=== PATIENT | male | born 1970 | race Two or more races ===

== ENCOUNTER 2022-08-22 13:05 | Emergency (ER) | payer MEDICAID, OTHER, SELFPAY ==
--- NOTE | ~2022-08-22 | XR_ITS ---
EXAMINATION: XR chest 2V CLINICAL INFORMATION: Reason for Exam Cough congestion COMPARISON: No prior chest x-ray available in our system for comparison at the time of this dictation. TECHNIQUE: XR chest 2V Lungs and Actie: There is infiltrate lower lobe seen best on lateral view presumably pneumonia. Pleura: Normal. Costophrenic angles are sharp. No pneumothorax. Heart: The heart is normal in size. Mediastinum: The mediastinum is within normal limits.. Bones: Skeletal structures included are normal for patient's age. XR/XR chest 2V IMPRESSION: Mild infiltrate over the left lower lobe posterior lung seen on lateral view presumably pneumonia, clinical correlation and follow-up recommended to ensure complete clearance and exclude underlying pathology.
--- NOTE | 2022-08-22 13:14 | ECG_ITS ---
Test Reason : cp Blood Pressure : / mmHG Vent. Rate : 076 BPM Atrial Rate : 076 BPM P-R Int : 160 ms QRS Dur : 082 ms QT Int : 406 ms P-R-T Axes : 021 -17 076 degrees QTc Int : 456 ms Normal sinus rhythm Nonspecific T wave abnormality Abnormal ECG No previous ECGs available Referred By: Generic ED Physician Electronically Signed By:KELLY ELLIS
[2022-08-22 15:09] VITALS: BP 192/82; PULSE 78; RESP 16; TEMP 36.3; O2SAT 98; BMI 34.2
--- NOTE | 2022-08-22 15:09 | ED.URI ---
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 Patient feels of the last few days he has had tactile fever. + chest discomfort with coughing. Cough is productive with yellow sputum. No leg swelling or leg pain, vomiting, diarrhea abdominal pain <Olga Ferreira NP - Last Filed: 08/22/22 18:07> Related Data Home Medications: Previous Rx's Medication Instructions Recorded benzonatate 200 mg capsule 200 mg PO TID PRN cough #20 caps 08/22/22 doxycycline monohydrate 100 mg 100 mg PO BID #20 caps 08/22/22 capsule <JOE Anderson - Last Filed: 08/22/22 15:14> Allergies/Adverse Reactions: Allergies Allergy/AdvReac Type Severity Reaction Status Date / Time No Known Allergies Allergy Verified 08/22/22 15:14 <JOE Anderson - Last Filed: 08/22/22 15:14> Review of Systems Review of Systems: Yes all other systems are reviewed and are negative <MAICO Silva Last Filed: 08/22/22 18:07> Constitutional: Constitutional: Reports no additional constitutional complaints, Denies body ache(s), Denies chills, Reports fever(s), Denies headache(s) and Denies weakness <Olga Ferreira NP - Last Filed: 08/22/22 18:07> Eyes: Eyes: Reports no additional eye complaints and Denies change in vision <Olga Ferreira NP - Last Filed: 08/22/22 18:07> ENT: Reports system reviewed and no additional complaints, except as documented, Denies dizziness, Denies headache(s), Reports nasal congestion, Denies nasal discharge and Denies neck pain <Olga Ferreira NP - Last Filed: 08/22/22 18:07> Cardiovascular: Cardiovascular: Reports no additional cardiovascular complaints, Reports chest pain (With coughing only), Denies leg edema and Denies dyspnea <Olga Ferreira NP - Last Filed: 08/22/22 18:07> Respiratory: Respiratory: Reports no additional respiratory complaints, Reports cough and Denies dyspnea <Olga Ferreira NP - Last Filed: 08/22/22 18:07> Gastrointestinal: Gastrointestinal: Reports no additional gastrointestinal complaints, Denies abdominal pain, Denies diarrhea, Denies nausea and Denies vomiting <Olga Ferreira NP - Last Filed: 08/22/22 18:07> Genitourinary: Genitourinary: Denies urinary incontinence <Olga Ferreira NP - Last Filed: 08/22/22 18:07> Musculoskeletal: Musculoskeletal: Reports no additional musculoskeletal complaints, Denies back pain, Denies arthralgias, Denies joint swelling, Denies neck pain, Denies numbness and Denies tingling <Olga Ferreira NP - Last Filed: 08/22/22 18:07> Integumentary/Breasts: Skin/Breast: Reports system reviewed and no additional complaints, except as docu and Denies rash <Olga Ferreira NP - Last Filed: 08/22/22 18:07> Neurologic: Reports system reviewed and no additional complaints, except as documented, Denies Abnormal speech present, Denies dizziness, Denies headache(s), Denies numbness, Denies tingling and Denies weakness <Olga Ferreira NP - Last Filed: 08/22/22 18:07> [facility] Past Medical History Attestation statement: The following information was validated with the patient. <Olga Ferreira NP - Last Filed: 08/22/22 18:07> Source: old records reviewed and nursing notes reviewed <Olga Ferreira NP - Last Filed: 08/22/22 18:07> Social History Social History: Social History Advance Directives: No Advance Directives Information Provided: No <JOE Anderson - Last Filed: 08/22/22 15:14> Physical Exam Vital Signs: Vital Signs: Last Vital Signs Temp 97.4 F 08/22/22 15:09 Pulse 78 08/22/22 17:35 Resp 16 08/22/22 17:35 BP 192/82 H 08/22/22 15:09 Pulse Ox 98 08/22/22 15:09 O2 Del Method 08/22/22 15:09 BMI result Body Mass Index 34.2 <JOE Anderson - Last Filed: 08/22/22 15:14> Vital Signs: Last Vital Signs Temp 97.4 F 08/22/22 15:09 Pulse 78 08/22/22 17:35 Resp 16 08/22/22 17:35 BP 192/82 H 08/22/22 15:09 Pulse Ox 98 08/22/22 15:09 O2 Del Method 08/22/22 15:09 BMI result Body Mass Index 34.2 <Olga Ferreira NP - Last Filed: 08/22/22 18:07> Const: General: cooperative, healthy appearing, comfortable and no acute distress <Olga Ferreira NP - Last Filed: 08/22/22 18:07> Orientation/consciousness: patient oriented x3 <Olga Ferreira NP - Last Filed: 08/22/22 18:07> Limitations: no limitations <Olga Ferreira NP - Last Filed: 08/22/22 18:07> HEENT: Head: Yes normal to inspection <Olga Ferreira NP - Last Filed: 08/22/22 18:07> Ears: hearing grossly normal bilaterally and TM's normal bilaterally <Olga Ferreira NP - Last Filed: 08/22/22 18:07> General nose exam: Normal external nose present <Olga Ferreira NP - Last Filed: 08/22/22 18:07> Face and sinus: Yes normal facial exam <Olga Ferreira NP - Last Filed: 08/22/22 18:07> Mouth: Normal oral and palatal mucosa present <Olga Ferreira NP - Last Filed: 08/22/22 18:07> Throat: Yes posterior oropharynx normal, Yes tonsils normal and Yes uvula midline <Olga Ferreira NP - Last Filed: 08/22/22 18:07> Eyes: General: appearance normal, both eyes and all related structures <Olga Ferreira NP - Last Filed: 08/22/22 18:07> Pupils: Equal, round and reactive pupils present <Olga Ferreira NP - Last Filed: 08/22/22 18:07> Neck: Neck: Yes normal visual inspection, Yes full ROM, Yes no lymphadenopathy and Yes no meningeal signs <Olga Ferreira NP - Last Filed: 08/22/22 18:07> Chest: Chest palpation & inspection: normal inspection of the chest and tenderness (Central chest tender to palpation) <Olga Ferreira NP - Last Filed: 08/22/22 18:07> Resp: Other: Mild expiratory wheezing <Olga Ferreira NP - Last Filed: 08/22/22 18:07> Effort & Inspection: normal respiratory effort <Olga Ferreira NP - Last Filed: 08/22/22 18:07> Cardio: Rate: regular rate <Olga Ferreira NP - Last Filed: 08/22/22 18:07> Rhythm: regular rhythm <Olga Ferreira NP - Last Filed: 08/22/22 18:07> Peripheral pulses: Peripheral pulses 2+ throughout <Olga Ferreira NP - Last Filed: 08/22/22 18:07> GI: Inspection: Yes normal to inspection <Olga Ferreira NP - Last Filed: 08/22/22 18:07> Palpation (GI): Soft to palpation and nontender <Olga Ferreira NP - Last Filed: 08/22/22 18:07> Auscultation: normal bowel sounds <Olga Ferreira NP - Last Filed: 08/22/22 18:07> Back/Spine/Pelvis: Thoracic/Lumbar Spine: thoracic and lumbar spine normal to inspection <Olga Ferreira NP - Last Filed: 08/22/22 18:07> Skin: General skin exam: no rashes or lesions noted <Olga Ferreira NP - Last Filed: 08/22/22 18:07> Neuro: General: patient oriented x3, no meningeal signs, no focal motor deficits and normal sensation to monofilament <Olga Ferreira NP - Last Filed: 08/22/22 18:07> Cranial nerves: Yes Equal, round and reactive pupils present <lOga Ferreira NP - Last Filed: 08/22/22 18:07> Cognition (Neuro): normal cognition <Olga Ferreira NP - Last Filed: 08/22/22 18:07> Speech: No Abnormal speech present <Olga Ferreira NP - Last Filed: 08/22/22 18:07> Gait exam (Neuro): Normal gait present <Olga Ferreira NP - Last Filed: 08/22/22 18:07> Motor exam (neuro): 5/5 motor strength present throughout <Olga Ferreira NP - Last Filed: 08/22/22 18:07> Extrem: General: Yes normal to inspection, Yes no pedal edema and Yes no calf tenderness <Olga Ferreira NP - Last Filed: 08/22/22 18:07> Course Course Course Narrative: RME- 15:15pm 52yoM c PMHx of CKD currently on hemodialysis on Monday//Saturdays who is presenting to the ED c c/o generalized fatigue/malaise, subjective fevers, nasal congestion/rhinorrhea with a cough with chest congestion for the past week worse today. has similar symptoms. He did not test himself for COVID. He denies recent travel. Reports he had dialysis on Monday. Plan: Therefore at this time patient is stable patient will be sent back to the waiting room to be evaluated [facility]. COVID/RSV/flu swab and chest x-ray ordered at this time. <JOE Anderson - Last Filed: 08/22/22 15:14> Reevaluation(s) Reevaluation #1: Influenza a is positive. Chest x-ray concerning for left upper lobe infiltrate. No lungs are with some mild expiratory wheezing which improved with albuterol. No hypoxia or tachypnea. Patient be discharged home with albuterol MDI, cough suppressant antibiotic. Reviewed worrisome signs and symptoms of when to return to the emergency room. Comfortable plan for discharge home. <Olga Ferreira NP - Last Filed: 08/22/22 18:07> Medications Administered Discontinued Medications Generic Name Dose Route Start Last Admin Trade Name Freq PRN Reason Stop Dose Admin Albuterol Sulfate 2 puff 08/22/22 17:13 08/22/22 17:34 Albuterol Sulfate 90 Mcg 8 Gm Inhaler INHALE 08/22/22 17:14 2 puff ONCE ONE Administration <JOE Anderson - Last Filed: 08/22/22 15:14> Medications Administered Discontinued Medications Generic Name Dose Route Start Last Admin Trade Name Freq PRN Reason Stop Dose Admin Albuterol Sulfate 2 puff 08/22/22 17:13 08/22/22 17:34 Albuterol Sulfate 90 Mcg 8 Gm Inhaler INHALE 08/22/22 17:14 2 puff ONCE ONE Administration <Olga Ferreira NP - Last Filed: 08/22/22 18:07> Medical Decision Making Medical Decision Making MDM Narrative: 52-year-old male with a history of end-stage renal disease on dialysis, hypertension and diabetes presents with URI symptoms for 1 week now with tactile fever and chest discomfort with coughing for the last few days. On arrival to chest is tender to palpation. Lungs with mild expiratory wheezing throughout. Abdomen soft nontender. No lower extremity swelling noted. Vitals are stable. Will send testing for flu, COVID, RSV. Will obtain chest x-ray. Patient will receive albuterol MDI 2 puffs <Olga Ferreira NP - Last Filed: 08/22/22 18:07> Differential Diagnosis Differential Diagnoses: The differential diagnosis associated with the presentation includes <Olga Ferreira NP - Last Filed: 08/22/22 18:07> Bronchitis, pneumonia, viral syndrome, influenza Low concern for PE with no tachypnea, no hypoxia, no tachycardia, no clinical findings concerning for DVT. <Olga Ferreira NP - Last Filed: 08/22/22 18:07> Lab Data MDM Lab Attestation statement: I reviewed the patient's lab results. <Olga Ferreira NP - Last Filed: 08/22/22 18:07> Labs: Lab Results 08/22/22 Range/Units 15:33 Influenza Type A (PCR) POSITIVE A (Negative) Influenza Type B (PCR) NEGATIVE (Negative) RSV RNA Qual (PCR) NEGATIVE (Negative) SARS-CoV-2 RNA (RT-PCR) NEGATIVE (Negative) <JOE Anderson - Last Filed: 08/22/22 15:14> Lab Results 08/22/22 Range/Units 15:33 Influenza Type A (PCR) POSITIVE A (Negative) Influenza Type B (PCR) NEGATIVE (Negative) RSV RNA Qual (PCR) NEGATIVE (Negative) SARS-CoV-2 RNA (RT-PCR) NEGATIVE (Negative) <Olga Ferreira NP - Last Filed: 08/22/22 18:07> Independent Interpretation I performed an independent interpretation of an: EKG and Plain X-Ray (I independently reviewed the x-ray which shows left upper lobe infiltrate) <Olga Ferreira NP - Last Filed: 08/22/22 18:07> Interpretation: Independently reviewed the EKG which shows normal sinus rhythm with a rate of 76, normal WI, normal QRS, normal QT, nonspecific T-wave abnormality <Olga Ferreira NP - Last Filed: 08/22/22 18:07> Radiology Impression Discussion of test interpretation with radiology: I have reviewed the radiologist's reading. <Olga Ferreira NP - Last Filed: 08/22/22 18:07> Radiologist Impression: IMPRESSION: Mild infiltrate over the left lower lobe posterior lung seen on lateral view presumably pneumonia, clinical correlation and follow-up recommended to ensure complete clearance and exclude underlying pathology. <Olga Ferreira NP - Last Filed: 08/22/22 18:07> Prescription Management I considered prescription management with: Antiviral <Olga Ferreira NP - Last Filed: 08/22/22 18:07> Patient influenza positive. Patient has had symptoms for 1 week so Tamiflu not indicated and I explained that would not be helpful at this time. <Olga Ferreira NP - Last Filed: 08/22/22 18:07> Discharge Plan Discharge Clinical Impression: Influenza, Pneumonia <JOE Anderson - Last Filed: 08/22/22 15:14> Patient Disposition: Home, Self-Care <JOE Anderson - Last Filed: 08/22/22 15:14> Instructions: Influenza (ED), Pneumonia (ED) <JOE Anderson - Last Filed: 08/22/22 15:14> Additional Instructions: Las pruebas de COVID y RSV son negativas. La radiograf?a de t?rax muestra neumon?a. La prueba de gripe es positiva, sin embargo, debido a la duraci?n de los s?ntomas, no califica para el medicamento contra la gripe. Use el inhalador cada 4 a 6 horas para la tos o sibilancias. Aumentar l?quidos, descansar Motrin alternativo, Tylenol para el dolor o la fiebre Testing for COVID and RSV are negative. Chest x-ray shows pneumonia. Testing for flu is positive, however due to your length of symptoms you do not qualify for the flu medication. Use the inhaler every 4-6 hours for cough/wheezing. Increase fluids,rest Alternate Motrin, Tylenol for pain or fever <JOE Anderson - Last Filed: 08/22/22 15:14> Prescriptions: New benzonatate 200 mg capsule 200 mg PO TID PRN (Reason: cough) Qty: 20 0RF doxycycline monohydrate 100 mg capsule 100 mg PO BID Qty: 20 0RF <JOE Anderson - Last Filed: 08/22/22 15:14> Referrals: Physician,None [Primary Care Provider] - <JOE Anderson - Last Filed: 08/22/22 15:14> Interventions: ED Discharge Assessment Last Done: 08/22/22 17:36 <JOE Anderson - Last Filed: 08/22/22 15:14> Discharge Date/Time: 08/22/22 17:36 <JOE Anderson - Last Filed: 08/22/22 15:14>
[2022-08-22 16:19] LABS: Influenza A PCR POSITIVE (Negative); Influenza B PCR NEGATIVE (Negative); Resp Syncy Virus RNA Qual PCR NEGATIVE (Negative); SARS COV2 PCR INHOUSE NEGATIVE (Negative)
[2022-08-22] MEDS: Albuterol Sulfate 90 MCG 8 GM INHALER 2 PUFF INHALE (17:34)
[2022-08-22 17:35] VITALS: PULSE 78; RESP 16; O2SAT 98
== END 2022-08-22 17:36 | disposition home or self-care (01) ==
PROVIDERS: Physician Assistant Medical; Emergency Provider Internal Medicine
DX: J10.00 Influenza due to other identified influenza virus with unspecified type of pneumonia (principal); Z20.822 Contact with and (suspected) exposure to COVID-19
CPT/HCPCS: 0241U; 71046; 93005; 94640; 94664; 99284

== ENCOUNTER 2023-01-27 15:46 | Emergency (ER) | payer MEDICAID, OTHER, SELFPAY ==
--- NOTE | ~2023-01-27 | CT_ITS ---
EXAMINATION: CT HEAD WITHOUT CONTRAST CLINICAL INFORMATION: Left vision loss. Headache COMPARISON: None. TECHNIQUE: Multidetector CT examination of the head is performed without contrast. This CT examination was performed using dose optimization techniques as appropriate, variously including the following: *Automated exposure control *Adjustment of mA and/or kV according to patient size (this includes techniques or standardized protocols for targeted exams where dose is matched to indication/reason for exam; i.e. extremities or head) *Use of iterative reconstruction technique DLP: 775 mGy-cm FINDINGS: There is no evidence of a recent intracranial hemorrhage or extra-axial collection. The midline structures are nondisplaced. The ventricles, cisterns, and sulci are within normal limits. There is no evidence of an intra-axial mass. There are no suspicious focal areas of abnormal brain attenuation. The delaney-white interface is within normal limits. There is no evidence of acute territorial infarct. There is extensive large and small vessel arterial calcification including small vessels in each orbit. No fluid level CT/CT head/brain wo IV con IMPRESSION: 1. There is no evidence of a recent intracranial hemorrhage. 2. No acute infarct. 3. Extensive arterial calcifications including small arterial branches in each orbit
--- NOTE | 2023-01-27 16:05 | ED_ITS ---
HPI - General Adult General Chief complaint: Eye Problems Stated complaint: Unable to see from L eye Time Seen by Provider: 01/27/23 17:15 Source: patient and family Mode of arrival: ambulatory Limitations: no limitations History of Present Illness HPI narrative: 53-year-old male with a history of insulin-dependent diabetes, end-stage renal disease on dialysis Monday and Fridays, hypertension presents to the ER with complaints of left eye blurry vision, left-sided headache for the last 3 days. Describes the blurry vision as gradual, central visual loss with peripheral normal. Patient denies any injury or trauma. 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 Baseline he does not requiring corrective lenses. He denies any associated photophobia, discharge, itching, crusting of the eye. No associated vomiting, weakness/numbness/tingling of the upper or lower extremities. Patient denies any history of AC therapy use or aspirin use. Related Data Previous Rx's Medication Instructions Recorded benzonatate 200 mg capsule 200 mg PO TID PRN cough #20 caps 08/22/22 doxycycline monohydrate 100 mg 100 mg PO BID #20 caps 08/22/22 capsule Allergies Allergy/AdvReac Type Severity Reaction Status Date / Time No Known Allergies Allergy Verified 01/27/23 16:06 Review of Systems Review of Systems: Yes all other systems are reviewed and are negative Constitutional: Constitutional: Reports no additional constitutional complaints, Denies body ache(s), Denies chills, Denies fever(s), Reports headache(s) and Denies weakness Eyes: Eyes: Reports no additional eye complaints, Reports change in vision, Denies eye discharge, Denies itchy eyes, Reports eye pain, Denies requires corrective lenses and Denies photophobia ENT: Reports system reviewed and no additional complaints, except as docume nted, Denies dizziness, Reports headache(s), Denies nasal congestion, Denies nasal discharge and Denies neck pain Cardiovascular: Cardiovascular: Reports no additional cardiovascular complaints, Denies chest pain, Denies leg edema and Denies dyspnea Respiratory: Respiratory: Reports no additional respiratory complaints, Denies cough and Denies dyspnea Gastrointestinal: Gastrointestinal: Reports no additional gastrointestinal complaints, Denies abdominal pain, Denies diarrhea, Denies nausea and Denies vomiting Genitourinary: Genitourinary: Denies urinary incontinence Musculoskeletal: Musculoskeletal: Reports no additional musculoskeletal complaints, Denies back pain, Denies arthralgias, Denies joint swelling, Denies neck pain, Denies numbness and Denies tingling Integumentary/Breasts: Skin/Breast: Reports system reviewed and no additional complaints, except as docu and Denies rash Neurologic: Reports system reviewed and no additional complaints, except as documented, Denies dizziness, Reports headache(s), Denies numbness, Denies ti ngling and Denies weakness Allergic/Immunologic: Allergic/Immunologic: Denies itchy eyes PMFSH Past Medical History Attestation statement: The following information was validated with the patient. Source: old records reviewed and nursing notes reviewed Social History Social History Smoked in Last 30 Days: No Use of substances other than those prescribed or required for medical reasons: No Advance Directives: No Advance Directives Information Provided: No Physical Exam ED Vital Signs: Vital Signs - 24 hr 01/27/23 16:07 01/27/23 18:25 Temperature 96.9 F Pulse Rate 78 Respiratory Rate 18 16 Blood Pressure 163/70 H 144/67 H Pulse Oximetry 98 98 Oxygen Delivery Method Room Air Room Air BMI result Body Mass Index 34.0 Const General: cooperative, healthy appearing and comfortable Orientation/consciousness: patient oriented x3 Limitations: no limitations HENMT Head: Yes normal to inspection and No Temporal artery tenderness present Ears: hearing grossly normal bilaterally and TM's normal bilaterally Throat: Yes posterior oropharynx normal, Yes tonsils normal and Yes uvula midline Eyes Other: IOP ( right eye 15, left eye 12) Left pupil non reactive-absent red light reflex. Right pupil 3mm reactive with normal red light reflex See charted visual acuity Visual field deficit w/ exception of left peripheral (lateral) General: appearance normal, both eyes and all related structures Alignment and Position: alignment normal Periorbital: periorbital findings normal Eyelids: Yes eyelids normal Conjunctivae: conjunctivae normal Sclerae: sclerae normal Corneas: corneas normal and fluorescein used (NO corneal FB or abrasion ) EOM: EOMs intact bilaterally Direct Ophthalmoscopy: no photophobia, decreased light reflex on the left and No photophobia Neck Neck: Yes normal visual inspection, Yes full ROM, Yes no lymphadenopathy and Yes no meningeal signs Chest Chest palpation & inspection: normal inspection of the chest Resp Effort & Inspection: normal respiratory effort Auscultation: clear to auscultation bilaterally Cardio Rate: regular rate Rhythm: regular rhythm Peripheral pulses: Peripheral pulses 2+ throughout GI Inspection: Yes normal to inspection Palpation (GI): Soft to palpation and nontender General: Yes no CVA tenderness Back/Spine/Pelvis Back: no CVA tenderness Thoracic/Lumbar Spine: thoracic and lumbar spine normal to inspection Skin General skin exam: no rashes or lesions noted Neuro General: patient oriented x3, moves all extremities and no meningeal signs Cranial nerves: Yes CN's II-XII intact bilaterally, Yes Bilaterally intact EOM present, Yes Nystagmus not present, Yes Normal facial strength present and Yes Midline tongue present Cognition (Neuro): normal cognition Gait exam (Neuro): Normal gait present Motor exam (neuro): 5/5 motor strength present throughout Sensory Exam: Normal double simultaneous stimulation for sensation Extrem General: Yes normal to inspection Course Course Course Narrative: This is an RME: Additional HPI, ROS, PE not included below will be deferred to primary provider. This is a 72-mhvj-pde-zimbabwean speaking male, with a past medical history of end stage renal disease on hemodialysis (Mon, Wed, Mon), diabetes, hypertension, presenting to the emergency department with complaints of left eye pain and loss of vision out of his left eye x 3 days. He states that 3 days ago he was washing his face and noticed that he had blurred vision. Denies trauma, injury to his eye. Vision has become progressively worsening. Describes the pain as pressure. He reports that he has blurred vision in the front, but clearer vision in his peripherals. He does not have an eye doctor. Admits to having some headaches and dizziness. Hx of cataracts with cataract surgery in [place] [facility] in . Pt with no neurological findings. Left pupil is constricted and irregular, nonreactive. Patient's symptoms ongoing for 3 days. Informed charge nurse who placed pt in room in main ER. Plan: CT head, basic labs, coags Reevaluation(s) Reevaluation #1: 3371-CT head shows IMPRESSION: 1. There is no evidence of a recent intracranial hemorrhage. ? 2. No acute infarct. ? 3. Extensive arterial calcifications including small arterial branches in each orbit Labs are unrermarkabkle. No corneal FB or abrasion on eye exam. Normal IOPS. D/w with Dr Leiva. Plan: d/w with Dr Hidalgo Reevaluation #2: Patient had ultrasound done at the bedside by Dr. Woodall. Patient has a vitreous hemorrhage on exam. No retinal detachment seen. I discussed this with the patient and his daughter. We have plans to follow up next week with ophthalmology. I reviewed elevation of head of the bed. I reviewed worrisome signs and symptoms of when to return to the emergency room. Comfortable plan for discharge home. Medications Administered Discontinued Medications Generic Name Dose Route Start Last Admin Trade Name Freq PRN Reason Stop Dose Admin Fluorescein Sodium 1 strip 01/27/23 17:32 01/27/23 17:49 Fluorescein Sodium Strip EYE-LEFT 01/27/23 17:33 1 strip ONCE ONE Administration Tetracaine HCl 1 drop 01/27/23 17:32 01/27/23 17:49 Tetracaine Hcl/Pf 0.5% Oph Jailene 4 Ml Drops EYE-LEFT 01/27/23 17:33 1 drop ONCE ONE Administration Medical Decision Making Medical Decision Making [facility] Narrative: This is a 53-year-old male with extensive medical history who presents to the ER with complaints of left eye blurry vision with posterior eye pain for the last 3 days. On exam patient with nonreactive left pupil, absent red light reflex and visual field deficit. Unable to visualize anterior chamber of the eye. Otherwise normal neuro exam. 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 Likely vitreius hemorrhage. Re commends retinal ultrasound at the bedside, elevating the head of bed, checking coags and normotensive blood pressures. If IOP normal then follow-up outpatient with Ophthalmology. Increasing pain patient should return to the emergency room Lab Data MDM Lab Attestation statement: I reviewed the patient's lab results. 01/27/23 16:34 01/27/23 16:34 Labs: Lab Results 01/27/23 01/27/23 01/27/23 Range/Units 16:34 16:34 16:34 WBC 6.4 (4.8-10.8) X10*3/uL RBC 4.57 L (4.60-5.80) X10*6/uL Hgb 13.5 L (14.0-18.0) g/dl Hct 40.8 L (42.0-52.0) % MCV 89.3 (80.0-98.0) fL MCH 29.5 (27.0-33.0) pg MCHC 33.1 (31.0-36.0) g/dl RDW 13.2 (11.0-16.0) % Plt Count 197 (160-400) X10*3/uL MPV 11.1 (9.4-12.4) fL Immature Gran % (Auto) 0.2 (0.0-0.4) % Neut % (Auto) 65.4 (45-73) % Lymph % (Auto) 24.5 (20-40) % Sterling % (Auto) 6.6 (2-11) % Eos % (Auto) 2.7 (0-4) % Baso % (Auto) 0.6 (0-2) % Lymph # (Auto) 1.6 (1.2-4.9) X10*3/uL Sterling # (Auto) 0.4 (0.1-1.2) X10*3/uL Eos # (Auto) 0.2 (0.0-0.4) X10*3/uL Baso # (Auto) 0.0 (0.0-0.2) X10*3/uL Abs Immat Gran (auto) 0.01 (0.00-0.03) X10*3/uL Absolute Neuts (auto) 4.2 (2.0-8.3) x10*3/uL Absolute Nucleated RBC 0.000 (0.0-0.012) X10*3/uL Nucleated RBC % (auto) 0.0 (0.0-0.2) /100WBC ESR (0-15) MM/HR PT 10.5 (10.0-13.1) SEC INR 0.9 (0.9-1.1) APTT 30.3 (26.0-36.4) SEC Sodium 137 (135-145) mmol/L Potassium 4.4 (3.3-5.1) mmol/L Chloride 93 L (96-108) mmol/L Carbon Dioxide 30 H (22-29) mmol/L Anion Gap 18 (12-20) BUN 30 H (9-16) mg/dL Creatinine 6.35 H* (0.5-1.4) mg/dL Estim Creat Clear Calc 15.3 Estimated GFR 9 Random Glucose 235 H (60-115) mg/dL Calcium 9.0 (8.4-10.2) mg/dL Total Bilirubin 0.8 (0.0-1.0) mg/dL Direct Bilirubin 0.2 (0.0-0.5) mg/dL AST 14 (5-37) U/L ALT 11 (0-40) U/L Alkaline Phosphatase 87 (39-117) U/L C-Reactive Protein 0.33 (< or = 0.50) mg/dL Total Protein 8.3 H (6.5-8.0) g/dL Albumin 4.0 (3.5-5.0) g/dL 01/27/23 Range/Units 16:34 WBC (4.8-10.8) X10*3/uL RBC (4.60-5.80) X10*6/uL Hgb (14.0-18.0) g/dl Hct (42.0-52.0) % MCV (80.0-98.0) fL MCH (27.0-33.0) pg MCHC (31.0-36.0) g/dl RDW (11.0-16.0) % Plt Count (160-400) X10*3/uL MPV (9.4-12.4) fL Immature Gran % (Auto) (0.0-0.4) % Neut % (Auto) (45-73) % Lymph % (Auto) (20-40) % Sterling % (Auto) (2-11) % Eos % (Auto) (0-4) % Baso % (Auto) (0-2) % Lymph # (Auto) (1.2-4.9) X10*3/uL Sterling # (Auto) (0.1-1.2) X10*3/uL Eos # (Auto) (0.0-0.4) X10*3/uL Baso # (Auto) (0.0-0.2) X10*3/uL Abs Immat Gran (auto) (0.00-0.03) X10*3/uL Absolute Neuts (auto) (2.0-8.3) x10*3/uL Absolute Nucleated RBC (0.0-0.012) X10*3/uL Nucleated RBC % (auto) (0.0-0.2) /100WBC ESR 28 H (0-15) MM/HR PT (10.0-13.1) SEC INR (0.9-1.1) APTT (26.0-36.4) SEC Sodium (135-145) mmol/L Potassium (3.3-5.1) mmol/L Chloride (96-108) mmol/L Carbon Dioxide (22-29) mmol/L Anion Gap (12-20) BUN (9-16) mg/dL Creatinine (0.5-1.4) mg/dL Estim Creat Clear Calc Estimated GFR Random Glucose (60-115) mg/dL Calcium (8.4-10.2) mg/dL Total Bilirubin (0.0-1.0) mg/dL Direct Bilirubin (0.0-0.5) mg/dL AST (5-37) U/L ALT (0-40) U/L Alkaline Phosphatase (39-117) U/L C-Reactive Protein (< or = 0.50) mg/dL Total Protein (6.5-8.0) g/dL Albumin (3.5-5.0) g/dL Independent Interpretation I performed an independent interpretation of an: CT Scan Radiology Impression Discussion of test interpretation with radiology: I have reviewed the radiologist's reading. Radiologist Impression: [address] [address] [address] Scan Report Signed Patient: René Collier MR#: [id number] : 1970 Acct:[id number] Age/Sex: 53 / M ADM Date: 01/27/23 Loc: HO.ED Attending Dr: Ordering Physician: Angeles Serrano Date of Service: 01/27/23 Procedure(s): CT head/brain wo IV con Accession Number(s): [id number] cc: Angeles Serrano~ EXAMINATION: CT HEAD WITHOUT CONTRAST CLINICAL INFORMATION: Left vision loss. Headache COMPARISON: None. TECHNIQUE: Multidetector CT examination of the head is performed without contrast. This CT examination was performed using dose optimization techniques as appropriate, variously including the following: *Automated exposure control *Adjustment of mA and/or kV according to patient size (this includes techniques or standardized protocols for targeted exams where dose is matched to indication/reason for exam; i.e. extremities or head) *Use of iterative reconstruction technique DLP: 775 mGy-cm FINDINGS: There is no evidence of a recent intracranial hemorrhage or extra-axial collection. The midline structures are nondisplaced. The ventricles, cisterns, and sulci are within normal limits. There is no evidence of an intra-axial mass. There are no suspicious focal areas of abnormal brain attenuation. The delaney-white interface is within normal limits. There is no evidence of acute territorial infarct. There is extensive large and small vessel arterial calcification including small vessels in each orbit. No fluid level ? CT/CT head/brain wo IV con IMPRESSION: 1. There is no evidence of a recent intracranial hemorrhage. ? 2. No acute infarct. ? 3. Extensive arterial calcifications including small arterial branches in each orbit Independent Historian Clinical information obtained from an independent historian. History obtained from or confirmed by: Other (daughter) Discharge Plan Discharge Clinical Impression: Vitreous hemorrhage Patient Disposition: Home, Self-Care Instructions: Blurred Vision (ED) Additional Instructions: Your ultrasound shows an hemorrhage of the vitreous behind her left eye. We spoke to the eye doctor on-call. He recommends elevation of the head of the bed at 30 degrees. Recommend limiting strenuous activity. He recommends following up with him next week in the office for re-evaluation. If over the weekend you develop increased and pain in the eye we recommend to come back to the emergency room immediately Patiño ecograf?a muestra shaina hemorragia del v?treo detr?s de patiño awilda jonathon. Hablamos con el oftalm?logo de ryan. Recomienda la elevaci?n de la cabecera de la cama a 30 grados. Recomendar limitar la actividad extenuante. Recomienda hacer un seguimiento con ?l la pr?xima semana en la oficina para shaina reevalua ci?n. Si lilli el fin de semana desarrolla aumento y dolor en el awilda, le recomendamos que regrese a la dilcia de emergencias de inmediato. Prescriptions: No Action benzonatate 200 mg capsule 200 mg PO TID PRN (Reason: cough) Qty: 20 0RF doxycycline monohydrate 100 mg capsule 100 mg PO BID Qty: 20 0RF Referrals: Kunal Payton [Physician] - 5 days Interventions: ED Discharge Assessment Last Done: 01/27/23 19:56 Discharge Date/Time: 01/27/23 19:56 Print Language: Eritrean
[2023-01-27 16:07] VITALS: BP 163/70; PULSE 78; RESP 18; TEMP 36.1; O2SAT 98; BMI 34.0
[2023-01-27 16:38] LABS: MANUAL DIFF FLAG NO
[2023-01-27 16:42] LABS: Basophils Percent Auto 0.6 % (0-2); Eosinophils Absolute Auto 0.2 X10*3/uL (0.0-0.4); Eosinophils Percent Auto 2.7 % (0-4); Hematocrit 40.8 % (42.0-52.0); Hemoglobin 13.5 g/dl (14.0-18.0); Imm Gran Abs Auto 0.01 X10*3/uL (0.00-0.03); Imm Gran Pct Auto 0.2 % (0.0-0.4); Lymphocytes Absolute Auto 1.6 X10*3/uL (1.2-4.9); Lymphocytes Percent Auto 24.5 % (20-40); Mean Corpuscular HGB Conc 33.1 g/dl (31.0-36.0); Mean Corpuscular Hemoglobin 29.5 pg (27.0-33.0); Mean Corpuscular Volume 89.3 fL (80.0-98.0); Mean Platelet Volume 11.1 fL (9.4-12.4); Monocytes Absolute Auto 0.4 X10*3/uL (0.1-1.2); Monocytes Percent Auto 6.6 % (2-11); Neutrophils Absolute Auto 4.2 x10*3/uL (2.0-8.3); Neutrophils Percent Auto 65.4 % (45-73); Platelet Count 197 X10*3/uL (160-400); Red Blood Count 4.57 X10*6/uL (4.60-5.80); Red Cell Distribution Width 13.2 % (11.0-16.0); White Blood Count 6.4 X10*3/uL (4.8-10.8)
[2023-01-27 16:48] LABS: INTERNATIONAL NORM RATIO 0.9 (0.9-1.1); Prothrombin Time 10.5 SEC (10.0-13.1)
[2023-01-27 16:51] LABS: Partial Thromboplastin Time 30.3 SEC (26.0-36.4)
[2023-01-27 17:29] LABS: Alanine Aminotransferase 11 U/L (0-40); Alkaline Phosphatase 87 U/L (39-117); Anion Gap 18 (12-20); Aspartate Amino Transferase 14 U/L (5-37); Bilirubin Direct 0.2 mg/dL (0.0-0.5); Bilirubin Total 0.8 mg/dL (0.0-1.0); Blood Urea Nitrogen 30 mg/dL (9-16); Carbon Dioxide 30 mmol/L (22-29); Chloride 93 mmol/L (96-108); Creatinine Clr Calc Pharmacy 15.3; Estimated Glomerular Filt Rate 9; Glucose Random 235 mg/dL (60-115); Potassium 4.4 mmol/L (3.3-5.1); Sodium 137 mmol/L (135-145); Total Protein 8.3 g/dL (6.5-8.0)
[2023-01-27] MEDS: Fluorescein Sodium STRIP 1 STRIP EYE-LEFT (17:49)
[2023-01-27] MEDS: Tetracaine HCl/PF 0.5% Oph Sol 4 ML DROPS 1 DROP EYE-LEFT (17:49)
[2023-01-27 18:11] LABS: C Reactive Protein 0.33 mg/dL (< or = 0.50)
[2023-01-27 18:25] VITALS: BP 144/67; RESP 16; O2SAT 98
[2023-01-27 18:27] LABS: Erythrocyte Sedimentation Rate 28 MM/HR (0-15)
--- NOTE | 2023-01-27 19:57 | PC.NURSE ---
pt ambulatory, with daughter, gait steady
== END 2023-01-27 19:56 | disposition home or self-care (01) ==
PROVIDERS: Nurse Practitioner Family; Physician Assistant Medical; Emergency Provider Student in an Organized Health Care Education/Training Program
DX: H43.12 Vitreous hemorrhage, left eye (principal); R51.9 Headache, unspecified; Z79.899 Other long term (current) drug therapy
CPT/HCPCS: 36415; 70450; 80048; 80076; 85025; 85610; 85652; 85730; 86140; 99284

== ENCOUNTER 2023-02-26 00:12 | Emergency (ER) | payer MEDICAID, OTHER, SELFPAY ==
[2023-02-26 00:19] VITALS: BP 237/45; PULSE 75; RESP 18; TEMP 36.4; O2SAT 98; BMI 34.2
[2023-02-26 00:22] VITALS: BP 188/73
--- NOTE | 2023-02-26 01:20 | PC.NURSE ---
pt h/o uncontrolled DMII and HTN no apparent distress family member at bedside aox4
--- NOTE | 2023-02-26 01:41 | ED.EYEPROB ---
HPI - Eye Problem General Chief complaint: Eye Problems Stated complaint: Blood in left eye Time Seen by Provider: 02/26/23 01:23 Source: patient and family Mode of arrival: ambulatory Limitations: no limitations History of Present Illness HPI Narrative: 53 yo male presenting with left eye redness and irritation that started yesterday when he was at home. he states there is a large bloody portion on the white part of his eye. he denies any eye pain. no FB sensation. no vision changes. no recent vomiting, coughing episodes or excessive sneezing. MD chief complaint: eye redness Onset (ago): day(s) (1) Onset description: sudden Duration: constant Location: left eye Eye Symptoms: redness Place: home Severity: mild If Pain, Quality: aching Associated symptoms: none Treatments Prior to Arrival: none Related Data Previous Rx's Medication Instructions Recorded benzonatate 200 mg capsule 200 mg PO TID PRN cough #20 caps 08/22/22 doxycycline monohydrate 100 mg 100 mg PO BID #20 caps 08/22/22 capsule Allergies Allergy/AdvReac Type Severity Reaction Status Date / Time No Known Allergies Allergy Verified 02/26/23 00:22 Review of Systems Review of Systems: Yes all other systems are reviewed and are negative [facility] Social History Social History Alcohol intake: unknown Use of substances other than those prescribed or required for medical reasons: No Advance Directives: No Advance Directives Information Provided: Yes Physical Exam Vital Signs: Vital Signs: Last Vital Signs Temp 97.9 F 02/26/23 01:49 Pulse 74 02/26/23 01:49 Resp 19 02/26/23 01:49 BP 194/52 H 02/26/23 01:49 Pulse Ox 98 02/26/23 01:49 O2 Del Method Room Air 02/26/23 01:49 BMI result Body Mass Index 34.2 Appearance: Alert. Oriented X3. No acute distress. HEENT: left conjunctiva with injection and a moderate sized subconjuncitval hemorrhage at 12 oclock, no corneal abrasions on fluroscene exam. perrla, eomi. normal inspection of lids and associated structures CVS: Normal heart rate and rhythm. Pulses normal. Respiratory: No respiratory distress. Skin: Skin warm and dry. Normal skin color. Normal skin turgor. No rashes. Extremities: normal insepction Neuro: Oriented X 3. No motor deficit. No sensory deficit. Medications Administered Discontinued Medications Generic Name Dose Route Start Last Admin Trade Name Jessica PRN Reason Stop Dose Admin Fluorescein Sodium 1 strip 02/26/23 01:23 02/26/23 01:38 Fluorescein Sodium Strip EYE-LEFT 02/26/23 01:24 1 strip ONCE ONE Administration Tetracaine HCl 1 drop 02/26/23 01:23 02/26/23 01:38 Tetracaine Hcl/Pf 0.5% Oph Jailene 4 Ml Drops EYE-LEFT 02/26/23 01:24 1 drop ONCE ONE Administration Medical Decision Making Medical Decision Making MDM Narrative: 53 yo male presenting with nontraumatic left eye redness and irritation. exam benign and c/w subconjuctival hemorrhage. no abrasions or FB. no vision changes. patient counseled. bp significantly elevated but he is asymptomatic. family member reports always higher in the hospitla or dr office. stable for d/c home Differential Diagnosis Differential Diagnoses: The differential diagnosis associated with the presentation includes conjuncitivits, subjunctivial hemorrhage, chemosis, stye, foreign body, corneal abrasion External Record Review External record reviewed: Office record, Outpatient record, Prior outpatient labs and Prior outpatient radiology vs reviewed, chornically elevated BP Chronic Conditions Patient?s care impacted by: Hypertension Critical Care Time Critical Care Time Critical Care Time: No Discharge Plan Discharge Clinical Impression: Subconjunctival hemorrhage Patient Disposition: Home, Self-Care Instructions: Subconjunctival Hemorrhage (ED) Additional Instructions: your exam was unremarkable recommend over the counter Visine drops as needed follow up with your eye doctor as needed Prescriptions: No Action benzonatate 200 mg capsule 200 mg PO TID PRN (Reason: cough) Qty: 20 0RF doxycycline monohydrate 100 mg capsule 100 mg PO BID Qty: 20 0RF Interventions: ED Discharge Assessment Last Done: 02/26/23 01:53 Discharge Date/Time: 02/26/23 01:53 Print Language: Liberian
[2023-02-26 01:49] VITALS: BP 194/52; PULSE 74; RESP 19; TEMP 36.6; O2SAT 98
--- NOTE | 2023-02-26 01:51 | PC.NURSE ---
provider aware of pt's high blood pressure and is approving his discharge as he is asymptomatic
--- NOTE | 2023-02-26 01:58 | PC.NURSE ---
Discharge instructions given and explained to pt Ambulates safely/independently No apparent distress aox4 all of pt's questions answered
== END 2023-02-26 01:53 | disposition home or self-care (01) ==
LOC: HO.ED 01:45
PROVIDERS: Emergency Provider Internal Medicine
DX: H11.32 Conjunctival hemorrhage, left eye (principal); Z79.899 Other long term (current) drug therapy
CPT/HCPCS: 99283; 99284

== ENCOUNTER 2023-08-15 13:54 | Inpatient (IN) | payer MEDICAID, OTHER, SELFPAY ==
[2023-08-15] VITALS (7 sets, daily range): BP systolic 121–204; BP diastolic 51–86; PULSE 83–90; RESP 12–20; TEMP 37.4–38.2; O2SAT 95–98; BMI 33.9
--- NOTE | 2023-08-15 | ECG_ITS ---
Test Reason : HYPERKALEMIA Blood Pressure : / mmHG Vent. Rate : 087 BPM Atrial Rate : 087 BPM P-R Int : 146 ms QRS Dur : 074 ms QT Int : 370 ms P-R-T Axes : 026 -13 050 degrees QTc Int : 445 ms Normal sinus rhythm Normal ECG When compared with ECG of 22-AUG-2022 13:29, Nonspecific T wave abnormality, improved in Lateral leads Referred By: Kevin Romero Electronically Signed By:KELLY ELLIS
--- NOTE | ~2023-08-15 | MR_ITS ---
EXAMINATION: MRI of the left foot with and without contrast INDICATION: Diabetic ulcer, question osteomyelitis COMPARISON: None TECHNIQUE: Multiplanar MR imaging was obtained through the left foot on a 1.5 Yanira magnet before and after intravenous administration of 10 mL Gadavist. FINDINGS: Within the midfoot, there is extensive degenerative arthropathy with osseous destruction, disorganization, fragmentation, and bone loss, compatible with neuropathic arthropathy. This is most notable at the level of the talonavicular and naviculocuneiform joints with multiple dorsally displaced osseous fragments and significant bone loss at both the navicular talar head. There is dorsal displacement of the navicular fragments relative to the talar head. Marked degenerative arthritis is also evident at the tarsometatarsal joints with dorsal displacement of the third, fourth, and fifth metatarsal bases relative to the cuneiforms and cuboid. There is significant periarticular edema signal within the talus, anterior process of the calcaneus, dorsal margin of the cuboid, remaining portion of the navicular, and portions of both the middle and lateral cuneiform. These findings are favored to be degenerative in nature. There is mild associated enhancement on postcontrast images. A small effusion is present at the talonavicular joint and at the subtalar joint. There is a wound in the plantar aspect of the midfoot at the level of the cuboid. Foci of subcutaneous gas extending to the plantar soft tissues distal to this, remaining superficial to the underlying plantar musculature. No discrete fluid containing abscess is identified in this region, though hyperenhancement in the subcutaneous soft tissues is consistent with cellulitis. There is marked fatty atrophy of the intrinsic foot musculature with increased signal intensity on T2 weighted images as can be seen with diabetic neuropathy. Extensor, medial flexor, and peroneal tendons are intact without appreciable tears or tenosynovitis. MR/MR foot LT wo/w con IMPRESSION: 1. Soft tissue wound at the plantar aspect of the midfoot at the level of the cuboid with underlying cellulitis and subcutaneous gas. No fluid containing abscess. 2. Marked neuropathic arthropathy in the midfoot. Abnormal marrow signal in this region is favored to be due to the degenerative changes as opposed to superimposed osteomyelitis.
--- NOTE | ~2023-08-15 | IR_ITS ---
PROCEDURE: IR INSERTION OF TUNNEL CATHETER CLINICAL INFORMATION: Infection. Need for long-term IV antibiotics COMPARISON: None available. TECHNIQUE/FINDINGS: All elements of maximal sterile barrier technique followed including use of cap, mask, sterile gown, sterile gloves, a sterile full body drape and hand hygiene. Also followed skin preparation with 2% chlorhexidine for cutaneous antisepsis, and sterile ultrasound preparation with sterile gel and probe cover when applicable. Preliminary ultrasound demonstrates partially occluded right internal jugular vein. Nevertheless, it was elected to attempt placement on this side on account of left arm AV fistula. A patent portion of the right internal jugular vein was accessed under direct ultrasound guidance with permanent recordings and direct visualization of the needle entry into the vessel lumen. A 0.018 guidewire was negotiated through the occlusion into the level of the IVC. A peel-away sheath was placed. A site inferolateral to the IJ access site was selected and after making a small dermatotomy, a single lumen tunneled Mendez catheter was tunneled from this site to the IJ access site and inserted through the peel-away sheath. The tip was positioned at the cavoatrial junction and this was confirmed with a fluoroscopic image. The catheter aspirated and flushed well and was terminally flushed with heparin. The external portion of the catheter was affixed with a 2-0 Prolene suture at the tunnel entry site. The IJ access site was closed with Dermabond. Dressings were applied. Patient tolerated the procedure well. IR/IR us guide venous access IMPRESSION: Placement of single-lumen tunneled central venous catheter (Mendez) via right IJ approach. Catheter tip is at the cavoatrial junction. Catheter is ready for immediate use
--- NOTE | ~2023-08-15 | XR_ITS ---
EXAMINATION: XR ANKLE, LEFT XR FOOT, LEFT CLINICAL INFORMATION: Diabetic ulcer at the plantar aspect of the left foot. COMPARISON: None available. TECHNIQUE: AP, lateral, and mortise views of the left ankle and AP, lateral, and oblique views of the left foot. FINDINGS: LEFT ANKLE: Soft tissues are swollen at the ankle and foot. There is minimal talocrural osteoarthritis with mild nonuniform joint space narrowing. Mild osteoarthritis is also present in the subtalar joint. Charcot arthropathy at the midfoot as detailed below. Calcific atherosclerosis is present in the ankle. Moderate sized enthesopathic spurs are present at the Achilles tendon insertion and plantar fascial origin on the calcaneus. LEFT FOOT: There is osseous destruction, fragmentation, sclerosis, and subluxation at the midfoot centered around the talonavicular joint, consistent with Charcot arthropathy. The navicular and talar head are fragmented with dorsal and medial displacement of fracture fragments. There is loss of the plantar arch. No focal osteolysis is identified. Soft tissues are swollen. Calcific atherosclerosis is present throughout the foot. There is mild multifocal osteoarthritis at the interphalangeal joints and at the great toe MTP joint. Additional osteoarthritis is present in the 4th and 5th TMT joints. XR/XR ankle LT min 3V IMPRESSION: 1. Charcot arthropathy at the left midfoot centered around the talonavicular joint with fragmentation of the navicular and talar head. 2. No radiographic findings of osteomyelitis.
--- NOTE | ~2023-08-15 | IR_ITS ---
PROCEDURE: IR INSERTION OF TUNNEL CATHETER CLINICAL INFORMATION: Infection. Need for long-term IV antibiotics COMPARISON: None available. TECHNIQUE/FINDINGS: All elements of maximal sterile barrier technique followed including use of cap, mask, sterile gown, sterile gloves, a sterile full body drape and hand hygiene. Also followed skin preparation with 2% chlorhexidine for cutaneous antisepsis, and sterile ultrasound preparation with sterile gel and probe cover when applicable. Preliminary ultrasound demonstrates partially occluded right internal jugular vein. Nevertheless, it was elected to attempt placement on this side on account of left arm AV fistula. A patent portion of the right internal jugular vein was accessed under direct ultrasound guidance with permanent recordings and direct visualization of the needle entry into the vessel lumen. A 0.018 guidewire was negotiated through the occlusion into the level of the IVC. A peel-away sheath was placed. A site inferolateral to the IJ access site was selected and after making a small dermatotomy, a single lumen tunneled Mendez catheter was tunneled from this site to the IJ access site and inserted through the peel-away sheath. The tip was positioned at the cavoatrial junction and this was confirmed with a fluoroscopic image. The catheter aspirated and flushed well and was terminally flushed with heparin. The external portion of the catheter was affixed with a 2-0 Prolene suture at the tunnel entry site. The IJ access site was closed with Dermabond. Dressings were applied. Patient tolerated the procedure well. IR/IR cvc insert central tunnel IMPRESSION: Placement of single-lumen tunneled central venous catheter (Mendez) via right IJ approach. Catheter tip is at the cavoatrial junction. Catheter is ready for immediate use
--- NOTE | ~2023-08-15 | US_ITS ---
EXAMINATION: US NONINVASIVE ASSESSMENT OF THE LEFT LOWER EXTREMITY WITH ARTERIAL DUPLEX AND ANKLE BRACHIAL INDICES (ABIS) CLINICAL INFORMATION: Nonhealing ulcer COMPARISON: None available. TECHNIQUE: Duplex Doppler techniques with waveform analysis and measurement of velocities in the common femoral, profunda femoris, superficial femoral, popliteal and tibial arteries were performed. In addition, ankle pulse volume recordings, ankle pressure measurements and ankle brachial indices were obtained of the left lower extremity arterial system. The patient has a left upper extremity AV fistula now such a left upper extremity brachial blood pressure could not be obtained. The left lower extremity ankle-brachial index was calculated using right brachial pressure. Additionally, blood pressures at the posterior tibial and dorsalis pedis levels were greater than 200 mmHg bilaterally which limits the accuracy of ADY. The study was performed only at rest. FINDINGS: NONINVASIVE ASSESSMENT OF THE ARTERIES OF BILATERAL LOWER EXTREMITIES WITH ABIs: RIGHT LEG: Ankle-brachial index: 1.13 Ankle PVR: Abnormal LEFT LEG: Ankle-brachial index: 1.16 Left ankle PVR: Abnormal, lack of dicrotic notch ADY Reference: 0.9 - 1.4 = normal - no significant arterial disease 0.7 - 0.89 = mild peripheral arterial disease 0.51 - 0.69 = moderate peripheral arterial disease ? 0.50 = severe peripheral arterial disease LEFT LOWER EXTREMITY DUPLEX ULTRASOUND: Common femoral artery: 127.4 cm/s. Diastolic flow reversal: Present Profunda femoris artery: 133.3 cm/s. Diastolic flow reversal: Present Superficial femoral artery (proximal): 97.8 cm/s. Diastolic flow reversal: Present Superficial femoral artery (mid): 97.1 cm/s. Diastolic flow reversal: Present Superficial femoral artery (distal): 100 cm/s. Diastolic flow reversal: Present Popliteal artery: 110 cm/s Diastolic flow reversal: Present Posterior tibial artery: 20 cm/s Diastolic flow reversal: Absent Peroneal artery: 102.8 cm/s Diastolic flow reversal: Present Proximal anterior tibial artery: 100.4 cm/s Diastolic flow reversal: Absent Dorsalis pedis: 93 cm/s Diastolic flow reversal: Absent US/US arterial duplex LE LT IMPRESSION: ADY measurements are likely inaccurate given lower extremity pressures are greater than 200 mmHg, possibly noncompressible. Evaluation with toe brachial indices could be of use. Within the left lower extremity there is normal multiphasic flow to the level of the popliteal artery. Within the peroneal artery there is multiphasic flow. There is decreased flow velocity within the posterior tibial artery and loss of diastolic flow reversal within the posterior tibial, anterior tibial, and dorsalis pedis arteries suggesting runoff disease.
--- NOTE | ~2023-08-15 | XR_ITS ---
EXAMINATION: XR ANKLE, LEFT XR FOOT, LEFT CLINICAL INFORMATION: Diabetic ulcer at the plantar aspect of the left foot. COMPARISON: None available. TECHNIQUE: AP, lateral, and mortise views of the left ankle and AP, lateral, and oblique views of the left foot. FINDINGS: LEFT ANKLE: Soft tissues are swollen at the ankle and foot. There is minimal talocrural osteoarthritis with mild nonuniform joint space narrowing. Mild osteoarthritis is also present in the subtalar joint. Charcot arthropathy at the midfoot as detailed below. Calcific atherosclerosis is present in the ankle. Moderate sized enthesopathic spurs are present at the Achilles tendon insertion and plantar fascial origin on the calcaneus. LEFT FOOT: There is osseous destruction, fragmentation, sclerosis, and subluxation at the midfoot centered around the talonavicular joint, consistent with Charcot arthropathy. The navicular and talar head are fragmented with dorsal and medial displacement of fracture fragments. There is loss of the plantar arch. No focal osteolysis is identified. Soft tissues are swollen. Calcific atherosclerosis is present throughout the foot. There is mild multifocal osteoarthritis at the interphalangeal joints and at the great toe MTP joint. Additional osteoarthritis is present in the 4th and 5th TMT joints. XR/XR foot LT min 3V IMPRESSION: 1. Charcot arthropathy at the left midfoot centered around the talonavicular joint with fragmentation of the navicular and talar head. 2. No radiographic findings of osteomyelitis.
--- NOTE | 2023-08-15 14:25 | ED_ITS ---
HPI - General Adult General Chief complaint: General Medical Stated complaint: L Foot Infection ? Spreading Time Seen by Provider: 08/15/23 17:02 Source: patient and family Mode of arrival: ambulatory Limitations: no limitations History of Present Illness HPI narrative: Patient comes to the emergency room complaining of left-sided foot pain. Patient states that he is known to be diabetic, has had an ulcer for about a week, patient has not been seen by the wound clinic. Patient states that his the cares of the wound. However, it started out as a small ulcer, now the ulcer is becoming vague, now draining purulent and foul-smelling discharge. Patient denies fever chills. Related Data Previous Rx's Medication Instructions Recorded benzonatate 200 mg capsule 200 mg PO TID PRN cough #20 caps 08/22/22 doxycycline monohydrate 100 mg 100 mg PO BID #20 caps 08/22/22 capsule Allergies Allergy/AdvReac Type Severity Reaction Status Date / Time No Known Allergies Allergy Verified 08/15/23 14:27 Review of Systems 2 Review of Systems: Constitutional : No Weight loss, No Fever, No Chills, No Night Sweats, No Fatigue, No Malaise ENT/Mouth : No Hearing loss, No Ear Pain, No Nasal Congestion, No Sinus Pain, No Hoarseness, No sore throat, No Rhinorrhea, No Swallowing Difficulty Eyes: No Eye Pain, No Swelling, No Redness, No Foreign Body, No Discharge, No Vision Changes Cardiovascular : No Chest Pain, No SOB, No Dyspnea on Exertion, No Orthopnea, No Edema, No Palpitations Respiratory : No Cough, No Sputum, No Wheezing, No Smoke Exposure, No Dyspnea Gastrointestinal : No Nausea, No Vomiting, No Diarrhea, No Constipation, No abdominal Pain, No Hematochezia, No Melena Genitourinary : no irregular bleeding, No Dysuria, No Urinary Frequency, No Hematuria, No Urinary Incontinence, No Urgency, No Flank Pain, No Urinary Flow Changes, No Hesitancy Musculoskeletal : No joint pain, No Myalgias, No Joint Swelling Skin : Patient complaining of open ulcer on the plantar aspect of the left foot draining foul-smelling fluid Neuro : No Weakness, No Numbness, No Paresthesias, No Loss of Consciousness, No Dizziness, No Headache Psych : No Anxiety/Panic, No Depression, No SI/HI/AH/VH, No Social Issues, Heme/Lymph: No Bruising, No Bleeding,No Lymphadenopathy Endocrine : No Polyuria, No Polydipsia, No Temperature Intolerance [facility] Past Medical History Medical History Chronic kidney disease on chronic dialysis Hypertension Diabetes mellitus Social History Social History Alcohol intake: unknown Advance Directives: No Advance Directives Information Provided: No Physical Exam ED Vital Signs: Vital Signs - 24 hr 08/15/23 14:22 08/15/23 16:25 Temperature 99.9 F 100.8 F H Pulse Rate 83 86 Respiratory Rate 20 16 Blood Pressure 121/86 198/56 H Pulse Oximetry 98 95 Oxygen Delivery Method Room Air Room Air BMI result Body Mass Index 33.9 Const Other: Appearance: Alert. Oriented X3. No acute distress. Eyes: Pupils equal, round and reactive to light. ENT: Pharynx normal. Neck: Normal inspection. Neck supple. No lymph nodes noted. No crepitus CVS: Normal heart rate and rhythm. Pulses normal. Normal S1 and S2 Respiratory: No respiratory distress. Breath sounds normal. No Wheezing. No rales Abdomen: Soft and nontender. No rigidity. No distention. Skin: Skin warm and dry. Normal skin color. Normal skin turgor. There is a foot ulcer on the plantar aspect of the left foot Extremities: No lower extremity edema. No Lacerations. No Rash, see picture above Neuro: Oriented X 3. No motor deficit. No sensory deficit. Moving all extremities. No slurred speech. CN 2 through 12 grossly intact Psych: calm, cooperative, normal affect Course Course Course Narrative: RME:?53 yo male, hx diabetes here with wound/ulcer to bottom of left foot x1 week. Area has been worsening, able to ambulate until this morning, now cannot bear weight on L foot. Wound to plantar aspect of left foot, draining purulent discharge, foul odor. labs, xr ordered Full HPI, ROS and PE to be performed by the primary ED provider. Medications Administered Generic Name Dose Route Start Last Admin Trade Name Freq PRN Reason Stop Dose Admin Vancomycin HCl 2,000 mg in 500 mls @ 250 mls/hr 08/15/23 17:13 08/15/23 17:58 Vancomycin/Ns IV 08/15/23 19:12 250 mls/hr ONCE ONE Administration Discontinued Medications Generic Name Dose Route Start Last Admin Trade Name Jessica PRN Reason Stop Dose Admin Piperacillin Sod/Tazobactam 50 mls @ 100 mls/hr 08/15/23 17:13 08/15/23 18:01 Sod 3.375 gm/ Sodium Chloride IV 08/15/23 17:42 Infused ONCE ONE Infusion Medical Decision Making Medical Decision Making [facility] Narrative: -my interpretation of labs: Elevated white blood cell count. Lactic acid within normal limits. Patient does not have hypotension. Sepsis is not suspected. Creatinine 12.90. Patient states that he is compliant with dialysis, headed on 2 days ago due to the holidays, scheduled for dialysis tomorrow. Patient has no signs of respiratory distress are fluid overload -patient being treated with IV Zosyn and vancomycin. I discussed with the patient that he will need admission. Patient agreeable with plan. -I discussed the patient with our hospitalist team, patient being admitted. Differential Diagnosis Differential Diagnoses: The differential diagnosis associated with the presentation includes (Diabetic foot ulcer, osteomyelitis, charcot foot/joint) Admission/Observation Consideration of admission/observation: Escalation of care including admission/observation considered Consult Healthcare Provider Management of the patient was discussed with: Hospitalist Lab Data [facility] Lab Attestation statement: I reviewed the patient's lab results. 08/15/23 15:23 08/15/23 15:23 Labs: Lab Results 08/15/23 08/15/23 Range/Units 15:22 15:23 WBC 14.4 H (4.8-10.8) X10*3/uL RBC 3.99 L (4.60-5.80) X10*6/uL Hgb 11.6 L (14.0-18.0) g/dl Hct 34.6 L (42.0-52.0) % MCV 86.7 (80.0-98.0) fL MCH 29.1 (27.0-33.0) pg MCHC 33.5 (31.0-36.0) g/dl RDW 12.9 (11.0-16.0) % Plt Count 195 (160-400) X10*3/uL MPV 11.1 (9.4-12.4) fL Immature Gran % (Auto) 0.4 (0.0-0.4) % Neut % (Auto) 84.2 H (45-73) % Lymph % (Auto) 7.4 L (20-40) % [place] % (Auto) 7.5 (2-11) % Eos % (Auto) 0.3 (0-4) % Baso % (Auto) 0.2 (0-2) % Lymph # (Auto) 1.1 L (1.2-4.9) X10*3/uL [place] # (Auto) 1.1 (0.1-1.2) X10*3/uL Eos # (Auto) 0.0 (0.0-0.4) X10*3/uL Baso # (Auto) 0.0 (0.0-0.2) X10*3/uL Abs Immat Gran (auto) 0.06 H (0.00-0.03) X10*3/uL Absolute Neuts (auto) 12.1 H (2.0-8.3) x10*3/uL Absolute Nucleated RBC 0.000 (0.0-0.012) X10*3/uL Nucleated RBC % (auto) 0.0 (0.0-0.2) /100WBC ESR 88 H (0-15) MM/HR Sodium 136 (135-145) mmol/L Potassium 5.7 H D (3.3-5.1) mmol/L Chloride 95 L (96-108) mmol/L Carbon Dioxide 25 (22-29) mmol/L Anion Gap 22 H (12-20) BUN 88 H (9-16) mg/dL Creatinine 12.90 H* (0.5-1.4) mg/dL Estim Creat Clear Calc 7.5 Estimated GFR 4 Random Glucose 196 H (60-115) mg/dL Lactic Acid 0.9 (0.5-2.0) mmol/L Calcium 9.7 D (8.4-10.2) mg/dL Magnesium 2.5 (1.6-2.6) mg/dL Total Bilirubin 0.7 (0.0-1.0) mg/dL AST 11 (5-37) U/L ALT 9 (0-40) U/L Alkaline Phosphatase 97 (39-117) U/L C-Reactive Protein 17.62 H (< or = 0.50) mg/dL Total Protein 8.3 H (6.5-8.0) g/dL Albumin 3.7 (3.5-5.0) g/dL Independent Interpretation I performed an independent interpretation of an: Plain X-Ray Radiology Impression Discussion of test interpretation with radiology: I have reviewed the radiologist's reading. Radiologist Impression: LEFT ANKLE: Soft tissues are swollen at the ankle and foot. There is minimal talocrural osteoarthritis with mild nonuniform joint space narrowing. Mild osteoarthritis is also present in the subtalar joint. Charcot arthropathy at the midfoot as detailed below. Calcific atherosclerosis is present in the ankle. Moderate sized enthesopathic spurs are present at the Achilles tendon insertion and plantar fascial origin on the calcaneus. LEFT FOOT: There is osseous destruction, fragmentation, sclerosis, and subluxation at the midfoot centered around the talonavicular joint, consistent with Charcot arthropathy. The navicular and talar head are fragmented with dorsal and medial displacement of fracture fragments. There is loss of the plantar arch. No focal osteolysis is identified. Soft tissues are swollen. Calcific atherosclerosis is present throughout the foot. There is mild multifocal osteoarthritis at the interphalangeal joints and at the great toe MTP joint. Additional osteoarthritis is present in the 4th and 5th TMT joints. XR/XR foot LT min 3V IMPRESSION: 1. Charcot arthropathy at the left midfoot centered around the talonavicular joint with fragmentation of the navicular and talar head. 2. No radiographic findings of osteomyelitis. Independent Historian Clinical information obtained from an independent historian. History obtained from or confirmed by: Spouse Critical Care Time Critical Care Time Critical Care Time: Yes Total Critical Care Time: 45 Attestation: I have personally provided critical care time. Time includes review of lab data, radiology results, discussion with consultants, and monitoring for potential decompensation. Intervention performed as documented. Discharge Plan Discharge Clinical Impression: Diabetic foot ulcer Patient Disposition: Admitted As Inpatient Prescriptions: No Action benzonatate 200 mg capsule 200 mg PO TID PRN (Reason: cough) Qty: 20 0RF doxycycline monohydrate 100 mg capsule 100 mg PO BID Qty: 20 0RF
[2023-08-15 15:27] LABS: MANUAL DIFF FLAG NO
[2023-08-15 15:30] LABS: Basophils Percent Auto 0.2 % (0-2); Eosinophils Percent Auto 0.3 % (0-4); Hematocrit 34.6 % (42.0-52.0); Hemoglobin 11.6 g/dl (14.0-18.0); Imm Gran Abs Auto 0.06 X10*3/uL (0.00-0.03); Imm Gran Pct Auto 0.4 % (0.0-0.4); Lymphocytes Absolute Auto 1.1 X10*3/uL (1.2-4.9); Lymphocytes Percent Auto 7.4 % (20-40); Mean Corpuscular HGB Conc 33.5 g/dl (31.0-36.0); Mean Corpuscular Hemoglobin 29.1 pg (27.0-33.0); Mean Corpuscular Volume 86.7 fL (80.0-98.0); Mean Platelet Volume 11.1 fL (9.4-12.4); Monocytes Absolute Auto 1.1 X10*3/uL (0.1-1.2); Monocytes Percent Auto 7.5 % (2-11); Neutrophils Absolute Auto 12.1 x10*3/uL (2.0-8.3); Neutrophils Percent Auto 84.2 % (45-73); Platelet Count 195 X10*3/uL (160-400); Red Blood Count 3.99 X10*6/uL (4.60-5.80); Red Cell Distribution Width 12.9 % (11.0-16.0); White Blood Count 14.4 X10*3/uL (4.8-10.8)
[2023-08-15 15:51] LABS: Lactic Acid 0.9 mmol/L (0.5-2.0)
[2023-08-15 16:07] LABS: Alanine Aminotransferase 9 U/L (0-40); Albumin Level 3.7 g/dL (3.5-5.0); Alkaline Phosphatase 97 U/L (39-117); Anion Gap 22 (12-20); Aspartate Amino Transferase 11 U/L (5-37); Bilirubin Total 0.7 mg/dL (0.0-1.0); Blood Urea Nitrogen 88 mg/dL (9-16); C Reactive Protein 17.62 mg/dL (< or = 0.50); Calcium 9.7 mg/dL (8.4-10.2); Carbon Dioxide 25 mmol/L (22-29); Chloride 95 mmol/L (96-108); Creatinine Clr Calc Pharmacy 7.5; Estimated Glomerular Filt Rate 4; Glucose Random 196 mg/dL (60-115); Magnesium 2.5 mg/dL (1.6-2.6); Potassium 5.7 mmol/L (3.3-5.1); Sodium 136 mmol/L (135-145); Total Protein 8.3 g/dL (6.5-8.0)
--- NOTE | 2023-08-15 16:29 | MHC.EDTECH ---
This pct just assumed care of pt ,vitals taken ,KIANA Bonds is aware of pt high temp and blood Pressure .
[2023-08-15] MEDS: Piperacillin Sodium/Tazobactam 3.375 GM in 0.9 % Sodium Chloride 50 ML IV (17:26)
[2023-08-15] MEDS: vancomycin/NS 2,000 MG/500 ML PLAST..BAG 250 MG IV (17:58)
[2023-08-15 18:07] LABS: Erythrocyte Sedimentation Rate 88 MM/HR (0-15)
--- NOTE | 2023-08-15 19:35 | P.HPHOSP_ITS ---
History of Present Illness Date of Service: 08/15/23 Attending physician on admission: Roque Oneill Chief Complaint: Infected left foot ulcer Pt is a 53-year-old male with a PMH significant for?insulin-dependent diabetes type 2 with neuropathy, HTN, ESRD on HD M/W/F, anemia of chronic disease, and hyperparathyroidism who presents to the ED for evaluation of bleeding ulcer on the of his left foot. Patient states symptoms began 2 weeks prior when he noticed a small wound on the bottom of his left foot. Patient did not go to Wound Care Clinic, but had his take care of it. Wound continue to grow until on Monday he noticed wound was significantly larger, bleeding, and had foul-smelling discharge. Patient presents today due to worsening pain and bleeding from the wound. Has also felt associated fever and chills. Patient denies chest pain/pressure, palpitations. No shortness of breath. Denies nausea, vomiting, abdominal pain. Of note, patient last received hemodialysis on Monday since Monday was [place]. In the ED pt was febrile up to 100.8 and hypertensive up to 198/56, vitals otherwise WNL. Labs were significant for leukocytosis of 14.4, H&H 11.6/34.6, potassium 5.7, BUN 88, creatinine 12.90, C-reactive protein 17.62, ESR 88. X-ray of left foot and ankle showed Charcot arthropathy at the left midfoot centered around the talonavicular joint with fragmentation of the navicular and talar head, but no radiographic findings of osteomyelitis. Pt was treated with vancomycin and Zosyn. Pt will be admitted to the hospital for treatment and further evaluation nonhealing diabetic ulcer of the left foot concerning for osteomyelitis. [facility] Medical History (Updated 08/15/23 @ 21:17 by JOE Olivo) Insulin dependent type 2 diabetes mellitus Chronic kidney disease on chronic dialysis Hypertension Diabetes mellitus Social History Unable to assess alcohol history related to: Unknown Alcohol intake: unknown Smoked in Last 30 Days: No Use of substances other than those prescribed or required for medical reasons: Unknown Advance Directives: No Advance Directives Information Provided: No Meds Allergies Allergy/AdvReac Type Severity Reaction Status Date / Time No Known Allergies Allergy Verified 08/15/23 14:27 Home Medications Medication Instructions Recorded Confirmed Last Taken Type amlodipine 5 mg tablet 5 mg PO DAILY 08/15/23 08/15/23 Unknown History carvedilol 25 mg tablet 25 mg PO BID 08/15/23 08/15/23 Unknown History cinacalcet 30 mg tablet 30 mg PO MOWEFR@0900 08/15/23 08/15/23 Unknown History ergocalciferol (vitamin D2) 1,250 1,250 mcg PO MO@0900 08/15/23 08/15/23 Unknown History mcg (50,000 unit) capsule insulin glargine 100 unit/mL 15 unit subcut BEDTIME 08/15/23 08/15/23 Unknown History subcutaneous solution (Lantus U-100 Insulin) Physical Exam 2 Vital Signs and Narrative: Vital Signs: Last Vital Signs Temp 100.0 F 08/15/23 19:14 Pulse 87 08/15/23 19:14 Resp 18 08/15/23 19:14 BP 193/65 H 08/15/23 19:14 Pulse Ox 96 08/15/23 19:14 O2 Del Method Room Air 08/15/23 19:14 BMI result Body Mass Index 33.9 Constitutional: Alert, in no acute distress. Mental Status: Oriented to person, place and time. Eyes: Pupils are equal, round, and reactive to light. Ear, Nose, and Throat: Oropharynx clear, mucous membranes moist. Ears and nose without deformities. Trachea midline. Respiratory: Clear to auscultation bilaterally. No wheezing, rales, or rhonchi. Cardiovascular: S1, S2 regular. No murmurs, rubs, or gallops. Gastrointestinal: Abdomen soft, non-tender, non-distended. Normal bowel sounds. Neurologic: Cranial nerves II-XII are grossly intact bilaterally. No focal neurological deficits. Moves all extremities spontaneously. Skin: Warm, dry. Musculoskeletal: No cyanosis or clubbing. Extremities: Left foot with non-healing ulcer on the pedal aspect with purulent, foul-smelling discharge. Foot with deformity suggestive of Charcot's arthropathy. As pictured below. Right foot with no observable deformities or lesions. Psychiatric: Normal mood and affect. Results Labs 08/15/23 15:23 08/15/23 15:23 Labs: Laboratory Results - last 24 hr 08/15/23 08/15/23 15:22 15:23 MCV 86.7 MCH 29.1 MCHC 33.5 RDW 12.9 Plt Count 195 MPV 11.1 Immature Gran % (Auto) 0.4 Neut % (Auto) 84.2 H Lymph % (Auto) 7.4 L [place] % (Auto) 7.5 Eos % (Auto) 0.3 Baso % (Auto) 0.2 Lymph # (Auto) 1.1 L [place] # (Auto) 1.1 Eos # (Auto) 0.0 Baso # (Auto) 0.0 Abs Immat Gran (auto) 0.06 H Absolute Neuts (auto) 12.1 H Absolute Nucleated RBC 0.000 Nucleated RBC % (auto) 0.0 ESR 88 H Anion Gap 22 H Estim Creat Clear Calc 7.5 Estimated GFR 4 Random Glucose 196 H Lactic Acid 0.9 Calcium 9.7 D Magnesium 2.5 Total Bilirubin 0.7 AST 11 ALT 9 Alkaline Phosphatase 97 C-Reactive Protein 17.62 H Total Protein 8.3 H Albumin 3.7 Imaging Radiologist's Impressions: Impressions Ankle X-Ray 08/15/23 14:39 IMPRESSION: 1. Charcot arthropathy at the left midfoot centered around the talonavicular joint with fragmentation of the navicular and talar head. 2. No radiographic findings of osteomyelitis. Foot X-Ray 08/15/23 14:39 IMPRESSION: 1. Charcot arthropathy at the left midfoot centered around the talonavicular joint with fragmentation of the navicular and talar head. 2. No radiographic findings of osteomyelitis. Assessment and Plan (1) Diabetic foot ulcer: Qualifiers: Diabetic foot ulcer location: midfoot Diabetes mellitus type: type 2 L aterality: left Non-pressure ulcer stage: with fat layer exposed Qualified Code(s): E11.621 - Type 2 diabetes mellitus with foot ulcer; L97.422 - Non- pressure chronic ulcer of left heel and midfoot with fat layer exposed Status: Acute Plan Pt is a 53-year-old male with a PMH significant for?insulin-dependent diabetes type 2 with neuropathy, HTN, ESRD on HD M/W/F, anemia of chronic disease, and hyperparathyroidism who presents to the ED for evaluation of bleeding ulcer on the of his left foot. Pt will be admitted to the hospital for treatment and further evaluation nonhealing diabetic ulcer of the left foot concerning for osteomyelitis. Diabetic left foot wound concerning for osteomyelitis X-ray of left foot with no radiographic findings of osteomyelitis, the patient with elevated ESR of 88, and CRP of 17.62 Patient does not meet sepsis criteria: Leukocytosis, but no fever, tachycardia, or tachypnea Will treat with vancomycin and Zosyn, started 08/15/2023 Consider MRI of foot for further evaluation of osteomyelitis Wound care consult Infectious Disease consult Consider General surgery or vascular consult for wound management/debridement Follow cultures Hyperkalemia In the setting of ESRD, dialysis on Monday was switched to Monday Patient's potassium 5.7 at time of presentation Will give [facility] Will check EKG Patient to receive dialysis tomorrow Monitor on telemetry Follow BMP ESRD with HD M/W/F Last dialyzed on Monday d/t [place] Patient with hyperkalemia, elevated BUN and creatinine of 88 and 12.90, respectively Nephrology consult to set up in-hospital dialysis Monitor on telemetry Charcot foot Unclear if chronic or more acute Consider ortho consult for management Insulin-dependent diabetes type 2 Sliding-scale insulin, Lantus Diabetic diet Hyperparathyroidism Continue cinacalcet HTN Continue amlodipine, carvedilol Full Code Attending:?Dr. Oneill DVT Prophylaxis: Heparin Pt will require a hospitalization of at least two nights for treatment of?nonhealing diabetic foot ulcer concerning for osteomyelitis. Given the patient's nonhealing wound with acute infection and relatively immunocompromised state due to ESRD, anticipate that the patient will require at least 48 hours for aggressive wound care, surgical evaluation for debridement, and IV antibiotics. Quality Stroke Does the patient have a stroke diagnosis?: No VTE Prior VTE?: No VTE Risk Level:: Medical - moderate - high VTE Device Contraindication: Treatment Not Indicated VTE Drug Contraindication: N/A - Med Ordered
--- NOTE | 2023-08-15 20:06 | PHA.MEDREC ---
Pharmacy Consult ? Medication Reconciliation Pharmacy has completed the medication reconciliation.Med rec complete, spoke to patient with an supervisor inspection room, compared with pharmacy claim history.
--- NOTE | 2023-08-15 21:10 | MHC.EDTECH ---
EKG completed and a tiger text was sent to Kevin Romero with a copy of the EKG.
[2023-08-15 21:11] LABS: Glucose, Whole Blood 136 mg/dL (60-115)
[2023-08-15] MEDS: Heparin Sodium,Porcine 5,000 UNIT/ML VIAL 5000 UNIT SUBCUT (21:50)
[2023-08-15] MEDS: Sodium Zirconium Cyclosilicate 10 GM POWD.PACK PO (21:51)
[2023-08-15] MEDS: Insulin Glargine,Hum.rec.anlog 100 UNIT/ML 10 ML VIAL 11 UNIT SUBCUT (21:51)
[2023-08-15] MEDS: carvediloL 25 MG TABLET PO (21:51)
[2023-08-15] MEDS: Acetaminophen 325 MG TABLET 650 MG PO (22:12)
[2023-08-16] VITALS (12 sets, daily range): BP systolic 160–208; BP diastolic 42–93; PULSE 76–87; RESP 16–20; TEMP 37–38.1; O2SAT 95–98
[2023-08-16] MEDS: 0.9 % Sodium Chloride Flush 3 ML SYRINGE IVFLUSH ×2 (01:04→07:42)
--- OUTSIDE RECORDS SUMMARY | 2023-08-16 01:36 | XMS_ITS | Continuity of Care Document ---
Author Name Unknown Organization [facility] Address [address] [place] [address]- Care Team Providers Care King Maker Name Role Phone Not on Staff, PCP Primary Care Physician Unavail able Encounter [facility] Date(s): 10/25/22 - 11/24/22 [facility] [address]- Attending Physician: Daniel Tong Admitting Physician: Daniel Tong Referring Physician: Daniel Tong Patient Care team information Care Team Personnel Name: Not on Staff, PCP Position: S Physician (General Medicine) Member Role: PCP
--- OUTSIDE RECORDS SUMMARY | 2023-08-16 01:36 | XMS_ITS | Continuity of Care Document ---
Author Name Unknown Organization [facility] Address [address] [place] [address]- Care Team Providers Care Plycor Operator Name Role Phone Not on Staff, PCP Primary Care Physician Unavail able Encounter [facility] Date(s): 10/10/22 - 11/09/[address] [address]- Attending Physician: Keith Tong8 Admitting Physician: Admtr, Ar8 Referring Physician: Admtr, Ar8 Patient Care team information Care Team Personnel Name: Not on Staff, PCP Position: S Physician (General Medicine) Member Role: PCP
--- OUTSIDE RECORDS SUMMARY | 2023-08-16 01:36 | XMS_ITS | Continuity of Care Document ---
Author Name Unknown Organization [facility] Address [address] [place] [address]- Care Team Providers Care Glass Smoother Name Role Phone Not on Staff, PCP Primary Care Physician Unavail able Encounter [facility] Date(s): 09/23/22 - 11/24/22 [facility]/[address] [address]- Attending Physician: Ludy Pat MD Admitting Physician: Ludy Pat MD Patient Care team information Care Team Personnel Name: Not on Staff, PCP Position: S Physician (General Medicine) Member Role: PCP
--- OUTSIDE RECORDS SUMMARY | 2023-08-16 01:36 | XMS_ITS | Continuity of Care Document ---
Author Name Unknown Organization [facility] Address [address] [place] [address]- Care Team Providers Care Cut File Clerk Name Role Phone Not on Staff, PCP Primary Care Physician Unavail able Encounter [facility] Date(s): 09/09/22 - 11/09/[address] [address]- Attending Physician: Bel OTTO, Mika Vines Patient Care team information Care Team Personnel Name: Not on Staff, PCP Position: [facility] Physician (General Medicine) Member Role: PCP
--- OUTSIDE RECORDS SUMMARY | 2023-08-16 01:36 | XMS_ITS | Continuity of Care Document ---
Author Name Unknown Organization [facility] Address [address] [place] [address]- Care Team Providers Care Roof Cement And Paint Maker Helper Name Role Phone Not on Staff, PCP Primary Care Physician Unavail able Encounter [facility] Date(s): 09/09/22 - 10/09/22 [facility]/[address] [address]- Patient Care team information Care Team Personnel Name: Not on Staff, PCP Position: [facility] Physician (General Medicine) Member Role: PCP
--- NOTE | 2023-08-16 03:04 | PC.NURSE ---
pt resting comfortably with eyes closed, breathing even and unlabored. at bedside. no complaints at this time, aware of plan of care
--- NOTE | 2023-08-16 04:42 | PC.NURSE ---
pt reporting he is suppose to go to dialysis today 0545. message sent to MD regarding this and elevated BPs >200 systolic.
--- NOTE | 2023-08-16 04:56 | PC.NURSE ---
pt ambulated to bathroom with 1 assist
[2023-08-16] MEDS: Heparin Sodium,Porcine 5,000 UNIT/ML VIAL 5000 UNIT SUBCUT ×2 (05:02→21:17)
[2023-08-16] MEDS: hydrALAZINE HCl 20 MG/ML VIAL IVPUSH (05:30)
--- NOTE | 2023-08-16 05:41 | PC.NURSE ---
MD aware of high BP, pt medicated per MAR
[2023-08-16 05:53] LABS: Hematocrit 32.3 % (42.0-52.0); Hemoglobin 10.8 g/dl (14.0-18.0); Mean Corpuscular HGB Conc 33.4 g/dl (31.0-36.0); Mean Corpuscular Hemoglobin 29.4 pg (27.0-33.0); Mean Platelet Volume 11.6 fL (9.4-12.4); Platelet Count 190 X10*3/uL (160-400); Red Blood Count 3.67 X10*6/uL (4.60-5.80); White Blood Count 13.7 X10*3/uL (4.8-10.8)
--- NOTE | 2023-08-16 06:17 | PC.NURSE ---
critical lab: creatinine 13.9
[2023-08-16 06:18] LABS: Anion Gap 23 (12-20); Blood Urea Nitrogen 92 mg/dL (9-16); Calcium 9.2 mg/dL (8.4-10.2); Carbon Dioxide 21 mmol/L (22-29); Chloride 96 mmol/L (96-108); Creatinine Clr Calc Pharmacy 6.9; Estimated Glomerular Filt Rate 4; Glucose Random 94 mg/dL (60-115); Potassium 4.5 mmol/L (3.3-5.1); Sodium 135 mmol/L (135-145)
[2023-08-16 06:56] LABS: Glucose, Whole Blood 99 mg/dL (60-115)
--- NOTE | 2023-08-16 07:15 | PM.EVENT ---
Event Note Date of Service: 08/16/23 Event Note: 53 yr old man with ERSD Admitted with foot ulcer Mild hyperkalemia on admission- corrected with Lokelma Due for HD today HD ordered Shall follow along. Time Spent With Patient Time: Total time managing care of this patient today ____ minutes.
[2023-08-16 07:23] LABS: Glucose, Whole Blood 113 mg/dL (60-115)
[2023-08-16] MEDS: carvediloL 25 MG TABLET PO ×2 (07:42→21:17)
[2023-08-16] MEDS: amLODIPine Besylate 5 MG TABLET PO ×2 (07:42→19:05)
[2023-08-16] MEDS: Cinacalcet HCl 30 MG TABLET PO (08:10)
--- NOTE | 2023-08-16 08:51 | PC.NURSE ---
Patient transported to [facility] for routine dialysis treatment
--- NOTE | 2023-08-16 09:10 | MHC.CM.PN ---
Patient is unavailable; CM spoke with /Demetra and Daughter @ [phone], with the assist of a Tele[employer]onic [employer] Worker. 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 Patient drives himself to HD @ [facility] Q M/W/. Home/resume HD is the goal and CM has initiated and will follow for dc planning. Patient has no HCP and no PCP.
--- NOTE | 2023-08-16 10:02 | PC.NURSE ---
assumed care of pt at 0900. pt off unit, currently receiving dialysis.
--- NOTE | 2023-08-16 10:20 | P.CONGS_ITS ---
History of Present Illness Consult details Consult date: 08/16/23 Narrative: Pleasant 53 gentleman who is dialysis dependent and has type 2 diabetes presents for nonhealing ulcer of the left lower extremity plantar surface. He reports that he has had this wound that has been going on for several years. It apparently started to bleed he became concerned and presented to the hospital. He now presents for vascular evaluation. At the time of my exam he was on dialysis. Of note he is on a Monday regimen. Review of Systems 2 Review of Systems: Yes all other systems are reviewed and are negative Constitutional: Constitutional: Reports no additional constitutional complaints ENT: Reports Normal hearing present Cardiovascular: Cardiovascular: Denies chest pain, Denies chest pain at rest, Denies chest pain with activity and Denies pedal edema Respiratory: Respiratory: Denies cough Gastrointestinal: Gastrointestinal: Denies abdominal pain Musculoskeletal: Musculoskeletal: Denies abnormal gait, Denies muscle cramps and Denies radiating pain into limb Integumentary/Breasts: Skin/Breast: Denies skin ulcer and Denies wounds Neurologic: Reports Normal hearing present and Denies abnormal gait Psychiatric: Psychiatric: Reports no additional psychiatric complaints [facility] Past Medical History Medical History (Updated 08/16/23 @ 10:24 by Edward Lester MD) Insulin dependent type 2 diabetes mellitus Chronic kidney disease on chronic dialysis Hypertension Diabetes mellitus Social History Social History Unable to assess alcohol history related to: Unknown Alcohol intake: unknown Patient Tobacco Use Status: Never used Tobacco Smoked in Last 30 Days: No Use of substances other than those prescribed or required for medical reasons: Unknown Advance Directives: No Advance Directives Information Provided: No Nutrition Risks: No Nutritional Risk service: No Meds Allergies Allergy/AdvReac Type Severity Reaction Status Date / Time No Known Allergies Allergy Verified 08/15/23 14:27 Active Medications: Current Medications Acetaminophen (Acetaminophen 325 Mg Tablet) 650 mg PO Q6H PRN PRN Reason: Pain, Mild (Pain Scale 1-3) Last Admin: 08/15/23 22:12 Dose: 650 mg Amlodipine Besylate (Amlodipine Besylate 5 Mg Tablet) 5 mg PO DAILY GARCIA; Protocol Last Admin: 08/16/23 07:42 Dose: 5 mg Benzonatate (Benzonatate 100 Mg Capsule) 100 mg PO TID PRN PRN Reason: Cough Carvedilol (Carvedilol 25 Mg Tablet) 25 mg PO BID [facility]; Protocol Last Admin: 08/16/23 07:42 Dose: 25 mg Cinacalcet (Cinacalcet Hcl 30 Mg Tablet) 30 mg PO MOWEFR@0900 [facility] Last Admin: 08/16/23 08:10 Dose: 30 mg Dextrose (Dextrose 50 % 25 Gm/50 Ml Syringe) 25 gm IVPUSH Q15M PRN; Protocol PRN Reason: per Hypoglycemia Standing Ord. Docusate Sodium (Docusate Sodium 100 Mg Capsule) 100 mg PO DAILY PRN PRN Reason: Constipation Ergocalciferol (Ergocalciferol (Vitamin D2) 1,250 Mcg Capsule) 1,250 mcg PO MO@0900 [facility] Glucose (Glucose Gel 15 Gm Gel..Gram.) 15 gm PO Q15M PRN; Protocol PRN Reason: per Hypoglycemia Standing Ord. Heparin Sodium (Porcine) (Heparin Sodium,Porcine 5,000 Unit/Ml Vial) 5,000 unit SUBCUT Q8H [facility] Last Admin: 08/16/23 05:02 Dose: 5,000 unit Vancomycin HCl 500 mg/ Sodium (Chloride) 110 mls @ 110 mls/hr IV Q24H [facility] Insulin Glargine (Insulin Glargine,Hum.Rec.Anlog 100 Unit/Ml 10 Ml Vial) 11 unit SUBCUT BEDTIME [facility] Last Admin: 08/15/23 21:51 Dose: 11 unit Insulin Human Lispro (Insulin Lispro 100 Unit/Ml 3 Ml Vial) 0 unit SUBCUT QIDACHS [facility]; Protocol Last Admin: 08/16/23 07:27 Dose: Not Given Melatonin (Melatonin 3 Mg Tablet) 6 mg PO BEDTIME PRN PRN Reason: Insomnia Ondansetron HCl (Ondansetron Hcl 4 Mg/2 Ml Vial) 4 mg IVPUSH Q8H PRN PRN Reason: Nausea and Vomiting Pharmacy Consult (Consult Rx Vancomycin Dosing) 1 each MISCELLANE DAILY PRN PRN Reason: Consult order Sodium Chloride (0.9 % Sodium Chloride Flush 3 Ml Syringe) 3 ml IVFLUSH QSHIFT [facility] Last Admin: 08/16/23 07:42 Dose: 3 ml Home Medications Medication Instructions Recorded Confirmed Last Taken Type amlodipine 5 mg tablet 5 mg PO DAILY 08/15/23 08/15/23 Unknown History carvedilol 25 mg tablet 25 mg PO BID 08/15/23 08/15/23 Unknown History cinacalcet 30 mg tablet 30 mg PO MOWEFR@0900 08/15/23 08/15/23 Unknown History ergocalciferol (vitamin D2) 1,250 1,250 mcg PO MO@0900 08/15/23 08/15/23 Unknown History mcg (50,000 unit) capsule insulin glargine 100 unit/mL 15 unit subcut BEDTIME 08/15/23 08/15/23 Unknown History subcutaneous solution (Lantus U-100 Insulin) Physical Exam 2 Vital Signs: Vital Signs: Last Vital Signs Temp 98.6 F 08/16/23 07:32 Pulse 87 08/16/23 08:10 Resp 19 08/16/23 07:32 BP 179/63 H 08/16/23 08:10 Pulse Ox 95 08/16/23 07:32 O2 Del Method Room Air 08/16/23 07:32 BMI result Body Mass Index 33.9 Const: General: cooperative, healthy appearing and comfortable O rientation/consciousness: oriented to person, oriented to place and oriented to time HEENT: Head: Yes normal to inspection Neck: Neck: Yes normal visual inspection Carotids: no bruits Chest: Chest palpation & inspection: normal inspection of the chest Resp: Effort & Inspection: normal respiratory effort and able to speak in complete sentences Auscultation: clear to auscultation bilaterally, no crackles, no rales, no rhonchi and no wheezes Cardio: Other: Bilateral DP signals only Left upper extremity fistula excellent thrill and bruit. Rate: regular rate Rhythm: regular rhythm Heart sounds: S1 normal heart sound present and S2 normal heart sound present Bruits: no carotid bruits Peripheral pulses: Peripheral pulses 2+ throughout GI: Inspection: Yes normal to inspection Skin: Other: Left foot plantar surface approximately 2 cm opening. I was unable to express any purulent material. There was serous drainage. Wounds: no wounds Hair: normal Neuro: General: oriented to person, oriented to place and oriented to time Cranial nerves: Yes CN's II-XII intact bilaterally and Yes Normal hearing present Cognition (Neuro): normal cognition Motor exam (neuro): 5/5 motor strength present throughout Extrem: Other: venous exam: +1 edema Obvious Charcot deformity of left foot General: No clubbing, No cyanosis and Yes edema Psych: Appearance: grossly normal Mental Status: mental status grossly normal Speech and movement: Normal speech and movement present Results Labs 08/16/23 05:29 08/16/23 05:29 Labs: Abnormal lab results 08/15/23 08/15/23 08/15/23 Range/Units 15:22 15:23 21:04 WBC 14.4 H (4.8-10.8) X10*3/uL RBC 3.99 L (4.60-5.80) X10*6/uL Hgb 11.6 L (14.0-18.0) g/dl Hct 34.6 L (42.0-52.0) % Neut % (Auto) 84.2 H (45-73) % Lymph % (Auto) 7.4 L (20-40) % Lymph # (Auto) 1.1 L (1.2-4.9) X10*3/uL Abs Immat Gran (auto) 0.06 H (0.00-0.03) X10*3/uL Absolute Neuts (auto) 12.1 H (2.0-8.3) x10*3/uL ESR 88 H (0-15) MM/HR Potassium 5.7 H D (3.3-5.1) mmol/L Chloride 95 L (96-108) mmol/L Carbon Dioxide (22-29) mmol/L Anion Gap 22 H (12-20) BUN 88 H (9-16) mg/dL Creatinine 12.90 H* (0.5-1.4) mg/dL POC Glucose 136 H (60-115) mg/dL Random Glucose 196 H (60-115) mg/dL C-Reactive Protein 17.62 H (< or = 0.50) mg/dL Total Protein 8.3 H (6.5-8.0) g/dL 08/16/23 Range/Units 05:29 WBC 13.7 H (4.8-10.8) X10*3/uL RBC 3.67 L (4.60-5.80) X10*6/uL Hgb 10.8 L (14.0-18.0) g/dl Hct 32.3 L (42.0-52.0) % Neut % (Auto) (45-73) % Lymph % (Auto) (20-40) % Lymph # (Auto) (1.2-4.9) X10*3/uL Abs Immat Gran (auto) (0.00-0.03) X10*3/uL Absolute Neuts (auto) (2.0-8.3) x10*3/uL ESR (0-15) MM/HR Potassium (3.3-5.1) mmol/L Chloride (96-108) mmol/L Carbon Dioxide 21 L (22-29) mmol/L Anion Gap 23 H (12-20) BUN 92 H (9-16) mg/dL Creatinine 13.90 H* (0.5-1.4) mg/dL POC Glucose (60-115) mg/dL Random Glucose (60-115) mg/dL C-Reactive Protein (< or = 0.50) mg/dL Total Protein (6.5-8.0) g/dL Short CBC 08/15/23 08/16/23 Range/Units 15:23 05:29 WBC 14.4 H 13.7 H (4.8-10.8) X10*3/uL Hgb 11.6 L 10.8 L (14.0-18.0) g/dl Hct 34.6 L 32.3 L (42.0-52.0) % Plt Count 195 190 (160-400) X10*3/uL BMP 08/15/23 08/16/23 15:23 05:29 Sodium 136 135 Potassium 5.7 H D 4.5 D Chloride 95 L 96 Carbon Dioxide 25 21 L BUN 88 H 92 H Creatinine 12.90 H* 13.90 H* Calcium 9.7 D 9.2 Liver Function 08/15/23 Range/Units 15:23 Total Bilirubin 0.7 (0.0-1.0) mg/dL AST 11 (5-37) U/L ALT 9 (0-40) U/L Alkaline Phosphatase 97 (39-117) U/L Albumin 3.7 (3.5-5.0) g/dL All other labs normal. Assessment and Plan (1) Diabetic foot ulcer: Qualifiers: Diabetes mellitus type: type 2 Diabetic foot ulcer location: midfoot L aterality: left Non-pressure ulcer stage: with fat layer exposed Qualified Code(s): E11.621 - Type 2 diabetes mellitus with foot ulcer; L97.422 - Non- pressure chronic ulcer of left heel and midfoot with fat layer exposed Status: Acute Current time continue with local wound care in offloading as much as possible. Continue with antibiotics at the current time. Agree with MRI of that left foot (2) PAD (peripheral artery disease): Status: Acute I was unable to appreciate palpable pulses. Will get single leg arterial ultrasound. May need potential endovascular intervention. Thank you for allowing us to assist in his care. Procedures Date of Service Date of Service: 08/16/23
--- NOTE | 2023-08-16 14:38 | PC.NURSE ---
pt briefly back in room at aprox 13:30 from dialysis. brought directly to ultrasound. pt back in room around 14:30. pt consumed lunch, resting quietly on stretcher in no apparent distress.
--- NOTE | 2023-08-16 15:49 | P.PNIM_ITS ---
Subjective Subjective Date of Service: 08/16/23 Interval History: no acute issues overnight. Pain control adequate Review of Systems denies chest pain Denies shortness of breath Denies nausea vomiting diarrhea Denies fever chills Physical Exam 2 Vital Signs: Vital Signs: Last Vital Signs Temp 98.6 F 08/16/23 07:32 Pulse 87 08/16/23 08:10 Resp 19 08/16/23 07:32 BP 179/63 H 08/16/23 08:10 Pulse Ox 95 08/16/23 07:32 O2 Del Method Room Air 08/16/23 07:32 BMI result Body Mass Index 33.9 Const: Other: no acute distress Resp: Other: clear to auscultation bilaterally no rales rhonchi or wheezes Cardio: Other: no S4; positive S1-S2; no S3 murmurs rubs or gallops GI: Other: soft nontender nondistended normoactive kiki Extrem: Other: see admission imaging /photos Objective Data Active Medications Acetaminophen (Acetaminophen 325 Mg Tablet) 650 mg PO Q6H PRN PRN Reason: Pain, Mild (Pain Scale 1-3) Last Admin: 08/15/23 22:12 Dose: 650 mg Documented By: INDIA Amlodipine Besylate (Amlodipine Besylate 5 Mg Tablet) 5 mg PO DAILY [facility]; Protocol Last Admin: 08/16/23 07:42 Dose: 5 mg Documented By: VONDA Benzonatate (Benzonatate 100 Mg Capsule) 100 mg PO TID PRN PRN Reason: Cough Carvedilol (Carvedilol 25 Mg Tablet) 25 mg PO BID [facility]; Protocol Last Admin: 08/16/23 07:42 Dose: 25 mg Documented By: VONDA Cinacalcet (Cinacalcet Hcl 30 Mg Tablet) 30 mg PO MOWEFR@0900 [facility] Last Admin: 08/16/23 08:10 Dose: 30 mg Documented By: VONDA Dextrose (Dextrose 50 % 25 Gm/50 Ml Syringe) 25 gm IVPUSH Q15M PRN; Protocol PRN Reason: per Hypoglycemia Standing Ord. Docusate Sodium (Docusate Sodium 100 Mg Capsule) 100 mg PO DAILY PRN PRN Reason: Constipation Ergocalciferol (Ergocalciferol (Vitamin D2) 1,250 Mcg Capsule) 1,250 mcg PO MO@0900 [facility] Glucose (Glucose Gel 15 Gm Gel..Gram.) 15 gm PO Q15M PRN; Protocol PRN Reason: per Hypoglycemia Standing Ord. Heparin Sodium (Porcine) (Heparin Sodium,Porcine 5,000 Unit/Ml Vial) 5,000 unit SUBCUT Q8H [facility] Last Admin: 08/16/23 13:08 Dose: Not Given Documented By: ELIAS Non-Admin Reason: Off unit: Dialysis Vancomycin HCl 500 mg/ Sodium (Chloride) 110 mls @ 110 mls/hr IV Q24H [facility] Sodium Chloride (Ns) 1,000 mls @ 100 mls/hr IVCONT .Q10H [facility] Insulin Glargine (Insulin Glargine,Hum.Rec.Anlog 100 Unit/Ml 10 Ml Vial) 11 unit SUBCUT BEDTIME [facility] Last Admin: 08/15/23 21:51 Dose: 11 unit Documented By: INDIA Insulin Human Lispro (Insulin Lispro 100 Unit/Ml 3 Ml Vial) 0 unit SUBCUT QIDACHS [facility]; Protocol Last Admin: 08/16/23 07:27 Dose: Not Given Documented By: VONDA Non-Admin Reason: No Insulin Coverage Melatonin (Melatonin 3 Mg Tablet) 6 mg PO BEDTIME PRN PRN Reason: Insomnia Ondansetron HCl (Ondansetron Hcl 4 Mg/2 Ml Vial) 4 mg IVPUSH Q8H PRN PRN Reason: Nausea and Vomiting Pharmacy Consult (Consult Rx Vancomycin Dosing) 1 each MISCELLANE DAILY PRN PRN Reason: Consult order Sodium Chloride (0.9 % Sodium Chloride Flush 3 Ml Syringe) 3 ml IVFLUSH QSHIFT [facility] Last Admin: 08/16/23 07:42 Dose: 3 ml Documented By: VONDA Labs 08/16/23 05:29 08/16/23 05:29 Labs: Laboratory Results - last 24 hr 08/15/23 08/15/23 08/15/23 15:22 15:23 21:04 MCV MCH MCHC RDW Plt Count MPV Absolute Nucleated RBC Nucleated RBC % (auto) ESR 88 H Anion Gap 22 H Estim Creat Clear Calc 7.5 Estimated GFR 4 POC Glucose 136 H Random Glucose 196 H Lactic Acid 0.9 Calcium 9.7 D Magnesium 2.5 Total Bilirubin 0.7 AST 11 ALT 9 Alkaline Phosphatase 97 C-Reactive Protein 17.62 H Total Protein 8.3 H Albumin 3.7 08/16/23 08/16/23 08/16/23 05:29 06:51 07:19 MCV 88.0 MCH 29.4 MCHC 33.4 RDW 13.0 Plt Count 190 MPV 11.6 Absolute Nucleated RBC 0.000 Nucleated RBC % (auto) 0.0 ESR Anion Gap 23 H Estim Creat Clear Calc 6.9 Estimated GFR 4 POC Glucose 99 113 Random Glucose 94 Lactic Acid Calcium 9.2 Magnesium Total Bilirubin AST ALT Alkaline Phosphatase C-Reactive Protein Total Protein Albumin Assessment and Plan (1) Diabetic foot ulcer: Status: Acute (2) PAD (peripheral artery disease): Status: Acute Plan Pt is a 53-year-old male with a PMH significant for?insulin-dependent diabetes type 2 with neuropathy, HTN, ESRD on HD M/W/F, anemia of chronic disease, and hyperparathyroidism who presents to the ED for evaluation of bleeding ulcer on the of his left foot. Pt will be admitted to the hospital for treatment and further evaluation nonhealing diabetic ulcer of the left foot concerning for osteomyelitis. 1.Diabetic left foot wound X-ray of left foot with no radiographic findings of osteomyelitis, the patient with elevated ESR of 88, and CRP of 17.62 -vancomycin/Zosyn(2) -MRI of foot for further evaluation of osteomyelitis - as per vascular surgery will order angiogram of left lower extremity 2.ESRD HD M/W/F - HD done today -follow renals/divalents - Renal following 3.Insulin-dependent diabetes type 2 - acceptable control on current therapies -lispro correctional scale -adjust as indicated 4.Hyperparathyroidism -continue cinacalcet 5.HTN - acceptable control on current therapies - adjust as indicated Full Code Heparin Patient will require ongoing hospitalization for specialty consultation along with vascular imaging as it pertains to his diabetic left foot wound. He also requires IV antibiotics for likely osteomyelitis pending MRI Quality Stroke Does the patient have a stroke diagnosis?: No VTE Prior VTE?: No VTE Risk Level:: Medical - moderate - high VTE Device Contraindication: Treatment Not Indicated VTE Drug Contraindication: N/A - Med Ordered
[2023-08-16 16:14] LABS: Vancomycin Random 18.9 mcg/mL (15-20)
[2023-08-16 16:22] LABS: Glucose, Whole Blood 172 mg/dL (60-115)
--- NOTE | 2023-08-16 16:27 | PC.NURSE ---
Addendum entered by Jennifer Barron RN 08/16/23 16:32: JOE Brown notified of pt BP. Original Note: pt poc and vitals checked, BP slightly elevated. pt reports 7/10 pain to left foot from diabetic ulcer. wound doctor at bedside checking pt foot. pt speaking in full complete sentences with interpretation by Meagan. pt offers no complaints chuck. resting quietly on stretcher in no apparent distress. call russ within pt reach. awaiting bed assignment. plan of care ongoing.
--- NOTE | 2023-08-16 16:58 | PC.NURSE ---
Addendum entered by Jennifer Barron RN 08/16/23 19:11: MRI screening form fax unsuccessful. 2 more tries to fax MRI screening form. successfully arrived to MRI per [place] Marie. Original Note: MRI screening form completed with help of Josef, insurance case manager and faxed.
[2023-08-16] MEDS: Insulin Lispro 100 UNIT/ML 3 ML VIAL SUBCUT ×2 (19:04→21:33)
--- NOTE | 2023-08-16 19:10 | PC.NURSE ---
BP elevated 186/51. pt medicated per mar with amlodipine and JOE Seth notified and aware. t/w let KIANA Daniel know to repeat BP in 30 min.
[2023-08-16] MEDS: gadobutroL 10 ML VIAL IVPUSH (19:54)
[2023-08-16 20:49] LABS: Glucose, Whole Blood 287 mg/dL (60-115)
[2023-08-16] MEDS: Insulin Glargine,Hum.rec.anlog 100 UNIT/ML 10 ML VIAL 11 UNIT SUBCUT (21:31)
[2023-08-16] MEDS: Acetaminophen 325 MG TABLET 650 MG PO (21:48)
[2023-08-16 21:51] LABS: Glucose, Whole Blood 288 mg/dL (60-115)
--- NOTE | 2023-08-16 23:11 | W.PM.IDCN ---
History of Present Illness Data of Consult Service Date: 08/16/23 Requesting physician: Kunal Soliman Primary Care Provider: None Physician HPI Reason for consult: left foot infection He presents with left foot redness and swelling with pain. He has had drainage from area as well for a week complaints. He has DM ESR is 88. Imaging is not definitive. Review of Systems Review of Systems: Yes all other systems are reviewed and are negative [facility] Past Medical History Medical History Insulin dependent type 2 diabetes mellitus Chronic kidney disease on chronic dialysis Hypertension Diabetes mellitus Family History Family history: reviewed and not pertinent Social History Social History Household Members: Spouse and Family Household Members Other:: Housing: Apartment Do you presently have visiting nurse or other home services: Yes (Visiting nurse once a week to change the central line dressing (removed 3 w) Unable to assess alcohol history related to: Unable to respond Alcohol intake: never Patient Tobacco Use Status: Never used Tobacco e-Cigarette/Vaping Use: Never Used Second Hand Smoke Exposure: No service: No Meds Allergies Allergy/AdvReac Type Severity Reaction Status Date / Time No Known Allergies Allergy Verified 09/25/23 14:45 Active Medications: Current Medications Acetaminophen (Acetaminophen 325 Mg Tablet) 650 mg PO Q6H PRN PRN Reason: Pain, Mild (Pain Scale 1-3) Last Admin: 08/16/23 21:48 Dose: 650 mg Amlodipine Besylate (Amlodipine Besylate 5 Mg Tablet) 5 mg PO DAILY [facility]; Protocol Last Admin: 08/16/23 07:42 Dose: 5 mg Benzonatate (Benzonatate 100 Mg Capsule) 100 mg PO TID PRN PRN Reason: Cough Carvedilol (Carvedilol 25 Mg Tablet) 25 mg PO BID [facility]; Protocol Last Admin: 08/16/23 21:17 Dose: 25 mg Cinacalcet (Cinacalcet Hcl 30 Mg Tablet) 30 mg PO MOWEFR@0900 [facility] Last Admin: 08/16/23 08:10 Dose: 30 mg Dextrose (Dextrose 50 % 25 Gm/50 Ml Syringe) 25 gm IVPUSH Q15M PRN; Protocol PRN Reason: per Hypoglycemia Standing Ord. Docusate Sodium (Docusate Sodium 100 Mg Capsule) 100 mg PO DAILY PRN PRN Reason: Constipation Ergocalciferol (Ergocalciferol (Vitamin D2) 1,250 Mcg Capsule) 1,250 mcg PO MO@0900 [facility] Glucose (Glucose Gel 15 Gm Gel..Gram.) 15 gm PO Q15M PRN; Protocol PRN Reason: per Hypoglycemia Standing Ord. Heparin Sodium (Porcine) (Heparin Sodium,Porcine 5,000 Unit/Ml Vial) 5,000 unit SUBCUT Q8H [facility] Last Admin: 08/16/23 21:17 Dose: 5,000 unit Vancomycin HCl 500 mg/ Sodium (Chloride) 110 mls @ 110 mls/hr IV Q24H [facility] Sodium Chloride (Ns) 1,000 mls @ 100 mls/hr IVCONT .Q10H [facility] Insulin Glargine (Insulin Glargine,Hum.Rec.Anlog 100 Unit/Ml 10 Ml Vial) 11 unit SUBCUT BEDTIME [facility] Last Admin: 08/16/23 21:31 Dose: 11 unit Insulin Human Lispro (Insulin Lispro 100 Unit/Ml 3 Ml Vial) 0 unit SUBCUT QIDACHS [facility]; Protocol Last Admin: 08/16/23 21:33 Dose: 6 unit Melatonin (Melatonin 3 Mg Tablet) 6 mg PO BEDTIME PRN PRN Reason: Insomnia Ondansetron HCl (Ondansetron Hcl 4 Mg/2 Ml Vial) 4 mg IVPUSH Q8H PRN PRN Reason: Nausea and Vomiting Pharmacy Consult (Consult Rx Vancomycin Dosing) 1 each MISCELLANE DAILY PRN PRN Reason: Consult order Sodium Chloride (0.9 % Sodium Chloride Flush 3 Ml Syringe) 3 ml IVFLUSH QSHIFT [facility] Last Admin: 08/16/23 16:17 Dose: Not Given Home Medications ?Medication ?Instructions ?Recorded ?Confirmed ?Last Taken ?Type amlodipine 5 mg tablet 5 mg PO DAILY 08/15/23 10/19/23 10/19/23 History carvedilol 25 mg tablet 25 mg PO BID 08/15/23 10/19/23 10/19/23 History cinacalcet 30 mg tablet 30 mg PO MOWEFR@0900 08/15/23 10/19/23 10/19/23 History ergocalciferol (vitamin D2) 1,250 1,250 mcg PO MO@0900 1210/19/23 10/19/23 History mcg (50,000 unit) capsule Physical Exam Vital Signs: Vital Signs: Last Vital Signs Temp 98.7 F 08/16/23 21:38 Pulse 86 08/16/23 21:38 Resp 20 08/16/23 21:38 BP 171/93 H 08/16/23 21:38 Pulse Ox 96 08/16/23 21:38 O2 Del Method Room Air 08/16/23 21:38 BMI result Body Mass Index 33.9 Const: General: cooperative HEENT: Head: Yes normal to inspection Face and sinus: Yes normal facial exam Mouth: Normal oral and palatal mucosa present Teeth and gingiva: dentition normal Eyes: General: appearance normal, both eyes and all related structures Pupils: Equal, round and reactive pupils present Resp: Effort & Inspection: normal respiratory effort Cardio: Rate: regular rate Rhythm: regular rhythm GI: Palpation (GI): Soft to palpation and nontender : General: Yes no CVA tenderness Back/Spine/Pelvis: Back: no CVA tenderness Skin: General skin exam: no rashes or lesions noted Neuro: General: moves all extremities Cranial nerves: Yes Equal, round and reactive pupils present Extrem: Other: left foot erythematous some drainage serous General: Yes normal to inspection Psych: Appearance: grossly normal Results Labs 08/20/23 06:52 08/21/23 11:51 Labs: Short CBC 08/16/23 Range/Units 05:29 WBC 13.7 H (4.8-10.8) X10*3/uL Hgb 10.8 L (14.0-18.0) g/dl Hct 32.3 L (42.0-52.0) % Plt Count 190 (160-400) X10*3/uL BMP 08/16/23 05:29 Sodium 135 Potassium 4.5 D Chloride 96 Carbon Dioxide 21 L BUN 92 H Creatinine 13.90 H* Calcium 9.2 Microbiology Microbiology Results: Microbiology 08/15/23 15:22 Blood - Venous Blood Culture - Preliminary No growth after 24 hours. 08/15/23 15:22 Blood - Venous Blood Culture - Preliminary No growth after 24 hours. Assessment and Plan (1) PAD (peripheral artery disease): Status: Inactive (2) Diabetic foot ulcer: Qualifiers: Diabetes mellitus type: type 2 Diabetic foot ulcer location: midfoot Laterality: left Non-pressure ulcer stage: with fat layer exposed Qualified Code(s): E11.621 - Type 2 diabetes mellitus with foot ulcer; L97.422 - Non-pressure chronic ulcer of left heel and midfoot with fat layer exposed Status: Inactive He has diabetic foot ulcer,possible staph or strep or gram negative. Organism is pending Plan Continue Vancomycin for now. Await any cultures. Probable Ertapenem six weeks.
[2023-08-17] VITALS (15 sets, daily range): BP systolic 128–169; BP diastolic 42–80; PULSE 70–80; RESP 14–24; TEMP 36.7–37.8; O2SAT 95–100
[2023-08-17] MEDS: 0.9 % Sodium Chloride Flush 3 ML SYRINGE IVFLUSH ×3 (00:52→21:27)
[2023-08-17 07:29] LABS: Glucose, Whole Blood 194 mg/dL (60-115)
--- NOTE | 2023-08-17 08:14 | P.PNVS_ITS ---
Subjective Subjective Date of Service: 08/17/23 Patient reports: no new complaints and feels better Physical Exam Vital Signs: Vital Signs: Last Vital Signs Temp 100.1 F 08/17/23 05:41 Pulse 80 08/17/23 05:41 Resp 17 08/17/23 05:41 BP 140/80 H 08/17/23 05:41 Pulse Ox 98 08/17/23 05:41 O2 Del Method Room Air 08/17/23 05:41 BMI result Body Mass Index 33.9 Const: General: cooperative, healthy appearing and no acute distress Orientation/consciousness: oriented to person, oriented to place and oriented to time HEENT: Head: Yes normal to inspection Neck: Carotids: no bruits Chest: Chest palpation & inspection: normal inspection of the chest Resp: Effort & Inspection: normal respiratory effort and able to speak in complete sentences Auscultation: clear to auscultation bilaterally Cardio: Rate: regular rate Heart sounds: S1 normal heart sound present and S2 normal heart sound present GI: Inspection: Yes normal to inspection Skin: Other: Left plantar surface ulcer approximately 2 cm in diameter General skin exam: no rashes or lesions noted Wounds: no wounds Neuro: General: oriented to person, oriented to place, oriented to time and CN's II-XI intact bilaterally Extrem: General: Yes normal to inspection, Yes full ROM and Yes no clubbing, cyanosis or edema Psych: Appearance: grossly normal and well kempt Speech and movement: Normal speech and movement present Affect: normal affect Progress Note: A&P Assessment and plan (1) PAD (peripheral artery disease): Status: Acute Assessment and Plan: Patient notes nonhealing left leg ulcer. I have discussed the pathophysiology of peripheral vascular disease with the patient. I have also di scussed risk factor modification. I have reviewed the patient's arterial testing which reveals left leg tibial disease. the patient would benefit from a left leg endovascular peripheral angiogram with possible angioplasty, stent, and/or atherectomy. This has been discussed in detail with the patient along with risks, benefits, and complications. This includes but is not limited to bleeding, infection, heart attack, need for emergent surgical repair, limb ischemia, blood vessel damage, bleeding, puncture, kidney injury, bruising, allergic reaction, and skin reaction. The patient demonstrates a clear understanding. We will schedule for the next appropriate time. Thank you for allowing us to assist in this patient's care. Time Spent With Patient Time: Total time managing care of this patient today ____ minutes. Procedures Date of Service Date of Service: 08/17/23 Quality Stroke Does the patient have a stroke diagnosis?: No VTE Prior VTE?: No VTE Risk Level:: Medical - moderate - high VTE Device Contraindication: Treatment Not Indicated VTE Drug Contraindication: N/A - Med Ordered
--- NOTE | 2023-08-17 10:26 | W.PM.OPN ---
Operative Note Operative Note Date of Service: 08/17/23 Narrative: Angiogram report from [facility] Preoperative diagnosis: Atherosclerosis of left lower extremity with nonhealing ulcer Postoperative diagnosis: Same Procedure: 1. Ultrasound-guided right common femoral access 2. Aortogram with left lower extremity runoff 3. Left peroneal plasty Surgeon:Edward Lester M.D., FACS, RPVI Senior Net Software Developer:None Anesthesia: Local with moderate conscious sedation. Total intraservice moderate sedation time was 62 minutes. I monitored the patient's level of consciousness and physiologic status continuously throughout the procedure. Specimens:none Drains:none Estimated blood loss: Less than 10 ml Implant: None Indications: Pleasant 53-year-old diabetic gentleman with nonhealing left foot ulcer. On noninvasive testing it was concerning for our tibial vessel disease. He now presents for endovascular intervention. The patient has signed the informed consent after reviewing risks, complications, benefits, and alternatives previously discussed with the patient. The patient was given the opportunity to ask any additional questions or voice any concerns. All questions were answered to the patient's satisfaction. Procedure in detail: Patient was brought to the angiography suite prior to which a time-out was called for patient identification and site verification. Bilateral groins were prepped and draped in the standard surgical fashion. Under ultrasound guidance right common femoral was punctured with micro puncture needle and wire. Subsequently a precision 4 Luxembourger sheath was then placed. Bentson wire was advanced to the level of the aorta. 4 Luxembourger Flush catheter was brought up and parked at the level of the renal arteries. Aortogram was then undertaken. Catheter was brought down to the level of the iliac bifurcation. Iliacs were subsequently imaged. Catheter was then brought in up and over to the left side SFA. Runoff study was then undertaken. At this time we recognize that there was below-knee disease. We administered 8000 units of systemic heparin. After 5 minutes of circulation time we brought and up and over 6 Luxembourger sheath. We used a Glidewire Advantage to get down to the popliteal vessels. Through this we took a more focal imaging. We then advanced an 0 1 for glidewire Advantage through the peroneal artery and the lesions. We subsequently plasty this with an 2.5 x 80 balloon. Multiple insufflations were required to reach all the levels of the vessel. Once this was accomplished we then did completion angiogram. This did demonstrate a good result through the prone ill artery. Once this was all accomplished catheter wire sheath was brought back to the ipsilateral side. StarClose closure device was then deployed. Patient tolerated the procedure well. Returned to recovery with stable vitals. Interpretation of films: 1. Ultrasound demonstrates appropriate femoral puncture. Image of which was saved. 2. Aortogram demonstrates appropriate caliber aorta. Minimal disease. Appropriate take-off of the renals. 3. Iliac images demonstrate no significant disease 4. Left Leg Common femoral artery: No significant disease Profundus Femoris: No significant disease Superficial femoral artery: No significant disease in good flow through the popliteal Popliteal artery (p1,p2,p3): No significant disease Anterior tibial artery: Good flow down to the foot dominant runoff Peroneal artery: Tenuous with small focal stenotic segments post plasty good flow to the level of the ankle Posterior tibial artery: Occludes proximal 3rd Dorsalis pedis/plantar arch: Incomplete but there is a good amount of flow through the arch Conclusion: 1. Successful left peroneal plasty 2. Anticoagulation status: 6 months of aspirin and plan This note is constructed using voice recognition software. While every effort has been made to ensure accuracy, thermal intelligence analyst errors may have been included. Thank you for allowing me to participate in the care of your patient. Yours sincerely, Edward Lester MD, FACS, R.P.V.I.
[2023-08-17 11:07] LABS: Hematocrit 32.6 % (42.0-52.0); Hemoglobin 10.9 g/dl (14.0-18.0); Mean Corpuscular HGB Conc 33.4 g/dl (31.0-36.0); Mean Corpuscular Hemoglobin 29.3 pg (27.0-33.0); Mean Corpuscular Volume 87.6 fL (80.0-98.0); Mean Platelet Volume 11.3 fL (9.4-12.4); Platelet Count 203 X10*3/uL (160-400); Red Blood Count 3.72 X10*6/uL (4.60-5.80); Red Cell Distribution Width 13.2 % (11.0-16.0); White Blood Count 15.3 X10*3/uL (4.8-10.8)
[2023-08-17] MEDS: Clopidogrel Bisulfate 300 MG TABLET PO (11:10)
[2023-08-17] MEDS: Aspirin 325 MG TABLET 650 MG PO (11:10)
[2023-08-17 11:39] LABS: Anion Gap 19 (12-20); Blood Urea Nitrogen 68 mg/dL (9-16); Calcium 8.9 mg/dL (8.4-10.2); Carbon Dioxide 26 mmol/L (22-29); Chloride 91 mmol/L (96-108); Creatinine Clr Calc Pharmacy 9.2; Estimated Glomerular Filt Rate 5; Glucose Random 189 mg/dL (60-115); Potassium 4.3 mmol/L (3.3-5.1); Sodium 132 mmol/L (135-145)
[2023-08-17 12:53] LABS: Glucose, Whole Blood 175 mg/dL (60-115)
[2023-08-17] MEDS: carvediloL 25 MG TABLET PO ×2 (12:57→21:24)
[2023-08-17] MEDS: amLODIPine Besylate 5 MG TABLET PO (12:57)
--- NOTE | 2023-08-17 14:18 | MHC.CM.PN ---
EMR reviewed and per MD rounds, pt is not medically cleared for D/C due to foot wound debridement today, pt will likely need 6 weeks of IV abx. Pt has no PCP, will not be eligible for VNA services, and will need to go to for IV abx. This CM attempted to meet with pt with a [facility], but he was still down in surgery. This CM attempted to call pts Demetra with [facility] [employer], but unable to reach her and voicemail was full. CM will continue to follow.
--- NOTE | 2023-08-17 14:23 | MHC.CM.PN ---
EMR reviewed and per MD rounds, pt is not medically cleared for D/C due to foot wound debridement today, pt will likely need 6 weeks of IV abx. Pt has no PCP, will not be eligible for VNA services, and will need to go to [facility] for IV abx. This CM attempted to meet with pt with a admission nurse, but he was still down in surgery. This CM attempted to call pts Demetra with admission nurse, but unable to reach her and voicemail was full. CM will continue to follow.
--- NOTE | 2023-08-17 14:41 | P.PNIM_ITS ---
Subjective Subjective Date of Service: 08/17/23 Interval History: seen and examined this morning follow up for diabetic foot wound underwent aortogram with LLE runoff and left peroneal plasty this am history obtained with the assistance of a court interpreter feeling well, no significant foot pain no fever or chills Review of Systems Review of Systems: Yes all other systems are reviewed and are negative Constitutional Constitutional: Denies chills and Denies fever(s) ENT Ears, Nose, Mouth, and Throat: Denies dizziness Cardiovascular Cardiovascular: Denies chest pain, Denies palpitations and Denies dyspnea Respiratory Respiratory: Denies cough and Denies dyspnea Gastrointestinal Gastrointestinal: Denies abdominal pain Neurologic Neurologic: Denies dizziness Endocrine Endocrine: Denies palpitations Physical Exam 2 Vital Signs: Vital Signs: Last Vital Signs Temp 98.5 F 08/17/23 13:00 Pulse 74 08/17/23 13:00 Resp 18 08/17/23 13:00 BP 128/60 08/17/23 13:00 Pulse Ox 95 08/17/23 13:00 O2 Del Method Room Air 08/17/23 13:00 O2 Flow Rate 2 08/17/23 12:05 BMI result Body Mass Index 33.9 Objective Data Active Medications Acetaminophen (Acetaminophen 325 Mg Tablet) 650 mg PO Q6H PRN PRN Reason: Pain, Mild (Pain Scale 1-3) Last Admin: 08/16/23 21:48 Dose: 650 mg Documented By: BERTHA Acetaminophen (Acetaminophen 325 Mg Tablet) 650 mg PO Q6H PRN PRN Reason: Pain, Mild (Pain Scale 1-3) Amlodipine Besylate (Amlodipine Besylate 5 Mg Tablet) 5 mg PO DAILY [facility]; Protocol Last Admin: 08/17/23 12:57 Dose: 5 mg Documented By: VALERIE Aspirin (Aspirin 81 Mg Tab.Chew) 81 mg PO DAILY [facility] Benzonatate (Benzonatate 100 Mg Capsule) 100 mg PO TID PRN PRN Reason: Cough Carvedilol (Carvedilol 25 Mg Tablet) 25 mg PO BID [facility]; Protocol Last Admin: 08/17/23 12:57 Dose: 25 mg Documented By: VALERIE Cinacalcet (Cinacalcet Hcl 30 Mg Tablet) 30 mg PO MOWEFR@0900 [facility] Last Admin: 08/16/23 08:10 Dose: 30 mg Documented By: VONDA Clopidogrel Bisulfate (Clopidogrel Bisulfate 75 Mg Tablet) 75 mg PO DAILY [facility] Dextrose (Dextrose 50 % 25 Gm/50 Ml Syringe) 25 gm IVPUSH Q15M PRN; Protocol PRN Reason: per Hypoglycemia Standing Ord. Docusate Sodium (Docusate Sodium 100 Mg Capsule) 100 mg PO DAILY PRN PRN Reason: Constipation Ergocalciferol (Ergocalciferol (Vitamin D2) 1,250 Mcg Capsule) 1,250 mcg PO MO@0900 [facility] Glucose (Glucose Gel 15 Gm Gel..Gram.) 15 gm PO Q15M PRN; Protocol PRN Reason: per Hypoglycemia Standing Ord. Heparin Sodium (Porcine) (Heparin Sodium,Porcine 5,000 Unit/Ml Vial) 5,000 unit SUBCUT Q8H [facility] Last Admin: 08/17/23 13:04 Dose: Not Given Documented By: VALERIE Non-Admin Reason: Physician Held Med Vancomycin HCl 500 mg/ Sodium (Chloride) 110 mls @ 110 mls/hr IV Q24H [facility] Insulin Glargine (Insulin Glargine,Hum.Rec.Anlog 100 Unit/Ml 10 Ml Vial) 11 unit SUBCUT BEDTIME [facility] Last Admin: 08/16/23 21:31 Dose: 11 unit Documented By: BERTHA Insulin Human Lispro (Insulin Lispro 100 Unit/Ml 3 Ml Vial) 0 unit SUBCUT QIDACHS [facility]; Protocol Last Admin: 08/17/23 13:05 Dose: Not Given Documented By: VALERIE Non-Admin Reason: NPO Melatonin (Melatonin 3 Mg Tablet) 6 mg PO BEDTIME PRN PRN Reason: Insomnia Morphine Sulfate (Morphine Sulfate 4 Mg/Ml Cartridge) 4 mg IVPUSH Q2H PRN; Protocol PRN Reason: Pain, Severe (Pain Scale 7-10) Ondansetron HCl (Ondansetron Hcl 4 Mg/2 Ml Vial) 4 mg IVPUSH Q8H PRN PRN Reason: Nausea and Vomiting Oxycodone HCl (Oxycodone Hcl Immed Release 5 Mg Tablet) 5 mg PO Q4H PRN PRN Reason: Pain, Moderate(Pain Scale 4-6) Pharmacy Consult (Consult Rx Vancomycin Dosing) 1 each MISCELLANE DAILY PRN PRN Reason: Consult order Sodium Chloride (0.9 % Sodium Chloride Flush 3 Ml Syringe) 3 ml IVFLUSH QSHIFT GARCIA Last Admin: 08/17/23 10:27 Dose: Not Given Documented By: NASRIN Non-Admin Reason: Off Unit: Surgery Labs 08/17/23 10:52 08/17/23 10:52 Labs: Laboratory Results - last 24 hr 08/16/23 08/16/23 08/16/23 15:05 16:11 20:44 MCV MCH MCHC RDW Plt Count MPV Absolute Nucleated RBC Nucleated RBC % (auto) Anion Gap Estim Creat Clear Calc Estimated GFR POC Glucose 172 H 287 H Random Glucose Calcium Random Vancomycin 18.9 08/16/23 08/17/23 08/17/23 21:21 07:24 10:52 MCV 87.6 MCH 29.3 MCHC 33.4 RDW 13.2 Plt Count 203 MPV 11.3 Absolute Nucleated RBC 0.000 Nucleated RBC % (auto) 0.0 Anion Gap 19 Estim Creat Clear Calc 9.2 Estimated GFR 5 POC Glucose 288 H 194 H Random Glucose 189 H Calcium 8.9 Random Vancomycin 08/17/23 12:49 MCV MCH MCHC RDW Plt Count MPV Absolute Nucleated RBC Nucleated RBC % (auto) Anion Gap Estim Creat Clear Calc Estimated GFR POC Glucose 175 H Random Glucose Calcium Random Vancomycin Microbiology Microbiology Results: Microbiology 08/15/23 15:22 Blood Culture - Preliminary Blood - Venous No growth after 24 hours. 08/15/23 15:22 Blood Culture - Preliminary Blood - Venous No growth after 24 hours. Assessment and Plan (1) PAD (peripheral artery disease): Status: Acute (2) Diabetic foot ulcer: Status: Acute Plan Pt is a 53-year-old male with a PMH significant for?insulin-dependent diabetes type 2 with neuropathy, HTN, ESRD on HD M/W/F, anemia of chronic disease, and hyperparathyroidism who presents to the ED for evaluation of bleeding ulcer on the of his left foot. Pt will be admitted to the hospital for treatment and further evaluation nonhealing diabetic ulcer of the left foot concerning for osteomyelitis. left foot ulcer due to diabetes and PVD X-ray of left foot with no radiographic findings of osteomyelitis, elevated ESR of 88, and CRP of 17.62 MRI does not definitively rule out osteo continue vanco for per ID rec but will need 6 weeks IV ertapenem on discharge Blood cultures negative to date, will need garcia when negative at 48 hrs. s/p left peroneal plasty by vacular surgery PVD seen by vascular s/p aortogram with left lower extremity runoff and left peroneal plasty started on Aspirin and plavix outpatient follow up with vascular surgery ESRD HD continue MWF HD will need garcia for nursing home abx, discussed with nephrology Renal following Insulin-dependent diabetes type 2 continue Lantus, SSI Hyperparathyroidism -continue cinacalcet HTN continue norvasc, coreg Full Code dvt ppx - Heparin attending - Dr. herbert Patient will require ongoing hospitalization for specialty consultation along with vascular imaging as it pertains to his diabetic left foot wound. He also requires IV antibiotics for likely osteomyelitis pending MRI Quality Stroke Does the patient have a stroke diagnosis?: No VTE Prior VTE?: No VTE Risk Level:: Medical - moderate - high VTE Device Contraindication: Treatment Not Indicated VTE Drug Contraindication: N/A - Med Ordered
[2023-08-17 17:25] LABS: Glucose, Whole Blood 207 mg/dL (60-115)
[2023-08-17] MEDS: Insulin Lispro 100 UNIT/ML 3 ML VIAL SUBCUT ×2 (17:30→21:24)
--- NOTE | 2023-08-17 17:32 | HO.WOUND ---
Wound Consult: Initial 53yr old male admitted to [facility] on?08/15/23 20:16 - See progress notes and H&P for detailed history. Wound consult placed for Left plantar Diabetic wound. Pt seen by Vascular - Dr. Lester and angio completed today - +pp and warm foot noted during my assessment. The patient and his via registered radiation therapist present throughout visit report he has had this wound for approximately 7 years on and off - its goes through various stages of healing. They report it has been open for approximately two weeks and his has been caring for it at home with cleansing with alcohol and hydrogen peroxide and dry gauze at times. Pt reports he does not have a doctor he follows with - he reports his gets his insulin online since it is much cheaper and he does not need a doctor for it - case mgt aware pt does not have PCP and will attempt to work with pt and to get him PCP coverage for appropriate follow up and future care. Importance of Glucose control for proper wound healing explained to pt and and both report understanding. The pt would benefit from wound care follow up. Left Plantar wound Etiology: ?Diabetic wound Wound Bed: pale pink wound bed bleeding noted with cleansing - depth probed 1cm with malodrous purulent drainage Edges: ? irregular and nonadherent to probed area Marlena wound: Mild firm Induration and central fluctuance noted Pain: pt denies - denies neuropathy Goals of Treatment: ? Moist wound healing and antimicrobial properties -Pt for continue to follow up with Dr. Lester Recommendations: 1. Maintain blood glucose levels per Providers orders. 2. Left plantar - Off Load Pressure - Cleanse and irrigate with NS. Pat dry. Apply Triad to periwound - lightly pack wound bed with Alginate AG and apply to wound bed. Cover with Dry gauze ABD pad and gauze wrap. Change Daily. At time of discharge recommend pt follow up outpt wound clinic. Consider Alginate dressing changes to be done every other day and continue to off load pressure from wound. Wound clinic may be able to aid in obtaining and off loading boot. Recommend follow up out patient Wound Clinic at [address] [place] [id number] and to call for an appointment at time of discharge. [phone].? Re-consult wound care Nurse for wound deterioration or wound changes.
[2023-08-17 20:09] LABS: Glucose, Whole Blood 174 mg/dL (60-115)
[2023-08-17] MEDS: Heparin Sodium,Porcine 5,000 UNIT/ML VIAL 5000 UNIT SUBCUT (21:24)
[2023-08-17] MEDS: Insulin Glargine,Hum.rec.anlog 100 UNIT/ML 10 ML VIAL 11 UNIT SUBCUT (21:25)
[2023-08-18] VITALS: BP 147/52; PULSE 84; RESP 18; TEMP 36.7; O2SAT 96
[2023-08-18] MEDS: Heparin Sodium,Porcine 5,000 UNIT/ML VIAL 5000 UNIT SUBCUT ×3 (05:00→21:14)
[2023-08-18 09:56] VITALS: BP 147/63; PULSE 79; RESP 18; TEMP 37.4; O2SAT 97
[2023-08-18 10:03] LABS: Glucose, Whole Blood 145 mg/dL (60-115)
[2023-08-18] MEDS: Ertapenem Sodium 1 GM in 0.9 % Sodium Chloride 50 ML IV (13:13)
--- NOTE | 2023-08-18 14:18 | MHC.CM.PN ---
Addendum entered by Serena Arenas 08/18/23 15:10: Per [facility], they are unable to come in for an in person teach until Monday, and also cannot send a nurse to the pts home for the first IV abx administration until Monday. Due to these issues, pts D/C deferred to Monday. Hospitalist aware. Pt and family aware. Original Note: EMR reviewed and per MD rounds, pt is medically cleared for D/C, pending home infusion for IV abx set up. 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 Pt understands he needs 6 weeks of IV abx, he agrees to go with [facility] for $140/week. [facility] will do a teach with pt and family. This CM spoke with [facility], and they are able to obtain weekly labs for him while he is there. D/C summary will be faxed to them at [phone]. CM marketing administrative assistant unable to find a PCP willing to accept pts insurance.
[2023-08-18 15:48] VITALS: BP 161/68; PULSE 80; RESP 16; TEMP 37.3; O2SAT 97
[2023-08-18 15:58] LABS: Glucose, Whole Blood 289 mg/dL (60-115)
[2023-08-18] MEDS: Insulin Lispro 100 UNIT/ML 3 ML VIAL SUBCUT ×2 (16:12→21:15)
[2023-08-18] MEDS: 0.9 % Sodium Chloride Flush 3 ML SYRINGE IVFLUSH ×2 (16:14→21:16)
--- NOTE | 2023-08-18 17:35 | P.PNIM_ITS ---
Subjective Subjective Date of Service: 08/18/23 Interval History: seen and examined this morning follow up for diabetic foot infection denies fever or chills no significant pain in foot Review of Systems Review of Systems: Yes all other systems are reviewed and are negative Constitutional Constitutional: Denies chills and Denies fever(s) Cardiovascular Cardiovascular: Denies chest pain, Denies palpitations and Denies dyspnea Respiratory Respiratory: Denies cough and Denies dyspnea Gastrointestinal Gastrointestinal: Denies abdominal pain Endocrine Endocrine: Denies palpitations Physical Exam 2 Vital Signs: Vital Signs: Last Vital Signs Temp 99.2 F 08/18/23 15:48 Pulse 80 08/18/23 15:48 Resp 16 08/18/23 15:48 BP 161/68 H 08/18/23 15:48 Pulse Ox 97 08/18/23 15:48 O2 Del Method Room Air 08/18/23 15:48 O2 Flow Rate 2 08/17/23 12:05 BMI result Body Mass Index 33.9 Const: General: cooperative, comfortable, no acute distress, alert and awake Nutritional Appearance: overweight Orientation/consciousness: patient oriented x3 Resp: Effort & Inspection: normal respiratory effort, able to speak in complete sentences, no respiratory distress and no use of accessory muscles Cardio: Rate: regular rate GI: Inspection: No distended Palpation (GI): Soft to palpation and nontender Neuro: General: patient oriented x3, moves all extremities and CN's II-XI intact bilaterally Extrem: Other: right foot wrapped in c/d/i dressing Objective Data Active Medications Acetaminophen (Acetaminophen 325 Mg Tablet) 650 mg PO Q6H PRN PRN Reason: Pain, Mild (Pain Scale 1-3) Last Admin: 08/16/23 21:48 Dose: 650 mg Documented By: BERTHA Acetaminophen (Acetaminophen 325 Mg Tablet) 650 mg PO Q6H PRN PRN Reason: Pain, Mild (Pain Scale 1-3) Amlodipine Besylate (Amlodipine Besylate 5 Mg Tablet) 5 mg PO DAILY [facility]; Protocol Last Admin: 08/18/23 08:34 Dose: Not Given Documented By: JARED Non-Admin Reason: Off unit: Dialysis Aspirin (Aspirin 81 Mg Tab.Chew) 81 mg PO DAILY [facility] Last Admin: 08/18/23 08:34 Dose: Not Given Documented By: JARED Non-Admin Reason: Off unit: Dialysis Benzonatate (Benzonatate 100 Mg Capsule) 100 mg PO TID PRN PRN Reason: Cough Carvedilol (Carvedilol 25 Mg Tablet) 25 mg PO BID [facility]; Protocol Last Admin: 08/18/23 08:34 Dose: Not Given Documented By: JARED Non-Admin Reason: Off unit: Dialysis Cinacalcet (Cinacalcet Hcl 30 Mg Tablet) 30 mg PO MOWEFR@0900 [facility] Last Admin: 08/18/23 08:34 Dose: Not Given Documented By: JARED Non-Admin Reason: Off unit: Dialysis Clopidogrel Bisulfate (Clopidogrel Bisulfate 75 Mg Tablet) 75 mg PO DAILY [facility] Last Admin: 08/18/23 08:34 Dose: Not Given Documented By: JARED Non-Admin Reason: Off unit: Dialysis Heparin Sodium (Porcine) 50 (units/ Sodium Chloride 5 ml) 0 units IVFLUSH DAILY [facility] Dextrose (Dextrose 50 % 25 Gm/50 Ml Syringe) 25 gm IVPUSH Q15M PRN; Protocol PRN Reason: per Hypoglycemia Standing Ord. Docusate Sodium (Docusate Sodium 100 Mg Capsule) 100 mg PO DAILY PRN PRN Reason: Constipation Ergocalciferol (Ergocalciferol (Vitamin D2) 1,250 Mcg Capsule) 1,250 mcg PO MO@0900 [facility] Glucose (Glucose Gel 15 Gm Gel..Gram.) 15 gm PO Q15M PRN; Protocol PRN Reason: per Hypoglycemia Standing Ord. Heparin Sodium (Porcine) (Heparin Sodium,Porcine 5,000 Unit/Ml Vial) 5,000 unit SUBCUT Q8H [facility] Last Admin: 08/18/23 15:04 Dose: 5,000 unit Documented By: JARED Insulin Glargine (Insulin Glargine,Hum.Rec.Anlog 100 Unit/Ml 10 Ml Vial) 11 unit SUBCUT BEDTIME [facility] Last Admin: 08/17/23 21:25 Dose: 11 unit Documented By: MELL Insulin Human Lispro (Insulin Lispro 100 Unit/Ml 3 Ml Vial) 0 unit SUBCUT QIDACHS [facility]; Protocol Last Admin: 08/18/23 16:12 Dose: 6 unit Documented By: JARED Melatonin (Melatonin 3 Mg Tablet) 6 mg PO BEDTIME PRN PRN Reason: Insomnia Morphine Sulfate (Morphine Sulfate 4 Mg/Ml Cartridge) 4 mg IVPUSH Q2H PRN; Protocol PRN Reason: Pain, Severe (Pain Scale 7-10) Ondansetron HCl (Ondansetron Hcl 4 Mg/2 Ml Vial) 4 mg IVPUSH Q8H PRN PRN Reason: Nausea and Vomiting Oxycodone HCl (Oxycodone Hcl Immed Release 5 Mg Tablet) 5 mg PO Q4H PRN PRN Reason: Pain, Moderate(Pain Scale 4-6) Sodium Chloride (0.9 % Sodium Chloride Flush 3 Ml Syringe) 3 ml IVFLUSH QSHIFT [facility] Last Admin: 08/18/23 16:14 Dose: 3 ml Documented By: [email or web address] Labs 08/17/23 10:52 08/17/23 10:52 Labs: Laboratory Results - last 24 hr 08/17/23 08/18/23 08/18/23 20:02 10:00 15:53 POC Glucose 174 H 145 H 289 H Microbiology Microbiology Results: Microbiology 08/15/23 15:22 Blood Culture - Preliminary Blood - Venous No growth after 48 hours. 08/15/23 15:22 Blood Culture - Preliminary Blood - Venous No growth after 48 hours. Assessment and Plan (1) Diabetic foot ulcer: Status: Acute (2) PAD (peripheral artery disease): Status: Acute Plan Pt is a 53-year-old male with a PMH significant for?insulin-dependent diabetes type 2 with neuropathy, HTN, ESRD on HD M/W/F, anemia of chronic disease, and hyperparathyroidism who presents to the ED for evaluation of bleeding ulcer on the of his left foot. Pt will be admitted to the hospital for treatment and further evaluation nonhealing diabetic ulcer of the left foot concerning for osteomyelitis. left foot ulcer due to diabetes and PVD X-ray of left foot with no radiographic findings of osteomyelitis, elevated ESR of 88, and CRP of 17.62 MRI does not definitively rule out osteo continue vanco per ID rec but will need 6 weeks IV ertapenem on discharge Blood cultures negative to date, garcia placed 08/17 s/p left peroneal plasty by vascular surgery continue dressing changes per wound care recs PVD seen by vascular s/p aortogram with left lower extremity runoff and left peroneal plasty started on Aspirin and plavix outpatient follow up with vascular surgery ESRD HD continue MWF HD garcia for senior living abx, discussed with nephrology Renal following Insulin-dependent diabetes type 2 continue Lantus, SSI Hyperparathyroidism -continue cinacalcet HTN continue norvasc, coreg Full Code dvt ppx - Heparin attending - Dr. herbert Patient will require ongoing hospitalization for specialty consultation along with vascular imaging as it pertains to his diabetic left foot wound. He also requires IV antibiotics for likely osteomyelitis Quality Stroke Does the patient have a stroke diagnosis?: No VTE Prior VTE?: No VTE Risk Level:: Medical - moderate - high VTE Device Contraindication: Treatment Not Indicated VTE Drug Contraindication: N/A - Med Ordered
[2023-08-18 18:45] LABS: Vancomycin Random 12.9 mcg/mL (15-20)
[2023-08-18 18:52] LABS: Anion Gap 19 (12-20); Blood Urea Nitrogen 49 mg/dL (9-16); Calcium 9.1 mg/dL (8.4-10.2); Carbon Dioxide 23 mmol/L (22-29); Chloride 92 mmol/L (96-108); Estimated Glomerular Filt Rate 6; Glucose Random 260 mg/dL (60-115); Potassium 4.1 mmol/L (3.3-5.1); Sodium 130 mmol/L (135-145)
[2023-08-18 20:23] LABS: Glucose, Whole Blood 229 mg/dL (60-115)
[2023-08-18] MEDS: carvediloL 25 MG TABLET PO (21:14)
[2023-08-18] MEDS: Insulin Glargine,Hum.rec.anlog 100 UNIT/ML 10 ML VIAL 11 UNIT SUBCUT (21:15)
[2023-08-18] MEDS: vancomycin HCL 500 MG in 0.9 % Sodium Chloride 100 ML 110 MG IV (21:15)
[2023-08-18] MEDS: oxyCODONE HCl Immed Release 5 MG TABLET PO (21:21)
[2023-08-18] MEDS: Melatonin 3 MG TABLET 6 MG PO (21:21)
[2023-08-18 23:17] VITALS: BP 145/70; PULSE 84; RESP 18; TEMP 38.3; O2SAT 94
[2023-08-19] MEDS: Acetaminophen 325 MG TABLET 650 MG PO ×2 (00:26→20:16)
[2023-08-19 04:20] VITALS: TEMP 37.2
[2023-08-19] MEDS: Heparin Sodium,Porcine 5,000 UNIT/ML VIAL 5000 UNIT SUBCUT ×3 (05:35→20:16)
[2023-08-19 06:51] LABS: Anion Gap 21 (12-20); Blood Urea Nitrogen 66 mg/dL (9-16); Calcium 9.5 mg/dL (8.4-10.2); Carbon Dioxide 22 mmol/L (22-29); Chloride 93 mmol/L (96-108); Creatinine Clr Calc Pharmacy 9.4; Estimated Glomerular Filt Rate 5; Glucose Random 174 mg/dL (60-115); Potassium 4.4 mmol/L (3.3-5.1); Sodium 132 mmol/L (135-145)
[2023-08-19 07:29] LABS: Glucose, Whole Blood 179 mg/dL (60-115)
[2023-08-19 07:32] VITALS: BP 148/66; PULSE 78; RESP 20; TEMP 37.2; O2SAT 96
[2023-08-19] MEDS: carvediloL 25 MG TABLET PO ×2 (09:38→20:16)
[2023-08-19] MEDS: Heparin Sodium,Porcine Flush 50 UNITS, 0.9 % Sodium Chloride Flush 5 ML IVFLUSH (09:38)
[2023-08-19] MEDS: amLODIPine Besylate 5 MG TABLET PO (09:38)
[2023-08-19] MEDS: Aspirin 81 MG TAB.CHEW PO (09:38)
[2023-08-19] MEDS: Clopidogrel Bisulfate 75 MG TABLET PO (09:38)
[2023-08-19] MEDS: 0.9 % Sodium Chloride Flush 3 ML SYRINGE IVFLUSH ×3 (09:39→21:24)
[2023-08-19] MEDS: Insulin Lispro 100 UNIT/ML 3 ML VIAL SUBCUT ×4 (09:39→21:22)
[2023-08-19 11:05] LABS: Glucose, Whole Blood 252 mg/dL (60-115)
[2023-08-19 15:58] VITALS: BP 123/65; PULSE 75; RESP 16; TEMP 37.2; O2SAT 98
--- NOTE | 2023-08-19 16:41 | HO.PM.IMPN ---
Subjective Subjective Date of Service: 08/19/23 Interval History: seen and examined this morning follow up for diabetic foot infection pain controlled, no fever or chills Review of Systems Review of Systems: Yes all other systems are reviewed and are negative Constitutional Constitutional: Denies chills and Denies fever(s) Cardiovascular Cardiovascular: Denies chest pain, Denies palpitations and Denies dyspnea Respiratory Respiratory: Denies cough and Denies dyspnea Gastrointestinal Gastrointestinal: Denies abdominal pain Endocrine Endocrine: Denies palpitations Physical Exam Vital Signs: Vital Signs: Last Vital Signs Temp 99 F 08/19/23 15:58 Pulse 75 08/19/23 15:58 Resp 16 08/19/23 15:58 BP 123/65 08/19/23 15:58 Pulse Ox 98 08/19/23 15:58 O2 Del Method Room Air 08/19/23 15:58 O2 Flow Rate 2 08/17/23 12:05 BMI result Body Mass Index 33.9 Const: General: cooperative, comfortable, no acute distress, alert and awake Nutritional Appearance: overweight Orientation/consciousness: patient oriented x3 Resp: Effort & Inspection: normal respiratory effort, able to speak in complete sentences, no respiratory distress and no use of accessory muscles Cardio: Rate: regular rate GI: Inspection: No distended Palpation (GI): Soft to palpation and nontender Neuro: General: patient oriented x3, moves all extremities and CN's II-XI intact bilaterally Extrem: Other: right foot wrapped in c/d/i dressing Objective Data Active Medications Acetaminophen (Acetaminophen 325 Mg Tablet) 650 mg PO Q6H PRN PRN Reason: Pain, Mild (Pain Scale 1-3) Last Admin: 08/19/23 00:26 Dose: 650 mg Documented By: MEME Acetaminophen (Acetaminophen 325 Mg Tablet) 650 mg PO Q6H PRN PRN Reason: Pain, Mild (Pain Scale 1-3) Amlodipine Besylate (Amlodipine Besylate 5 Mg Tablet) 5 mg PO DAILY [facility]; Protocol Last Admin: 08/19/23 09:38 Dose: 5 mg Documented By: TOM Aspirin (Aspirin 81 Mg Tab.Chew) 81 mg PO DAILY [facility] Last Admin: 08/19/23 09:38 Dose: 81 mg Documented By: TOM Benzonatate (Benzonatate 100 Mg Capsule) 100 mg PO TID PRN PRN Reason: Cough Carvedilol (Carvedilol 25 Mg Tablet) 25 mg PO BID [facility]; Protocol Last Admin: 08/19/23 09:38 Dose: 25 mg Documented By: TOM Cinacalcet (Cinacalcet Hcl 30 Mg Tablet) 30 mg PO MOWEFR@0900 [facility] Last Admin: 08/18/23 08:34 Dose: Not Given Documented By: JARED Non-Admin Reason: Off unit: Dialysis Clopidogrel Bisulfate (Clopidogrel Bisulfate 75 Mg Tablet) 75 mg PO DAILY [facility] Last Admin: 08/19/23 09:38 Dose: 75 mg Documented By: TOM Heparin Sodium (Porcine) 50 (units/ Sodium Chloride 5 ml) 0 units IVFLUSH DAILY [facility] Last Admin: 08/19/23 09:38 Dose: 50 unit Documented By: TOM Dextrose (Dextrose 50 % 25 Gm/50 Ml Syringe) 25 gm IVPUSH Q15M PRN; Protocol PRN Reason: per Hypoglycemia Standing Ord. Docusate Sodium (Docusate Sodium 100 Mg Capsule) 100 mg PO DAILY PRN PRN Reason: Constipation Ergocalciferol (Ergocalciferol (Vitamin D2) 1,250 Mcg Capsule) 1,250 mcg PO MO@0900 [facility] Glucose (Glucose Gel 15 Gm Gel..Gram.) 15 gm PO Q15M PRN; Protocol PRN Reason: per Hypoglycemia Standing Ord. Heparin Sodium (Porcine) (Heparin Sodium,Porcine 5,000 Unit/Ml Vial) 5,000 unit SUBCUT Q8H [facility] Last Admin: 08/19/23 12:53 Dose: 5,000 unit Documented By: TOM Vancomycin HCl 500 mg/ Sodium (Chloride) 110 mls @ 110 mls/hr IV MOWEFR [facility] Insulin Glargine (Insulin Glargine,Hum.Rec.Anlog 100 Unit/Ml 10 Ml Vial) 11 unit SUBCUT BEDTIME [facility] Last Admin: 08/18/23 21:15 Dose: 11 unit Documented By: MEME Insulin Human Lispro (Insulin Lispro 100 Unit/Ml 3 Ml Vial) 0 unit SUBCUT QIDACHS [facility]; Protocol Last Admin: 08/19/23 12:52 Dose: 6 unit Documented By: TOM Melatonin (Melatonin 3 Mg Tablet) 6 mg PO BEDTIME PRN PRN Reason: Insomnia Last Admin: 08/18/23 21:21 Dose: 6 mg Documented By: MEME Morphine Sulfate (Morphine Sulfate 4 Mg/Ml Cartridge) 4 mg IVPUSH Q2H PRN; Protocol PRN Reason: Pain, Severe (Pain Scale 7-10) Ondansetron HCl (Ondansetron Hcl 4 Mg/2 Ml Vial) 4 mg IVPUSH Q8H PRN PRN Reason: Nausea and Vomiting Oxycodone HCl (Oxycodone Hcl Immed Release 5 Mg Tablet) 5 mg PO Q4H PRN PRN Reason: Pain, Moderate(Pain Scale 4-6) Last Admin: 08/18/23 21:21 Dose: 5 mg Documented By: MEME Pharmacy Consult (Consult Rx Vancomycin Dosing) 1 each MISCELLANE DAILY PRN PRN Reason: Consult order Sodium Chloride (0.9 % Sodium Chloride Flush 3 Ml Syringe) 3 ml IVFLUSH [facility] Last Admin: 08/19/23 09:39 Dose: 3 ml Documented By: TOM Labs 08/17/23 10:52 08/19/23 06:18 Labs: Laboratory Results - last 24 hr 08/18/23 08/18/23 08/19/23 17:59 20:03 06:18 Anion Gap 19 21 H Estim Creat Clear Calc 11.0 9.4 Estimated GFR 6 5 POC Glucose 229 H Random Glucose 260 H 174 H Calcium 9.1 9.5 Random Vancomycin 12.9 L 08/19/23 08/19/23 07:09 10:43 Anion Gap Estim Creat Clear Calc Estimated GFR POC Glucose 179 H 252 H Random Glucose Calcium Random Vancomycin Assessment and Plan (1) Diabetic foot ulcer: Status: Acute Plan Pt is a 53-year-old male with a PMH significant for?insulin-dependent diabetes type 2 with neuropathy, HTN, ESRD on HD M//, anemia of chronic disease, and hyperparathyroidism who presents to the ED for evaluation of bleeding ulcer on the of his left foot. Pt will be admitted to the hospital for treatment and further evaluation nonhealing diabetic ulcer of the left foot concerning for osteomyelitis. left foot ulcer due to diabetes and PVD X-ray of left foot with no radiographic findings of osteomyelitis, but elevated ESR of 88, and CRP of 17.62 MRI does not definitively rule out osteo continue vanco per ID rec but will need 6 weeks IV ertapenem on discharge Blood cultures negative to date, garcia placed 08/17 s/p left peroneal plasty by vascular surgery continue dressing changes per wound care recs PVD seen by vascular s/p aortogram with left lower extremity runoff and left peroneal plasty 08/17 started on Aspirin and plavix outpatient follow up with vascular surgery ESRD HD continue MWF HD garcia for nurseryperson abx, discussed with nephrology Renal following Insulin-dependent diabetes type 2 continue Lantus, SSI Hyperparathyroidism continue cinacalcet HTN continue norvasc, coreg Full Code dvt ppx - Heparin attending - Dr. Duenas Patient will require ongoing hospitalization for IV abx, safe disposition, dressing changes Quality Stroke Does the patient have a stroke diagnosis?: No VTE Prior VTE?: No VTE Risk Level:: Medical - moderate - high VTE Device Contraindication: Treatment Not Indicated VTE Drug Contraindication: N/A - Med Ordered
[2023-08-19 16:51] LABS: Glucose, Whole Blood 262 mg/dL (60-115)
[2023-08-19 19:43] VITALS: BP 140/65; PULSE 77; RESP 20; TEMP 38.4; O2SAT 96
[2023-08-19 21:08] LABS: Glucose, Whole Blood 215 mg/dL (60-115)
[2023-08-19] MEDS: oxyCODONE HCl Immed Release 5 MG TABLET PO (21:21)
[2023-08-19] MEDS: Insulin Glargine,Hum.rec.anlog 100 UNIT/ML 10 ML VIAL 11 UNIT SUBCUT (21:22)
[2023-08-20] VITALS: BP 150/76; PULSE 71; RESP 20; TEMP 37.7; O2SAT 96
[2023-08-20 03:51] VITALS: BP 171/58; PULSE 79; RESP 20; TEMP 37.7; O2SAT 96
[2023-08-20] MEDS: Heparin Sodium,Porcine 5,000 UNIT/ML VIAL 5000 UNIT SUBCUT ×3 (04:17→21:26)
[2023-08-20 07:26] LABS: Glucose, Whole Blood 160 mg/dL (60-115)
[2023-08-20 07:26] LABS: Mean Corpuscular HGB Conc 33.3 g/dl (31.0-36.0); Mean Corpuscular Hemoglobin 28.6 pg (27.0-33.0); Mean Corpuscular Volume 85.7 fL (80.0-98.0); Mean Platelet Volume 11.2 fL (9.4-12.4); Platelet Count 268 X10*3/uL (160-400); Red Blood Count 3.85 X10*6/uL (4.60-5.80); Red Cell Distribution Width 13.2 % (11.0-16.0)
[2023-08-20 07:31] VITALS: BP 156/65; PULSE 77; RESP 20; TEMP 37.1; O2SAT 95
[2023-08-20 07:36] LABS: Anion Gap 25 (12-20); Blood Urea Nitrogen 91 mg/dL (9-16); Calcium 9.2 mg/dL (8.4-10.2); Carbon Dioxide 20 mmol/L (22-29); Chloride 91 mmol/L (96-108); Creatinine Clr Calc Pharmacy 7.4; Estimated Glomerular Filt Rate 4; Glucose Random 167 mg/dL (60-115); Potassium 5.2 mmol/L (3.3-5.1); Sodium 131 mmol/L (135-145)
[2023-08-20] MEDS: carvediloL 25 MG TABLET PO ×2 (08:04→21:26)
[2023-08-20] MEDS: Aspirin 81 MG TAB.CHEW PO (08:04)
[2023-08-20] MEDS: amLODIPine Besylate 5 MG TABLET PO (08:04)
[2023-08-20] MEDS: Insulin Lispro 100 UNIT/ML 3 ML VIAL SUBCUT ×4 (08:05→21:26)
[2023-08-20] MEDS: Heparin Sodium,Porcine Flush 50 UNITS, 0.9 % Sodium Chloride Flush 5 ML IVFLUSH (08:05)
[2023-08-20] MEDS: 0.9 % Sodium Chloride Flush 3 ML SYRINGE IVFLUSH ×3 (08:05→23:59)
[2023-08-20] MEDS: Clopidogrel Bisulfate 75 MG TABLET PO (08:05)
[2023-08-20 11:04] LABS: Glucose, Whole Blood 196 mg/dL (60-115)
--- NOTE | 2023-08-20 13:33 | P.PNIM_ITS ---
Subjective Subjective Date of Service: 08/20/23 Interval History: seen and examined this morning follow up for diabetic foot infection, probable osteo History obtained with the assistance of a medical tech No overnight events No specific complaints this morning Review of Systems Review of Systems: Yes all other systems are reviewed and are negative Constitutional Constitutional: Denies chills and Denies fever(s) Physical Exam 2 Vital Signs: Vital Signs: Last Vital Signs Temp 98.8 F 08/20/23 07:31 Pulse 77 08/20/23 07:31 Resp 20 08/20/23 07:31 BP 156/65 H 08/20/23 07:31 Pulse Ox 95 08/20/23 07:31 O2 Del Method Room Air 08/20/23 07:31 O2 Flow Rate 2 08/17/23 12:05 BMI result Body Mass Index 33.9 Const: General: cooperative, comfortable, no acute distress, alert and awake Nutritional Appearance: overweight Orientation/consciousness: patient oriented x3 Resp: Effort & Inspection: normal respiratory effort, able to speak in complete sentences, no respiratory distress and no use of accessory muscles Cardio: Rate: regular rate GI: Inspection: No distended Palpation (GI): Soft to palpation and nontender Neuro: General: patient oriented x3, moves all extremities and CN's II-XI intact bilaterally Extrem: Other: right foot wrapped in c/d/i dressing Objective Data Active Medications Acetaminophen (Acetaminophen 325 Mg Tablet) 650 mg PO Q6H PRN PRN Reason: Pain, Mild (Pain Scale 1-3) Last Admin: 08/19/23 20:16 Dose: 650 mg Documented By: LADARIUS Acetaminophen (Acetaminophen 325 Mg Tablet) 650 mg PO Q6H PRN PRN Reason: Pain, Mild (Pain Scale 1-3) Amlodipine Besylate (Amlodipine Besylate 5 Mg Tablet) 5 mg PO DAILY [facility]; Protocol Last Admin: 08/20/23 08:04 Dose: 5 mg Documented By: TOM Aspirin (Aspirin 81 Mg Tab.Chew) 81 mg PO DAILY [facility] Last Admin: 08/20/23 08:04 Dose: 81 mg Documented By: TOM Benzonatate (Benzonatate 100 Mg Capsule) 100 mg PO TID PRN PRN Reason: Cough Carvedilol (Carvedilol 25 Mg Tablet) 25 mg PO BID [facility]; Protocol Last Admin: 08/20/23 08:04 Dose: 25 mg Documented By: TOM Cinacalcet (Cinacalcet Hcl 30 Mg Tablet) 30 mg PO MOWEFR@0900 [facility] Last Admin: 08/18/23 08:34 Dose: Not Given Documented By: JARED Non-Admin Reason: Off unit: Dialysis Clopidogrel Bisulfate (Clopidogrel Bisulfate 75 Mg Tablet) 75 mg PO DAILY [facility] Last Admin: 08/20/23 08:05 Dose: 75 mg Documented By: TOM Heparin Sodium (Porcine) 50 (units/ Sodium Chloride 5 ml) 0 units IVFLUSH DAILY [facility] Last Admin: 08/20/23 08:05 Dose: 50 unit Documented By: TOM Dextrose (Dextrose 50 % 25 Gm/50 Ml Syringe) 25 gm IVPUSH Q15M PRN; Protocol PRN Reason: per Hypoglycemia Standing Ord. Docusate Sodium (Docusate Sodium 100 Mg Capsule) 100 mg PO DAILY PRN PRN Reason: Constipation Ergocalciferol (Ergocalciferol (Vitamin D2) 1,250 Mcg Capsule) 1,250 mcg PO MO@0900 [facility] Glucose (Glucose Gel 15 Gm Gel..Gram.) 15 gm PO Q15M PRN; Protocol PRN Reason: per Hypoglycemia Standing Ord. Heparin Sodium (Porcine) (Heparin Sodium,Porcine 5,000 Unit/Ml Vial) 5,000 unit SUBCUT Q8H [facility] Last Admin: 08/20/23 11:39 Dose: 5,000 unit Documented By: TOM Vancomycin HCl 500 mg/ Sodium (Chloride) 110 mls @ 110 mls/hr IV MOWEFR [facility] Insulin Glargine (Insulin Glargine,Hum.Rec.Anlog 100 Unit/Ml 10 Ml Vial) 11 unit SUBCUT BEDTIME [facility] Last Admin: 08/19/23 21:22 Dose: 11 unit Documented By: LADARIUS Insulin Human Lispro (Insulin Lispro 100 Unit/Ml 3 Ml Vial) 0 unit SUBCUT QIDACHS [facility]; Protocol Last Admin: 08/20/23 11:39 Dose: 2 unit Documented By: TOM Melatonin (Melatonin 3 Mg Tablet) 6 mg PO BEDTIME PRN PRN Reason: Insomnia Last Admin: 08/18/23 21:21 Dose: 6 mg Documented By: MEME Morphine Sulfate (Morphine Sulfate 4 Mg/Ml Cartridge) 4 mg IVPUSH Q2H PRN; Protocol PRN Reason: Pain, Severe (Pain Scale 7-10) Ondansetron HCl (Ondansetron Hcl 4 Mg/2 Ml Vial) 4 mg IVPUSH Q8H PRN PRN Reason: Nausea and Vomiting Oxycodone HCl (Oxycodone Hcl Immed Release 5 Mg Tablet) 5 mg PO Q4H PRN PRN Reason: Pain, Moderate(Pain Scale 4-6) Last Admin: 08/19/23 21:21 Dose: 5 mg Documented By: LADARIUS Pharmacy Consult (Consult Rx Vancomycin Dosing) 1 each MISCELLANE DAILY PRN PRN Reason: Consult order Sodium Chloride (0.9 % Sodium Chloride Flush 3 Ml Syringe) [facility] Last Admin: 08/20/23 08:05 Dose: 3 ml Documented By: TOM Labs 08/20/23 06:52 08/20/23 06:52 Labs: Laboratory Results - last 24 hr 08/19/23 08/19/23 08/20/23 16:05 20:27 06:52 MCV 85.7 MCH 28.6 MCHC 33.3 RDW 13.2 Plt Count 268 D MPV 11.2 Absolute Nucleated RBC 0.000 Nucleated RBC % (auto) 0.0 Anion Gap 25 H Estim Creat Clear Calc 7.4 Estimated GFR 4 POC Glucose 262 H 215 H Random Glucose 167 H Calcium 9.2 08/20/23 08/20/23 07:00 10:45 MCV MCH MCHC RDW Plt Count MPV Absolute Nucleated RBC Nucleated RBC % (auto) Anion Gap Estim Creat Clear Calc Estimated GFR POC Glucose 160 H 196 H Random Glucose Calcium Assessment and Plan (1) PAD (peripheral artery disease): Status: Acute (2) Diabetic foot ulcer: Status: Acute Plan Pt is a 53-year-old male with a PMH significant for?insulin-dependent diabetes type 2 with neuropathy, HTN, ESRD on HD M/W/F, anemia of chronic disease, and hyperparathyroidism who presents to the ED for evaluation of bleeding ulcer on the of his left foot. Pt will be admitted to the hospital for treatment and further evaluation nonhealing diabetic ulcer of the left foot concerning for osteomyelitis. left foot ulcer due to diabetes and PVD X-ray of left foot with no radiographic findings of osteomyelitis, but elevated ESR of 88, and CRP of 17.62 MRI does not definitively rule out osteo continue vanco per ID rec but will need 6 weeks IV ertapenem on discharge Blood cultures negative to date, garcia placed 08/17 s/p left peroneal plasty by vascular surgery continue dressing changes per wound care recs PVD seen by vascular s/p aortogram with left lower extremity runoff and left peroneal plasty 08/17 started on Aspirin and plavix outpatient follow up with vascular surgery ESRD HD continue MWF HD garcia for skilled nursing abx, discussed with nephrology mild hyperkalemia today - follow BMP juan Renal following Insulin-dependent diabetes type 2 continue Lantus, SSI Hyperparathyroidism continue cinacalcet HTN continue norvasc, coreg Full Code dvt ppx - Heparin attending - Dr. Duenas Patient will require ongoing hospitalization for IV abx, safe disposition, dressing changes Quality Stroke Does the patient have a stroke diagnosis?: No VTE Prior VTE?: No VTE Risk Level:: Medical - moderate - high VTE Device Contraindication: Treatment Not Indicated VTE Drug Contraindication: N/A - Med Ordered
[2023-08-20 14:49] VITALS: BP 129/61; PULSE 71; RESP 20; TEMP 36.2; O2SAT 97
[2023-08-20 16:25] LABS: Glucose, Whole Blood 209 mg/dL (60-115)
[2023-08-20 21:06] LABS: Glucose, Whole Blood 167 mg/dL (60-115)
[2023-08-20 21:24] VITALS: BP 173/74; PULSE 75; RESP 20; TEMP 37.6; O2SAT 95
[2023-08-20] MEDS: Insulin Glargine,Hum.rec.anlog 100 UNIT/ML 10 ML VIAL 11 UNIT SUBCUT (21:26)
[2023-08-21] VITALS (7 sets, daily range): BP systolic 145–165; BP diastolic 60–74; PULSE 69–76; RESP 16–20; TEMP 36.1–38.4; O2SAT 95–98
[2023-08-21] MEDS: Acetaminophen 325 MG TABLET 650 MG PO (00:11)
[2023-08-21] MEDS: Heparin Sodium,Porcine 5,000 UNIT/ML VIAL 5000 UNIT SUBCUT ×3 (04:22→22:50)
[2023-08-21] MEDS: Clopidogrel Bisulfate 75 MG TABLET PO (09:42)
[2023-08-21] MEDS: carvediloL 25 MG TABLET PO ×2 (09:42→22:50)
[2023-08-21] MEDS: amLODIPine Besylate 5 MG TABLET PO (09:42)
[2023-08-21] MEDS: Aspirin 81 MG TAB.CHEW PO (09:42)
[2023-08-21] MEDS: Cinacalcet HCl 30 MG TABLET PO (09:42)
[2023-08-21] MEDS: Ergocalciferol (Vitamin D2) 1,250 MCG CAPSULE 1250 MCG PO (09:42)
[2023-08-21] MEDS: Heparin Sodium,Porcine Flush 50 UNITS, 0.9 % Sodium Chloride Flush 5 ML IVFLUSH (09:43)
[2023-08-21] MEDS: 0.9 % Sodium Chloride Flush 3 ML SYRINGE IVFLUSH ×3 (09:44→22:51)
[2023-08-21 11:44] LABS: Glucose, Whole Blood 256 mg/dL (60-115)
[2023-08-21] MEDS: Insulin Lispro 100 UNIT/ML 3 ML VIAL SUBCUT ×3 (11:59→22:51)
[2023-08-21 12:20] LABS: Anion Gap 22 (12-20); Blood Urea Nitrogen 47 mg/dL (9-16); Calcium 9.1 mg/dL (8.4-10.2); Carbon Dioxide 21 mmol/L (22-29); Chloride 92 mmol/L (96-108); Creatinine Clr Calc Pharmacy 12.3; Estimated Glomerular Filt Rate 7; Glucose Random 299 mg/dL (60-115); Potassium 4.6 mmol/L (3.3-5.1); Sodium 130 mmol/L (135-145)
--- NOTE | 2023-08-21 12:40 | HO.PM.IMPN ---
Subjective Subjective Date of Service: 08/21/23 Interval History: seen and examined this morning follow up for diabetic foot infection, probable osteo No overnight issues, Physical Exam Vital Signs: Vital Signs: Last Vital Signs Temp 97.0 F 08/21/23 09:51 Pulse 69 08/21/23 09:51 Resp 16 08/21/23 09:51 BP 147/66 H 08/21/23 09:51 Pulse Ox 98 08/21/23 09:51 O2 Del Method Room Air 08/21/23 09:51 O2 Flow Rate 2 08/17/23 12:05 BMI result Body Mass Index 33.9 Objective Data Active Medications Acetaminophen (Acetaminophen 325 Mg Tablet) 650 mg PO Q6H PRN PRN Reason: Pain, Mild (Pain Scale 1-3) Last Admin: 08/21/23 00:11 Dose: 650 mg Documented By: MARY Acetaminophen (Acetaminophen 325 Mg Tablet) 650 mg PO Q6H PRN PRN Reason: Pain, Mild (Pain Scale 1-3) Amlodipine Besylate (Amlodipine Besylate 5 Mg Tablet) 5 mg PO DAILY [facility]; Protocol Last Admin: 08/21/23 09:42 Dose: 5 mg Documented By: ALVIN Aspirin (Aspirin 81 Mg Tab.Chew) 81 mg PO DAILY [facility] Last Admin: 08/21/23 09:42 Dose: 81 mg Documented By: ALVIN Benzonatate (Benzonatate 100 Mg Capsule) 100 mg PO TID PRN PRN Reason: Cough Carvedilol (Carvedilol 25 Mg Tablet) 25 mg PO BID [facility]; Protocol Last Admin: 08/21/23 09:42 Dose: 25 mg Documented By: ALVIN Cinacalcet (Cinacalcet Hcl 30 Mg Tablet) 30 mg PO MOWEFR@0900 [facility] Last Admin: 08/21/23 09:42 Dose: 30 mg Documented By: ALVIN Clopidogrel Bisulfate (Clopidogrel Bisulfate 75 Mg Tablet) 75 mg PO DAILY [facility] Last Admin: 08/21/23 09:42 Dose: 75 mg Documented By: ALVIN Heparin Sodium (Porcine) 50 (units/ Sodium Chloride 5 ml) 0 units IVFLUSH DAILY [facility] Last Admin: 08/21/23 09:43 Dose: 50 unit Documented By: ALVIN Dextrose (Dextrose 50 % 25 Gm/50 Ml Syringe) 25 gm IVPUSH Q15M PRN; Protocol PRN Reason: per Hypoglycemia Standing Ord. Docusate Sodium (Docusate Sodium 100 Mg Capsule) 100 mg PO DAILY PRN PRN Reason: Constipation Ergocalciferol (Ergocalciferol (Vitamin D2) 1,250 Mcg Capsule) 1,250 mcg PO MO@0900 [facility] Last Admin: 08/21/23 09:42 Dose: 1,250 mcg Documented By: ALVIN Glucose (Glucose Gel 15 Gm Gel..Gram.) 15 gm PO Q15M PRN; Protocol PRN Reason: per Hypoglycemia Standing Ord. Heparin Sodium (Porcine) (Heparin Sodium,Porcine 5,000 Unit/Ml Vial) 5,000 unit SUBCUT Q8H [facility] Last Admin: 08/21/23 11:59 Dose: 5,000 unit Documented By: ALVIN Vancomycin HCl 500 mg/ Sodium (Chloride) 110 mls @ 110 mls/hr IV MOWEFR [facility] Vancomycin HCl 500 mg/ Sodium (Chloride) 110 mls @ 110 mls/hr IV ONCE ONE Stop: 08/21/23 13:59 Insulin Glargine (Insulin Glargine,Hum.Rec.Anlog 100 Unit/Ml 10 Ml Vial) 11 unit SUBCUT BEDTIME [facility] Last Admin: 08/20/23 21:26 Dose: 11 unit Documented By: RHYS Insulin Human Lispro (Insulin Lispro 100 Unit/Ml 3 Ml Vial) 0 unit SUBCUT QIDACHS [facility]; Protocol Last Admin: 08/21/23 11:59 Dose: 6 unit Documented By: ALVIN Melatonin (Melatonin 3 Mg Tablet) 6 mg PO BEDTIME PRN PRN Reason: Insomnia Last Admin: 08/18/23 21:21 Dose: 6 mg Documented By: MEME Morphine Sulfate (Morphine Sulfate 4 Mg/Ml Cartridge) 4 mg IVPUSH Q2H PRN; Protocol PRN Reason: Pain, Severe (Pain Scale 7-10) Ondansetron HCl (Ondansetron Hcl 4 Mg/2 Ml Vial) 4 mg IVPUSH Q8H PRN PRN Reason: Nausea and Vomiting Oxycodone HCl (Oxycodone Hcl Immed Release 5 Mg Tablet) 5 mg PO Q4H PRN PRN Reason: Pain, Moderate(Pain Scale 4-6) Last Admin: 08/19/23 21:21 Dose: 5 mg Documented By: LADARIUS Pharmacy Consult (Consult Rx Vancomycin Dosing) 1 each MISCELLANE DAILY PRN PRN Reason: Consult order Sodium Chloride (0.9 % Sodium Chloride Flush 3 Ml Syringe) [facility] Last Admin: 08/21/23 09:44 Dose: 3 ml Documented By: ALVIN Labs 08/20/23 06:52 08/21/23 11:51 Labs: Laboratory Results - last 24 hr 08/20/23 08/20/23 08/21/23 16:15 20:59 11:20 Anion Gap Estim Creat Clear Calc Estimated GFR POC Glucose 209 H 167 H 256 H Random Glucose Calcium Random Vancomycin 08/21/23 11:51 Anion Gap 22 H Estim Creat Clear Calc 12.3 Estimated GFR 7 POC Glucose Random Glucose 299 H Calcium 9.1 Random Vancomycin 10.0 L Microbiology Microbiology Results: Microbiology 08/15/23 15:22 Blood Culture - Final Blood - Venous No growth after 5 days. 08/15/23 15:22 Blood Culture - Final Blood - Venous No growth after 5 days. Assessment and Plan (1) PAD (peripheral artery disease): Status: Acute (2) Diabetic foot ulcer: Status: Acute Plan Pt is a 53-year-old male with a PMH significant for?insulin-dependent diabetes type 2 with neuropathy, HTN, ESRD on HD M//, anemia of chronic disease, and hyperparathyroidism who presents to the ED for evaluation of bleeding ulcer on the of his left foot. Pt will be admitted to the hospital for treatment and further evaluation nonhealing diabetic ulcer of the left foot concerning for osteomyelitis. left foot ulcer due to diabetes and PVD X-ray of left foot with no radiographic findings of osteomyelitis, but elevated ESR of 88, and CRP of 17.62 MRI does not definitively rule out osteo continue vanco per ID rec but will need 6 weeks IV ertapenem on discharge Blood cultures negative to date, garcia placed 08/17 s/p left peroneal plasty by vascular surgery continue dressing changes per wound care recs will check with pharmacy and dialysis site if able to get Invanz with dialysis at discharge PVD seen by vascular s/p aortogram with left lower extremity runoff and left peroneal plasty 08/17 started on Aspirin and plavix outpatient follow up with vascular surgery ESRD HD continue MWF HD garcia for intermediate manager abx but may not be necessary if able to give Abx around dialysis Hyperkalemia--resolved Chronic hyponatremia stable Insulin-dependent diabetes type 2 continue Lantus, SSI Hyperparathyroidism continue cinacalcet HTN continue norvasc, coreg Full Code dvt ppx - Heparin Patient will require ongoing hospitalization for IV abx, safe disposition, dressing changes Quality Stroke Does the patient have a stroke diagnosis?: No VTE Prior VTE?: No VTE Risk Level:: Medical - moderate - high VTE Device Contraindication: Treatment Not Indicated VTE Drug Contraindication: N/A - Med Ordered
[2023-08-21] MEDS: vancomycin HCL 500 MG in 0.9 % Sodium Chloride 100 ML 110 MG IV (13:12)
[2023-08-21 16:34] LABS: Glucose, Whole Blood 215 mg/dL (60-115)
[2023-08-21 20:44] LABS: Glucose, Whole Blood 222 mg/dL (60-115)
[2023-08-21] MEDS: Insulin Glargine,Hum.rec.anlog 100 UNIT/ML 10 ML VIAL 11 UNIT SUBCUT (22:50)
[2023-08-22] MEDS: Heparin Sodium,Porcine 5,000 UNIT/ML VIAL 5000 UNIT SUBCUT ×2 (04:16→14:48)
[2023-08-22 07:20] VITALS: BP 125/58; PULSE 66; RESP 20; TEMP 37.1; O2SAT 96
[2023-08-22 07:44] LABS: Glucose, Whole Blood 205 mg/dL (60-115)
[2023-08-22] MEDS: carvediloL 25 MG TABLET PO (07:55)
[2023-08-22] MEDS: amLODIPine Besylate 5 MG TABLET PO (07:55)
[2023-08-22] MEDS: Aspirin 81 MG TAB.CHEW PO (07:55)
[2023-08-22] MEDS: Heparin Sodium,Porcine Flush 50 UNITS, 0.9 % Sodium Chloride Flush 5 ML IVFLUSH (07:56)
[2023-08-22] MEDS: Insulin Lispro 100 UNIT/ML 3 ML VIAL SUBCUT ×2 (07:56→11:57)
[2023-08-22] MEDS: Clopidogrel Bisulfate 75 MG TABLET PO (09:18)
--- NOTE | 2023-08-22 11:06 | P.DS_ITS ---
DS: Providers Provider Date of Service: 08/22/23 Date of admission: 08/15/23 20:16 Primary care physician: None Physician Consults: 08/15/23 20:40 Consult to Infectious Diseases Routine Consulting Provider: [facility] Infectious Disease Reason for consultation: Diabetic foot ulcer concerning for osteomyelitis Consult to Nephrology Routine Consulting Provider: [facility] Reason for consultation: ESRD on HD M/W/F 08/15/23 20:55 Consult to Wound Care Routine Reason for consultation: Diabetic left foot wound concerning for osteomyelitis 08/16/23 08:57 Consult to Vascular Surgery Routine Consulting Provider: [facility] Reason for consultation: Diabetic foot ulcer Has provider been notified: Yes DS: Diagnosis Discharge Diagnosis (1) PAD (peripheral artery disease): Status: Acute (2) Diabetic foot ulcer: Status: Acute DS: Summary Hospital Course Hospital Course: Chief Complaint: Infected left foot ulcer Pt is a 53-year-old male with a PMH significant for?insulin-dependent diabetes type 2 with neuropathy, HTN, ESRD on HD M/W/F, anemia of chronic disease, and hyperparathyroidism who presents to the ED for evaluation of bleeding ulcer on the of his left foot. Patient states symptoms began 2 weeks prior when he noticed a small wound on the bottom of his left foot. Patient did not go to Wound Care Clinic, but had his take care of it. Wound continue to grow until on Monday he noticed wound was significantly larger, bleeding, and had foul-smelling discharge. Patient presents today due to worsening pain and bleeding from the wound. Has also felt associated fever and chills. Patient denies chest pain/pressure, palpitations. No shortness of breath. Denies nausea, vomiting, abdominal pain. Of note, patient last received hemodialysis on Monday since Monday was [place]. In the ED pt was febrile up to 100.8 and hypertensive up to 198/56, vitals otherwise WNL. Labs were significant for leukocytosis of 14.4, H&H 11.6/34.6, potassium 5.7, BUN 88, creatinine 12.90, C-reactive protein 17.62, ESR 88. X-ray of left foot and ankle showed Charcot arthropathy at the left midfoot centered around the talonavicular joint with fragmentation of the navicular and talar head, but no radiographic findings of osteomyelitis. Pt was treated with vancomycin and Zosyn. Pt will be admitted to the hospital for treatment and further evaluation nonhealing diabetic ulcer of the left foot concerning for osteomyelitis. Hospital course: Pt is a 53-year-old male with a PMH significant for?insulin-dependent diabetes type 2 with neuropathy, HTN, ESRD on HD M/W/F, anemia of chronic disease, and hyperparathyroidism who presents to the ED for evaluation of bleeding ulcer on the of his left foot, he was admitted and treated for non healing ulcer and osteomylitis Left foot ulcer due to diabetes and PVD X-ray of left foot with no radiographic findings of osteomyelitis, but elevated ESR of 88, and CRP of 17.62, MRI inconclusive for osteomylitis but in light of clinical finding and elevated inflamatory markers. ID recommends treating for osteomylitis with Ertapenem 500 mg post dialysis for 6 week, while in hospital was on Vanco. Patient has a garcia catheter for IV infusion. Patient underwent s/p aortogram with left lower extremity runoff and left peroneal plasty 08/17 and is recommended to be on Aspirin and plavix and follow up with Dr. Lester PVD--Apirin and Plavix as above ESRD HD continue MWF HD Hyperkalemia--resolved Chronic hyponatremia stable Insulin-dependent diabetes type 2 continue Lantus, SSI Hyperparathyroidism continue cinacalcet HTN continue norvasc, coreg Time Attestation Discharge coordination time: Greater than 30 minutes Quality: Safe Use of Opioids Does Pt have an Active Cancer Diagnosis on the Problem List?: No Quality: Stroke Does the patient have a stroke diagnosis?: No Physical Exam Vital Signs: Vital Signs: Last Vital Signs Temp 98.7 F 08/22/23 07:20 Pulse 66 08/22/23 07:20 Resp 20 08/22/23 07:20 BP 125/58 L 08/22/23 07:20 Pulse Ox 96 08/22/23 07:20 O2 Del Method Room Air 08/22/23 07:20 O2 Flow Rate 2 08/17/23 12:05 BMI result Body Mass Index 33.9 Const: Other: General: AO X 3, no acute distress Resp: CTA bilateral CVS: S1,S2,RRR GI: +BS, NT, no distention Skin: No rash, right foot wrapped in c/d/i dressing Neuro: motor grossly intact Psych: appropriate affect DS: Data Data Completed and Pending Labs on day of discharge: Laboratory Results - last 24 hr 08/21/23 08/21/23 08/21/23 11:20 11:51 16:30 Sodium 130 L Potassium 4.6 Chloride 92 L Carbon Dioxide 21 L Anion Gap 22 H BUN 47 H Creatinine 7.88 H* Estim Creat Clear Calc 12.3 Estimated GFR 7 POC Glucose 256 H 215 H Random Glucose 299 H Calcium 9.1 Random Vancomycin 10.0 L 08/21/23 08/22/23 20:34 07:24 Sodium Potassium Chloride Carbon Dioxide Anion Gap BUN Creatinine Estim Creat Clear Calc Estimated GFR POC Glucose 222 H 205 H Random Glucose Calcium Random Vancomycin Discharge Plan Discharge Anticipated Discharge Date/Time: 08/22/23 11:07 Patient Disposition: Home, Self-Care Discharge Diagnosis: Osteomylitis Referrals: [facility] [Other] - 1 Week Jerrica Abbott MD [Physician] - 1 Week Edward Lester MD [Physician] - 1 Week Physician,None [Primary Care Provider] - 1 Week Keli Christianson MD [Physician] - 1 Week Discharge Medications: New clopidogrel 75 mg Tablet 75 mg PO DAILY 30 Days Qty: 30 0RF aspirin 81 mg Tablet,Chewable 81 mg PO DAILY 30 Days Qty: 30 0RF insulin lispro [Admelog U-100 Insulin lispro] 100 unit/mL Solution See Protocol subcut QIDACHS Qty: 10 0RF Protocol: Insulin Correction Scale Less than or equal to 110 ---- Give (units): 0 111 to 150 Give (units): 0 151 to 200 Give (units): 2 201 to 250 Give (units): 4 251 to 300 Give (units): 6 301 to 350 Give (units): 8 Greater than 350 Give (units): 10 Call MD if Blood Glucose > : 350 ertapenem 1 gram recon soln 500 mg IV DAILY Qty: 18 0RF Continued amlodipine 5 mg Tablet 5 mg PO DAILY cinacalcet 30 mg Tablet 30 mg PO MOWEFR@0900 carvedilol 25 mg Tablet 25 mg PO BID Rx Instructions: must administer with a meal/food ergocalciferol (vitamin D2) 1,250 mcg (50,000 unit) Capsule 1,250 mcg PO MO@0900 Changed insulin glargine [Lantus U-100 Insulin] 100 unit/mL Solution 11 unit SUBCUT BEDTIME Qty: 10 0RF Discharge Orders: Discharge Order (Routine); Ordered 08/22/23 Ordered By: Alejandro Cook Diet: Advance to usual diet Activity on Discharge: As tolerated Stand Alone Forms: Patient Portal Discharge page Activity Restrictions/Additional Instructions: Topical Wound Care Recommendations: 1. Maintain blood glucose levels per Providers orders. 2. Left plantar - Off Load Pressure - Cleanse and irrigate with NS. Pat dry. Apply Triad to periwound - lightly pack wound bed with Alginate AG and apply to wound bed. Cover with dry gauze, ABD pad and gauze wrap. Change Daily. At time of discharge recommend pt follow up outpt wound clinic. Consider Alginate dressing changes to be done every other day and continue to off load pressure from wound. Wound clinic may be able to aid in obtaining an off loading boot. Continue follow up with Dr. Lester as scheduled. Recommend follow up out patient Wound Clinic at [address] [place] [id number] and to call for an appointment at time of discharge. [phone].? Care Plan Goals: resolution of foot wound Health Concerns: you will need IV ertapenem 500 mg three times weekly dosed after dialysis for 6 weeks - ending 09/26/2023 dressing changes for foot wound as above take aspirin and plavix daily as prescribed call to schedule a follow up appointment with Dr Lester - vascular surgery call to schedule a follow up appointment with Dr. Abbott of infectious diseases call to schedule an appointment at the wound care clinic you will need to find a PCP to assist in management of chronic medical issues will need weekly cbc and bmp Plan of Treatment: See above Assessment: see discahrge summary
--- NOTE | 2023-08-22 11:27 | MHC.CM.PN ---
EMR reviewed and per MD rounds, pt is medically cleared for D/C home with new [facility] infusion for IV abx, and resumption of outpt dialysis. [facility] is meeting with pt and family today at 1pm, and IV medication and supplies will be delivered to pts home tonight. [facility] will send a nurse to the pts home tomorrow for this first in home IV administration. Pt will need first dose of ertapenem given in hospital prior to D/C. Pts family will transport him home.
[2023-08-22 11:29] LABS: Glucose, Whole Blood 314 mg/dL (60-115)
[2023-08-22] MEDS: Ertapenem Sodium 0.5 GM in 0.9 % Sodium Chloride 50 ML IV (11:57)
--- NOTE | 2023-08-22 13:45 | P.CONNP_ITS ---
History of Present Illness Reason for Consult Consult date: 08/22/23 Chief Complaint Chief complaint: Diabetic foot ulcer concerning for osteomyelitis History of Present Illness Narrative: 53-year-old male with a PMH significant for?insulin-dependent diabetes type 2 with neuropathy, HTN, ESRD on HD M/W/F, anemia of chronic disease, and hyperparathyroidism who presents to the ED for evaluation of bleeding ulcer on the of his left foot Review of Systems Constitutional: Reports as per HPI, Denies anorexia, Denies fatigue, Denies fever(s) and Denies headache(s) Eyes: Denies blurry vision Denies headache(s) Cardiovascular: Denies chest pain, Denies pedal edema and Denies dyspnea Respiratory: Denies cough, Denies hemoptysis and Denies dyspnea Gastrointestinal: Denies diarrhea, Denies nausea and Denies vomiting Genitourinary: Denies hematuria, Denies urinary frequency and Denies urinary hesitancy Denies confusion, Denies headache(s) and Denies focal weakness Psychiatric: Denies confusion Endocrine: Denies cold intolerance, Denies fatigue and Denies polyuria PMFSH Past Medical History Medical History Insulin dependent type 2 diabetes mellitus Chronic kidney disease on chronic dialysis Hypertension Diabetes mellitus Family History Family history: reviewed and not pertinent Social History Social History Household Members: Other Household Members Other:: Housing: House Do you presently have visiting nurse or other home services: No Unable to assess alcohol history related to: Unable to respond Alcohol intake: unknown Patient Tobacco Use Status: Never used Tobacco service: No Meds Allergies Allergy/AdvReac Type Severity Reaction Status Date / Time No Known Allergies Allergy Verified 08/17/23 06:55 Active Medications: Current Medications Acetaminophen (Acetaminophen 325 Mg Tablet) 650 mg PO Q6H PRN PRN Reason: Pain, Mild (Pain Scale 1-3) Last Admin: 08/21/23 00:11 Dose: 650 mg Acetaminophen (Acetaminophen 325 Mg Tablet) 650 mg PO Q6H PRN PRN Reason: Pain, Mild (Pain Scale 1-3) Amlodipine Besylate (Amlodipine Besylate 5 Mg Tablet) 5 mg PO DAILY GARCIA; Protocol Last Admin: 08/22/23 07:55 Dose: 5 mg Aspirin (Aspirin 81 Mg Tab.Chew) 81 mg PO DAILY [facility] Last Admin: 08/22/23 07:55 Dose: 81 mg Benzonatate (Benzonatate 100 Mg Capsule) 100 mg PO TID PRN PRN Reason: Cough Carvedilol (Carvedilol 25 Mg Tablet) 25 mg PO BID [facility]; Protocol Last Admin: 08/22/23 07:55 Dose: 25 mg Cinacalcet (Cinacalcet Hcl 30 Mg Tablet) 30 mg PO MOWEFR@0900 [facility] Last Admin: 08/21/23 09:42 Dose: 30 mg Clopidogrel Bisulfate (Clopidogrel Bisulfate 75 Mg Tablet) 75 mg PO DAILY [facility] Last Admin: 08/22/23 09:18 Dose: 75 mg Heparin Sodium (Porcine) 50 (units/ Sodium Chloride 5 ml) 0 units IVFLUSH DAILY [facility] Last Admin: 08/22/23 07:56 Dose: 50 unit Dextrose (Dextrose 50 % 25 Gm/50 Ml Syringe) 25 gm IVPUSH Q15M PRN; Protocol PRN Reason: per Hypoglycemia Standing Ord. Docusate Sodium (Docusate Sodium 100 Mg Capsule) 100 mg PO DAILY PRN PRN Reason: Constipation Ergocalciferol (Ergocalciferol (Vitamin D2) 1,250 Mcg Capsule) 1,250 mcg PO MO@0900 [facility] Last Admin: 08/21/23 09:42 Dose: 1,250 mcg Glucose (Glucose Gel 15 Gm Gel..Gram.) 15 gm PO Q15M PRN; Protocol PRN Reason: per Hypoglycemia Standing Ord. Heparin Sodium (Porcine) (Heparin Sodium,Porcine 5,000 Unit/Ml Vial) 5,000 unit SUBCUT Q8H [facility] Last Admin: 08/22/23 04:16 Dose: 5,000 unit Insulin Glargine (Insulin Glargine,Hum.Rec.Anlog 100 Unit/Ml 10 Ml Vial) 11 unit SUBCUT BEDTIME [facility] Last Admin: 08/21/23 22:50 Dose: 11 unit Insulin Human Lispro (Insulin Lispro 100 Unit/Ml 3 Ml Vial) 0 unit SUBCUT QIDACHS [facility]; Protocol Last Admin: 08/22/23 11:57 Dose: 8 unit Melatonin (Melatonin 3 Mg Tablet) 6 mg PO BEDTIME PRN PRN Reason: Insomnia Last Admin: 08/18/23 21:21 Dose: 6 mg Ondansetron HCl (Ondansetron Hcl 4 Mg/2 Ml Vial) 4 mg IVPUSH Q8H PRN PRN Reason: Nausea and Vomiting Sodium Chloride (0.9 % Sodium Chloride Flush 3 Ml Syringe) 3 ml IVFLUSH QSHIFT [facility] Last Admin: 08/22/23 09:18 Dose: Not Given Home Medications Medication Instructions Recorded Confirmed Last Taken Type amlodipine 5 mg tablet 5 mg PO DAILY 08/15/23 08/15/23 Unknown History carvedilol 25 mg tablet 25 mg PO BID 08/15/23 08/15/23 Unknown History cinacalcet 30 mg tablet 30 mg PO MOWEFR@0900 08/15/23 08/15/23 Unknown History ergocalciferol (vitamin D2) 1,250 1,250 mcg PO MO@0900 08/15/23 08/15/23 Unknown History mcg (50,000 unit) capsule insulin glargine 100 unit/mL 15 unit subcut BEDTIME 08/15/23 08/15/23 Unknown History subcutaneous solution (Lantus U-100 Insulin) Physical Exam Vital Signs: Last Vital Signs Temp 98.7 F 08/22/23 07:20 Pulse 66 08/22/23 07:20 Resp 20 08/22/23 07:20 BP 125/58 L 08/22/23 07:20 Pulse Ox 96 08/22/23 07:20 O2 Del Method Room Air 08/22/23 07:20 O2 Flow Rate 2 08/17/23 12:05 BMI result Body Mass Index 33.9 Awake. Comfortable. Neck is supple. Mucosa moist. Lungs bilateral scattered rhonchi. Heart S1-S2 heard no gallop. Abdomen soft. Extremities no edema. No involuntary movements. No myoclonus. Const General: No confusion Orientation/consciousness: No confusion Neuro General: No confusion Results Lab Results 08/20/23 06:52 08/21/23 11:51 Lab results: Chemistry 08/20/23 08/21/23 06:52 11:51 Sodium 131 L 130 L Potassium 5.2 H 4.6 Carbon Dioxide 20 L 21 L BUN 91 H 47 H Creatinine 13.03 H* 7.88 H* Calcium 9.2 9.1 Hematology 08/20/23 06:52 WBC 17.0 H Hgb 11.0 L Plt Count 268 D Assessment and Plan (1) ESRD (end stage renal disease): Status: Acute Plan 53-year-old male with a PMH significant for?insulin-dependent diabetes type 2 with neuropathy, HTN, ESRD on HD M//, anemia of chronic disease, and hyperparathyroidism who presents to the ED for evaluation of bleeding ulcer on the of his left foot ESRD HD 3 x a week per protocol Antibiotics per ID Procedures Date of Service Date of Service: 08/22/23
--- NOTE | 2023-08-22 13:57 | MHC.CM.PN ---
DC summary has been faxed to Patient's HD center @ [phone].
--- NOTE | 2023-08-22 15:17 | MHC.CM.PN ---
Per Rae from [facility]([phone]), the [place] Pharmacist (Maira @ [phone])cannot dispense the home IV ABT meds without speaking to the MD regarding their recommendation to change dose from 1G to 500 MG r/t Patient's kidney function. SHRUTI has provided MD with Maira's contact information and this entire message. CM will follow.
--- NOTE | 2023-08-22 15:48 | MHC.CM.PN ---
CM spoke with [facility] Pharmacist/Maira @ [phone], who confirmed that she took a verbal order from MD to change IV ABT dose to the recommended renal dosing. RN/Janes is aware.
--- NOTE | 2023-08-22 16:11 | MHC.CM.PN ---
dc summary, reflecting dose change of IV ABT has been faxed to Patient's HD center @ [phone].
== END 2023-08-22 16:08 | disposition home or self-care (01) | DRG 182 ==
LOC: HO.ED 18:36 → HO.EDOVER 22:24 → HO.IMC 08-16 20:43
PROVIDERS: Hospitalist; Internal Medicine; Physician Assistant Medical; Radiology Vascular & Interventional Radiology; Surgery Vascular Surgery; Admitting Provider Student in an Organized Health Care Education/Training Program; Emergency Provider Emergency Medicine; Visit Provider Internal Medicine
PROC: 047U3Z1 Dilation of Left Peroneal Artery using Drug-Coated Balloon, Percutaneous Approach (ICD-10-PCS; principal; 2023-08-17 08:00)
DX: E11.51 Type 2 diabetes mellitus with diabetic peripheral angiopathy without gangrene (principal); E11.610 Type 2 diabetes mellitus with diabetic neuropathic arthropathy; M86.172 Other acute osteomyelitis, left ankle and foot; I12.0 Hypertensive chronic kidney disease with stage 5 chronic kidney disease or end stage renal disease; E87.1 Hypo-osmolality and hyponatremia; E11.69 Type 2 diabetes mellitus with other specified complication; E11.22 Type 2 diabetes mellitus with diabetic chronic kidney disease; I70.244 Atherosclerosis of native arteries of left leg with ulceration of heel and midfoot; E87.5 Hyperkalemia; E21.3 Hyperparathyroidism, unspecified; N18.6 End stage renal disease; L97.422 Non-pressure chronic ulcer of left heel and midfoot with fat layer exposed; Z99.2 Dependence on renal dialysis; Z79.82 Long term (current) use of aspirin; Z79.02 Long term (current) use of antithrombotics/antiplatelets; Z79.4 Long term (current) use of insulin; Z79.899 Other long term (current) drug therapy
CPT/HCPCS: 36415; 36558; 37228; 73610; 73630; 73720; 76937; 80048; 80053; 80202; 82947; 83605; 83735; 85025; 85027; 85652; 86140; 87040; 90999; 93005; 93923; 93926; 99152; 99153; 99285; A4364; A9585; C1725; C1751; C1760; C1769; C1887; J0360; J1335; J1642; J1644; J2543; J3370

== ENCOUNTER 2023-08-15 20:16 | Outpatient (BNV) | payer SELFPAY | END 2023-08-15 20:59 | PROVIDERS: Admitting Provider Student in an Organized Health Care Education/Training Program; Emergency Provider Emergency Medicine; Visit Provider Internal Medicine | DX: E87.5 Hyperkalemia (principal) | CPT/HCPCS: 93010 ==

== ENCOUNTER 2023-08-15 20:16 | Outpatient (BNV) | payer SELFPAY | END 2023-08-17 14:30 | PROVIDERS: Admitting Provider Student in an Organized Health Care Education/Training Program; Emergency Provider Emergency Medicine; Visit Provider Student in an Organized Health Care Education/Training Program | DX: Z79.2 Long term (current) use of antibiotics (principal) | CPT/HCPCS: 36558; 76937; 77001 ==

== ENCOUNTER → 2023-08-15 20:16 | Outpatient (BNV) | payer MEDICAID, SELFPAY | PROVIDERS: Admitting Provider Student in an Organized Health Care Education/Training Program; Emergency Provider Emergency Medicine; Visit Provider Internal Medicine | DX: I73.9 Peripheral vascular disease, unspecified (principal); E11.621 Type 2 diabetes mellitus with foot ulcer; L97.422 Non-pressure chronic ulcer of left heel and midfoot with fat layer exposed | CPT/HCPCS: 99499 ==

== ENCOUNTER → 2023-08-15 20:16 | Outpatient (BNV) | payer SELFPAY | PROVIDERS: Admitting Provider Student in an Organized Health Care Education/Training Program; Emergency Provider Emergency Medicine; Visit Provider Internal Medicine Hypertension Specialist | DX: E11.22 Type 2 diabetes mellitus with diabetic chronic kidney disease (principal); N18.6 End stage renal disease; Z99.2 Dependence on renal dialysis; D63.1 Anemia in chronic kidney disease | CPT/HCPCS: 99222; 99499 ==

== ENCOUNTER → 2023-08-15 20:16 | Outpatient (BNV) | payer SELFPAY | PROVIDERS: Admitting Provider Student in an Organized Health Care Education/Training Program; Emergency Provider Emergency Medicine; Visit Provider Student in an Organized Health Care Education/Training Program | DX: I73.9 Peripheral vascular disease, unspecified (principal); E11.621 Type 2 diabetes mellitus with foot ulcer; L97.422 Non-pressure chronic ulcer of left heel and midfoot with fat layer exposed | CPT/HCPCS: 99223; 99232; 99233; 99239 ==

== ENCOUNTER → 2023-08-15 20:16 | Outpatient (BNV) | payer SELFPAY | PROVIDERS: Admitting Provider Student in an Organized Health Care Education/Training Program; Emergency Provider Emergency Medicine; Visit Provider Surgery Vascular Surgery | DX: I73.9 Peripheral vascular disease, unspecified (principal); I70.249 Atherosclerosis of native arteries of left leg with ulceration of unspecified site | CPT/HCPCS: 37228; 75625; 75710; 76937; 99152; 99222; 99232 ==

== ENCOUNTER 2023-08-28 14:45 | Outpatient (AMB) | payer MEDICAID, SELFPAY ==
--- NOTE | 2023-08-28 14:43 | A.OFFVIS_ITS ---
Intake Vital Signs 3 08/28/23 14:59 BP 116/60 Blood Pressure Location Rt brachial Position Sitting Pulse 78 Pulse Source Pulse Oximeter Temp 98.7 F Temp Source Oral Pulse Oximetry (%) 98 Intake Visit Reasons: Ref.[facility],Osteomyelitis Tele Marketing Executive Required: Yes Tele Marketing Executive Name: Valdemar Melendez CMA Information Interpreted: clinical only Allergies No Known Allergies Allergy (Verified 08/28/23 15:01) HPI Ref.[facility],Osteomyelitis 2 HPI0 Details He has diabetes and left foot infection. He is getting 500 mg Ertapenem post hemodialysis ending 09/26. I had seen him in hospital and he was discharged on 08/22. He says he was not set up with Wound Clinic and his has been cutting loose skin from his wound. They say they have insurance issues and are working on it. [facility] Medical History Insulin dependent type 2 diabetes mellitus Chronic kidney disease on chronic dialysis Hypertension Diabetes mellitus Social History Household Members: Other Household Members Other:: Housing: House Do you presently have visiting nurse or other home services: No Unable to assess alcohol history related to: Unable to respond Alcohol intake: unknown Patient Tobacco Use Status: Never used Tobacco service: No Review of Systems Const All systems reviewed & are unremarkable except as noted in HPI and below Physical Exam Vital Signs: Last Vital Signs Temp 98.7 F 08/28/23 14:59 Pulse 78 08/28/23 14:59 BP 116/60 08/28/23 14:59 Pulse Ox 98 08/28/23 14:59 Const Other: General: cooperative Orientation/consciousness: patient oriented x3 HEENT Head: Yes normal to inspection Mouth: Normal oral and palatal mucosa present Eyes General: appearance normal, both eyes and all related structures Pupils: Equal, round and reactive pupils present Resp Effort & Inspection: normal respiratory effort Cardio Rate: regular rate Rhythm: regular rhythm GI Palpation (GI): Soft to palpation and nontender General: Yes no CVA tenderness Back/Spine/Pelvis Back: no CVA tenderness Skin General skin exam: no rashes or lesions noted Neuro General: patient oriented x3 Cranial nerves: Yes CN's II-XII intact bilaterally and Yes Equal, round and reactive pupils present Extrem Other: skin hanging from some areas on foot Psych Appearance: grossly normal Assessment & Plan Assessment & Plan (1) ESRD (end stage renal disease): Code(s): N18.6 - End stage renal disease (2) PAD (peripheral artery disease): Comment: seen by vascular Code(s): I73.9 - Peripheral vascular disease, unspecified (3) Diabetic foot ulcer: Comment: He is in need of Wound Care and debridement likely and supplies Code(s): E11.621 - Type 2 diabetes mellitus with foot ulcer; L97.509 - Non-pressure chronic ulcer of other part of unspecified foot with unspecified severity Qualifiers: Diabetes mellitus type: type 2 Diabetic foot ulcer location: midfoot L aterality: left Non-pressure ulcer stage: with fat layer exposed Qualified Code(s): E11.621 - Type 2 diabetes mellitus with foot ulcer; L97.422 - Non- pressure chronic ulcer of left heel and midfoot with fat layer exposed Plan: Continue Ertapenem See in two weeks Wound Care referral. Plan continue Ertapenem See in two weeks. Coding Level of Care Code Est Pt Level 3 (38049) Diagnoses ESRD (end stage renal disease) N18.6 PAD (peripheral artery disease) I73.9 Diabetic ulcer of left midfoot associated with type 2 diabetes mellitus, with fat layer exposed E11.621; L97.422 Diabetes mellitus type: type 2 Diabetic foot ulcer location: midfoot Laterality: left Non-pressure ulcer stage: with fat layer exposed
[2023-08-28 14:59] VITALS: BP 116/60; PULSE 78; TEMP 37.1; O2SAT 98
== END 2023-08-29 14:34 | disposition home or self-care (01) ==
PROVIDERS: Visit Provider Internal Medicine
DX: N18.6 End stage renal disease (principal); I73.9 Peripheral vascular disease, unspecified; E11.621 Type 2 diabetes mellitus with foot ulcer; L97.422 Non-pressure chronic ulcer of left heel and midfoot with fat layer exposed
CPT/HCPCS: 99213

== ENCOUNTER → 2023-08-28 14:45 | Outpatient (BNVA) | payer MEDICAID, OTHER, SELFPAY | PROVIDERS: Visit Provider Internal Medicine | DX: E11.22 Type 2 diabetes mellitus with diabetic chronic kidney disease (principal); N18.6 End stage renal disease; E11.21 Type 2 diabetes mellitus with diabetic nephropathy; L97.422 Non-pressure chronic ulcer of left heel and midfoot with fat layer exposed; E11.51 Type 2 diabetes mellitus with diabetic peripheral angiopathy without gangrene | CPT/HCPCS: 99212 ==

== ENCOUNTER 2023-08-30 14:23 | Outpatient (RCR) | payer MEDICAID, OTHER, SELFPAY | END 2023-12-21 15:00 | disposition home or self-care (01) | LOC: HO.WCC 14:23 | PROVIDERS: Visit Provider Surgery | DX: E11.621 Type 2 diabetes mellitus with foot ulcer (principal); L97.523 Non-pressure chronic ulcer of other part of left foot with necrosis of muscle; E11.69 Type 2 diabetes mellitus with other specified complication; M86.472 Chronic osteomyelitis with draining sinus, left ankle and foot; E11.22 Type 2 diabetes mellitus with diabetic chronic kidney disease; I12.0 Hypertensive chronic kidney disease with stage 5 chronic kidney disease or end stage renal disease; N18.6 End stage renal disease; Z99.2 Dependence on renal dialysis; Z79.82 Long term (current) use of aspirin; Z79.899 Other long term (current) drug therapy | CPT/HCPCS: 11042; 11043; 11044; 11046; 87070; 87205; 97597 ==

== ENCOUNTER 2023-09-11 14:30 | Outpatient (AMB) | payer SELFPAY ==
--- NOTE | 2023-09-11 14:32 | A.OFFVIS_ITS ---
Intake Vital Signs 3 09/11/23 14:48 BP 160/63 H Blood Pressure Location Rt brachial Position Sitting Pulse 83 Pulse Source Pulse Oximeter Temp 98.9 F Temp Source Oral Intake Visit Reasons: F/U, 2 wks Refuse Collector Required: Yes Refuse Collector Name: Valdemar Melendez CMA Information Interpreted: clinical only Allergies No Known Allergies Allergy (Verified 09/11/23 14:49) HPI F/U, 2 wks 2 HPI0 Details He is feeling well. This is week 3 IV Ertapenem 500 mg post HD. He has been able to get into Wound Care and has been seen twice. Area appears to be decreased since last seen. He is done on 09/26 likely with antibiotics COUNTS INCLUDE 234 BEDS AT THE [facility] Medical History Insulin dependent type 2 diabetes mellitus Chronic kidney disease on chronic dialysis Hypertension Diabetes mellitus Social History Household Members: Other Household Members Other:: Housing: House Do you presently have visiting nurse or other home services: No Unable to assess alcohol history related to: Unable to respond Alcohol intake: unknown Patient Tobacco Use Status: Never used Tobacco service: No Physical Exam Vital Signs: Last Vital Signs Temp 98.9 F 09/11/23 14:48 Pulse 83 09/11/23 14:48 BP 160/63 H 09/11/23 14:48 Const General: cooperative Orientation/consciousness: patient oriented x3 HEENT Head: Yes normal to inspection Mouth: Normal oral and palatal mucosa present Eyes General: appearance normal, both eyes and all related structures Pupils: Equal, round and reactive pupils present Resp Effort & Inspection: normal respiratory effort Cardio Rate: regular rate Rhythm: regular rhythm GI Palpation (GI): Soft to palpation and nontender General: Yes no CVA tenderness Back/Spine/Pelvis Back: no CVA tenderness Skin General skin exam: no rashes or lesions noted Neuro General: patient oriented x3 Cranial nerves: Yes CN's II-XII intact bilaterally and Yes Equal, round and reactive pupils present Extrem Other: General: Yes normal to inspection (half decrease in open scabbed area) Psych Appearance: grossly normal Assessment & Plan Assessment & Plan (1) Diabetic foot ulcer: Comment: He is in need of Wound Care and debridement likely and supplies Code(s): E11.621 - Type 2 diabetes mellitus with foot ulcer; L97.509 - Non-pressure chronic ulcer of other part of unspecified foot with unspecified severity Qualifiers: Diabetes mellitus type: type 2 Diabetic foot ulcer location: midfoot L aterality: left Non-pressure ulcer stage: with fat layer exposed Qualified Code(s): E11.621 - Type 2 diabetes mellitus with foot ulcer; L97.422 - Non- pressure chronic ulcer of left heel and midfoot with fat layer exposed Plan: Continue Ertapenem. See on September 25 as this is day before due to finish antibiotics Continue Wound Care. (2) ESRD (end stage renal disease): Code(s): N18.6 - End stage renal disease Plan: follow Renal Coding Level of Care Code Est Pt Level 3 (68773) Diagnoses Diabetic ulcer of left midfoot associated with type 2 diabetes mellitus, with fat layer exposed E11.621; L97.422 Diabetes mellitus type: type 2 Diabetic foot ulcer location: midfoot Laterality: left Non-pressure ulcer stage: with fat layer exposed ESRD (end stage renal disease) N18.6
[2023-09-11 14:48] VITALS: BP 160/63; PULSE 83; TEMP 37.2
== END 2023-09-11 15:05 | disposition home or self-care (01) ==
LOC: HO.HID 14:30
PROVIDERS: Visit Provider Internal Medicine
DX: E11.621 Type 2 diabetes mellitus with foot ulcer (principal); L97.422 Non-pressure chronic ulcer of left heel and midfoot with fat layer exposed; N18.6 End stage renal disease
CPT/HCPCS: 99213

== ENCOUNTER 2023-09-13 13:59 | Outpatient (REF) | payer MEDICAID, OTHER, SELFPAY ==
[2023-09-13 14:04] LABS: MANUAL DIFF FLAG NO
[2023-09-13 14:17] LABS: Basophils Absolute Auto 0.1 X10*3/uL (0.0-0.2); Basophils Percent Auto 0.8 % (0-2); Eosinophils Absolute Auto 0.5 X10*3/uL (0.0-0.4); Eosinophils Percent Auto 7.6 % (0-4); Hematocrit 27.6 % (42.0-52.0); Hemoglobin 8.9 g/dl (14.0-18.0); Imm Gran Abs Auto 0.02 X10*3/uL (0.00-0.03); Imm Gran Pct Auto 0.3 % (0.0-0.4); Lymphocytes Absolute Auto 1.3 X10*3/uL (1.2-4.9); Lymphocytes Percent Auto 22.3 % (20-40); Mean Corpuscular HGB Conc 32.2 g/dl (31.0-36.0); Mean Corpuscular Hemoglobin 28.4 pg (27.0-33.0); Mean Corpuscular Volume 88.2 fL (80.0-98.0); Mean Platelet Volume 10.1 fL (9.4-12.4); Monocytes Absolute Auto 0.6 X10*3/uL (0.1-1.2); Monocytes Percent Auto 9.8 % (2-11); Neutrophils Absolute Auto 3.5 x10*3/uL (2.0-8.3); Neutrophils Percent Auto 59.2 % (45-73); Platelet Count 286 X10*3/uL (160-400); Red Blood Count 3.13 X10*6/uL (4.60-5.80); Red Cell Distribution Width 13.1 % (11.0-16.0); White Blood Count 5.9 X10*3/uL (4.8-10.8)
[2023-09-13 15:23] LABS: Anion Gap 14 (12-20); Blood Urea Nitrogen 23 mg/dL (9-16); Calcium 8.2 mg/dL (8.4-10.2); Carbon Dioxide 33 mmol/L (22-29); Chloride 93 mmol/L (96-108); Estimated Glomerular Filt Rate 12; Glucose Random 173 mg/dL (60-115); Potassium 4.1 mmol/L (3.3-5.1); Sodium 136 mmol/L (135-145)
== END 2023-09-13 14:00 | disposition home or self-care (01) ==
LOC: HO.LNP 13:59
PROVIDERS: Visit Provider Internal Medicine
DX: E11.621 Type 2 diabetes mellitus with foot ulcer (principal); L97.422 Non-pressure chronic ulcer of left heel and midfoot with fat layer exposed; E11.22 Type 2 diabetes mellitus with diabetic chronic kidney disease; N18.6 End stage renal disease; Z79.899 Other long term (current) drug therapy
CPT/HCPCS: 80048; 85025; 99212

== ENCOUNTER 2023-09-19 13:32 | Outpatient (REF) | payer MEDICAID, OTHER, SELFPAY ==
[2023-09-19 13:36] LABS: MANUAL DIFF FLAG NO
[2023-09-19 14:10] LABS: Basophils Absolute Auto 0.1 X10*3/uL (0.0-0.2); Eosinophils Absolute Auto 0.8 X10*3/uL (0.0-0.4); Eosinophils Percent Auto 9.6 % (0-4); Hematocrit 29.4 % (42.0-52.0); Hemoglobin 9.4 g/dl (14.0-18.0); Imm Gran Abs Auto 0.02 X10*3/uL (0.00-0.03); Imm Gran Pct Auto 0.3 % (0.0-0.4); Lymphocytes Absolute Auto 1.7 X10*3/uL (1.2-4.9); Mean Corpuscular Hemoglobin 28.2 pg (27.0-33.0); Mean Corpuscular Volume 88.3 fL (80.0-98.0); Mean Platelet Volume 10.6 fL (9.4-12.4); Monocytes Absolute Auto 0.5 X10*3/uL (0.1-1.2); Monocytes Percent Auto 6.7 % (2-11); Neutrophils Absolute Auto 4.8 x10*3/uL (2.0-8.3); Neutrophils Percent Auto 60.4 % (45-73); Platelet Count 300 X10*3/uL (160-400); Red Blood Count 3.33 X10*6/uL (4.60-5.80); Red Cell Distribution Width 13.2 % (11.0-16.0); White Blood Count 7.9 X10*3/uL (4.8-10.8)
[2023-09-19 15:19] LABS: Anion Gap 17 (12-20); Blood Urea Nitrogen 40 mg/dL (9-16); Calcium 8.9 mg/dL (8.4-10.2); Carbon Dioxide 29 mmol/L (22-29); Chloride 95 mmol/L (96-108); Estimated Glomerular Filt Rate 7; Glucose Random 102 mg/dL (60-115); Potassium 4.4 mmol/L (3.3-5.1); Sodium 137 mmol/L (135-145)
== END 2023-09-19 13:33 | disposition home or self-care (01) ==
LOC: HO.HVNA 13:32
PROVIDERS: Visit Provider Internal Medicine
DX: E11.621 Type 2 diabetes mellitus with foot ulcer (principal)
CPT/HCPCS: 36415; 80048; 85025

== ENCOUNTER 2023-09-25 14:17 | Outpatient (AMB) | payer SELFPAY ==
--- NOTE | 2023-09-25 14:17 | A.OFFVIS_ITS ---
Intake Vital Signs 3 09/25/23 14:43 BP 158/62 H Blood Pressure Location Rt brachial Position Sitting Pulse 86 Pulse Source Pulse Oximeter Temp 98.6 F Temp Source Oral Pulse Oximetry (%) 98 Intake Visit Reasons: 1 mth f/u Ham Passer Required: Yes Ham Passer Name: Valdemar Melendez CMA Information Interpreted: clinical only Allergies No Known Allergies Allergy (Verified 09/25/23 14:45) HPI 1 mth f/u 2 HPI0 Details He has finished Ertapenem His last day 09/26. He has reached maximum benefit. [facility] Medical History Insulin dependent type 2 diabetes mellitus Chronic kidney disease on chronic dialysis Hypertension Diabetes mellitus Social History Household Members: Other Household Members Other:: Housing: House Do you presently have visiting nurse or other home services: No Unable to assess alcohol history related to: Unable to respond Alcohol intake: unknown Patient Tobacco Use Status: Never used Tobacco service: No Review of Systems Const All systems reviewed & are unremarkable except as noted in HPI and below Physical Exam Vital Signs: Last Vital Signs Temp 98.6 F 09/25/23 14:43 Pulse 86 09/25/23 14:43 BP 158/62 H 09/25/23 14:43 Pulse Ox 98 09/25/23 14:43 Const Other: General: cooperative Orientation/consciousness: patient oriented x3 HEENT Head: Yes normal to inspection Mouth: Normal oral and palatal mucosa present Eyes General: appearance normal, both eyes and all related structures Pupils: Equal, round and reactive pupils present Resp Effort & Inspection: normal respiratory effort Cardio Rate: regular rate Rhythm: regular rhythm GI Palpation (GI): Soft to palpation and nontender General: Yes no CVA tenderness Back/Spine/Pelvis Back: no CVA tenderness Skin General skin exam: no rashes or lesions noted Neuro General: patient oriented x3 Cranial nerves: Yes CN's II-XII intact bilaterally and Yes Equal, round and reactive pupils present Extrem Other: foot still some eschar Psych Appearance: grossly normal Assessment & Plan Assessment & Plan (1) ESRD (end stage renal disease): Code(s): N18.6 - End stage renal disease Plan: n/a (2) PAD (peripheral artery disease): Comment: seen by vascular Code(s): I73.9 - Peripheral vascular disease, unspecified Plan: n/a (3) Diabetic foot ulcer: Comment: He received supplies and is getting Wound Care Code(s): E11.621 - Type 2 diabetes mellitus with foot ulcer; L97.509 - Non-pressure chronic ulcer of other part of unspecified foot with unspecified severity Qualifiers: Diabetes mellitus type: type 2 Diabetic foot ulcer location: midfoot L aterality: left Non-pressure ulcer stage: with fat layer exposed Qualified Code(s): E11.621 - Type 2 diabetes mellitus with foot ulcer; L97.422 - Non- pressure chronic ulcer of left heel and midfoot with fat layer exposed Plan: Stop antibiotic Observe Orders: Orders 2 IR cvc remove any age 0209/25/23 E11.621 - Type 2 diabetes mellitus with foot ulcer, L97.509 - Non-pressure chronic ulcer of other part of unspecified foot with unspecified severity Coding Level of Care Code Est Pt Level 3 (40838) Diagnoses ESRD (end stage renal disease) N18.6 PAD (peripheral artery disease) I73.9 Diabetic ulcer of left midfoot associated with type 2 diabetes mellitus, with fat layer exposed E11.621; L97.422 Diabetes mellitus type: type 2 Diabetic foot ulcer location: midfoot Laterality: left Non-pressure ulcer stage: with fat layer exposed
[2023-09-25 14:43] VITALS: BP 158/62; PULSE 86; TEMP 37; O2SAT 98
== END 2023-09-25 15:15 | disposition home or self-care (01) ==
LOC: HO.HID 14:17
PROVIDERS: Visit Provider Internal Medicine
DX: N18.6 End stage renal disease (principal); I73.9 Peripheral vascular disease, unspecified; E11.621 Type 2 diabetes mellitus with foot ulcer; L97.422 Non-pressure chronic ulcer of left heel and midfoot with fat layer exposed
CPT/HCPCS: 99213

== ENCOUNTER → 2023-09-25 14:17 | Outpatient (BNVA) | payer MEDICAID, OTHER, SELFPAY | PROVIDERS: Visit Provider Internal Medicine | DX: N18.6 End stage renal disease (principal); I73.9 Peripheral vascular disease, unspecified; E11.621 Type 2 diabetes mellitus with foot ulcer; L97.422 Non-pressure chronic ulcer of left heel and midfoot with fat layer exposed | CPT/HCPCS: 99212 ==

== ENCOUNTER 2023-10-04 13:09 | Outpatient (REF) | payer SELFPAY ==
--- NOTE | ~2023-10-04 | IR_ITS ---
Mendez removal Patient presents with a tunneled central line Patient no longer requires IV antibiotics. Referring physician requests removal. The right chest wall suture was cut. Using gentle traction, the tunneled central line was removed from the right chest wall without complication. After hemostasis was obtained, a dry sterile dressing was applied. Patient tolerated the procedure well. IR/IR cvc remove any age Impression: Removal of Mendez catheter This procedure was performed by Tad Hodges PA-C and supervised by Dr. Ramírez
== END 2023-10-04 13:10 | disposition home or self-care (01) ==
LOC: HO.RADIR 13:09
PROVIDERS: Visit Provider Internal Medicine
DX: Z13.89 Encounter for screening for other disorder (principal)

== ENCOUNTER 2023-10-19 15:16 | Inpatient (IN) | payer MEDICAID, OTHER, SELFPAY ==
--- NOTE | ~2023-10-19 | CT_ITS ---
EXAMINATION: CT ANGIOGRAPHY ABDOMEN, PELVIS AND LOWER EXTREMITY RUNOFF WITH CONTRAST CLINICAL INFORMATION: Cold blue toes COMPARISON: None TECHNIQUE: Initial noncontrast localizing coal handler images were obtained. Timing boluses at the level of the celiac and popliteal arteries were calculated. Subsequently, arterial phase multidetector volumetric imaging was performed through the abdomen, pelvis and bilateral lower extremities following the administration of 100 mL Omnipaque 350 intravenous contrast. No contrast reaction reported Sagittal and coronal reformatted images were obtained on the technologist workstation. After extensive post-processing on a dedicated 3-D workstation, 3-D reformatted images were uploaded to PACS and reviewed as well. This CT examination was performed using dose optimization techniques as appropriate, variously including the following: *Automated exposure control *Adjustment of mA and/or kV according to patient size (this includes techniques or standardized protocols for targeted exams where dose is matched to indication/reason for exam; i.e. extremities or head) *Use of iterative reconstruction technique DLP: 772 mGy-cm FINDINGS: VASCULAR: Heart: Normal in size. No coronary artery calcifications. Abdominal Aorta: No dissection or aneurysmal dilation. Normal aortic taper. Mesenteric Arteries: The celiac axis, superior mesenteric artery and inferior mesenteric artery are patent. Renal Artery: Single renal arteries bilaterally. Renal arteries are patent and without stenosis or other vascular anomaly. Right Lower Extremity: Right Common Iliac Artery: Patent. Mild calcified atherosclerotic disease resulting in no high grade stenosis. Right External Iliac Artery: Patent. Mild calcified atherosclerotic disease resulting in no high grade stenosis. Right Internal Iliac Artery: Patent. Common Femoral Artery: Patent. Mild calcified atherosclerotic disease resulting in no high grade stenosis. Superficial Femoral Artery: Patent. Mild calcified atherosclerotic disease resulting in no high grade stenosis. Profunda Femoris: Patent. Popliteal Artery: Patent. Mild calcified atherosclerotic disease resulting in no high grade stenosis. Tibioperoneal Trunk: Cannot be evaluated. Anterior Tibial Artery: Cannot be evaluated. Peroneal Artery: Cannot be evaluated. Posterior Tibial Artery: Cannot be evaluated. Dorsalis Pedis: Cannot be evaluated. Plantar Arch: Patent. Left lower extremity: Left Common Iliac Artery: Patent. Mild calcified atherosclerotic disease resulting in no high grade stenosis. Left External Iliac Artery: Patent. Mild calcified atherosclerotic disease resulting in no high grade stenosis. Left Internal Iliac Artery: Patent. Common Femoral Artery: Patent. Mild calcified atherosclerotic disease resulting in no high grade stenosis. Superficial Femoral Artery: Patent. Mild calcified atherosclerotic disease resulting in no high grade stenosis. Profunda Femoris: Patent. Popliteal Artery: Patent. Mild calcified atherosclerotic disease resulting in no high grade stenosis. Tibioperoneal Trunk: Cannot be evaluated. Anterior Tibial Artery: Cannot be evaluated. Peroneal Artery: Cannot be evaluated. Posterior Tibial Artery: Occluded. Dorsalis Pedis: Cannot be evaluated. Plantar Arch: Occluded. NONVASCULAR FINDINGS: ABDOMEN/PELVIS: Lung Bases: The visualized lung bases are clear. Liver: Homogeneous in attenuation. Normal in size. Gallbladder: Noninflamed. Biliary System: No intrahepatic or extrahepatic biliary dilation. Pancreas: Homogeneous in attenuation. Spleen: Normal in size. Genitourinary: Bilateral kidneys demonstrate symmetric enhancement. No perinephric fluid collection. No renal calculi. No hydroureteronephrosis. Adrenal Glands: Unremarkable. Reproductive: Prostamegaly Gastrointestinal: The visualized alimentary tract is normal in course. No evidence of obstruction. Appendix: The appendix is not visualized, however, no pericecal inflammatory changes are seen in the right lower quadrant. Peritoneum: No pneumoperitoneum. No intra-abdominal fluid collection. Lymph Nodes: No pathologically enlarged abdominal or pelvic lymph nodes. Soft Tissues/Musculoskeletal: Fat-containing right inguinal hernia. Asymmetric left gastrocnemius and soleus muscular atrophy. Severe degenerative arthropathy of the hindfoot. CT/CT angio abd aorta runoff IMPRESSION: VASCULAR: Abdomen/Pelvis: No abdominal aortic aneurysm or dissection. Right Lower Extremity: 1. Mild iliac, femoral, and popliteal atherosclerotic disease without high-grade stenosis. 2. Tibial vessels could not be evaluated due to significant circumferential calcifications limiting evaluation of the lumen. Recommend further evaluation with direct angiography. 3. Dorsalis pedis could not be evaluated. Plantar arch patent. Left Lower Extremity: 1. Mild iliac, femoral, and popliteal atherosclerotic disease without high-grade stenosis. 2. Tibial vessels could not be evaluated due to significant circumferential calcifications limiting evaluation of the lumen. Recommend further evaluation with direct angiography. 3. Occluded posterior tibial artery and plantar arch at the level of the foot. Dorsalis pedis could not be evaluated. NONVASCULAR: Fat-containing right inguinal hernia. Prostamegaly. Left Charcot foot. Fleischner guidelines were followed. Disclaimer: Assessment of the lower extremity arterial vasculature is limited in the setting of artifact created from calcified atherosclerotic plaque and suboptimal contrast/spacial resolution of CT to distinguish calcified plaque from luminal contrast in small vessels. Given that this could lead to underestimation of stenosis (particularly infrapopliteal vessels), assessment with traditional angiography is recommended in the appropriate clinical setting.
--- NOTE | ~2023-10-19 | US_ITS ---
EXAMINATION: Noninvasive assessment of the left lower extremities with ARTERIAL DUPLEX CLINICAL INFORMATION: Peripheral vascular disease with nonhealing ulceration. History of left peroneal artery angioplasty TECHNIQUE: Duplex Doppler techniques with waveform analysis and measurement of velocities in the left common femoral, profunda femoris, superficial femoral, popliteal and tibial arteries were performed. COMPARISON: Noninvasive arterial evaluation from 08/16/2023 FINDINGS: DIRECT DUPLEX DOPPLER FINDINGS: LEFT LEG: Common femoral artery: 119 cm/s, phasicity: Biphasic. Mild calcified plaque Profunda femoris artery: 131 cm/s, phasicity: Biphasic Superficial femoral artery (proximal): 110 cm/s, phasicity: Triphasic Superficial femoral artery (mid): 137 cm/s, phasicity: Monophasic Superficial femoral artery (distal): 107 cm/s, phasicity: Monophasic Popliteal artery: 120 cm/s, phasicity: Monophasic Posterior tibial artery: Mid posterior tibial artery is occluded with reconstituted flow in the distal segment, velocity is 92.7 cm/s, phasicity: Monophasic Peroneal artery: Occluded cm/s, Anterior tibial artery: 96.0 cm/s, phasicity: Monophasic Dorsalis pedis artery: Not evaluated due to overlying bandages US/US arterial duplex LE LT IMPRESSION: 1. Occlusion of the mid posterior tibial artery with reconstituted flow in the distal segment. 2. Occlusion of the peroneal artery, which is new compared to the prior exam. 3. Monophasic waveforms in the mid to distal superficial femoral artery and popliteal artery consistent with severe distal occlusive peripheral vascular disease.
--- NOTE | ~2023-10-19 | XR_ITS ---
EXAMINATION: XR FOOT, LEFT CLINICAL INFORMATION: Worsening with infection. COMPARISON: 08/15/2023 TECHNIQUE: AP, lateral, and oblique views of the left foot. FINDINGS: There is underpenetration of the radiograph which limits evaluation. This may be due to extensive soft tissue edema. There is osteolytic destruction involving the fourth and fifth digits from the neck of the the metatarsals through the proximal phalanges. There is extensive soft tissue swelling and edema. There are arterial vascular calcifications. There is a large plantar and lateral skin defect of the forefoot best seen on the oblique projection. There is osseous destruction, fragmentation, sclerosis, and subluxation at the midfoot centered around the talonavicular joint, consistent with Charcot arthropathy. The navicular and talar head are fragmented with dorsal and medial displacement of fracture fragments. There is loss of the plantar arch. XR/XR foot LT min 3V IMPRESSION: Osteolytic destruction involving the fourth and fifth digits from the neck of the metatarsals to the proximal phalanges. Soft tissue wound/skin defect plantar and lateral region of the forefoot.
--- NOTE | 2023-10-19 15:18 | ED_ITS ---
HPI - General Adult General Chief complaint: Wound/Laceration Stated complaint: infection in foot, ref from wound care Time Seen by Provider: 10/19/23 20:25 History of Present Illness HPI narrative: The patient is a type 2 diabetic who also has severe chronic renal failure on dialysis. He was hospitalized at this hospital at the end of July for a left foot diabetic foot ulcer. He was discharged from the hospital on August 22 and continued to receive IV ertapenem for a total of 6 weeks. He was receiving 500 mg of ertapenem 3 times weekly dose after dialysis. His antibiotics ended earlier this month on September 26. The patient has been nonweightbearing on the foot since his hospitalization in July. He gets around with crutches. The patient has been going to the wound clinic 2 to 3 times a week for wound care of the foot since discharge. He had an appointment today. Staff at the wound clinic were concerned that foot was looking considerably worse and recommended he come to the hospital for IV antibiotics. The patient has not had a fever. The patient's says the foot has looked worse for about 3 or 4 days. The patient's does a lot of the dressing change Related Data Home Medications Medication Instructions Recorded Confirmed amlodipine 5 mg tablet 5 mg PO DAILY 08/15/23 10/19/23 carvedilol 25 mg tablet 25 mg PO BID 08/15/23 10/19/23 cinacalcet 30 mg tablet 30 mg PO MOWEFR@0900 08/15/23 10/19/23 ergocalciferol (vitamin D2) 1,250 1,250 mcg PO MO@0900 08/15/23 10/19/23 mcg (50,000 unit) capsule insulin glargine 100 unit/mL 15 unit subcut BEDTIME 10/19/23 10/19/23 subcutaneous solution (Lantus U-100 Insulin) Previous Rx's Medication Instructions Recorded aspirin 81 mg chewable tablet 81 mg PO DAILY 30 days #30 tabs 08/18/23 Allergies Allergy/AdvReac Type Severity Reaction Status Date / Time No Known Allergies Allergy Verified 09/25/23 14:45 Review of Systems 2 Review of Systems: Yes all other systems are reviewed and are negative PMFSH Past Medical History Medical History Insulin dependent type 2 diabetes mellitus Chronic kidney disease on chronic dialysis Hypertension Diabetes mellitus Social History Social History Household Members: Other Household Members Other:: Housing: House Do you presently have visiting nurse or other home services: No Unable to assess alcohol history related to: Unable to respond Alcohol intake: never Patient Tobacco Use Status: Never used Tobacco Smoked in Last 30 Days: No Use of substances other than those prescribed or required for medical reasons: No Advance Directives: No Advance Directives Information Provided: No Nutrition Risks: No Nutritional Risk service: No Physical Exam ED Vital Signs: Vital Signs - 24 hr 10/19/23 15:20 10/19/23 19:46 Temperature 98.5 F 98.3 F Pulse Rate 83 83 Respiratory Rate 18 18 Blood Pressure 139/37 L 153/42 H Pulse Oximetry 97 98 Oxygen Delivery Method Room Air Room Air BMI result Body Mass Index 32.6 Const Other: The patient is awake and alert. He is pleasant cooperative. He does not appear in obvious distress. HENMT Other: The face is symmetrical. ?Mucous membranes moist. Eyes Other: Pupils are round equal, conjunctivae are clear, extraocular movements intact Neck Other: No JVD Resp Effort & Inspection: normal respiratory effort Auscultation: clear to auscultation bilaterally Cardio Rate: regular rate Rhythm: regular rhythm Heart sounds: S1 normal heart sound present and S2 normal heart sound present GI Other: Abdomen is soft and nontender Skin Other: The skin is unremarkable aside from the skin of the left foot. The patient has a very wound on the plantar and lateral aspect of the foot. Neuro Other: The patient has diminished sensation in the feet. Extrem Other: The patient has a very large wound on the plantar and lateral aspect of the left foot. Course Course Course Narrative: This is a rapid medical exam: Additional HPI, ROS, PE not included below will be deferred to primary provider. Patient is a 53-jaun-old male with history of ESRD, PAD, diabetic foot ulcer presenting to the ED from wound care with concern for worsening left foot infection. Daughter states that patient was already on antibiotics one month ago for same infection. Plan: labs including cultures, x-ray Medications Administered Generic Name Dose Route Start Last Admin Trade Name Freq PRN Reason Stop Dose Admin Heparin Sodium (Porcine) 5,000 unit 10/19/23 22:00 10/19/23 22:07 Heparin Sodium,Porcine 5,000 Unit/Ml Vial SUBCUT 5,000 unit Q12H GARCIA Administration Discontinued Medications Generic Name Dose Route Start Last Admin Trade Name Jessica PRN Reason Stop Dose Admin Piperacillin Sod/Tazobactam 100 mls @ 200 mls/hr 10/19/23 21:24 10/19/23 22:04 Sod 4.5 gm/ Sodium Chloride IV 10/19/23 21:53 200 mls/hr ONCE ONE Administration Insulin Glargine 8 unit 10/19/23 21:29 10/19/23 22:05 Insulin Glargine,Hum.Rec.Anlog 100 Unit/Ml 10 Ml Vial SUBCUT 10/19/23 21:30 8 unit ONCE ONE Administration Medical Decision Making Medical Decision Making [facility] Narrative: The patient is a very pleasant 53-year-old who unfortunately is a dialysis patient and has type 2 diabetes. He was treated for a diabetic foot infection 2 months ago with 6 weeks of ertapenem. He finished this about a month ago. Over the last 3 days he has had a worsening appearance to the wound of the left foot and was sent to the hospital from the Wound Care office today. His x-ray shows significantly more bony destruction in the left foot particularly at the lateral toes. His ESR and CRP are higher. Blood cultures were obtained. He has not septic. His lactate was normal. A wound culture from the plantar aspect of the foot was also obtained. He was started on vancomycin and piperacillin/tazobactam and admitted to the hospitalist service. Lab Data 10/19/23 17:31 10/19/23 17:31 Labs: Lab Results 10/19/23 10/19/23 Range/Units 17:30 17:31 WBC 10.3 (4.8-10.8) X10*3/uL RBC 3.73 L (4.60-5.80) X10*6/uL Hgb 10.6 L (14.0-18.0) g/dl Hct 32.6 L (42.0-52.0) % MCV 87.4 (80.0-98.0) fL MCH 28.4 (27.0-33.0) pg MCHC 32.5 (31.0-36.0) g/dl RDW 14.7 (11.0-16.0) % Plt Count 326 (160-400) X10*3/uL MPV 10.2 (9.4-12.4) fL Immature Gran % (Auto) 0.4 (0.0-0.4) % Neut % (Auto) 73.9 H (45-73) % Lymph % (Auto) 14.3 L (20-40) % [place] % (Auto) 6.8 (2-11) % Eos % (Auto) 4.1 H (0-4) % Baso % (Auto) 0.5 (0-2) % Lymph # (Auto) 1.5 (1.2-4.9) X10*3/uL [place] # (Auto) 0.7 (0.1-1.2) X10*3/uL Eos # (Auto) 0.4 (0.0-0.4) X10*3/uL Baso # (Auto) 0.1 (0.0-0.2) X10*3/uL Abs Immat Gran (auto) 0.04 H (0.00-0.03) X10*3/uL Absolute Neuts (auto) 7.6 (2.0-8.3) x10*3/uL Absolute Nucleated RBC 0.000 (0.0-0.012) X10*3/uL Nucleated RBC % (auto) 0.0 (0.0-0.2) /100WBC ESR 101 H (0-15) MM/HR Sodium 132 L (135-145) mmol/L Potassium 4.7 (3.3-5.1) mmol/L Chloride 91 L (96-108) mmol/L Carbon Dioxide 27 (22-29) mmol/L Anion Gap 19 (12-20) BUN 63 H (9-16) mg/dL Creatinine 9.28 H* (0.5-1.4) mg/dL Estim Creat Clear Calc 9.9 Estimated GFR 6 Random Glucose 273 H (60-115) mg/dL Lactic Acid 1.3 (0.5-2.0) mmol/L Calcium 9.3 (8.4-10.2) mg/dL Total Bilirubin 0.4 (0.0-1.0) mg/dL AST 9 (5-37) U/L ALT 8 (0-40) U/L Alkaline Phosphatase 87 (39-117) U/L C-Reactive Protein 17.05 H (< or = 0.50) mg/dL Total Protein 9.1 H (6.5-8.0) g/dL Albumin 3.3 L (3.5-5.0) g/dL Discharge Plan Discharge Clinical Impression: Diabetic foot infection, Osteomyelitis Patient Disposition: Admitted As Inpatient
[2023-10-19 15:20] VITALS: BP 139/37; PULSE 83; RESP 18; TEMP 36.9; O2SAT 97; BMI 32.6
[2023-10-19 17:37] LABS: MANUAL DIFF FLAG NO
[2023-10-19 17:41] LABS: Basophils Absolute Auto 0.1 X10*3/uL (0.0-0.2); Basophils Percent Auto 0.5 % (0-2); Eosinophils Absolute Auto 0.4 X10*3/uL (0.0-0.4); Eosinophils Percent Auto 4.1 % (0-4); Hematocrit 32.6 % (42.0-52.0); Hemoglobin 10.6 g/dl (14.0-18.0); Imm Gran Abs Auto 0.04 X10*3/uL (0.00-0.03); Imm Gran Pct Auto 0.4 % (0.0-0.4); Lymphocytes Absolute Auto 1.5 X10*3/uL (1.2-4.9); Lymphocytes Percent Auto 14.3 % (20-40); Mean Corpuscular HGB Conc 32.5 g/dl (31.0-36.0); Mean Corpuscular Hemoglobin 28.4 pg (27.0-33.0); Mean Corpuscular Volume 87.4 fL (80.0-98.0); Mean Platelet Volume 10.2 fL (9.4-12.4); Monocytes Absolute Auto 0.7 X10*3/uL (0.1-1.2); Monocytes Percent Auto 6.8 % (2-11); Neutrophils Absolute Auto 7.6 x10*3/uL (2.0-8.3); Neutrophils Percent Auto 73.9 % (45-73); Platelet Count 326 X10*3/uL (160-400); Red Blood Count 3.73 X10*6/uL (4.60-5.80); Red Cell Distribution Width 14.7 % (11.0-16.0); White Blood Count 10.3 X10*3/uL (4.8-10.8)
[2023-10-19 17:48] LABS: Lactic Acid 1.3 mmol/L (0.5-2.0)
[2023-10-19 17:55] LABS: Alanine Aminotransferase 8 U/L (0-40); Albumin Level 3.3 g/dL (3.5-5.0); Alkaline Phosphatase 87 U/L (39-117); Anion Gap 19 (12-20); Aspartate Amino Transferase 9 U/L (5-37); Bilirubin Total 0.4 mg/dL (0.0-1.0); Blood Urea Nitrogen 63 mg/dL (9-16); C Reactive Protein 17.05 mg/dL (< or = 0.50); Calcium 9.3 mg/dL (8.4-10.2); Carbon Dioxide 27 mmol/L (22-29); Chloride 91 mmol/L (96-108); Creatinine Clr Calc Pharmacy 9.9; Estimated Glomerular Filt Rate 6; Glucose Random 273 mg/dL (60-115); Potassium 4.7 mmol/L (3.3-5.1); Sodium 132 mmol/L (135-145); Total Protein 9.1 g/dL (6.5-8.0)
[2023-10-19 18:22] LABS: Erythrocyte Sedimentation Rate 101 MM/HR (0-15)
[2023-10-19 19:46] VITALS: BP 153/42; PULSE 83; RESP 18; TEMP 36.8; O2SAT 98
--- NOTE | 2023-10-19 19:51 | PC.NURSE ---
Patient is alert and oriented x4, Maldivian Speaking only. Marshallese speaking daughter at bedside to assist with translation. VSS. Patient denies any pain at present. Patient resting in a stretcher bed, watching TV, call russ in patient's reach, awaiting to be seen by ED provider.
--- NOTE | 2023-10-19 21:22 | P.HPHOSP_ITS ---
History of Present Illness Date of Service: 10/19/23 Chief Complaint: Foot infection This is a 53-year-old male with pertinent history of insulin-dependent diabetes mellitus, ESRD on hemodialysis M/W/F, peripheral vascular disease, essential hypertension who presents to the emergency department for evaluation of left foot infection. Patient states he saw Wound Care Clinic on the day of presentation who asked the patient to come to the ER. Of note, patient was admitted on 08/15/2023 and discharged on 08/22/2023 with diabetic left foot infection and discharged on IV ertapenem. Patient finished 6 week course of IV ertapenem early in September. He states that his infection was improving when he was on the antibiotics. Since being off the antibiotics, the drainage from the left foot wound has been worsening especially over the last 1 week. It is foul- smelling. No fever, chills, chest discomfort, palpitations, shortness of breath, abdominal pain, changes in urinary or bowel habits. In the emergency department, imaging with osteolytic destruction of the 4th and 5th digits of the left foot Review of Systems 2 Constitutional: Constitutional: Reports no additional constitutional complaints Cardiovascular: Cardiovascular: Reports no additional cardiovascular complaints Respiratory: Respiratory: Reports no additional respiratory complaints Gastrointestinal: Gastrointestinal: Reports no additional gastrointestinal complaints Genitourinary: Genitourinary: Reports no additional male genitourinary complaints Neurologic: Reports system reviewed and no additional complaints, except as documented [facility] Medical History Insulin dependent type 2 diabetes mellitus Chronic kidney disease on chronic dialysis Hypertension Diabetes mellitus Pertinent family history: No family history of early CAD Social History Household Members: Other Household Members Other:: Housing: House Do you presently have visiting nurse or other home services: No Unable to assess alcohol history related to: Unable to respond Alcohol intake: never Patient Tobacco Use Status: Never used Tobacco service: No Meds Allergies Allergy/AdvReac Type Severity Reaction Status Date / Time No Known Allergies Allergy Verified 09/25/23 14:45 Home Medications Medication Instructions Recorded Confirmed Last Taken Type amlodipine 5 mg tablet 5 mg PO DAILY 08/15/23 08/15/23 Unknown History carvedilol 25 mg tablet 25 mg PO BID 08/15/23 08/15/23 Unknown History cinacalcet 30 mg tablet 30 mg PO MOWEFR@0900 08/15/23 08/15/23 Unknown History ergocalciferol (vitamin D2) 1,250 1,250 mcg PO MO@0900 08/15/23 08/15/23 Unknown History mcg (50,000 unit) capsule Physical Exam 2 Vital Signs and Narrative: Vital Signs: Last Vital Signs Temp 98.3 F 10/19/23 19:46 Pulse 83 10/19/23 19:46 Resp 18 10/19/23 19:46 BP 153/42 H 10/19/23 19:46 Pulse Ox 98 10/19/23 19:46 O2 Del Method Room Air 10/19/23 19:46 BMI result Body Mass Index 32.6 Middle-aged male lying in bed in no distress Neck supple, no JVD Regular rate and rhythm, S1-S2 heard Regular breath sounds bilaterally, no wheezing or crackles appreciated Abdomen soft nontender, no guarding, no rigidity Patient is awake, alert and oriented to self, place, time and person ; no focal motor deficit Psych: Normal mood Left lower extremity as pictured below Skin: Other: Results Labs 10/19/23 17:31 10/19/23 17:31 Labs: Laboratory Results - last 24 hr 10/19/23 10/19/23 17:30 17:31 MCV 87.4 MCH 28.4 MCHC 32.5 RDW 14.7 Plt Count 326 MPV 10.2 Immature Gran % (Auto) 0.4 Neut % (Auto) 73.9 H Lymph % (Auto) 14.3 L [place] % (Auto) 6.8 Eos % (Auto) 4.1 H Baso % (Auto) 0.5 Lymph # (Auto) 1.5 [place] # (Auto) 0.7 Eos # (Auto) 0.4 Baso # (Auto) 0.1 Abs Immat Gran (auto) 0.04 H Absolute Neuts (auto) 7.6 Absolute Nucleated RBC 0.000 Nucleated RBC % (auto) 0.0 ESR 101 H Anion Gap 19 Estim Creat Clear Calc 9.9 Estimated GFR 6 Random Glucose 273 H Lactic Acid 1.3 Calcium 9.3 Total Bilirubin 0.4 AST 9 ALT 8 Alkaline Phosphatase 87 C-Reactive Protein 17.05 H Total Protein 9.1 H Albumin 3.3 L Imaging Radiologist's Impressions: Impressions Foot X-Ray 10/19/23 15:30 IMPRESSION: Osteolytic destruction involving the fourth and fifth digits from the neck of the metatarsals to the proximal phalanges. Soft tissue wound/skin defect plantar and lateral region of the forefoot. Assessment and Plan (1) Diabetic foot infection: Status: Acute Plan This is a 53-year-old male with pertinent history of insulin-dependent diabetes mellitus, ESRD on hemodialysis M/W/F, peripheral vascular disease, essential hypertension who presents to the emergency department for evaluation of left foot infection. #. Diabetic left foot infection with foot ulcer and purulent cellulitis: Imaging with osteolytic destruction involving 4th and 5th digits. Will admit patient and initiate empiric IV antibiotics. Consulted Infectious Disease and vascular surgery. No sepsis. #. ESRD on hemodialysis: M/W/F scheduled. Consulted Nephrology #. Insulin-dependent diabetes mellitus with hyperglycemia: Initiating basal plus insulin regimen #. Essential hypertension: Continue home antihypertensives #. Anemia of chronic kidney disease: Hemoglobin above transfusion threshold Med rec pending DVT prophylaxis: Heparin Full code Admit as inpatient and will require two night minimum hospital stay for IV antibiotics (as above), which is not possible in a lesser acute setting. Specialist consult pending Quality Stroke Does the patient have a stroke diagnosis?: No VTE Prior VTE?: No VTE Risk Level:: Medical - moderate - high VTE Device Contraindication: Treatment Not Indicated VTE Drug Contraindication: N/A - Med Ordered
--- NOTE | 2023-10-19 21:50 | PHA.MEDREC ---
Pharmacy Consult ? Medication Reconciliation Pharmacy has completed the medication reconciliation. Confirmed medication with patient and with list brought from [facility]) Patient reports she is no longer taking [employer].
--- NOTE | 2023-10-19 21:55 | PHA.PROG ---
Admission Date/Time: October 19, 2023 21:19 Indication: Bone&Join Weight in k.5 kg Adjusted body weight in K.[address] body weight in K.1 kg Obesity Dosing Indication % IBW: 142% Serum Creatinine - Last 168 Hours 10/19/23 17:31 Creatinine 9.28 H* Estimated CrCl and GFR - Last 168 Hours 10/19/23 17:31 Estim Creat Clear Calc 9.9 Estimated GFR 6 Vancomycin Loading Dose: 1500 mg Current Vancomycin Dosing Regimen: dose based on post-diaylsis level Date and Time for next Vancomycin Level to be drawn: 10/19 @ 1800 Pharmacist Comments on Vancomycin Plan: Patient received a reduce load dose due to being on dialysis Patient will get dosed based off post-dialysis random level. Patient is scheduled for dialysis on 10/19 Pharmacy will F/U for future dialysis schedule Zo Gutierrez, [place] Vancomycin dosing will take advantage of [employer] as a clinical decision support tool that uses Bayesian modeling to calculate individual patient's pharmacokinetic parameters and forecast the patient's drug concentration time course with the target goal AUC 24 range of 400 - 600 mg/L/hr.
[2023-10-19] MEDS: Piperacillin Sodium/Tazobactam 4.5 GM in 0.9 % Sodium Chloride 100 ML IV (22:04)
[2023-10-19] MEDS: Insulin Glargine,Hum.rec.anlog 100 UNIT/ML 10 ML VIAL 8 UNIT SUBCUT (22:05)
[2023-10-19 22:07] LABS: Glucose, Whole Blood 226 mg/dL (60-115)
[2023-10-19] MEDS: Heparin Sodium,Porcine 5,000 UNIT/ML VIAL 5000 UNIT SUBCUT (22:07)
--- NOTE | 2023-10-19 22:34 | PHA.MEDREC ---
Pharmacy Consult ? Medication Reconciliation Pharmacy has completed the medication reconciliation. Confirmed medications with patient and through claim history. Patient reports he is no longer taking Insulin Lispro.
--- NOTE | 2023-10-19 23:25 | PC.NURSE ---
Delay in administration of Vanco 1,500 mg, not available in [email or web address], machine assembler supervisor notified.
[2023-10-20] MEDS: vancomycin HCL 1,500 MG in 0.9 % Sodium Chloride 500 ML 333.33 MG IV (00:33)
[2023-10-20 00:46] VITALS: BP 182/52; PULSE 79; RESP 18; TEMP 36.7; O2SAT 97
--- NOTE | 2023-10-20 00:57 | PC.NURSE ---
Patient is resting in a stretcher bed, watching TV. Patient continues to deny any pain. Vanco 1,500 mg infusing, no adverse reactions noted. BP elevated 182/52, P 79, O2 Sat 97% RA. Patient denies headache/ chest pain/dizziness/shortness of breath/nausea/vomiting/blurry vision. Dr. Barney notified, no new orders at this time.
[2023-10-20] MEDS: Labetalol HCL 100 MG/20 ML VIAL 10 MG IVPUSH (01:11)
[2023-10-20 02:26] VITALS: BP 149/35; PULSE 82; RESP 17; TEMP 36.6; O2SAT 94
[2023-10-20 05:04] LABS: Basophils Percent Auto 0.2 % (0-2); Eosinophils Absolute Auto 0.4 X10*3/uL (0.0-0.4); Eosinophils Percent Auto 3.8 % (0-4); Hematocrit 30.3 % (42.0-52.0); Imm Gran Abs Auto 0.02 X10*3/uL (0.00-0.03); Imm Gran Pct Auto 0.2 % (0.0-0.4); Lymphocytes Absolute Auto 1.5 X10*3/uL (1.2-4.9); Lymphocytes Percent Auto 16.7 % (20-40); MANUAL DIFF FLAG NO; Mean Corpuscular Hemoglobin 28.4 pg (27.0-33.0); Mean Corpuscular Volume 86.1 fL (80.0-98.0); Mean Platelet Volume 10.1 fL (9.4-12.4); Monocytes Absolute Auto 0.5 X10*3/uL (0.1-1.2); Monocytes Percent Auto 5.1 % (2-11); Neutrophils Absolute Auto 6.8 x10*3/uL (2.0-8.3); Platelet Count 318 X10*3/uL (160-400); Red Blood Count 3.52 X10*6/uL (4.60-5.80); Red Cell Distribution Width 14.7 % (11.0-16.0); White Blood Count 9.2 X10*3/uL (4.8-10.8)
[2023-10-20 05:23] VITALS: BP 179/73; PULSE 81; RESP 16; TEMP 37.2; O2SAT 95
[2023-10-20 05:23] LABS: Anion Gap 20 (12-20); Blood Urea Nitrogen 67 mg/dL (9-16); Calcium 9.2 mg/dL (8.4-10.2); Carbon Dioxide 25 mmol/L (22-29); Chloride 94 mmol/L (96-108); Creatinine Clr Calc Pharmacy 9.1; Estimated Glomerular Filt Rate 5; Glucose Random 167 mg/dL (60-115); Sodium 135 mmol/L (135-145)
[2023-10-20 07:09] LABS: Glucose, Whole Blood 149 mg/dL (60-115)
--- NOTE | 2023-10-20 08:45 | PC.NURSE ---
patient a&x3, vss, lungs dim/clear- respirations equal and non labored, pt has lt av fistula + bruit/thrill, pt dialysis is m/w/f- dialysis unit called and said they would give us a call back when they can fit him in, lt foot pt denies pain/pt states he has no feeling to lt foot is able to move toes, dressing c/d/i, call russ within reach, will continue to monitor
--- NOTE | 2023-10-20 10:38 | P.CONGS_ITS ---
History of Present Illness Consult details Consult date: 10/20/23 Reason for consult: wound care Narrative: Complex 53-year-old gentleman with prior history of peripheral vascular disease who had actually seen me for endovascular intervention in 2022. He is lost to follow-up. Apparently has this nonhealing left foot ulcer that has been going on since July. Unclear how the care was really being taken but had been seen by infectious disease. Was subsequently admitted in the foot wound continues to progress. He now presents to us for vascular evaluation Review of Systems 2 Review of Systems: Yes all other systems are reviewed and are negative Constitutional: Constitutional: Reports no additional constitutional complaints ENT: Reports Normal hearing present Cardiovascular: Cardiovascular: Denies chest pain, Denies chest pain at rest, Denies chest pain with activity and Denies pedal edema Respiratory: Respiratory: Denies cough Gastrointestinal: Gastrointestinal: Denies abdominal pain Musculoskeletal: Musculoskeletal: Denies abnormal gait, Denies muscle cramps and Denies radiating pain into limb Integumentary/Breasts: Skin/Breast: Denies skin ulcer and Denies wounds Neurologic: Reports Normal hearing present and Denies abnormal gait Psychiatric: Psychiatric: Reports no additional psychiatric complaints [facility] Past Medical History Medical History Insulin dependent type 2 diabetes mellitus Chronic kidney disease on chronic dialysis Hypertension Diabetes mellitus Social History Social History Household Members: Other Household Members Other:: Housing: House Do you presently have visiting nurse or other home services: No Unable to assess alcohol history related to: Unable to respond Alcohol intake: never Patient Tobacco Use Status: Never used Tobacco Smoked in Last 30 Days: No Use of substances other than those prescribed or required for medical reasons: No Advance Directives: No Advance Directives Information Provided: No Nutrition Risks: No Nutritional Risk service: No Meds Allergies Allergy/AdvReac Type Severity Reaction Status Date / Time No Known Allergies Allergy Verified 09/25/23 14:45 Active Medications: Current Medications Acetaminophen (Acetaminophen 325 Mg Tablet) 650 mg PO Q6H PRN PRN Reason: Pain, Mild (Pain Scale 1-3) Dextrose (Dextrose 50 % 25 Gm/50 Ml Syringe) 25 gm IVPUSH Q15M PRN; Protocol PRN Reason: per Hypoglycemia Standing Ord. Glucose (Glucose Gel 15 Gm Gel..Gram.) 15 gm PO Q15M PRN; Protocol PRN Reason: per Hypoglycemia Standing Ord. Heparin Sodium (Porcine) (Heparin Sodium,Porcine 5,000 Unit/Ml Vial) 5,000 unit SUBCUT Q12H [facility] Last Admin: 10/19/23 22:07 Dose: 5,000 unit Piperacillin Sod/Tazobactam (Sod 4.5 gm/ Sodium Chloride) 100 mls @ 200 mls/hr IV Q12H [facility] Vancomycin HCl 500 mg/ Sodium (Chloride) 110 mls @ 110 mls/hr IV MOWEFR@2000 [facility] Insulin Human Lispro (Insulin Lispro 100 Unit/Ml 3 Ml Vial) 0 unit SUBCUT QIDACHS [facility]; Protocol Last Admin: 10/20/23 07:17 Dose: Not Given Lidocaine HCl (Lidocaine Hcl 1 % Mpf 2 Ml Vial) 0.5 ml SUBCUT MOWEFR@1645 [facility] Melatonin (Melatonin 3 Mg Tablet) 6 mg PO BEDTIME PRN PRN Reason: Insomnia Ondansetron HCl (Ondansetron Hcl 4 Mg/2 Ml Vial) 4 mg IVPUSH Q8H PRN PRN Reason: Nausea and Vomiting Pharmacy Consult (Consult Rx Vancomycin Dosing) 1 each MISCELLANE DAILY PRN PRN Reason: Consult order Sodium Chloride (0.9 % Sodium Chloride Flush 3 Ml Syringe) 3 ml IVFLUSH QSHIFT [facility] Last Admin: 10/20/23 07:18 Dose: Not Given Home Medications Medication Instructions Recorded Confirmed Last Taken Type amlodipine 5 mg tablet 5 mg PO DAILY 08/15/23 10/19/23 10/19/23 History carvedilol 25 mg tablet 25 mg PO BID 08/15/23 10/19/23 10/19/23 History cinacalcet 30 mg tablet 30 mg PO MOWEFR@0900 08/15/23 10/19/23 10/19/23 History ergocalciferol (vitamin D2) 1,250 1,250 mcg PO MO@0900 08/15/23 10/19/23 10/19/23 History mcg (50,000 unit) capsule insulin glargine 100 unit/mL 15 unit subcut BEDTIME 10/19/23 10/19/23 10/19/23 History subcutaneous solution (Lantus U-100 Insulin) Physical Exam 2 Vital Signs: Vital Signs: Last Vital Signs Temp 98.9 F 10/20/23 05:23 Pulse 81 10/20/23 05:23 Resp 16 10/20/23 05:23 BP 179/73 H 10/20/23 05:23 Pulse Ox 95 10/20/23 05:23 O2 Del Method Room Air 10/20/23 05:23 BMI result Body Mass Index 32.6 Const: General: cooperative, healthy appearing and comfortable O rientation/consciousness: oriented to person, oriented to place and oriented to time HEENT: Head: Yes normal to inspection Neck: Neck: Yes normal visual inspection Carotids: no bruits Chest: Chest palpation & inspection: normal inspection of the chest Resp: Effort & Inspection: normal respiratory effort and able to speak in complete sentences Auscultation: clear to auscultation bilaterally, no crackles, no rales, no rhonchi and no wheezes Cardio: Rate: regular rate Rhythm: regular rhythm Heart sounds: S1 normal heart sound present and S2 normal heart sound present Bruits: no carotid bruits Peripheral pulses: Peripheral pulses 2+ throughout GI: Inspection: Yes normal to inspection Skin: Other: Large penetrating ulcer of left foot penetrating to bone. Wounds: no wounds Hair: normal Neuro: General: oriented to person, oriented to place and oriented to time Cranial nerves: Yes CN's II-XII intact bilaterally and Yes Normal hearing present Cognition (Neuro): normal cognition Motor exam (neuro): 5/5 motor strength present throughout Extrem: Other: venous exam: No significant superficial varicosities or spider telangiectasias, minimal edema General: No clubbing, No cyanosis and No edema Psych: Appearance: grossly normal Mental Status: mental status grossly normal Speech and movement: Normal speech and movement present Results Labs 10/20/23 04:49 10/20/23 04:49 Labs: Abnormal lab results 10/19/23 10/19/23 10/20/23 Range/Units 17:31 22:04 04:49 RBC 3.73 L 3.52 L (4.60-5.80) X10*6/uL Hgb 10.6 L 10.0 L (14.0-18.0) g/dl Hct 32.6 L 30.3 L (42.0-52.0) % Neut % (Auto) 73.9 H 74.0 H (45-73) % Lymph % (Auto) 14.3 L 16.7 L (20-40) % Eos % (Auto) 4.1 H (0-4) % Abs Immat Gran (auto) 0.04 H (0.00-0.03) X10*3/uL ESR 101 H (0-15) MM/HR Sodium 132 L (135-145) mmol/L Chloride 91 L 94 L (96-108) mmol/L BUN 63 H 67 H (9-16) mg/dL Creatinine 9.28 H* 10.12 H* (0.5-1.4) mg/dL POC Glucose 226 H (60-115) mg/dL Random Glucose 273 H 167 H (60-115) mg/dL C-Reactive Protein 17.05 H (< or = 0.50) mg/dL Total Protein 9.1 H (6.5-8.0) g/dL Albumin 3.3 L (3.5-5.0) g/dL 10/20/23 Range/Units 07:06 RBC (4.60-5.80) X10*6/uL Hgb (14.0-18.0) g/dl Hct (42.0-52.0) % Neut % (Auto) (45-73) % Lymph % (Auto) (20-40) % Eos % (Auto) (0-4) % Abs Immat Gran (auto) (0.00-0.03) X10*3/uL ESR (0-15) MM/HR Sodium (135-145) mmol/L Chloride (96-108) mmol/L BUN (9-16) mg/dL Creatinine (0.5-1.4) mg/dL POC Glucose 149 H (60-115) mg/dL Random Glucose (60-115) mg/dL C-Reactive Protein (< or = 0.50) mg/dL Total Protein (6.5-8.0) g/dL Albumin (3.5-5.0) g/dL Short CBC 10/19/23 10/20/23 Range/Units 17:31 04:49 WBC 10.3 9.2 (4.8-10.8) X10*3/uL Hgb 10.6 L 10.0 L (14.0-18.0) g/dl Hct 32.6 L 30.3 L (42.0-52.0) % Plt Count 326 318 (160-400) X10*3/uL BMP 10/19/23 10/20/23 17:31 04:49 Sodium 132 L 135 Potassium 4.7 4.0 Chloride 91 L 94 L Carbon Dioxide 27 25 BUN 63 H 67 H Creatinine 9.28 H* 10.12 H* Calcium 9.3 9.2 Liver Function 10/19/23 Range/Units 17:31 Total Bilirubin 0.4 (0.0-1.0) mg/dL AST 9 (5-37) U/L ALT 8 (0-40) U/L Alkaline Phosphatase 87 (39-117) U/L Albumin 3.3 L (3.5-5.0) g/dL All other labs normal. Assessment and Plan (1) PAD (peripheral artery disease): Status: Acute Plan In short patient has diabetic foot ulcer. In addition he has a Charcot foot. Unfortunately this is penetrating to bone. Unclear if this is a salvage situation. He is at extremely high risk for BKA. I have taken the liberty of ordering noninvasive testing. Pending results of that can make decisions regarding potential future interventions versus amputation. Thank you for allowing us to assist in his care. If there are any questions or concerns please do not hesitate to contact us. Procedures Date of Service Date of Service: 10/20/23
--- NOTE | 2023-10-20 11:16 | PM.CNNEP ---
History of Present Illness Reason for Consult Consult date: 10/20/23 Chief Complaint Chief complaint: Foot infection History of Present Illness Narrative: 53-year-old male with diabetes mellitus, ESRD on hemodialysis M/W/F, peripheral vascular disease, essential hypertension who presented to the emergency department for evaluation of left foot infection. Patient states he [facility] on the day of presentation who asked the patient to come to the ER. Of note, patient was admitted on 08/15/2023 and discharged on 08/22/2023 with diabetic left foot infection and discharged on IV ertapenem. Patient finished 6 week course of IV ertapenem early in September. He states that his infection was improving when he was on the antibiotics. Since being off the antibiotics, the drainage from the left foot wound has been worsening especially over the last 1 week. It is foul-smelling. No fever, chills, chest discomfort, palpitations, shortness of breath, abdominal pain, changes in urinary or bowel habits. He is due dialysis today. Nephrology has been consulted to assist in his clinical management during his current hospital stay. Review of Systems Review of Systems Yes all other systems are reviewed and are negative PMFSH Past Medical History Medical History Insulin dependent type 2 diabetes mellitus Chronic kidney disease on chronic dialysis Hypertension Diabetes mellitus Social History Social History Household Members: Other Household Members Other:: Housing: House Do you presently have visiting nurse or other home services: No Unable to assess alcohol history related to: Unable to respond Alcohol intake: never Patient Tobacco Use Status: Never used Tobacco service: No Meds Allergies Allergy/AdvReac Type Severity Reaction Status Date / Time No Known Allergies Allergy Verified 09/25/23 14:45 Active Medications: Current Medications Acetaminophen (Acetaminophen 325 Mg Tablet) 650 mg PO Q6H PRN PRN Reason: Pain, Mild (Pain Scale 1-3) Dextrose (Dextrose 50 % 25 Gm/50 Ml Syringe) 25 gm IVPUSH Q15M PRN; Protocol PRN Reason: per Hypoglycemia Standing Ord. Glucose (Glucose Gel 15 Gm Gel..Gram.) 15 gm PO Q15M PRN; Protocol PRN Reason: per Hypoglycemia Standing Ord. Heparin Sodium (Porcine) (Heparin Sodium,Porcine 5,000 Unit/Ml Vial) 5,000 unit SUBCUT Q12H [facility] Last Admin: 10/19/23 22:07 Dose: 5,000 unit Piperacillin Sod/Tazobactam (Sod 4.5 gm/ Sodium Chloride) 100 mls @ 200 mls/hr IV Q12H [facility] Vancomycin HCl 500 mg/ Sodium (Chloride) 110 mls @ 110 mls/hr IV MOWEFR@2000 [facility] Insulin Human Lispro (Insulin Lispro 100 Unit/Ml 3 Ml Vial) 0 unit SUBCUT QIDACHS [facility]; Protocol Last Admin: 10/20/23 07:17 Dose: Not Given Lidocaine HCl (Lidocaine Hcl 1 % Mpf 2 Ml Vial) 0.5 ml SUBCUT MOWEFR@1645 [facility] Melatonin (Melatonin 3 Mg Tablet) 6 mg PO BEDTIME PRN PRN Reason: Insomnia Ondansetron HCl (Ondansetron Hcl 4 Mg/2 Ml Vial) 4 mg IVPUSH Q8H PRN PRN Reason: Nausea and Vomiting Pharmacy Consult (Consult Rx Vancomycin Dosing) 1 each MISCELLANE DAILY PRN PRN Reason: Consult order Sodium Chloride (0.9 % Sodium Chloride Flush 3 Ml Syringe) 3 ml IVFLUSH QSHIFT [facility] Last Admin: 10/20/23 07:18 Dose: Not Given Home Medications Medication Instructions Recorded Confirmed Last Taken Type amlodipine 5 mg tablet 5 mg PO DAILY 08/15/23 10/19/23 10/19/23 History carvedilol 25 mg tablet 25 mg PO BID 08/15/23 10/19/23 10/19/23 History cinacalcet 30 mg tablet 30 mg PO MOWEFR@0900 08/15/23 10/19/23 10/19/23 History ergocalciferol (vitamin D2) 1,250 1,250 mcg PO MO@0900 08/15/23 10/19/23 10/19/23 History mcg (50,000 unit) capsule insulin glargine 100 unit/mL 15 unit subcut BEDTIME 10/19/23 10/19/23 10/19/23 History subcutaneous solution (Lantus U-100 Insulin) Physical Exam Vital Signs: Last Vital Signs Temp 98.9 F 10/20/23 05:23 Pulse 81 10/20/23 05:23 Resp 16 10/20/23 05:23 BP 179/73 H 10/20/23 05:23 Pulse Ox 95 10/20/23 05:23 O2 Del Method Room Air 10/20/23 05:23 BMI result Body Mass Index 32.6 Const General: comfortable and no acute distress Orientation/consciousness: patient oriented x3 HEENT Head: Yes normocephalic Mouth: Normal oral and palatal mucosa present Eyes EOM: EOMs intact bilaterally Neck Neck: Yes supple Resp Auscultation: clear to auscultation bilaterally Cardio Jugular venous distension: no JVD Rate: regular rate GI Palpation (GI): Soft to palpation Auscultation: normal bowel sounds General: Yes no CVA tenderness Back/Spine/Pelvis Back: no CVA tenderness Skin General skin exam: no rashes or lesions noted Neuro General: patient oriented x3 and moves all extremities Results Lab Results 10/20/23 04:49 10/20/23 04:49 Lab results: Chemistry 10/19/23 10/20/23 17:31 04:49 Sodium 132 L 135 Potassium 4.7 4.0 Carbon Dioxide 27 25 BUN 63 H 67 H Creatinine 9.28 H* 10.12 H* Calcium 9.3 9.2 Hematology 10/19/23 10/20/23 17:31 04:49 WBC 10.3 9.2 Hgb 10.6 L 10.0 L Plt Count 326 318 Assessment and Plan (1) ESRD (end stage renal disease) on dialysis: Status: Acute Plan René has ESRD and is dialysis dependent He usually gets hemodialysis on Monday. He has a functioning AV fistula Will put him back on his hemodialysis schedule today We will optimize volume status on hemodialysis He should be on a renal diet(2 g sodium, 2 g potassium with phosphorus and fluid restriction) Phosphorus binders 3 times a day with meals All his medications should be dosed for GFR Vancomycin should be given after dialysis Shall closely follow-up during his current hospital stay Procedures Date of Service Date of Service: 10/20/23
[2023-10-20] MEDS: Heparin Sodium,Porcine 5,000 UNIT/ML VIAL 5000 UNIT SUBCUT ×2 (11:22→23:13)
[2023-10-20] MEDS: Piperacillin Sodium/Tazobactam 4.5 GM in 0.9 % Sodium Chloride 100 ML IV ×2 (11:22→23:14)
[2023-10-20 11:49] VITALS: BP 169/74; PULSE 84; RESP 16; TEMP 36.4; O2SAT 99
[2023-10-20 11:57] LABS: Glucose, Whole Blood 171 mg/dL (60-115)
[2023-10-20] MEDS: Insulin Lispro 100 UNIT/ML 3 ML VIAL SUBCUT ×2 (12:42→20:31)
--- NOTE | 2023-10-20 15:16 | PC.NURSE ---
Right foot. Darkened area under 5th toe nail. Peeling skin under toes (anterior) and between toes. Yellow moist area inner aspect right great toe (anterior)
--- NOTE | 2023-10-20 15:26 | PC.NURSE ---
Addendum entered by Maida Ortiz RN 10/20/23 15:27: Left foot wound Original Note:
--- NOTE | 2023-10-20 15:28 | PC.NURSE ---
Small open area center left posterior foot near heel
--- NOTE | 2023-10-20 15:31 | PC.NURSE ---
Anterior view left foot wound
--- NOTE | 2023-10-20 15:33 | PC.NURSE ---
Left foot dressing changed to assess and photograph wounds. Left anterior foot has open area under 4th toe. Wound bed is moist with yellow wound bed. Left foot posterior wound cleaned with normal saline and covered with DSD. No drainage noted. Small crack (open area) noted to underside left foot above heel. Right foot is dry with peeling skin under and between toes. Dark area noted under right 5th toe nail. Right great toe has moist yellow are at inner aspect between 2nd toe. All areas cleansed and Alginate applied. Wound consult in place.
--- NOTE | 2023-10-20 16:09 | HO.PM.IMPN ---
Subjective Subjective Date of Service: 10/20/23 Interval History: f/u on diabetic foot ulcer/osteomylitis that has failed shelter antibiotics, reports no pain or fever Physical Exam Vital Signs: Vital Signs: Last Vital Signs Temp 97.5 F 10/20/23 11:49 Pulse 84 10/20/23 11:49 Resp 16 10/20/23 11:49 BP 169/74 H 10/20/23 11:49 Pulse Ox 99 10/20/23 11:49 O2 Del Method Room Air 10/20/23 11:49 BMI result Body Mass Index 32.6 see H/P exam--essentially unchanged Objective Data Active Medications Acetaminophen (Acetaminophen 325 Mg Tablet) 650 mg PO Q6H PRN PRN Reason: Pain, Mild (Pain Scale 1-3) Dextrose (Dextrose 50 % 25 Gm/50 Ml Syringe) 25 gm IVPUSH Q15M PRN; Protocol PRN Reason: per Hypoglycemia Standing Ord. Glucose (Glucose Gel 15 Gm Gel..Gram.) 15 gm PO Q15M PRN; Protocol PRN Reason: per Hypoglycemia Standing Ord. Heparin Sodium (Porcine) (Heparin Sodium,Porcine 5,000 Unit/Ml Vial) 5,000 unit SUBCUT Q12H [facility] Last Admin: 10/20/23 11:22 Dose: 5,000 unit Documented By: SUDHEER Piperacillin Sod/Tazobactam (Sod 4.5 gm/ Sodium Chloride) 100 mls @ 200 mls/hr IV Q12H [facility] Last Infusion: 10/20/23 12:43 Dose: Infused Documented By: ELVIA Vancomycin HCl 500 mg/ Sodium (Chloride) 110 mls @ 110 mls/hr IV MOWEFR@2000 [facility] Insulin Human Lispro (Insulin Lispro 100 Unit/Ml 3 Ml Vial) 0 unit SUBCUT QIDACHS [facility]; Protocol Last Admin: 10/20/23 12:42 Dose: 2 unit Documented By: ELVIA Lidocaine HCl (Lidocaine Hcl 1 % Mpf 2 Ml Vial) 0.5 ml SUBCUT MOWEFR@1645 [facility] Melatonin (Melatonin 3 Mg Tablet) 6 mg PO BEDTIME PRN PRN Reason: Insomnia Ondansetron HCl (Ondansetron Hcl 4 Mg/2 Ml Vial) 4 mg IVPUSH Q8H PRN PRN Reason: Nausea and Vomiting Pharmacy Consult (Consult Rx Vancomycin Dosing) 1 each MISCELLANE DAILY PRN PRN Reason: Consult order Sodium Chloride (0.9 % Sodium Chloride Flush 3 Ml Syringe) 3 ml IVFLUSH QSHIFT [facility] Last Admin: 10/20/23 07:18 Dose: Not Given Documented By: SUDHEER Non-Admin Reason: IV Running Labs 10/20/23 04:49 10/20/23 04:49 Labs: Laboratory Results - last 24 hr 10/19/23 10/19/23 10/19/23 17:30 17:31 22:04 MCV 87.4 MCH 28.4 MCHC 32.5 RDW 14.7 Plt Count 326 MPV 10.2 Immature Gran % (Auto) 0.4 Neut % (Auto) 73.9 H Lymph % (Auto) 14.3 L [place] % (Auto) 6.8 Eos % (Auto) 4.1 H Baso % (Auto) 0.5 Lymph # (Auto) 1.5 [place] # (Auto) 0.7 Eos # (Auto) 0.4 Baso # (Auto) 0.1 Abs Immat Gran (auto) 0.04 H Absolute Neuts (auto) 7.6 Absolute Nucleated RBC 0.000 Nucleated RBC % (auto) 0.0 ESR 101 H Anion Gap 19 Estim Creat Clear Calc 9.9 Estimated GFR 6 POC Glucose 226 H Random Glucose 273 H Lactic Acid 1.3 Calcium 9.3 Total Bilirubin 0.4 AST 9 ALT 8 Alkaline Phosphatase 87 C-Reactive Protein 17.05 H Total Protein 9.1 H Albumin 3.3 L 10/20/23 10/20/23 10/20/23 04:49 07:06 11:44 MCV 86.1 MCH 28.4 MCHC 33.0 RDW 14.7 Plt Count 318 MPV 10.1 Immature Gran % (Auto) 0.2 Neut % (Auto) 74.0 H Lymph % (Auto) 16.7 L [place] % (Auto) 5.1 Eos % (Auto) 3.8 Baso % (Auto) 0.2 Lymph # (Auto) 1.5 [place] # (Auto) 0.5 Eos # (Auto) 0.4 Baso # (Auto) 0.0 Abs Immat Gran (auto) 0.02 Absolute Neuts (auto) 6.8 Absolute Nucleated RBC 0.000 Nucleated RBC % (auto) 0.0 ESR Anion Gap 20 Estim Creat Clear Calc 9.1 Estimated GFR 5 POC Glucose 149 H 171 H Random Glucose 167 H Lactic Acid Calcium 9.2 Total Bilirubin AST ALT Alkaline Phosphatase C-Reactive Protein Total Protein Albumin Microbiology Microbiology Results: Microbiology 10/19/23 21:12 Gram Stain - Final Foot Right Routine Culture - Preliminary Culture in progress. Assessment and Plan (1) ESRD (end stage renal disease) on dialysis: Status: Acute (2) Osteomyelitis: Status: Acute (3) Diabetic foot infection: Status: Acute Plan 53-year-old male with pertinent history of insulin-dependent diabetes mellitus, ESRD on hemodialysis M/W/F, peripheral vascular disease, essential hypertension who presents to the emergency department for evaluation of left foot infection. 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 He has failed ocean transportation intermediary antibiotics and the limb doesn't look salvageable and therefore will likely need amputation by vascular surgery, in the meantime continue IV Abx ESRD on hemodialysis: M/W/F scheduled. Consulted Nephrology Insulin-dependent diabetes mellitus with hyperglycemia: Lantus, SSI and diabetic diet Essential hypertension: resume Norvasc, Coreg Anemia of chronic kidney disease: Hemoglobin above transfusion threshold DVT prophylaxis: Heparin Full code Admit as inpatient and will require two night minimum hospital stay for IV antibiotics (as above), which is not possible in a lesser acute setting. Specialist consult pending Quality Stroke Does the patient have a stroke diagnosis?: No VTE Prior VTE?: No VTE Risk Level:: Medical - moderate - high VTE Device Contraindication: Treatment Not Indicated VTE Drug Contraindication: N/A - Med Ordered
[2023-10-20 18:17] VITALS: BP 145/67; PULSE 84; RESP 18; TEMP 36.6; O2SAT 99
[2023-10-20 19:33] LABS: Vancomycin Random 13.3 mcg/mL (15-20)
[2023-10-20] MEDS: vancomycin HCL 500 MG in 0.9 % Sodium Chloride 100 ML 110 MG IV (19:46)
[2023-10-20] MEDS: 0.9 % Sodium Chloride Flush 3 ML SYRINGE IVFLUSH (19:46)
[2023-10-20 19:52] VITALS: BP 172/71; PULSE 87; RESP 18; TEMP 36.7; O2SAT 97
[2023-10-20] MEDS: amLODIPine Besylate 5 MG TABLET PO (20:02)
[2023-10-20] MEDS: carvediloL 25 MG TABLET PO (20:02)
[2023-10-20 20:06] LABS: Glucose, Whole Blood 191 mg/dL (60-115)
[2023-10-20] MEDS: Insulin Glargine,Hum.rec.anlog 100 UNIT/ML 10 ML VIAL 15 UNIT SUBCUT (20:30)
--- NOTE | 2023-10-20 23:12 | P.CNID_ITS ---
History of Present Illness Data of Consult Service Date: 10/20/23 Requesting physician: Alejandro Murrieta Primary Care Provider: None Physician HPI Reason for consult: foot infection,left He presents with 3-4 days worse exudate and duskiness left foot,especially lateral aspect. He has Charcot joint with 4/5 bony toe destruction. He has been on IV Ertapenem renally dosed 500 mg after each dialysis from July to 09/26 and foot has not closed or really improved. [facility] has [facility] 2-3 days a week. Review of Systems 2 Review of Systems: Yes all other systems are reviewed and are negative Integumentary/Breasts: Skin/Breast: Reports non-healing lesions PMFSH Past Medical History Medical History Insulin dependent type 2 diabetes mellitus Chronic kidney disease on chronic dialysis Hypertension Diabetes mellitus Family History Family history: reviewed and not pertinent Social History Social History Household Members: Spouse and Family Household Members Other:: Housing: Apartment Do you presently have visiting nurse or other home services: Yes (Visiting nurse once a week to change the central line dressing (removed 3 w) Unable to assess alcohol history related to: Unable to respond Alcohol intake: never Patient Tobacco Use Status: Never used Tobacco e-Cigarette/Vaping Use: Never Used Second Hand Smoke Exposure: No service: No Meds Allergies Allergy/AdvReac Type Severity Reaction Status Date / Time No Known Allergies Allergy Verified 09/25/23 14:45 Active Medications: Current Medications Acetaminophen (Acetaminophen 325 Mg Tablet) 650 mg PO Q6H PRN PRN Reason: Pain, Mild (Pain Scale 1-3) Amlodipine Besylate (Amlodipine Besylate 5 Mg Tablet) 5 mg PO DAILY REPLACED BY [facility]; Protocol Last Admin: 10/20/23 20:02 Dose: 5 mg Aspirin (Aspirin 81 Mg Tab.Chew) 81 mg PO DAILY REPLACED BY [facility] Carvedilol (Carvedilol 25 Mg Tablet) 25 mg PO BID REPLACED BY [facility]; Protocol Last Admin: 10/20/23 20:02 Dose: 25 mg Cinacalcet (Cinacalcet Hcl 30 Mg Tablet) 30 mg PO MOWEFR@0900 REPLACED BY [facility] Dextrose (Dextrose 50 % 25 Gm/50 Ml Syringe) 25 gm IVPUSH Q15M PRN; Protocol PRN Reason: per Hypoglycemia Standing Ord. Ergocalciferol (Ergocalciferol (Vitamin D2) 1,250 Mcg Capsule) 1,250 mcg PO MO@0900 REPLACED BY [facility] Glucose (Glucose Gel 15 Gm Gel..Gram.) 15 gm PO Q15M PRN; Protocol PRN Reason: per Hypoglycemia Standing Ord. Heparin Sodium (Porcine) (Heparin Sodium,Porcine 5,000 Unit/Ml Vial) 5,000 unit SUBCUT Q12H REPLACED BY [facility] Last Admin: 10/20/23 11:22 Dose: 5,000 unit Piperacillin Sod/Tazobactam (Sod 4.5 gm/ Sodium Chloride) 100 mls @ 200 mls/hr IV Q12H REPLACED BY [facility] Last Infusion: 10/20/23 12:43 Dose: Infused Vancomycin HCl 500 mg/ Sodium (Chloride) 110 mls @ 110 mls/hr IV MOWEFR@2000 REPLACED BY [facility] Insulin Glargine (Insulin Glargine,Hum.Rec.Anlog 100 Unit/Ml 10 Ml Vial) 15 unit SUBCUT BEDTIME REPLACED BY [facility] Last Admin: 10/20/23 20:30 Dose: 15 unit Insulin Human Lispro (Insulin Lispro 100 Unit/Ml 3 Ml Vial) 0 unit SUBCUT QIDACHS REPLACED BY [facility]; Protocol Last Admin: 10/20/23 20:31 Dose: 2 unit Lidocaine HCl (Lidocaine Hcl 1 % Mpf 2 Ml Vial) 0.5 ml SUBCUT MOWEFR@1645 REPLACED BY [facility] Last Admin: 10/20/23 17:21 Dose: Not Given Melatonin (Melatonin 3 Mg Tablet) 6 mg PO BEDTIME PRN PRN Reason: Insomnia Ondansetron HCl (Ondansetron Hcl 4 Mg/2 Ml Vial) 4 mg IVPUSH Q8H PRN PRN Reason: Nausea and Vomiting Pharmacy Consult (Consult Rx Vancomycin Dosing) 1 each MISCELLANE DAILY PRN PRN Reason: Consult order Sodium Chloride (0.9 % Sodium Chloride Flush 3 Ml Syringe) [facility] Admin: 10/20/23 19:46 Dose: 3 ml Home Medications Medication Instructions Recorded Confirmed Last Taken Type amlodipine 5 mg tablet 5 mg PO DAILY 08/15/23 10/19/23 10/19/23 History carvedilol 25 mg tablet 25 mg PO BID 08/15/23 10/19/23 10/19/23 History cinacalcet 30 mg tablet 30 mg PO MOWEFR@0900 08/15/23 10/19/23 10/19/23 History ergocalciferol (vitamin D2) 1,250 1,250 mcg PO MO@0900 08/15/23 10/19/23 10/19/23 History mcg (50,000 unit) capsule insulin glargine 100 unit/mL 15 unit subcut BEDTIME 10/19/23 10/19/23 10/19/23 History subcutaneous solution (Lantus U-100 Insulin) Physical Exam 2 Vital Signs: Vital Signs: Last Vital Signs Temp 98.0 F 10/20/23 19:52 Pulse 87 10/20/23 19:52 Resp 18 10/20/23 19:52 BP 172/71 H 10/20/23 19:52 Pulse Ox 97 10/20/23 19:52 O2 Del Method Room Air 10/20/23 19:52 BMI result Body Mass Index 32.6 Const: General: cooperative HEENT: Head: Yes normal to inspection Face and sinus: Yes normal facial exam Mouth: Normal oral and palatal mucosa present Teeth and gingiva: d entition normal Eyes: General: appearance normal, both eyes and all related structures P upils: Equal, round and reactive pupils present Resp: Effort & Inspection: normal respiratory effort Cardio: Rate: regular rate Rhythm: regular rhythm GI: Palpation (GI): Soft to palpation and nontender : General: Yes no CVA tenderness Back/Spine/Pelvis: Back: no CVA tenderness Skin: General skin exam: no rashes or lesions noted Neuro: General: moves all extremities Cranial nerves: Yes Equal, round and reactive pupils present Extrem: Other: left foot necrotic appearing lateral area toes toward heel General: Yes normal to inspection Psych: Appearance: grossly normal Results Labs 10/20/23 04:49 10/20/23 04:49 Labs: Short CBC 10/20/23 Range/Units 04:49 WBC 9.2 (4.8-10.8) X10*3/uL Hgb 10.0 L (14.0-18.0) g/dl Hct 30.3 L (42.0-52.0) % Plt Count 318 (160-400) X10*3/uL BMP 10/20/23 04:49 Sodium 135 Potassium 4.0 Chloride 94 L Carbon Dioxide 25 BUN 67 H Creatinine 10.12 H* Calcium 9.2 Microbiology Microbiology Results: Microbiology 10/19/23 17:30 Blood - Venous Blood Culture - Preliminary No growth after 24 hours. 10/19/23 17:30 Blood - Venous Blood Culture - Preliminary No growth after 24 hours. 10/19/23 21:12 Foot Right Gram Stain - Final 10/19/23 21:12 Foot Right Routine Culture - Preliminary Culture in progress. Assessment and Plan (1) ESRD (end stage renal disease) on dialysis: Status: Acute (2) Osteomyelitis: Status: Acute (3) Diabetic foot infection: Status: Acute Plan He has osteomyelitis with unknown organism Unfortunately he has not responded to suppressive six weeks IV Ertapenem done on 09/26. I think renal failure has impaired his ability to suppress infection the most so doubt further long chain quiller tender antibiotics effective unless new cultures appear ,e.g. MRSA. Suggest continue Vancomycin and Zosyn for now. Likely timbo debridement of affected area and amputation if not able per Dr Lester.
[2023-10-21 03:40] VITALS: BP 111/46; PULSE 79; RESP 16; TEMP 36.6; O2SAT 95
[2023-10-21 07:25] VITALS: BP 147/94; PULSE 78; RESP 18; TEMP 36.7; O2SAT 99
[2023-10-21 07:35] LABS: Glucose, Whole Blood 190 mg/dL (60-115)
[2023-10-21] MEDS: 0.9 % Sodium Chloride Flush 3 ML SYRINGE IVFLUSH ×3 (08:05→21:24)
[2023-10-21] MEDS: amLODIPine Besylate 5 MG TABLET PO (08:07)
[2023-10-21] MEDS: Aspirin 81 MG TAB.CHEW PO (08:07)
[2023-10-21] MEDS: carvediloL 25 MG TABLET PO ×2 (08:07→21:24)
[2023-10-21] MEDS: Insulin Lispro 100 UNIT/ML 3 ML VIAL SUBCUT ×3 (08:09→21:23)
--- NOTE | 2023-10-21 09:19 | HO.PM.IMPN ---
Subjective Subjective Date of Service: 10/21/23 Interval History: f/u on diabetic foot ulcer/osteomylitis that has failed chcf antibiotics, most recently Invanz last month, reports no pain or fever Physical Exam Vital Signs: Vital Signs: Last Vital Signs Temp 98.0 F 10/21/23 07:25 Pulse 78 10/21/23 07:25 Resp 18 10/21/23 07:25 BP 147/94 H 10/21/23 07:25 Pulse Ox 99 10/21/23 07:25 O2 Del Method Room Air 10/21/23 07:25 BMI result Body Mass Index 32.6 General: AO X 3, no acute distress Resp: CTA bilateral CVS: S1,S2,RRR GI: +BS, NT, no distention Skin: Neuro: motor grossly intact Psych: appropriate affect Objective Data Active Medications Acetaminophen (Acetaminophen 325 Mg Tablet) 650 mg PO Q6H PRN PRN Reason: Pain, Mild (Pain Scale 1-3) Amlodipine Besylate (Amlodipine Besylate 5 Mg Tablet) 5 mg PO DAILY [facility]; Protocol Last Admin: 10/21/23 08:07 Dose: 5 mg Documented By: AHSAN Aspirin (Aspirin 81 Mg Tab.Chew) 81 mg PO DAILY [facility] Last Admin: 10/21/23 08:07 Dose: 81 mg Documented By: AHSAN Carvedilol (Carvedilol 25 Mg Tablet) 25 mg PO BID [facility]; Protocol Last Admin: 10/21/23 08:07 Dose: 25 mg Documented By: AHSAN Cinacalcet (Cinacalcet Hcl 30 Mg Tablet) 30 mg PO MOWEFR@0900 [facility] Dextrose (Dextrose 50 % 25 Gm/50 Ml Syringe) 25 gm IVPUSH Q15M PRN; Protocol PRN Reason: per Hypoglycemia Standing Ord. Ergocalciferol (Ergocalciferol (Vitamin D2) 1,250 Mcg Capsule) 1,250 mcg PO MO@0900 [facility] Glucose (Glucose Gel 15 Gm Gel..Gram.) 15 gm PO Q15M PRN; Protocol PRN Reason: per Hypoglycemia Standing Ord. Heparin Sodium (Porcine) (Heparin Sodium,Porcine 5,000 Unit/Ml Vial) 5,000 unit SUBCUT Q12H [facility] Last Admin: 10/20/23 23:13 Dose: 5,000 unit Documented By: FILOMENA Piperacillin Sod/Tazobactam (Sod 4.5 gm/ Sodium Chloride) 100 mls @ 200 mls/hr IV Q12H [facility] Last Infusion: 10/20/23 23:55 Dose: Infused Documented By: FILOMENA Vancomycin HCl 500 mg/ Sodium (Chloride) 110 mls @ 110 mls/hr IV MOWEFR@2000 [facility] Insulin Glargine (Insulin Glargine,Hum.Rec.Anlog 100 Unit/Ml 10 Ml Vial) 15 unit SUBCUT BEDTIME [facility] Last Admin: 10/20/23 20:30 Dose: 15 unit Documented By: FILOMENA Insulin Human Lispro (Insulin Lispro 100 Unit/Ml 3 Ml Vial) 0 unit SUBCUT QIDACHS [facility]; Protocol Last Admin: 10/21/23 08:09 Dose: 2 unit Documented By: AHSAN Lidocaine HCl (Lidocaine Hcl 1 % Mpf 2 Ml Vial) 0.5 ml SUBCUT MOWEFR@1645 [facility] Last Admin: 10/20/23 17:21 Dose: Not Given Documented By: ELVIA Non-Admin Reason: Off unit: Dialysis Melatonin (Melatonin 3 Mg Tablet) 6 mg PO BEDTIME PRN PRN Reason: Insomnia Ondansetron HCl (Ondansetron Hcl 4 Mg/2 Ml Vial) 4 mg IVPUSH Q8H PRN PRN Reason: Nausea and Vomiting Pharmacy Consult (Consult Rx Vancomycin Dosing) 1 each MISCELLANE DAILY PRN PRN Reason: Consult order Sodium Chloride (0.9 % Sodium Chloride Flush 3 Ml Syringe) 3 ml IVFLUSH QSHIFT [facility] Last Admin: 10/21/23 08:05 Dose: 3 ml Documented By: AHSAN Labs 10/20/23 04:49 10/20/23 04:49 Labs: Laboratory Results - last 24 hr 10/20/23 10/20/23 10/20/23 11:44 19:05 20:02 POC Glucose 171 H 191 H Random Vancomycin 13.3 L 10/21/23 07:24 POC Glucose 190 H Random Vancomycin Microbiology Microbiology Results: Microbiology 10/19/23 17:30 Blood Culture - Preliminary Blood - Venous No growth after 24 hours. 10/19/23 17:30 Blood Culture - Preliminary Blood - Venous No growth after 24 hours. 10/19/23 21:12 Gram Stain - Final Foot Right Routine Culture - Preliminary Culture in progress. Assessment and Plan (1) ESRD (end stage renal disease) on dialysis: Status: Acute (2) Osteomyelitis: Status: Acute (3) Diabetic foot infection: Status: Acute Plan 53-year-old male with pertinent history of insulin-dependent diabetes mellitus, ESRD on hemodialysis M/W/F, peripheral vascular disease, essential hypertension who presents to the emergency department for evaluation of left foot infection. 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 He has failed manager long term care antibiotics and the limb doesn't look salvageable and therefore will likely need amputation by vascular surgery pending result of non invasive vascular studies, in the meantime continue IV Abx (Zosyn and Vanco 10/19). ID favor ampuation unless a new organism is identified a lot ESRD on hemodialysis M/W/F, Nephrology following Insulin-dependent diabetes mellitus with hyperglycemia, FBS 190 Increase 15 to 18: Lantus, SSI and diabetic diet Essential hypertension: continue Norvasc, Coreg Anemia of chronic kidney disease: Hemoglobin above transfusion threshold DVT prophylaxis: Heparin Full code need for inpt: acute cellulitis and osteomylitis d/t diabetes requiring Iv Abx and likely need for surgical intervention Quality Stroke Does the patient have a stroke diagnosis?: No VTE Prior VTE?: No VTE Risk Level:: Medical - moderate - high VTE Device Contraindication: Treatment Not Indicated VTE Drug Contraindication: N/A - Med Ordered
[2023-10-21] MEDS: Heparin Sodium,Porcine 5,000 UNIT/ML VIAL 5000 UNIT SUBCUT (10:27)
--- NOTE | 2023-10-21 10:46 | MHC.CM.PN ---
pt lives with and [facility] dialysis mon mon and mon ,[facility] ,has own ride home
[2023-10-21] MEDS: Piperacillin Sodium/Tazobactam 4.5 GM in 0.9 % Sodium Chloride 100 ML IV ×2 (10:55→22:30)
[2023-10-21 11:14] LABS: Glucose, Whole Blood 240 mg/dL (60-115)
[2023-10-21 15:53] VITALS: BP 126/58; PULSE 72; RESP 18; TEMP 36.4; O2SAT 95
[2023-10-21 16:29] LABS: Glucose, Whole Blood 144 mg/dL (60-115)
[2023-10-21 20:00] VITALS: BP 117/64; PULSE 78; RESP 17; TEMP 36.8; O2SAT 98
[2023-10-21 20:46] LABS: Glucose, Whole Blood 223 mg/dL (60-115)
[2023-10-21] MEDS: Insulin Glargine,Hum.rec.anlog 100 UNIT/ML 10 ML VIAL 18 UNIT SUBCUT (21:24)
[2023-10-22 04:00] VITALS: BP 137/57; PULSE 80; RESP 16; TEMP 36.3; O2SAT 98
[2023-10-22 07:24] VITALS: BP 150/67; PULSE 76; RESP 17; TEMP 37.1; O2SAT 96
[2023-10-22 07:45] LABS: Glucose, Whole Blood 165 mg/dL (60-115)
[2023-10-22] MEDS: amLODIPine Besylate 5 MG TABLET PO (08:27)
[2023-10-22] MEDS: 0.9 % Sodium Chloride Flush 3 ML SYRINGE IVFLUSH ×3 (08:27→22:23)
[2023-10-22] MEDS: carvediloL 25 MG TABLET PO ×2 (08:27→21:09)
[2023-10-22] MEDS: Aspirin 81 MG TAB.CHEW PO (08:28)
[2023-10-22] MEDS: Insulin Lispro 100 UNIT/ML 3 ML VIAL SUBCUT ×2 (08:28→12:02)
[2023-10-22] MEDS: Heparin Sodium,Porcine 5,000 UNIT/ML VIAL 5000 UNIT SUBCUT ×2 (10:01→21:08)
[2023-10-22] MEDS: Piperacillin Sodium/Tazobactam 4.5 GM in 0.9 % Sodium Chloride 100 ML IV ×2 (10:44→22:23)
--- NOTE | 2023-10-22 11:22 | P.PNIM_ITS ---
Subjective Subjective Date of Service: 10/22/23 Interval History: Patient has no new complaint, no pain Physical Exam 2 Vital Signs: Vital Signs: Last Vital Signs Temp 98.8 F 10/22/23 07:24 Pulse 76 10/22/23 07:24 Resp 17 10/22/23 07:24 BP 150/67 H 10/22/23 07:24 Pulse Ox 96 10/22/23 07:24 O2 Del Method Room Air 10/22/23 07:24 BMI result Body Mass Index 32.6 Objective Data Active Medications Acetaminophen (Acetaminophen 325 Mg Tablet) 650 mg PO Q6H PRN PRN Reason: Pain, Mild (Pain Scale 1-3) Amlodipine Besylate (Amlodipine Besylate 5 Mg Tablet) 5 mg PO DAILY [facility]; Protocol Last Admin: 10/22/23 08:27 Dose: 5 mg Documented By: AHSAN Aspirin (Aspirin 81 Mg Tab.Chew) 81 mg PO DAILY [facility] Last Admin: 10/22/23 08:28 Dose: 81 mg Documented By: AHSAN Carvedilol (Carvedilol 25 Mg Tablet) 25 mg PO BID [facility]; Protocol Last Admin: 10/22/23 08:27 Dose: 25 mg Documented By: AHSAN Cinacalcet (Cinacalcet Hcl 30 Mg Tablet) 30 mg PO MOWEFR@0900 [facility] Dextrose (Dextrose 50 % 25 Gm/50 Ml Syringe) 25 gm IVPUSH Q15M PRN; Protocol PRN Reason: per Hypoglycemia Standing Ord. Ergocalciferol (Ergocalciferol (Vitamin D2) 1,250 Mcg Capsule) 1,250 mcg PO MO@0900 [facility] Glucose (Glucose Gel 15 Gm Gel..Gram.) 15 gm PO Q15M PRN; Protocol PRN Reason: per Hypoglycemia Standing Ord. Heparin Sodium (Porcine) (Heparin Sodium,Porcine 5,000 Unit/Ml Vial) 5,000 unit SUBCUT Q12H [facility] Last Admin: 10/22/23 10:01 Dose: 5,000 unit Documented By: AHSAN Piperacillin Sod/Tazobactam (Sod 4.5 gm/ Sodium Chloride) 100 mls @ 200 mls/hr IV Q12H [facility] Last Admin: 10/22/23 10:44 Dose: 200 mls/hr Documented By: AHSAN Vancomycin HCl 500 mg/ Sodium (Chloride) 110 mls @ 110 mls/hr IV MOWEFR@2000 [facility] Insulin Glargine (Insulin Glargine,Hum.Rec.Anlog 100 Unit/Ml 10 Ml Vial) 18 unit SUBCUT BEDTIME [facility] Last Admin: 10/21/23 21:24 Dose: 18 unit Documented By: FILOMENA Insulin Human Lispro (Insulin Lispro 100 Unit/Ml 3 Ml Vial) 0 unit SUBCUT QIDACHS [facility]; Protocol Last Admin: 10/22/23 08:28 Dose: 2 unit Documented By: AHSAN Lidocaine HCl (Lidocaine Hcl 1 % Mpf 2 Ml Vial) 0.5 ml SUBCUT MOWEFR@1645 [facility] Last Admin: 10/20/23 17:21 Dose: Not Given Documented By: ELVIA Non-Admin Reason: Off unit: Dialysis Melatonin (Melatonin 3 Mg Tablet) 6 mg PO BEDTIME PRN PRN Reason: Insomnia Ondansetron HCl (Ondansetron Hcl 4 Mg/2 Ml Vial) 4 mg IVPUSH Q8H PRN PRN Reason: Nausea and Vomiting Pharmacy Consult (Consult Rx Vancomycin Dosing) 1 each MISCELLANE DAILY PRN PRN Reason: Consult order Sodium Chloride (0.9 % Sodium Chloride Flush 3 Ml Syringe) 3 ml IVFLUSH QSHIFT [facility] Last Admin: 10/22/23 08:27 Dose: 3 ml Documented By: AHSAN Labs 10/20/23 04:49 10/20/23 04:49 Labs: Laboratory Results - last 24 hr 10/21/23 10/21/23 10/22/23 16:16 20:36 07:30 POC Glucose 144 H 223 H 165 H Microbiology Microbiology Results: Microbiology 10/19/23 21:12 Gram Stain - Final Foot Right Routine Culture - Final Pseudomonas aeruginosa Staphylococcus aureus 10/19/23 17:30 Blood Culture - Preliminary Blood - Venous No growth after 48 hours. 10/19/23 17:30 Blood Culture - Preliminary Blood - Venous No growth after 48 hours. Assessment and Plan (1) ESRD (end stage renal disease) on dialysis: Status: Acute (2) Osteomyelitis: Status: Acute (3) Diabetic foot infection: Status: Acute Plan 53-year-old male with pertinent history of insulin-dependent diabetes mellitus, ESRD on hemodialysis M/W/F, peripheral vascular disease, essential hypertension who presents to the emergency department for evaluation of left foot infection. 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 He has failed mcfp antibiotics and the limb doesn't look salvageable and therefore will likely need amputation by vascular surgery pending result of non invasive vascular studies, in the meantime continue IV Abx (Zosyn and Vanco 10/19). ID favor ampuation unless a new organism is identified ESRD on hemodialysis M/W/F, Nephrology following Insulin-dependent diabetes mellitus with hyperglycemia, FBS 165 Increase 15 to 18: Lantus, SSI and diabetic diet Essential hypertension: continue Norvasc, Coreg Anemia of chronic kidney disease: Hemoglobin above transfusion threshold DVT prophylaxis: Heparin Full code need for inpt: acute cellulitis and osteomylitis d/t diabetes requiring Iv Abx and likely need for surgical intervention Quality Stroke Does the patient have a stroke diagnosis?: No VTE Prior VTE?: No VTE Risk Level:: Medical - moderate - high VTE Device Contraindication: Treatment Not Indicated VTE Drug Contraindication: N/A - Med Ordered
[2023-10-22 11:34] LABS: Glucose, Whole Blood 192 mg/dL (60-115)
[2023-10-22 16:00] VITALS: BP 152/62; PULSE 73; RESP 16; TEMP 36.7; O2SAT 94
[2023-10-22 16:44] LABS: Glucose, Whole Blood 136 mg/dL (60-115)
[2023-10-22 19:06] VITALS: BP 154/80; PULSE 75; RESP 20; TEMP 36.2; O2SAT 97
[2023-10-22 20:13] LABS: Glucose, Whole Blood 138 mg/dL (60-115)
[2023-10-22] MEDS: Insulin Glargine,Hum.rec.anlog 100 UNIT/ML 10 ML VIAL 18 UNIT SUBCUT (21:08)
[2023-10-23 03:54] VITALS: BP 178/71; PULSE 78; RESP 16; TEMP 36.9; O2SAT 97
[2023-10-23 07:03] VITALS: BP 146/64; PULSE 78; RESP 16; TEMP 36.9; O2SAT 98
[2023-10-23 07:25] LABS: Glucose, Whole Blood 119 mg/dL (60-115)
--- NOTE | 2023-10-23 08:10 | P.PNNP_ITS ---
Subjective Subjective Date of Service: 10/23/23 Interval history: Events noted. Family at bedside. No new issues today. Physical Exam 2 Vital Signs: Vital Signs: Last Vital Signs Temp 98.4 F 10/23/23 07:03 Pulse 78 10/23/23 07:03 Resp 16 10/23/23 07:03 BP 146/64 H 10/23/23 07:03 Pulse Ox 98 10/23/23 07:03 O2 Del Method Room Air 10/23/23 07:03 BMI result Body Mass Index 32.6 Awake. Comfortable. Neck is supple. Mucosa moist. Lungs bilateral scattered rhonchi. Heart S1-S2 heard no gallop. Abdomen soft. Extremities no edema. No involuntary movements. No myoclonus. Objective Data Labs 10/20/23 04:49 10/20/23 04:49 Labs: Laboratory Results - last 24 hr 10/22/23 10/22/23 10/22/23 11:29 16:30 20:05 POC Glucose 192 H 136 H 138 H 10/23/23 07:08 POC Glucose 119 H Microbiology Microbiology Results: Microbiology 10/19/23 21:12 Foot Right Gram Stain - Final 10/19/23 21:12 Foot Right Routine Culture - Final Pseudomonas aeruginosa Staphylococcus aureus 10/19/23 17:30 Blood - Venous Blood Culture - Preliminary No growth after 48 hours. 10/19/23 17:30 Blood - Venous Blood Culture - Preliminary No growth after 48 hours. Procedures Date of Service Date of Service: 10/23/23 Assessment & Plan Assessment and plan (1) ESRD (end stage renal disease) on dialysis: Status: Acute Plan No signs or symptoms of uremia. Fluid status is acceptable. Continue with hemodialysis Monday. Optimize fluid status with dialysis. Hemoglobin is 10.0 no need for Epogen today. Continue with Sensipar Concur with other medical management Time Spent With Patient Time: Total time managing care of this patient today ____ minutes. Progress Note: Quality Stroke Does the patient have a stroke diagnosis?: No
--- NOTE | 2023-10-23 08:44 | P.PNIM_ITS ---
Subjective Subjective Date of Service: 10/23/23 Interval History: f/u on diabetic foot uclcer, acute on chronic osteomylitis, no new issues Physical Exam 2 Vital Signs: Vital Signs: Last Vital Signs Temp 98.4 F 10/23/23 07:03 Pulse 78 10/23/23 07:03 Resp 16 10/23/23 07:03 BP 146/64 H 10/23/23 07:03 Pulse Ox 98 10/23/23 07:03 O2 Del Method Room Air 10/23/23 07:03 BMI result Body Mass Index 32.6 Awake. Comfortable. Neck is supple. Mucosa moist. Lungs bilateral scattered rhonchi. Heart S1-S2 heard no gallop. Abdomen soft. Extremities No involuntary movements. No myoclonus. Objective Data Active Medications Acetaminophen (Acetaminophen 325 Mg Tablet) 650 mg PO Q6H PRN PRN Reason: Pain, Mild (Pain Scale 1-3) Amlodipine Besylate (Amlodipine Besylate 5 Mg Tablet) 5 mg PO DAILY [facility]; Protocol Last Admin: 10/22/23 08:27 Dose: 5 mg Documented By: AHSAN Aspirin (Aspirin 81 Mg Tab.Chew) 81 mg PO DAILY [facility] Last Admin: 10/22/23 08:28 Dose: 81 mg Documented By: AHSAN Carvedilol (Carvedilol 25 Mg Tablet) 25 mg PO BID [facility]; Protocol Last Admin: 10/22/23 21:09 Dose: 25 mg Documented By: FILOMENA Cinacalcet (Cinacalcet Hcl 30 Mg Tablet) 30 mg PO MOWEFR@0900 [facility] Dextrose (Dextrose 50 % 25 Gm/50 Ml Syringe) 25 gm IVPUSH Q15M PRN; Protocol PRN Reason: per Hypoglycemia Standing Ord. Ergocalciferol (Ergocalciferol (Vitamin D2) 1,250 Mcg Capsule) 1,250 mcg PO MO@0900 [facility] Glucose (Glucose Gel 15 Gm Gel..Gram.) 15 gm PO Q15M PRN; Protocol PRN Reason: per Hypoglycemia Standing Ord. Heparin Sodium (Porcine) (Heparin Sodium,Porcine 5,000 Unit/Ml Vial) 5,000 unit SUBCUT Q12H [facility] Last Admin: 10/22/23 21:08 Dose: 5,000 unit Documented By: FILOMENA Piperacillin Sod/Tazobactam (Sod 4.5 gm/ Sodium Chloride) 100 mls @ 200 mls/hr IV Q12H [facility] Last Infusion: 10/22/23 22:53 Dose: Infused Documented By: FILOMENA Vancomycin HCl 500 mg/ Sodium (Chloride) 110 mls @ 110 mls/hr IV MOWEFR@2000 [facility] Insulin Glargine (Insulin Glargine,Hum.Rec.Anlog 100 Unit/Ml 10 Ml Vial) 18 unit SUBCUT BEDTIME [facility] Last Admin: 10/22/23 21:08 Dose: 18 unit Documented By: FILOMENA Insulin Human Lispro (Insulin Lispro 100 Unit/Ml 3 Ml Vial) 0 unit SUBCUT QIDACHS [facility]; Protocol Last Admin: 10/22/23 20:26 Dose: Not Given Documented By: FILOMENA Non-Admin Reason: No Insulin Coverage Lidocaine HCl (Lidocaine Hcl 1 % Mpf 2 Ml Vial) 0.5 ml SUBCUT MOWEFR@1645 [facility] Last Admin: 10/20/23 17:21 Dose: Not Given Documented By: ELVIA Non-Admin Reason: Off unit: Dialysis Melatonin (Melatonin 3 Mg Tablet) 6 mg PO BEDTIME PRN PRN Reason: Insomnia Ondansetron HCl (Ondansetron Hcl 4 Mg/2 Ml Vial) 4 mg IVPUSH Q8H PRN PRN Reason: Nausea and Vomiting Pharmacy Consult (Consult Rx Vancomycin Dosing) 1 each MISCELLANE DAILY PRN PRN Reason: Consult order Sodium Chloride (0.9 % Sodium Chloride Flush 3 Ml Syringe) 3 ml IVFLUSH QSHIFT [facility] Last Admin: 10/22/23 22:23 Dose: 3 ml Documented By: FILOMENA Labs 10/20/23 04:49 10/20/23 04:49 Labs: Laboratory Results - last 24 hr 10/22/23 10/22/23 10/22/23 11:29 16:30 20:05 POC Glucose 192 H 136 H 138 H 10/23/23 07:08 POC Glucose 119 H Microbiology Microbiology Results: Microbiology 10/19/23 21:12 Gram Stain - Final Foot Right Routine Culture - Final Pseudomonas aeruginosa Staphylococcus aureus Assessment and Plan (1) ESRD (end stage renal disease) on dialysis: Status: Acute (2) Osteomyelitis: Status: Acute (3) Diabetic foot infection: Status: Acute Plan 53-year-old male with pertinent history of insulin-dependent diabetes mellitus, ESRD on hemodialysis M/W/F, peripheral vascular disease, essential hypertension who presents to the emergency department for evaluation of left foot infection. Diabetic left foot infection, purulent cellulitis and acute on chronic osteomylitis. He completed 6 weeks of Ertapenem on 09/26. It is unclear if the foot can be salvage but is not ready for ampuation and therefore, vascular will do debridment today and will need to go back on skilled nursing antibiotics and he fails again then will need the ampuation. Will discuss discharge antibiotics with ID.. He has b been on Zosyn, Vanco since 10/19. Cultures negative thus far ESRD on hemodialysis M/W/F, Nephrology following Insulin-dependent diabetes mellitus with hyperglycemia, FBS 165 Lantus (18, 15 at home), SSI and diabetic diet Essential hypertension: continue Norvasc, Coreg Anemia of chronic kidney disease: Hemoglobin above transfusion threshold DVT prophylaxis: Heparin Full code need for inpt: acute cellulitis and osteomylitis d/t diabetes requiring Iv Abx and likely need for surgical intervention Quality Stroke Does the patient have a stroke diagnosis?: No VTE Prior VTE?: No VTE Risk Level:: Medical - moderate - high VTE Device Contraindication: Treatment Not Indicated VTE Drug Contraindication: N/A - Med Ordered
[2023-10-23 11:37] LABS: Glucose, Whole Blood 90 mg/dL (60-115)
[2023-10-23] MEDS: Piperacillin Sodium/Tazobactam 4.5 GM in 0.9 % Sodium Chloride 100 ML IV ×2 (12:32→21:16)
[2023-10-23 12:36] VITALS: BP 152/78; PULSE 78; RESP 18; TEMP 36.9; O2SAT 99
[2023-10-23 13:59] LABS: Glucose, Whole Blood 78 mg/dL (60-115)
[2023-10-23] MEDS: Glucose Gel 15 GM GEL..GRAM. PO (14:06)
--- NOTE | 2023-10-23 14:08 | PC.NURSE ---
Addendum entered by Rosemarie Corbett RN 10/23/23 15:16: blood sugar recheck 188, MD aware. Addendum entered by Rosemarie Corbett RN 10/23/23 14:38: Blood sugaur recheck 72, per MD Cook give 1 amp D50. Original Note: MD Cook made aware pts poc blood sugar is 78. Pt has been NPO for procedure with MD Lester. Per MD Cook given PRN glucose gel.
[2023-10-23 14:37] LABS: Glucose, Whole Blood 72 mg/dL (60-115)
[2023-10-23] MEDS: Dextrose 50 % 25 GM/50 ML SYRINGE IVPUSH (14:40)
[2023-10-23 15:12] LABS: Glucose, Whole Blood 188 mg/dL (60-115)
[2023-10-23 15:19] VITALS: BP 155/65; PULSE 78; RESP 16; TEMP 36.8; O2SAT 97
--- NOTE | 2023-10-23 15:27 | HO.WOUND ---
Wound Consult: Initial 53yr old Male? admitted to [facility] [place] - See progress notes and H&P for detailed history.? Wound consult placed for Left Foot wound - currently followed by Dr. Lester - set for OR today per direct care nurse. Will defer to Dr. Lester and follow up at future time and or date.
--- NOTE | 2023-10-23 16:13 | MHC.CM.PN ---
PT NOT YET MEDICALLY CLEARED TO DC PER MD ROUNDS, PT LIKELY TO NEED IV ABX AND OP HD CM FOLLOWING FOR DC PLAN
[2023-10-23 16:15] LABS: Glucose, Whole Blood 176 mg/dL (60-115)
--- NOTE | 2023-10-23 16:43 | HO.VASCPN ---
Subjective Subjective Date of Service: 10/23/23 Interval history: Very pleasant 53-year-old gentleman presents for follow-up regarding nonhealing left lower extremity ulcer. He was actually scheduled for the operating room today for debridement. Unfortunately due to scheduling was unable to get him on to the add on list for a reasonable time today. Doing relatively well. Physical Exam Vital Signs: Vital Signs: Last Vital Signs Temp 98.3 F 10/23/23 15:19 Pulse 78 10/23/23 15:19 Resp 16 10/23/23 15:19 BP 155/65 H 10/23/23 15:19 Pulse Ox 97 10/23/23 15:19 O2 Del Method Room Air 10/23/23 15:19 BMI result Body Mass Index 32.6 Const: General: cooperative, healthy appearing and no acute distress Orientation/consciousness: oriented to person, oriented to place and oriented to time HEENT: Head: Yes normal to inspection Neck: Carotids: no bruits Chest: Chest palpation & inspection: normal inspection of the chest Resp: Effort & Inspection: normal respiratory effort and able to speak in complete sentences Auscultation: clear to auscultation bilaterally Cardio: Rate: regular rate Heart sounds: S1 normal heart sound present and S2 normal heart sound present GI: Inspection: Yes normal to inspection Skin: Other: Left foot nonhealing ulcer dressing clean dry intact General skin exam: no rashes or lesions noted Wounds: no wounds Neuro: General: oriented to person, oriented to place, oriented to time and CN's II-XI intact bilaterally Extrem: General: Yes normal to inspection, Yes full ROM and Yes no clubbing, cyanosis or edema Psych: Appearance: grossly normal and well kempt Speech and movement: Normal speech and movement present Affect: normal affect Progress Note: A&P Assessment and plan (1) Diabetic foot ulcer: Status: Acute Assessment and Plan: In short patient has nonhealing left foot ulcer. Due to his Charcot foot remains nonhealing. Would like to try conservative measures for now. Patient will require left foot debridement and placement of wound VAC. risks benefits complications of the procedure were discussed in detail with the patient. He understood and consented. We will try to schedule again for tomorrow Time Spent With Patient Time: Total time managing care of this patient today ____ minutes. Procedures Date of Service Date of Service: 10/23/23 Quality Stroke Does the patient have a stroke diagnosis?: No VTE Prior VTE?: No VTE Risk Level:: Medical - moderate - high VTE Device Contraindication: Treatment Not Indicated VTE Drug Contraindication: N/A - Med Ordered
[2023-10-23] MEDS: Insulin Lispro 100 UNIT/ML 3 ML VIAL SUBCUT ×2 (17:32→21:12)
[2023-10-23] MEDS: 0.9 % Sodium Chloride Flush 3 ML SYRINGE IVFLUSH ×2 (17:33→21:18)
--- NOTE | 2023-10-23 18:33 | HE.PHANOTE ---
VIRAL DOSE ADJUSTMENT BASED ON POST DIALYSIS LEVEL OF 14 500MG ONCE GIVEN 10/22. NEXT LEVEL 10/24 @ 1800
[2023-10-23] MEDS: vancomycin HCL 500 MG in 0.9 % Sodium Chloride 100 ML 110 MG IV (18:50)
[2023-10-23 19:33] VITALS: BP 140/64; PULSE 75; RESP 18; TEMP 36.3; O2SAT 99
[2023-10-23 19:59] LABS: Glucose, Whole Blood 231 mg/dL (60-115)
[2023-10-23] MEDS: Insulin Glargine,Hum.rec.anlog 100 UNIT/ML 10 ML VIAL 18 UNIT SUBCUT (21:12)
[2023-10-23] MEDS: carvediloL 25 MG TABLET PO (21:13)
[2023-10-23] MEDS: Heparin Sodium,Porcine 5,000 UNIT/ML VIAL 5000 UNIT SUBCUT (21:13)
[2023-10-24 03:13] VITALS: BP 147/73; PULSE 80; RESP 18; TEMP 37; O2SAT 98
[2023-10-24 06:56] VITALS: BP 159/67; PULSE 75; RESP 16; TEMP 36.1; O2SAT 99
[2023-10-24 07:10] LABS: Glucose, Whole Blood 135 mg/dL (60-115)
[2023-10-24] MEDS: amLODIPine Besylate 5 MG TABLET PO (08:32)
[2023-10-24] MEDS: carvediloL 25 MG TABLET PO ×2 (08:32→21:15)
[2023-10-24] MEDS: 0.9 % Sodium Chloride Flush 3 ML SYRINGE IVFLUSH ×3 (09:00→21:13)
--- NOTE | 2023-10-24 09:23 | P.PNNP_ITS ---
Subjective Subjective Date of Service: 10/24/23 Interval history: Had dialysis yesterday. Uneventful. Overall doing better Physical Exam 2 Vital Signs: Vital Signs: Last Vital Signs Temp 97.0 F 10/24/23 06:56 Pulse 75 10/24/23 06:56 Resp 16 10/24/23 06:56 BP 159/67 H 10/24/23 06:56 Pulse Ox 99 10/24/23 06:56 O2 Del Method Room Air 10/24/23 06:56 BMI result Body Mass Index 32.6 Const: General: comfortable and no acute distress O rientation/consciousness: patient oriented x3 HEENT: Head: Yes normocephalic Mouth: Normal oral and palatal mucosa present Eyes: EOM: EOMs intact bilaterally Neck: Neck: Yes supple Resp: Auscultation: clear to auscultation bilaterally Cardio: Jugular venous distension: no JVD Rate: regular rate GI: Palpation (GI): Soft to palpation Auscultation: normal bowel sounds : General: Yes no CVA tenderness Back/Spine/Pelvis: Back: no CVA tenderness Skin: General skin exam: no rashes or lesions noted Neuro: General: patient oriented x3 and moves all extremities Objective Data Labs 10/20/23 04:49 10/20/23 04:49 Labs: Laboratory Results - last 24 hr 10/23/23 10/23/23 10/23/23 11:33 13:56 14:33 POC Glucose 90 78 72 Random Vancomycin 10/23/23 10/23/23 10/23/23 15:09 16:10 17:49 POC Glucose 188 H 176 H Random Vancomycin 14.0 L 10/23/23 10/24/23 19:54 07:00 POC Glucose 231 H 135 H Random Vancomycin Microbiology Microbiology Results: Microbiology 10/19/23 21:12 Foot Right Gram Stain - Final 10/19/23 21:12 Foot Right Routine Culture - Final Pseudomonas aeruginosa Staphylococcus aureus 10/19/23 17:30 Blood - Venous Blood Culture - Preliminary No growth after 48 hours. 10/19/23 17:30 Blood - Venous Blood Culture - Preliminary No growth after 48 hours. Procedures Date of Service Date of Service: 10/24/23 Assessment & Plan Assessment and plan (1) ESRD (end stage renal disease) on dialysis: Status: Acute Plan No signs or symptoms of uremia. Fluid status is acceptable. Continue with hemodialysis Monday. Optimize fluid status with dialysis. Hemoglobin is 10.0 no need for Epogen today. Continue with Sensipar Concur with other medical management Time Spent With Patient Time: Total time managing care of this patient today ____ minutes. Progress Note: Quality Stroke Does the patient have a stroke diagnosis?: No
--- NOTE | 2023-10-24 09:26 | P.PNIM_ITS ---
Subjective Subjective Date of Service: 10/24/23 Interval History: f/u on diabetic foot uclcer, acute on chronic osteomylitis, no new issues, debridment not done yesterday d/t OR issues Physical Exam 2 Vital Signs: Vital Signs: Last Vital Signs Temp 97.0 F 10/24/23 06:56 Pulse 75 10/24/23 06:56 Resp 16 10/24/23 06:56 BP 159/67 H 10/24/23 06:56 Pulse Ox 99 10/24/23 06:56 O2 Del Method Room Air 10/24/23 06:56 BMI result Body Mass Index 32.6 essentially unchanged Awake. Comfortable. Neck is supple. Mucosa moist. Lungs bilateral scattered rhonchi. Heart S1-S2 heard no gallop. Abdomen soft. Extremities No involuntary movements. No myoclonus. Objective Data Active Medications Acetaminophen (Acetaminophen 325 Mg Tablet) 650 mg PO Q6H PRN PRN Reason: Pain, Mild (Pain Scale 1-3) Amlodipine Besylate (Amlodipine Besylate 5 Mg Tablet) 5 mg PO DAILY [facility]; Protocol Last Admin: 10/24/23 08:32 Dose: 5 mg Documented By: RODRIGO Aspirin (Aspirin 81 Mg Tab.Chew) 81 mg PO DAILY [facility] Last Admin: 10/24/23 08:33 Dose: Not Given Documented By: RODRIGO Non-Admin Reason: held for procedure Carvedilol (Carvedilol 25 Mg Tablet) 25 mg PO BID [facility]; Protocol Last Admin: 10/24/23 08:32 Dose: 25 mg Documented By: RODRIGO Cinacalcet (Cinacalcet Hcl 30 Mg Tablet) 30 mg PO MOWEFR@0900 [facility] Last Admin: 10/23/23 08:57 Dose: Not Given Documented By: RODRIGO Non-Admin Reason: Off unit: Dialysis Dextrose (Dextrose 50 % 25 Gm/50 Ml Syringe) 25 gm IVPUSH Q15M PRN; Protocol PRN Reason: per Hypoglycemia Standing Ord. Last Admin: 10/23/23 14:40 Dose: 25 gm Documented By: RODRIGO Ergocalciferol (Ergocalciferol (Vitamin D2) 1,250 Mcg Capsule) 1,250 mcg PO MO@0900 [facility] Last Admin: 10/23/23 08:58 Dose: Not Given Documented By: RODRIGO Non-Admin Reason: Off unit: Dialysis Glucose (Glucose Gel 15 Gm Gel..Gram.) 15 gm PO Q15M PRN; Protocol PRN Reason: per Hypoglycemia Standing Ord. Last Admin: 10/23/23 14:06 Dose: 15 gm Documented By: RODRIGO Heparin Sodium (Porcine) (Heparin Sodium,Porcine 5,000 Unit/Ml Vial) 5,000 unit SUBCUT Q12H [facility] Last Admin: 10/24/23 08:33 Dose: Not Given Documented By: RODRIGO Non-Admin Reason: held for procedure Piperacillin Sod/Tazobactam (Sod 4.5 gm/ Sodium Chloride) 100 mls @ 200 mls/hr IV Q12H [facility] Last Infusion: 10/23/23 21:47 Dose: Infused Documented By: CHAUNCEY Vancomycin HCl 500 mg/ Sodium (Chloride) 110 mls @ 110 mls/hr IV MOWEFR@2000 [facility] Insulin Glargine (Insulin Glargine,Hum.Rec.Anlog 100 Unit/Ml 10 Ml Vial) 18 unit SUBCUT BEDTIME [facility] Last Admin: 10/23/23 21:12 Dose: 18 unit Documented By: CHAUNCEY Insulin Human Lispro (Insulin Lispro 100 Unit/Ml 3 Ml Vial) 0 unit SUBCUT QIDACHS [facility]; Protocol Last Admin: 10/24/23 08:59 Dose: Not Given Documented By: RODRIGO Non-Admin Reason: NPO Lidocaine HCl (Lidocaine Hcl 1 % Mpf 2 Ml Vial) 0.5 ml SUBCUT MOWEFR@1645 [facility] Last Admin: 10/23/23 17:34 Dose: Not Given Documented By: RODRIGO Non-Admin Reason: for HD only Melatonin (Melatonin 3 Mg Tablet) 6 mg PO BEDTIME PRN PRN Reason: Insomnia Ondansetron HCl (Ondansetron Hcl 4 Mg/2 Ml Vial) 4 mg IVPUSH Q8H PRN PRN Reason: Nausea and Vomiting Pharmacy Consult (Consult Rx Vancomycin Dosing) 1 each MISCELLANE DAILY PRN PRN Reason: Consult order Sodium Chloride (0.9 % Sodium Chloride Flush 3 Ml Syringe) 3 ml IVFLUSH QSHIFT [facility] Last Admin: 10/24/23 09:00 Dose: 3 ml Documented By: RODRIGO Labs 10/20/23 04:49 10/20/23 04:49 Labs: Laboratory Results - last 24 hr 10/23/23 10/23/23 10/23/23 11:33 13:56 14:33 POC Glucose 90 78 72 Random Vancomycin 10/23/23 10/23/23 10/23/23 15:09 16:10 17:49 POC Glucose 188 H 176 H Random Vancomycin 14.0 L 10/23/23 10/24/23 19:54 07:00 POC Glucose 231 H 135 H Random Vancomycin Assessment and Plan (1) ESRD (end stage renal disease) on dialysis: Status: Acute (2) Osteomyelitis: Status: Acute (3) Diabetic foot infection: Status: Acute Plan 53-year-old male with pertinent history of insulin-dependent diabetes mellitus, ESRD on hemodialysis M/W/F, peripheral vascular disease, essential hypertension who presents to the emergency department for evaluation of left foot infection. Diabetic left foot infection, purulent cellulitis and acute on chronic osteomylitis. He completed 6 weeks of Ertapenem on 09/26. It is unclear if the foot can be salvage but is not ready for ampuation and therefore, vascular will do debridment today ID doesn't think IV Abx will change the course and recommend PO Doxy at discharge and further recommends ampuation. on Zosyn Vanco since 10/19. Cultures negative thus far. DC with PO Doxy for 14 days ESRD on hemodialysis M/W/F, Nephrology following Insulin-dependent diabetes mellitus with hyperglycemia, FBS 165 Lantus (18, 15 at home), SSI and diabetic diet Essential hypertension: continue Norvasc, Coreg Anemia of chronic kidney disease: Hemoglobin above transfusion threshold DVT prophylaxis: Heparin Full code need for inpt: acute cellulitis and osteomylitis d/t diabetes requiring Iv Abx and likely need for surgical intervention Quality Stroke Does the patient have a stroke diagnosis?: No VTE Prior VTE?: No VTE Risk Level:: Medical - moderate - high VTE Device Contraindication: Treatment Not Indicated VTE Drug Contraindication: N/A - Med Ordered
[2023-10-24 11:27] LABS: Glucose, Whole Blood 127 mg/dL (60-115)
[2023-10-24] MEDS: Piperacillin Sodium/Tazobactam 4.5 GM in 0.9 % Sodium Chloride 100 ML IV ×2 (12:18→21:15)
--- NOTE | 2023-10-24 13:55 | HO.ANESPROP2 ---
[facility] Active Problems Active Problems: All Active Problems (Updated 10/20/23 @ 11:18 by Ricardo Mishra MD) ESRD (end stage renal disease) on dialysis (Acute) Osteomyelitis (Acute) Diabetic foot infection (Acute) ESRD (end stage renal disease) (Acute) PAD (peripheral artery disease) (Acute) Diabetic foot ulcer (Acute) Past Medical History Medical History Insulin dependent type 2 diabetes mellitus Chronic kidney disease on chronic dialysis Hypertension Diabetes mellitus Family History Family history of problems with anesthesia: No Surgical History History of Problems with Anesthesia: No Social History Social History Household Members: Spouse and Family Household Members Other:: Housing: Apartment Do you presently have visiting nurse or other home services: Yes (Visiting nurse once a week to change the central line dressing (removed 3 w) Unable to assess alcohol history related to: Unable to respond Alcohol intake: never Patient Tobacco Use Status: Never used Tobacco e-Cigarette/Vaping Use: Never Used Second Hand Smoke Exposure: No service: No Meds Allergies Allergy/AdvReac Type Severity Reaction Status Date / Time No Known Allergies Allergy Verified 09/25/23 14:45 Active Medications: Current Medications Acetaminophen (Acetaminophen 325 Mg Tablet) 650 mg PO Q6H PRN PRN Reason: Pain, Mild (Pain Scale 1-3) Amlodipine Besylate (Amlodipine Besylate 5 Mg Tablet) 5 mg PO DAILY [facility]; Protocol Last Admin: 10/24/23 08:32 Dose: 5 mg Aspirin (Aspirin 81 Mg Tab.Chew) 81 mg PO DAILY [facility] Last Admin: 10/24/23 08:33 Dose: Not Given Carvedilol (Carvedilol 25 Mg Tablet) 25 mg PO BID [facility]; Protocol Last Admin: 10/24/23 08:32 Dose: 25 mg Cinacalcet (Cinacalcet Hcl 30 Mg Tablet) 30 mg PO MOWEFR@0900 GARCIA Last Admin: 10/23/23 08:57 Dose: Not Given Dextrose (Dextrose 50 % 25 Gm/50 Ml Syringe) 25 gm IVPUSH Q15M PRN; Protocol PRN Reason: per Hypoglycemia Standing Ord. Last Admin: 10/23/23 14:40 Dose: 25 gm Ergocalciferol (Ergocalciferol (Vitamin D2) 1,250 Mcg Capsule) 1,250 mcg PO MO@0900 [facility] Last Admin: 10/23/23 08:58 Dose: Not Given Fentanyl (Fentanyl Citrate/Pf 100 Mcg/2 Ml Vial) 25 mcg IVPUSH Q5M PRN; Protocol PRN Reason: Pain, Moderate(Pain Scale 4-6) Glucose (Glucose Gel 15 Gm Gel..Gram.) 15 gm PO Q15M PRN; Protocol PRN Reason: per Hypoglycemia Standing Ord. Last Admin: 10/23/23 14:06 Dose: 15 gm Heparin Sodium (Porcine) (Heparin Sodium,Porcine 5,000 Unit/Ml Vial) 5,000 unit SUBCUT Q12H [facility] Last Admin: 10/24/23 08:33 Dose: Not Given Hydromorphone HCl (Hydromorphone Hcl 0.5 Mg/0.5 Ml Syringe) 0.5 mg IVPUSH Q5M PRN; Protocol PRN Reason: Pain, Severe (Pain Scale 7-10) Piperacillin Sod/Tazobactam (Sod 4.5 gm/ Sodium Chloride) 100 mls @ 200 mls/hr IV Q12H [facility] Last Infusion: 10/24/23 12:48 Dose: Infused Vancomycin HCl 500 mg/ Sodium (Chloride) 110 mls @ 110 mls/hr IV MOWEFR@2000 [facility] Insulin Glargine (Insulin Glargine,Hum.Rec.Anlog 100 Unit/Ml 10 Ml Vial) 18 unit SUBCUT BEDTIME [facility] Last Admin: 10/23/23 21:12 Dose: 18 unit Insulin Human Lispro (Insulin Lispro 100 Unit/Ml 3 Ml Vial) 0 unit SUBCUT QIDACHS [facility]; Protocol Last Admin: 10/24/23 12:21 Dose: Not Given Lidocaine HCl (Lidocaine Hcl 1 % Mpf 2 Ml Vial) 0.5 ml SUBCUT MOWEFR@1645 [facility] Last Admin: 10/23/23 17:34 Dose: Not Given Melatonin (Melatonin 3 Mg Tablet) 6 mg PO BEDTIME PRN PRN Reason: Insomnia Ondansetron HCl (Ondansetron Hcl 4 Mg/2 Ml Vial) 4 mg IVPUSH Q8H PRN PRN Reason: Nausea and Vomiting Pharmacy Consult (Consult Rx Vancomycin Dosing) 1 each MISCELLANE DAILY PRN PRN Reason: Consult order Sodium Chloride (0.9 % Sodium Chloride Flush 3 Ml Syringe) 3 ml IVFLUSH QSHIFT [facility]ARC[facility] Last Admin: 10/24/23 09:00 Dose: 3 ml Home Medications Medication Instructions Recorded Confirmed Last Taken Type amlodipine 5 mg tablet 5 mg PO DAILY 08/15/23 10/19/23 10/19/23 History carvedilol 25 mg tablet 25 mg PO BID 08/15/23 10/19/23 10/19/23 History cinacalcet 30 mg tablet 30 mg PO MOWEFR@0908/15/23 10/19/23 10/19/23 History ergocalciferol (vitamin D2) 1,250 1,250 mcg PO MO@0908/15/23 10/19/23 10/19/23 History mcg (50,000 unit) capsule insulin glargine 100 unit/mL 15 unit subcut BEDTIME 10/19/23 10/19/23 10/19/23 History subcutaneous solution (Lantus U-100 Insulin) Exam Height,Weight and Vital Signs: Height 5 ft 7 in Weight 94.5 kg Last Vital Signs Temp 97.0 F 10/24/23 06:56 Pulse 75 10/24/23 06:56 Resp 16 10/24/23 06:56 BP 159/67 H 10/24/23 06:56 Pulse Ox 99 10/24/23 06:56 O2 Del Method Room Air 10/24/23 06:56 Pertinent Lab Results Pertinent Lab Results: Laboratory Tests 10/19/23 10/19/23 10/19/23 17:30 17:31 22:04 WBC 10.3 RBC 3.73 L Hgb 10.6 L Hct 32.6 L MCV 87.4 MCH 28.4 MCHC 32.5 RDW 14.7 Plt Count 326 MPV 10.2 Immature Gran % (Auto) 0.4 Neut % (Auto) 73.9 H Lymph % (Auto) 14.3 L [place] % (Auto) 6.8 Eos % (Auto) 4.1 H Baso % (Auto) 0.5 Lymph # (Auto) 1.5 [place] # (Auto) 0.7 Eos # (Auto) 0.4 Baso # (Auto) 0.1 Abs Immat Gran (auto) 0.04 H Absolute Neuts (auto) 7.6 Absolute Nucleated RBC 0.000 Nucleated RBC % (auto) 0.0 ESR 101 H Sodium 132 L Potassium 4.7 Chloride 91 L Carbon Dioxide 27 Anion Gap 19 BUN 63 H Creatinine 9.28 H* Estim Creat Clear Calc 9.9 Estimated GFR 6 POC Glucose 226 H Random Glucose 273 H Lactic Acid 1.3 Calcium 9.3 Total Bilirubin 0.4 AST 9 ALT 8 Alkaline Phosphatase 87 C-Reactive Protein 17.05 H Total Protein 9.1 H Albumin 3.3 L Random Vancomycin 10/20/23 10/20/23 10/20/23 04:49 07:06 11:44 WBC 9.2 RBC 3.52 L Hgb 10.0 L Hct 30.3 L MCV 86.1 MCH 28.4 MCHC 33.0 RDW 14.7 Plt Count 318 MPV 10.1 Immature Gran % (Auto) 0.2 Neut % (Auto) 74.0 H Lymph % (Auto) 16.7 L [place] % (Auto) 5.1 Eos % (Auto) 3.8 Baso % (Auto) 0.2 Lymph # (Auto) 1.5 [place] # (Auto) 0.5 Eos # (Auto) 0.4 Baso # (Auto) 0.0 Abs Immat Gran (auto) 0.02 Absolute Neuts (auto) 6.8 Absolute Nucleated RBC 0.000 Nucleated RBC % (auto) 0.0 ESR Sodium 135 Potassium 4.0 Chloride 94 L Carbon Dioxide 25 Anion Gap 20 BUN 67 H Creatinine 10.12 H* Estim Creat Clear Calc 9.1 Estimated GFR 5 POC Glucose 149 H 171 H Random Glucose 167 H Lactic Acid Calcium 9.2 Total Bilirubin AST ALT Alkaline Phosphatase C-Reactive Protein Total Protein Albumin Random Vancomycin 10/20/23 10/20/23 10/21/23 19:05 20:02 07:24 WBC RBC Hgb Hct MCV MCH MCHC RDW Plt Count MPV Immature Gran % (Auto) Neut % (Auto) Lymph % (Auto) [place] % (Auto) Eos % (Auto) Baso % (Auto) Lymph # (Auto) [place] # (Auto) Eos # (Auto) Baso # (Auto) Abs Immat Gran (auto) Absolute Neuts (auto) Absolute Nucleated RBC Nucleated RBC % (auto) ESR Sodium Potassium Chloride Carbon Dioxide Anion Gap BUN Creatinine Estim Creat Clear Calc Estimated GFR POC Glucose 191 H 190 H Random Glucose Lactic Acid Calcium Total Bilirubin AST ALT Alkaline Phosphatase C-Reactive Protein Total Protein Albumin Random Vancomycin 13.3 L 10/21/23 10/21/23 10/21/23 11:07 16:16 20:36 WBC RBC Hgb Hct MCV MCH MCHC RDW Plt Count MPV Immature Gran % (Auto) Neut % (Auto) Lymph % (Auto) [place] % (Auto) Eos % (Auto) Baso % (Auto) Lymph # (Auto) [place] # (Auto) Eos # (Auto) Baso # (Auto) Abs Immat Gran (auto) Absolute Neuts (auto) Absolute Nucleated RBC Nucleated RBC % (auto) ESR Sodium Potassium Chloride Carbon Dioxide Anion Gap BUN Creatinine Estim Creat Clear Calc Estimated GFR POC Glucose 240 H 144 H 223 H Random Glucose Lactic Acid Calcium Total Bilirubin AST ALT Alkaline Phosphatase C-Reactive Protein Total Protein Albumin Random Vancomycin 10/22/23 10/22/23 10/22/23 07:30 11:29 16:30 WBC RBC Hgb Hct MCV MCH MCHC RDW Plt Count MPV Immature Gran % (Auto) Neut % (Auto) Lymph % (Auto) [place] % (Auto) Eos % (Auto) Baso % (Auto) Lymph # (Auto) [place] # (Auto) Eos # (Auto) Baso # (Auto) Abs Immat Gran (auto) Absolute Neuts (auto) Absolute Nucleated RBC Nucleated RBC % (auto) ESR Sodium Potassium Chloride Carbon Dioxide Anion Gap BUN Creatinine Estim Creat Clear Calc Estimated GFR POC Glucose 165 H 192 H 136 H Random Glucose Lactic Acid Calcium Total Bilirubin AST ALT Alkaline Phosphatase C-Reactive Protein Total Protein Albumin Random Vancomycin 10/22/23 10/23/23 10/23/23 20:05 07:08 11:33 WBC RBC Hgb Hct MCV MCH MCHC RDW Plt Count MPV Immature Gran % (Auto) Neut % (Auto) Lymph % (Auto) [place] % (Auto) Eos % (Auto) Baso % (Auto) Lymph # (Auto) [place] # (Auto) Eos # (Auto) Baso # (Auto) Abs Immat Gran (auto) Absolute Neuts (auto) Absolute Nucleated RBC Nucleated RBC % (auto) ESR Sodium Potassium Chloride Carbon Dioxide Anion Gap BUN Creatinine Estim Creat Clear Calc Estimated GFR POC Glucose 138 H 119 H 90 Random Glucose Lactic Acid Calcium Total Bilirubin AST ALT Alkaline Phosphatase C-Reactive Protein Total Protein Albumin Random Vancomycin 10/23/23 10/23/23 10/23/23 13:56 14:33 15:09 WBC RBC Hgb Hct MCV MCH MCHC RDW Plt Count MPV Immature Gran % (Auto) Neut % (Auto) Lymph % (Auto) [place] % (Auto) Eos % (Auto) Baso % (Auto) Lymph # (Auto) [place] # (Auto) Eos # (Auto) Baso # (Auto) Abs Immat Gran (auto) Absolute Neuts (auto) Absolute Nucleated RBC Nucleated RBC % (auto) ESR Sodium Potassium Chloride Carbon Dioxide Anion Gap BUN Creatinine Estim Creat Clear Calc Estimated GFR POC Glucose 78 72 188 H Random Glucose Lactic Acid Calcium Total Bilirubin AST ALT Alkaline Phosphatase C-Reactive Protein Total Protein Albumin Random Vancomycin 10/23/23 10/23/23 10/23/23 16:10 17:49 19:54 WBC RBC Hgb Hct MCV MCH MCHC RDW Plt Count MPV Immature Gran % (Auto) Neut % (Auto) Lymph % (Auto) [place] % (Auto) Eos % (Auto) Baso % (Auto) Lymph # (Auto) [place] # (Auto) Eos # (Auto) Baso # (Auto) Abs Immat Gran (auto) Absolute Neuts (auto) Absolute Nucleated RBC Nucleated RBC % (auto) ESR Sodium Potassium Chloride Carbon Dioxide Anion Gap BUN Creatinine Estim Creat Clear Calc Estimated GFR POC Glucose 176 H 231 H Random Glucose Lactic Acid Calcium Total Bilirubin AST ALT Alkaline Phosphatase C-Reactive Protein Total Protein Albumin Random Vancomycin 14.0 L 10/24/23 10/24/23 07:00 11:22 WBC RBC Hgb Hct MCV MCH MCHC RDW Plt Count MPV Immature Gran % (Auto) Neut % (Auto) Lymph % (Auto) [place] % (Auto) Eos % (Auto) Baso % (Auto) Lymph # (Auto) [place] # (Auto) Eos # (Auto) Baso # (Auto) Abs Immat Gran (auto) Absolute Neuts (auto) Absolute Nucleated RBC Nucleated RBC % (auto) ESR Sodium Potassium Chloride Carbon Dioxide Anion Gap BUN Creatinine Estim Creat Clear Calc Estimated GFR POC Glucose 135 H 127 H Random Glucose Lactic Acid Calcium Total Bilirubin AST ALT Alkaline Phosphatase C-Reactive Protein Total Protein Albumin Random Vancomycin Airway Mallampati Class: III TM Dist: >3cm Partial: Upper and Lower Heart: rrr Lungs: cta b/l Assessment and Plan Assessment Anesthesia Assessment: Anesthesia Plan Discussed and Chart Reviewed Final Anesthetic Review Family History of Problems with Anesthesia: No History of Problems with Anesthesia: No NPO: Yes ASA Class: III Final Preanesthetic Review: No Changes in Pt Med Stat, Meds/Allgs Chart Reviewed, Consent Obtained/Reviewed and Anes Risks/Benef Reviewed Patient Risk: Intermediate Procedure Risk: Low Anesthetic Plan Anesthetic Plan: GA Disposition: Standard PACU
--- NOTE | 2023-10-24 15:13 | MHC.SHP ---
Pre-Procedural Eval Section A - 24 Hr Update-Section A only Date of Service: 10/24/23 The patient is an INPATIENT: Yes Changes since office visit: Yes Patient answered all questions The patient has been examined within 24 hours of the surgical procedure. The History & Physical has been completed within 30 days and I have reviewed it.: Yes Section B - Complete if H&P > 30 days Chief Complaint: Foot infection Allergies: Allergies Allergy/AdvReac Type Severity Reaction Status Date / Time No Known Allergies Allergy Verified 09/25/23 14:45 Plan I have reviewed the history and physical and performed a pertinent physical examination on my patient. No changes have occurred unless specified. Time Spent With Patient Time: Total time managing care of this patient today ____ minutes.
--- NOTE | 2023-10-24 15:52 | P.OP_ITS ---
Operative Note Operative Note Date of Service: 10/24/23 Narrative: Operative note by [facility] Preoperative diagnosis: Nonhealing left foot diabetic ulcer Postoperative diagnosis: Same Procedure: Left leg excisional debridement into bone 2. Wound VAC placement Surgeon:Edward Lester M.D. Fish Straightener: Kam Anesthesia: Local with sedation performed by anesthesia Specimens: 1 Drains: None Estimated blood loss: Minimal Indications: 53-year-old gentleman with diabetic foot ulcer has been present for some time. Continues to remain nonhealing. Now presents for debridement. The patient has signed the informed consent after reviewing risks, complications, benefits, and alternatives previously discussed with the patient. The patient was given the opportunity to ask any additional questions or voice any concerns. All questions were answered to the patient's satisfaction. Procedure in detail: Patient was brought to the operating room prior to which a time-out was called for patient identification site verification. Left foot was prepped and draped in standard surgical fashion. Excisional debridement was undertaken of the left. We used pickups and 15 blade. We excised down on the plantar aspect down into bone. Once in the deep position we took cultures. Once this was all accomplished we thoroughly irrigated this area out. We ensured all fibrinous necrotic material was removed. This was taken into bone. Once there adequate hemostasis was achieved with electrocautery. We then trimmed down a small sponge to appropriate size. Wound VAC was then placed. This was placed at 125 mmHg at continuous pressure. Patient tolerated the p rocedure well. Returned to recovery with stable vitals. This note is constructed using voice recognition software. While every effort has been made to ensure accuracy, clamp jig assembler errors may have been included. Thank you for allowing me to participate in the care of your patient. Yours sincerely, Edward Lester MD, FACS, R.P.V.I.
[2023-10-24 15:56] VITALS: BP 108/27; PULSE 78; RESP 16; TEMP 36.3; O2SAT 98
[2023-10-24 16:11] VITALS: BP 118/21; PULSE 72; RESP 16; TEMP 36.5; O2SAT 94
[2023-10-24 16:33] VITALS: BP 139/58; PULSE 71; RESP 18; TEMP 37; O2SAT 96
[2023-10-24 16:40] LABS: Glucose, Whole Blood 104 mg/dL (60-115)
--- NOTE | 2023-10-24 17:44 | PC.NURSE ---
Pt returned to unit from PACU at approximately 1630 s/p left foot debridement with wound vac. At this time pt A&Ox4 and cooperative with care. Pt vital signs and blood sugar stable. Wound vac in place, settings set to 125mmhg per ordered. Pt denies pain, states he is hungry and wants to have dinner. All safety measures in place.
[2023-10-24 19:49] VITALS: BP 139/80; PULSE 77; RESP 18; TEMP 36.3; O2SAT 97
[2023-10-24 20:05] LABS: Glucose, Whole Blood 152 mg/dL (60-115)
[2023-10-24] MEDS: Insulin Glargine,Hum.rec.anlog 100 UNIT/ML 10 ML VIAL 18 UNIT SUBCUT (21:12)
[2023-10-24] MEDS: Heparin Sodium,Porcine 5,000 UNIT/ML VIAL 5000 UNIT SUBCUT (21:13)
[2023-10-24] MEDS: Insulin Lispro 100 UNIT/ML 3 ML VIAL SUBCUT (21:13)
[2023-10-25 03:22] VITALS: BP 149/65; PULSE 77; RESP 18; TEMP 36.6; O2SAT 97
[2023-10-25 07:37] VITALS: BP 164/74; PULSE 76; RESP 14; TEMP 36.4; O2SAT 99
[2023-10-25 07:47] LABS: Glucose, Whole Blood 126 mg/dL (60-115)
--- NOTE | 2023-10-25 10:00 | HO.WOUND ---
Wound Consult: Initial 53yr old?M [place] [facility] [place] See progress notes and H&P for detailed history.? Direct care team requests consult for leaking wound vac to left Diabetic Foot Wound. Patient agreeable to assessment and photo documentation.? Arrival to bedside patient alarms reviewed currently no suction - Blockage reported, alarm history reveals alarming on and off since approximately 0545am. Trouble shoot performed not able to obtain suction - new dressing application needed. TT with Dr. Lester ok to change dressing. The dressing was removed two separate black sponges were removed and were not touching making suction difficult to achieve. Clark pad was attached to plantar portion of the patients leg. the patient reports he is not walking but that he does have to pivot and or ambulate to Bathroom. We discussed bridge to leg for appropriate clark pad placement patient was agreeable. The wound bed was irrigated and cleansed with saline. There is a significant amount of yellow oneil necrotic tissue noted from 1-2 o'clock see photo provided - I would suggest debridement for best NPWT outcome. TT Dr. Lester of necrotic tissue observed - new wound vac applied. There is some maceration noted to the periwound skin prep applied priot to next NPWT application as well as Brava BArrier Strip paste to create seal. The anterior portion of the foot has a small round punctate wound approximately 0.6cm x 0.6cm x 1cm pink moist wound bed - this was treated with Durafiber AG packing and drape - NPWT was not applied to this portion of the wound. NPWT Suction Settings: 125mmHg - Setting Type: Continuous No Premedication Provided. Wound assessment: 5cm x 7cm x 3cm - no undermining noted Wound bed: significant amount of yellow oneil necrotic tissue noted from 1-2 o'clock see photo provided - with marbled area of pink moist tissue and yellow moist slough - no exposed bone or tendon observed or palpated Old NPWT Dressing removed - two separate black sponge removed - no white sponge noted - no tunnel present Cleanse and irrigated with NS. NPWT Dressing Application: 1 black foam cut to size and applied to wound bed, Skin and wound edge protected with Paste Strip outlining edge. Skin protected with Drape for Bridge one piece of black foam applied for bridge to left mid marcano avoiding bone. Dressing completed and no leak noted. Suction set to 125mmHg - patient denies pain and or burning sensation. Patient tolerated well. D/C plan for today - home with VNA and wound vac management - patient to follow up with Dr. Lester outpatient as scheduled. Re-consult wound care Nurse for wound deterioration or wound changes.
[2023-10-25 11:39] LABS: Glucose, Whole Blood 195 mg/dL (60-115)
--- NOTE | 2023-10-25 11:49 | PM.DS ---
DS: Providers Provider Date of Service: 10/27/23 Date of admission: 10/19/23 21:19 Primary care physician: None Physician Consults: 10/19/23 21:17 Consult to Infectious Diseases Routine Consulting Provider: [facility] Infectious Disease Reason for consultation: left foot osteomyelitis Consult to Nephrology Routine Consulting Provider: [facility] Reason for consultation: ESRD on HD Consult to Vascular Surgery Routine Consulting Provider: [facility] Vascular Services Reason for consultation: left foot osteomyelitis 10/20/23 15:42 Consult to Wound Care Routine Reason for consultation: Diabetic foot ulcer bilat feet Has provider been notified: No DS: Diagnosis Discharge Diagnosis (1) ESRD (end stage renal disease) on dialysis: Status: Acute (2) Osteomyelitis: Status: Acute (3) Diabetic foot infection: Status: Acute (4) PAD (peripheral artery disease): Status: Acute DS: Summary Hospital Course Hospital Course: Admission note HPI This is a 53-year-old male with pertinent history of insulin-dependent diabetes mellitus, ESRD on hemodialysis M/W/F, peripheral vascular disease, essential hypertension who presents to the emergency department for evaluation of left foot infection. Patient states he saw [facility] on the day of presentation who asked the patient to come to the ER. Of note, patient was admitted on 08/15/2023 and discharged on 08/22/2023 with diabetic left foot infection and discharged on IV ertapenem. Patient finished 6 week course of IV ertapenem early in September. He states that his infection was improving when he was on the antibiotics. Since being off the antibiotics, the drainage from the left foot wound has been worsening especially over the last 1 week. It is foul-smelling. No fever, chills, chest discomfort, palpitations, shortness of breath, abdominal pain, changes in urinary or bowel habits. In the emergency department, imaging with osteolytic destruction of the 4th and 5th digits of the left foot Hospital course The patient was admitted for treatment of Diabetic left foot infection with purulent cellulitis and acute on chronic osteomylitis. He recently completed 6 weeks of Ertapenem on 09/26. It is unclear if the foot can be salvage but the patient is not ready for amputation as recommended by ID specialist and therefore, vascular surgeon did debridment as ID doesn't think IV Abx will change the course and recommend PO Doxy on discharge at discharge and further recommends ampuation. Treated inpatient with Zosyn, Vanco since 10/19. blood Cultures negative . to discharge with PO Doxy and Levaquin PO post dialysis as wound culture from admission growing MRSA and Pseudomonas. To be followed by wound care at home and he should follow with dr Lester office in 2-3 weeks. For ESRD on hemodialysis M/W/F, Nephrology team followed him during hospital stay. He was also evaluated for Right foot signs of ischemia as a result of PAD. he reported weeks of discoloration of his toes. a CTA w runoff did not show any significant stenosis but also could not comment on dorsalis pedis or posterior tibial. Evaluated by dr Fernandez who recommend to discharge home and follow up with dr Lester as outpatient. resumed Aspirin and started on Plavix for DAP. Started Atorvastatin 40 mg bedtime. I reached out to [facility] who accepted to take the patient in for monitoring and possible intervention. Continue LEvaquin after dialysis sessions as prescribed for 4 weeks Doxycycline twice daily for 4 weeks To follow with dr Lester in 2 weeks in office for wound check and right foot treatment plan Wound clinic follow up If right foot worsening in discoloration, pain, coldness please go to [facility] for vascular surgery evaluation Time Attestation Discharge Coordination Time: discharge time of ____ minutes Quality: Safe Use of Opioids Does Pt have an Active Cancer Diagnosis on the Problem List?: No Quality: Stroke Does the patient have a stroke diagnosis?: No Physical Exam Vital Signs: Vital Signs: Last Vital Signs Temp 97.6 F 10/25/23 07:37 Pulse 76 10/25/23 07:37 Resp 14 10/25/23 07:37 BP 164/74 H 10/25/23 07:37 Pulse Ox 99 10/25/23 07:37 O2 Del Method Room Air 10/25/23 07:37 O2 Flow Rate 2 10/24/23 15:56 BMI result Body Mass Index 32.6 Const: Other: Constitutional : Awake, interactive, not in distress Neck : Normal inspection, Supple Cardiovascular : RRR, no JVP, no lower extremity edema, dialysis catheter in place Respiratory : good bilateral air entry, no crackles, wheezes or rhonchi Gastrointestinal: soft, lax, Normal bowel sounds, Non tender Skin : Warm, Dry, foot wound covered with dressing Neurological : Alert & oriented x3, No focal deficit DS: Data Data Completed and Pending Completed studies during hospitalization [Text1]: Procedures Dilation of Left Peroneal Artery using Drug-Coated Balloon, Percutaneous Approach (08/15/23) Fluoroscopy of Aorta and Bilateral Lower Extremity Arteries (08/15/23) Insertion of Infusion Device into Superior Vena Cava, Percutaneous Approach (08/15/23) Insertion of Tunneled Vascular Access Device into Chest Subcutaneous Tissue and Fascia, Percutaneous Approach (08/15/23) Performance of Urinary Filtration, Intermittent, Less than 6 Hours Per Day (08/15/23) Ultrasonography of Superior Vena Cava, Guidance (08/15/23) Labs on day of discharge: Laboratory Results - last 24 hr 10/24/23 10/24/23 10/25/23 16:36 19:52 07:41 POC Glucose 104 152 H 126 H 10/25/23 11:34 POC Glucose 195 H Preliminary micro results at discharge 10/24/23 15:46 Routine Culture - Preliminary Foot Left Culture in progress. Imaging Chest x-ray: Radiologist's impression: ITS Impressions Foot X-Ray 10/19/23 15:30 IMPRESSION: Osteolytic destruction involving the fourth and fifth digits from the neck of the metatarsals to the proximal phalanges. Soft tissue wound/skin defect plantar and lateral region of the forefoot. Duplex Scan Lower Extremity Artery 10/20/23 07:25 IMPRESSION: 1. Occlusion of the mid posterior tibial artery with reconstituted flow in the distal segment. 2. Occlusion of the peroneal artery, which is new compared to the prior exam. 3. Monophasic waveforms in the mid to distal superficial femoral artery and popliteal artery consistent with severe distal occlusive peripheral vascular disease. Discharge Plan Discharge Anticipated Discharge Date/Time: 10/25/23 11:42 Patient Disposition: Xfer Acute Care Hospital Discharge Diagnosis: Diabetic foot infection with ulcer PAD Referrals: [facility] [Other] - 1 Week Physician,None [Primary Care Provider] - 1 Week Discharge Medications: New levofloxacin 500 mg tablet 500 mg PO .AfterDialysis Qty: 14 0RF doxycycline monohydrate 100 mg capsule 100 mg PO BID Qty: 28 0RF PIVOT Silver Alginate 2 X 2 bandage 2 ea topical DAILY Qty: 30 3RF Santyl 250 unit/gram ointment 1 appl topical DAILY Qty: 30 1RF acarbose 50 mg tablet 50 mg PO TID Qty: 90 3RF clopidogrel 75 mg Tablet 75 mg PO DAILY Qty: 30 0RF atorvastatin 40 mg tablet 40 mg PO BEDTIME Qty: 30 0RF Continued amlodipine 5 mg Tablet 5 mg PO DAILY cinacalcet 30 mg Tablet 30 mg PO MOWEFR@0900 carvedilol 25 mg Tablet 25 mg PO BID Rx Instructions: must administer with a meal/food ergocalciferol (vitamin D2) 1,250 mcg (50,000 unit) Capsule 1,250 mcg PO MO@0900 aspirin 81 mg Tablet,Chewable 81 mg PO DAILY 30 Days Qty: 30 0RF Changed insulin glargine [Lantus U-100 Insulin] 100 unit/mL solution 20 unit SUBCUT BEDTIME Qty: 10 3RF Discharge Orders: Discharge Order (Routine); Ordered 10/27/23 Ordered By: Tosha Greco Diet: Advance to usual diet Activity on Discharge: As tolerated Stand Alone Forms: Patient Portal Discharge page Care Plan Goals: Read below Health Concerns: Read below Plan of Treatment: Read below Assessment: You were admitted for treatment of diabetic ulcer infection with associated bone infection. evaluated by infection specialist who suggested amputation but you preferred conservative treatment with surgical intervention and placement of dressing. Right foot was evaluated by CT images not showing any acute obstruction To start Plavix along with Aspirin Start Atorvastatin as well Continue LEvaquin after dialysis sessions as prescribed Doxycycline twice daily for 2 weeks To follow with dr Lester in 2 weeks in office for wound check and right foot treatment plan Wound clinic follow up If right foot worsening in discoloration, pain, coldness please go to [facility] for vascular surgery evaluation Discharge Date/Time: 10/27/23 19:28
[2023-10-25 12:00] VITALS: BP 123/58; PULSE 77; RESP 14; TEMP 36.4; O2SAT 100
--- NOTE | 2023-10-25 13:23 | P.PNNP_ITS ---
Subjective Subjective Date of Service: 10/25/23 Interval history: F/U on diabetic foot uclcer, acute on chronic osteomylitis, no new issues, debridment not done yesterday d/t OR issues; Seen on HD this AM; D/W HD RN Physical Exam 2 Vital Signs: Vital Signs: Last Vital Signs Temp 97.6 F 10/25/23 07:37 Pulse 76 10/25/23 07:37 Resp 14 10/25/23 07:37 BP 164/74 H 10/25/23 07:37 Pulse Ox 99 10/25/23 07:37 O2 Del Method Room Air 10/25/23 07:37 O2 Flow Rate 2 10/24/23 15:56 BMI result Body Mass Index 32.6 Const: General: comfortable and no acute distress O rientation/consciousness: patient oriented x3 HEENT: Head: Yes normocephalic Mouth: Normal oral and palatal mucosa present Eyes: EOM: EOMs intact bilaterally Neck: Neck: Yes supple Resp: Auscultation: clear to auscultation bilaterally Cardio: Jugular venous distension: no JVD Rate: regular rate GI: Palpation (GI): Soft to palpation Auscultation: normal bowel sounds : General: Yes no CVA tenderness Back/Spine/Pelvis: Back: no CVA tenderness Skin: General skin exam: no rashes or lesions noted Neuro: General: patient oriented x3 and moves all extremities Objective Data Labs 10/20/23 04:49 10/20/23 04:49 Labs: Laboratory Results - last 24 hr 10/24/23 10/24/23 10/25/23 16:36 19:52 07:41 POC Glucose 104 152 H 126 H 10/25/23 11:34 POC Glucose 195 H Microbiology Microbiology Results: Microbiology 10/24/23 15:46 Foot Left Gram Stain - Final 10/24/23 15:46 Foot Left Routine Culture - Preliminary Culture in progress. 10/19/23 17:30 Blood - Venous Blood Culture - Final No growth after 5 days. 10/19/23 17:30 Blood - Venous Blood Culture - Final No growth after 5 days. 10/19/23 21:12 Foot Right Gram Stain - Final 10/19/23 21:12 Foot Right Routine Culture - Final Pseudomonas aeruginosa Staphylococcus aureus Procedures Date of Service Date of Service: 10/25/23 Assessment & Plan Assessment and plan (1) ESRD (end stage renal disease) on dialysis: Status: Acute Plan René has ESRD and is dialysis dependent He usually gets hemodialysis on Monday. He has a functioning AV fistula; Seen on HD this AM We will conitnue to optimize volume status on hemodialysis Renal diet(2 g sodium, 2 g potassium with phosphorus and fluid restriction) Phosphorus binders 3 times a day with meals All his medications should be dosed for GFR Shall closely follow-up during his current hospital stay Progress Note: Quality Stroke Does the patient have a stroke diagnosis?: No
[2023-10-25] MEDS: Heparin Sodium,Porcine 5,000 UNIT/ML VIAL 5000 UNIT SUBCUT ×2 (13:45→21:05)
[2023-10-25] MEDS: Piperacillin Sodium/Tazobactam 4.5 GM in 0.9 % Sodium Chloride 100 ML IV ×2 (13:45→23:34)
[2023-10-25] MEDS: 0.9 % Sodium Chloride Flush 3 ML SYRINGE IVFLUSH ×3 (13:47→23:35)
[2023-10-25] MEDS: levoFLOXacin 750 MG TABLET PO (13:47)
--- NOTE | 2023-10-25 13:53 | HO.VASCPN ---
Subjective Subjective Date of Service: 10/25/23 Patient reports: no new complaints and feels better Interval history: Patient seen and examined. No significant events overnight. Postop from debridement. Overall wound looks relatively clean. Had wound VAC replaced as it was not functioning properly. Physical Exam Vital Signs: Vital Signs: Last Vital Signs Temp 97.6 F 10/25/23 12:00 Pulse 77 10/25/23 12:00 Resp 14 10/25/23 12:00 BP 123/58 L 10/25/23 12:00 Pulse Ox 100 10/25/23 12:00 O2 Del Method Room Air 10/25/23 12:00 O2 Flow Rate 2 10/24/23 15:56 BMI result Body Mass Index 32.6 Const: General: cooperative, healthy appearing and no acute distress Orientation/consciousness: oriented to person, oriented to place and oriented to time HEENT: Head: Yes normal to inspection Neck: Carotids: no bruits Chest: Chest palpation & inspection: normal inspection of the chest Resp: Effort & Inspection: normal respiratory effort and able to speak in complete sentences Auscultation: clear to auscultation bilaterally Cardio: Rate: regular rate Heart sounds: S1 normal heart sound present and S2 normal heart sound present GI: Inspection: Yes normal to inspection Skin: Other: Left foot wound is relatively clean with some depth and tunneling General skin exam: no rashes or lesions noted Wounds: no wounds Neuro: General: oriented to person, oriented to place, oriented to time and CN's II-XI intact bilaterally Extrem: General: Yes normal to inspection, Yes full ROM and Yes no clubbing, cyanosis or edema Psych: Appearance: grossly normal and well kempt Speech and movement: Normal speech and movement present Affect: normal affect Progress Note: A&P Assessment and plan (1) Diabetic foot ulcer: Status: Acute Assessment and Plan: In short patient has diabetic foot ulcer. Unfortunately he does not have visiting services in his insurance and will not be able to receive home wound VAC. will plan for discharge. Would recommend alginate with Kerlix wrap to be changed every day. Can follow up with us in approximately 2-3 weeks time. He is at high risk for amputation. Thank you for allowing us to assist in his care. Time Spent With Patient Time: Total time managing care of this patient today ____ minutes. Procedures Date of Service Date of Service: 10/25/23 Quality Stroke Does the patient have a stroke diagnosis?: No VTE Prior VTE?: No VTE Risk Level:: Medical - moderate - high VTE Device Contraindication: Treatment Not Indicated VTE Drug Contraindication: N/A - Med Ordered
--- NOTE | 2023-10-25 14:09 | MHC.CM.PN ---
Plan to discharge today with Wound VAC. The patient does not have a PCP or payor source for home services. has discontinued the [place]. The patient will discharge self care. RN will educate the patient regarding dressing change.
[2023-10-25 15:36] VITALS: BP 142/60; PULSE 77; RESP 18; TEMP 36.2; O2SAT 96
[2023-10-25 16:30] LABS: Glucose, Whole Blood 259 mg/dL (60-115)
--- NOTE | 2023-10-25 17:13 | HO.WOUND ---
Wound Care: Follow up Patient was set for D/C per Dr. Greco plan was for teaching when family arrived - family arrived and upset and concerned of d/c change - patine no longer to go with Wound vac and his feels she can not provide care for his wound. Patients family expressed feelings of mistrust with lack of communication - supportive listening and available information provided. Discussed via TT with Dr. Greco patient to stay over night and discuss concerns with providers tomorrow. At the bedside educating and supporting patient for 1 hour. The patient and family feel comfortable with the plan to keep wound vac in place overnight - talk with providers tomorrow and to provide wound care teaching once they talk with providers. Compounding Assistant Present throughout the visit. Direct care nurse informed patient to stay overnight per Dr. Gallardo cancel discharge for this evening. Inpatient wound care nurse will follow up tomorrow. Of note WCC appointments set for 11/01, 11/08, and 11/15 - patient and family aware.
[2023-10-25] MEDS: Insulin Lispro 100 UNIT/ML 3 ML VIAL SUBCUT (17:32)
[2023-10-25 18:42] LABS: Vancomycin Random 13.8 mcg/mL (15-20)
[2023-10-25 19:22] VITALS: BP 150/64; PULSE 77; RESP 18; TEMP 37.2; O2SAT 95
[2023-10-25] MEDS: vancomycin HCL 500 MG in 0.9 % Sodium Chloride 100 ML 110 MG IV (19:52)
[2023-10-25 20:21] LABS: Glucose, Whole Blood 96 mg/dL (60-115)
[2023-10-25] MEDS: Insulin Glargine,Hum.rec.anlog 100 UNIT/ML 10 ML VIAL 18 UNIT SUBCUT (21:06)
[2023-10-25] MEDS: carvediloL 25 MG TABLET PO (21:06)
[2023-10-26 03:28] VITALS: BP 149/64; PULSE 78; RESP 16; TEMP 36.4; O2SAT 98
[2023-10-26 07:22] VITALS: BP 171/76; PULSE 76; RESP 18; TEMP 36.8; O2SAT 100
[2023-10-26 07:30] LABS: Glucose, Whole Blood 139 mg/dL (60-115)
[2023-10-26] MEDS: amLODIPine Besylate 5 MG TABLET PO (08:16)
[2023-10-26] MEDS: Aspirin 81 MG TAB.CHEW PO (08:16)
[2023-10-26] MEDS: carvediloL 25 MG TABLET PO ×2 (08:16→21:27)
[2023-10-26] MEDS: 0.9 % Sodium Chloride Flush 3 ML SYRINGE IVFLUSH (08:17)
--- NOTE | 2023-10-26 08:43 | MHC.CM.PN ---
PT WILL DC HOME WITH A PLAN TO FOLLOW UP WITH THE WOUND CLINIC AND SURGEON. PT UNABLE TO HAVE VNA SERVICES DUE TO LACK OF PCP AND LIMITED INSURANCE [facility] WOUND RN WILL PROVIDE TEACH TO FAMILY PRIOR TO DC. FAMILY WILL TRANSPORT
--- NOTE | 2023-10-26 09:03 | P.PNNP_ITS ---
Subjective Subjective Date of Service: 10/26/23 Interval history: F/U on diabetic foot uclcer, acute on chronic osteomylitis, no new issues, debridment not done yesterday d/t OR issues; Seen on HD this AM; D/W HD RN Physical Exam 2 Vital Signs: Vital Signs: Last Vital Signs Temp 98.3 F 10/26/23 07:22 Pulse 76 10/26/23 07:22 Resp 18 10/26/23 07:22 BP 171/76 H 10/26/23 07:22 Pulse Ox 100 10/26/23 07:22 O2 Del Method Room Air 10/26/23 07:22 O2 Flow Rate 2 10/24/23 15:56 BMI result Body Mass Index 32.6 Const: General: comfortable and no acute distress O rientation/consciousness: patient oriented x3 HEENT: Head: Yes normocephalic Mouth: Normal oral and palatal mucosa present Eyes: EOM: EOMs intact bilaterally Neck: Neck: Yes supple Resp: Auscultation: clear to auscultation bilaterally Cardio: Jugular venous distension: no JVD Rate: regular rate GI: Palpation (GI): Soft to palpation Auscultation: normal bowel sounds : General: Yes no CVA tenderness Back/Spine/Pelvis: Back: no CVA tenderness Skin: General skin exam: no rashes or lesions noted Neuro: General: patient oriented x3 and moves all extremities Objective Data Labs 10/20/23 04:49 10/20/23 04:49 Labs: Laboratory Results - last 24 hr 10/25/23 10/25/23 10/25/23 11:34 16:22 18:08 POC Glucose 195 H 259 H Random Vancomycin 13.8 L 10/25/23 10/26/23 20:18 07:25 POC Glucose 96 139 H Random Vancomycin Microbiology Microbiology Results: Microbiology 10/24/23 15:46 Foot Left Gram Stain - Final 10/24/23 15:46 Foot Left Routine Culture - Preliminary Culture in progress. 10/19/23 17:30 Blood - Venous Blood Culture - Final No growth after 5 days. 10/19/23 17:30 Blood - Venous Blood Culture - Final No growth after 5 days. 10/19/23 21:12 Foot Right Gram Stain - Final 10/19/23 21:12 Foot Right Routine Culture - Final Pseudomonas aeruginosa Staphylococcus aureus Procedures Date of Service Date of Service: 10/26/23 Assessment & Plan Assessment and plan (1) ESRD (end stage renal disease) on dialysis: Status: Acute Plan No signs or symptoms of uremia. Fluid status is acceptable. Continue with hemodialysis Monday. Optimize fluid status with dialysis. Hemoglobin is 10.0 no need for Epogen today. Continue with Sensipar Concur with other medical management Time Spent With Patient Time: Total time managing care of this patient today ____ minutes. Progress Note: Quality Stroke Does the patient have a stroke diagnosis?: No
[2023-10-26] MEDS: Heparin Sodium,Porcine 5,000 UNIT/ML VIAL 5000 UNIT SUBCUT ×2 (10:24→21:28)
--- NOTE | 2023-10-26 10:31 | HO.PM.IMPN ---
Subjective Subjective Date of Service: 10/25/23 Interval History: Seen and evaluated reporting pain under good control denies any fever on Wound Vac Review of Systems Review of Systems: Yes all other systems are reviewed and are negative Physical Exam Vital Signs: Vital Signs: Last Vital Signs Temp 98.3 F 10/26/23 07:22 Pulse 76 10/26/23 07:22 Resp 18 10/26/23 07:22 BP 171/76 H 10/26/23 07:22 Pulse Ox 100 10/26/23 07:22 O2 Del Method Room Air 10/26/23 07:22 O2 Flow Rate 2 10/24/23 15:56 BMI result Body Mass Index 32.6 Const: Other: Constitutional : Awake, interactive, not in distress Neck : Normal inspection, Supple Cardiovascular : RRR, no JVP, no lower extremity edema, dialysis catheter in place Respiratory : good bilateral air entry, no crackles, wheezes or rhonchi Gastrointestinal: soft, lax, Normal bowel sounds, Non tender Skin : Warm, Dry, foot wound covered with dressing and wound VAC Neurological : Alert & oriented x3, No focal deficit Objective Data Active Medications Acetaminophen (Acetaminophen 325 Mg Tablet) 650 mg PO Q6H PRN PRN Reason: Pain, Mild (Pain Scale 1-3) Amlodipine Besylate (Amlodipine Besylate 5 Mg Tablet) 5 mg PO DAILY [facility]; Protocol Last Admin: 10/26/23 08:16 Dose: 5 mg Documented By: AHSAN Aspirin (Aspirin 81 Mg Tab.Chew) 81 mg PO DAILY [facility] Last Admin: 10/26/23 08:16 Dose: 81 mg Documented By: AHSAN Carvedilol (Carvedilol 25 Mg Tablet) 25 mg PO BID [facility]; Protocol Last Admin: 10/26/23 08:16 Dose: 25 mg Documented By: AHSAN Cinacalcet (Cinacalcet Hcl 30 Mg Tablet) 30 mg PO MOWEFR@0900 [facility] Last Admin: 10/25/23 13:53 Dose: Not Given Documented By: ANA Non-Admin Reason: Off unit: Dialysis Dextrose (Dextrose 50 % 25 Gm/50 Ml Syringe) 25 gm IVPUSH Q15M PRN; Protocol PRN Reason: per Hypoglycemia Standing Ord. Last Admin: 10/23/23 14:40 Dose: 25 gm Documented By: RODRIGO Ergocalciferol (Ergocalciferol (Vitamin D2) 1,250 Mcg Capsule) 1,250 mcg PO MO@0900 [facility] Last Admin: 10/23/23 08:58 Dose: Not Given Documented By: RODRIGO Non-Admin Reason: Off unit: Dialysis Glucose (Glucose Gel 15 Gm Gel..Gram.) 15 gm PO Q15M PRN; Protocol PRN Reason: per Hypoglycemia Standing Ord. Last Admin: 10/23/23 14:06 Dose: 15 gm Documented By: RODRIGO Heparin Sodium (Porcine) (Heparin Sodium,Porcine 5,000 Unit/Ml Vial) 5,000 unit SUBCUT Q12H [facility] Last Admin: 10/26/23 10:24 Dose: 5,000 unit Documented By: AHSAN Piperacillin Sod/Tazobactam (Sod 4.5 gm/ Sodium Chloride) 100 mls @ 200 mls/hr IV Q12H [facility] Last Infusion: 10/26/23 00:10 Dose: Infused Documented By: LIZZ Vancomycin HCl 500 mg/ Sodium (Chloride) 110 mls @ 110 mls/hr IV MOWEFR@2000 [facility] Insulin Glargine (Insulin Glargine,Hum.Rec.Anlog 100 Unit/Ml 10 Ml Vial) 18 unit SUBCUT BEDTIME [facility] Last Admin: 10/25/23 21:06 Dose: 18 unit Documented By: LIZZ Insulin Human Lispro (Insulin Lispro 100 Unit/Ml 3 Ml Vial) 0 unit SUBCUT QIDACHS [facility]; Protocol Last Admin: 10/26/23 07:32 Dose: Not Given Documented By: AHSAN Non-Admin Reason: No Insulin Coverage Lidocaine HCl (Lidocaine Hcl 1 % Mpf 2 Ml Vial) 0.5 ml SUBCUT MOWEFR@1645 [facility] Last Admin: 10/25/23 17:53 Dose: Not Given Documented By: MERCEDES Non-Admin Reason: pt already had dialysis Melatonin (Melatonin 3 Mg Tablet) 6 mg PO BEDTIME PRN PRN Reason: Insomnia Ondansetron HCl (Ondansetron Hcl 4 Mg/2 Ml Vial) 4 mg IVPUSH Q8H PRN PRN Reason: Nausea and Vomiting Pharmacy Consult (Consult Rx Vancomycin Dosing) 1 each MISCELLANE DAILY PRN PRN Reason: Consult order Sodium Chloride (0.9 % Sodium Chloride Flush 3 Ml Syringe) 3 ml IVFLUSH QSHIFT [facility] Last Admin: 10/26/23 08:17 Dose: 3 ml Documented By: AHSAN Labs 10/20/23 04:49 10/20/23 04:49 Labs: Laboratory Results - last 24 hr 10/25/23 10/25/23 10/25/23 11:34 16:22 18:08 POC Glucose 195 H 259 H Random Vancomycin 13.8 L 10/25/23 10/26/23 20:18 07:25 POC Glucose 96 139 H Random Vancomycin Microbiology Microbiology Results: Microbiology 10/24/23 15:46 Gram Stain - Final Foot Left Routine Culture - Preliminary Pseudomonas species Staphylococcus aureus Assessment and Plan (1) ESRD (end stage renal disease) on dialysis: Status: Acute (2) Osteomyelitis: Status: Acute (3) Diabetic foot infection: Status: Acute Plan 53-year-old male with pertinent history of insulin-dependent diabetes mellitus, ESRD on hemodialysis M/W/F, peripheral vascular disease, essential hypertension who presents to the emergency department for evaluation of left foot infection. Diabetic left foot infection, purulent cellulitis and acute on chronic osteomylitis. He completed 6 weeks of Ertapenem on 09/26. ID rec Doxy and Levofloxacin as wound cx growing MRSA and Pseudomonas wound team following ESRD hemodialysis M/W/F, Nephrology following Insulin-dependent diabetes mellitus with hyperglycemia Lantus (18, 15 at home), SSI and diabetic diet Essential hypertension: continue Norvasc, Coreg Anemia of chronic kidney disease: Hemoglobin above transfusion threshold DVT prophylaxis: Heparin Full code need for inpt: acute cellulitis and osteomylitis d/t diabetes pending wound care arrangements and safe discharge plan Quality Stroke Does the patient have a stroke diagnosis?: No VTE Prior VTE?: No VTE Risk Level:: Medical - moderate - high VTE Device Contraindication: Treatment Not Indicated VTE Drug Contraindication: N/A - Med Ordered
--- NOTE | 2023-10-26 10:32 | HO.POSTANES ---
Post Anesthesia Evaluation Post Anesthesia Evaluation Date of Service: 10/26/23 Vital Signs: Vital Signs Temp Pulse Resp BP Pulse Ox O2 Del Method 10/26/23 07:22 98.3 F 76 18 171/76 H 100 Room Air 10/26/23 03:28 97.6 F 78 16 149/64 H 98 Room Air Anesthesia: General Mental Status: Awake Pain Control: Satisfactory Nausea/Vomiting: None Hydration: Adequate Anesthesia-Related Issues: No Anes. Related Issues
[2023-10-26] MEDS: Doxycycline Monohydrate 100 MG CAPSULE PO ×2 (10:41→21:29)
[2023-10-26 11:08] LABS: Glucose, Whole Blood 164 mg/dL (60-115)
--- NOTE | 2023-10-26 11:50 | HO.WOUND ---
Wound Consult: Initial 53yr old?[place] [facility] [place] See progress notes and H&P for detailed history. Todays follow up was for D/C teaching - D/C teaching provided with certified court/medical interpreter present and supplies provided to patient for initial period at home - scripts given to patient for continued supplies. Discussion with patient and family right foot assessed and noted to be worsening black necrotic areas - no open wounds noted - paint with Batedine Daily and keep dry. Provider aware and Dr. Lester aware - appear to be worsening with initial photo review. Dr. Gallardo will determine if further consult is needed. Topical intervention will remain paint with Betadine daily and to keep dry. The toes are cold to touch and no Palpable Pedal Pulses however pulses are note via doppler. Left Foot wound vac removed 1 black foam bridge and 1 black foam sponge removed - no material retained. The wound bed remains unchanged and is not ideal for wound vac application given the amount of necrotic tissue noted. Per Dr. Lester recommend Hydrofiber AG / Alginate packing while at home and to continue follow up with [facility] and him as scheduled. Tayler Ambrocio was in agreement for Santyl application however there was difficulty locating this medication for the patient thus order provided for Alginate. I discussed with the patient and his the benefit of Santyl and the steps to apply for proper dressing changes if it were to be available. We discussed way he can aid in healing or attempt to minimize risk of amputation. We had a nia discussion on his role in his care and blood sugar control - he disclosed he only takes 15units of Lantus at night - he is not on day time control with oral or insulin - when questioned he reported he did not have access to an ordering provider no education on this. There was significant discussion regarding the patients lack of follow up due to PCP and insurance coverage - several cam individuals are working to assist the patient with coordinated care at time of discharge- see notes for details. Right Foot - [place] with Betadine Daily. Keep Dry - goal is to keep black necrotic tissue dry. Left Foot - Cleanse and irrigate with NS, pat dry. Apply Triad to periwound for protection. Lightly pack wound beds with Durafiber AG, cover with dry gauze, ABD pad and wrap. Change every other day.
[2023-10-26] MEDS: Insulin Lispro 100 UNIT/ML 3 ML VIAL SUBCUT ×3 (12:16→21:29)
--- NOTE | 2023-10-26 14:54 | PC.NURSE ---
Moses Johnson from [employer] met with patient in person, in his room with an interpreter translator present. Patient has an appointment with Dr. Winnie Montgomery 11/12 2:45pm at [facility] for hospital discharge follow up/new patient visit. Stressed to the patient how important it is to attend this appointment.
[2023-10-26 14:57] VITALS: BP 174/70; PULSE 78; RESP 18; TEMP 36.9; O2SAT 96
[2023-10-26 16:13] LABS: Glucose, Whole Blood 198 mg/dL (60-115)
--- NOTE | 2023-10-26 16:20 | HO.PM.IMPN ---
Subjective Subjective Date of Service: 10/26/23 Interval History: Seen and evaluated reporting pain under fair control worried that right foot getting duskier in color denies any fever on Wound Vac Review of Systems Review of Systems: Yes all other systems are reviewed and are negative Physical Exam Vital Signs: Vital Signs: Last Vital Signs Temp 98.5 F 10/26/23 14:57 Pulse 78 10/26/23 14:57 Resp 18 10/26/23 14:57 BP 174/70 H 10/26/23 14:57 Pulse Ox 96 10/26/23 14:57 O2 Del Method Room Air 10/26/23 14:57 O2 Flow Rate 2 10/24/23 15:56 BMI result Body Mass Index 32.6 Const: Other: Constitutional : Awake, interactive, not in distress Neck : Normal inspection, Supple Cardiovascular : RRR, no JVP, no lower extremity edema, dialysis catheter in place Respiratory : good bilateral air entry, no crackles, wheezes or rhonchi Gastrointestinal: soft, lax, Normal bowel sounds, Non tender Skin : Warm, Dry, left foot wound covered with dressing. right foot dusky in color with blackish discoloration of little toe, toes are colder to touch, weak peripheral pulses Neurological : Alert & oriented x3, No focal deficit Objective Data Active Medications Acetaminophen (Acetaminophen 325 Mg Tablet) 650 mg PO Q6H PRN PRN Reason: Pain, Mild (Pain Scale 1-3) Amlodipine Besylate (Amlodipine Besylate 5 Mg Tablet) 5 mg PO DAILY [facility]; Protocol Last Admin: 10/26/23 08:16 Dose: 5 mg Documented By: AHSAN Aspirin (Aspirin 81 Mg Tab.Chew) 81 mg PO DAILY [facility] Last Admin: 10/26/23 08:16 Dose: 81 mg Documented By: AHSAN Carvedilol (Carvedilol 25 Mg Tablet) 25 mg PO BID [facility]; Protocol Last Admin: 10/26/23 08:16 Dose: 25 mg Documented By: AHSAN Cinacalcet (Cinacalcet Hcl 30 Mg Tablet) 30 mg PO MOWEFR@0900 [facility] Last Admin: 10/25/23 13:53 Dose: Not Given Documented By: ANA Non-Admin Reason: Off unit: Dialysis Dextrose (Dextrose 50 % 25 Gm/50 Ml Syringe) 25 gm IVPUSH Q15M PRN; Protocol PRN Reason: per Hypoglycemia Standing Ord. Last Admin: 10/23/23 14:40 Dose: 25 gm Documented By: RODRIGO Doxycycline Monohydrate (Doxycycline Monohydrate 100 Mg Capsule) 100 mg PO Q12H [facility] Last Admin: 10/26/23 10:41 Dose: 100 mg Documented By: AHSAN Ergocalciferol (Ergocalciferol (Vitamin D2) 1,250 Mcg Capsule) 1,250 mcg PO MO@0900 [facility] Last Admin: 10/23/23 08:58 Dose: Not Given Documented By: RODRIGO Non-Admin Reason: Off unit: Dialysis Glucose (Glucose Gel 15 Gm Gel..Gram.) 15 gm PO Q15M PRN; Protocol PRN Reason: per Hypoglycemia Standing Ord. Last Admin: 10/23/23 14:06 Dose: 15 gm Documented By: RODRIGO Heparin Sodium (Porcine) (Heparin Sodium,Porcine 5,000 Unit/Ml Vial) 5,000 unit SUBCUT Q12H [facility] Last Admin: 10/26/23 10:24 Dose: 5,000 unit Documented By: AHSAN Insulin Glargine (Insulin Glargine,Hum.Rec.Anlog 100 Unit/Ml 10 Ml Vial) 18 unit SUBCUT BEDTIME [facility] Last Admin: 10/25/23 21:06 Dose: 18 unit Documented By: LIZZ Insulin Human Lispro (Insulin Lispro 100 Unit/Ml 3 Ml Vial) 0 unit SUBCUT QIDACHS [facility]; Protocol Last Admin: 10/26/23 12:16 Dose: 2 unit Documented By: AHSAN Lidocaine HCl (Lidocaine Hcl 1 % Mpf 2 Ml Vial) 0.5 ml SUBCUT MOWEFR@1645 [facility] Last Admin: 10/25/23 17:53 Dose: Not Given Documented By: MERCEDES Non-Admin Reason: pt already had dialysis Melatonin (Melatonin 3 Mg Tablet) 6 mg PO BEDTIME PRN PRN Reason: Insomnia Ondansetron HCl (Ondansetron Hcl 4 Mg/2 Ml Vial) 4 mg IVPUSH Q8H PRN PRN Reason: Nausea and Vomiting Pharmacy Consult (Consult Rx Vancomycin Dosing) 1 each MISCELLANE DAILY PRN PRN Reason: Consult order Sodium Chloride (0.9 % Sodium Chloride Flush 3 Ml Syringe) 3 ml IVFLUSH QSHIFT [facility] Last Admin: 10/26/23 15:10 Dose: Not Given Documented By: AHSAN Non-Admin Reason: No Access Labs 10/20/23 04:49 10/20/23 04:49 Labs: Laboratory Results - last 24 hr 10/25/23 10/25/23 10/25/23 16:22 18:08 20:18 POC Glucose 259 H 96 Random Vancomycin 13.8 L 10/26/23 10/26/23 10/26/23 07:25 11:05 16:03 POC Glucose 139 H 164 H 198 H Random Vancomycin Microbiology Microbiology Results: Microbiology 10/24/23 15:46 Gram Stain - Final Foot Left Routine Culture - Preliminary Pseudomonas species Staphylococcus aureus Assessment and Plan (1) ESRD (end stage renal disease) on dialysis: Status: Acute (2) Osteomyelitis: Status: Acute (3) PAD (peripheral artery disease): Status: Acute Plan 53-year-old male with pertinent history of insulin-dependent diabetes mellitus, ESRD on hemodialysis M/W/F, peripheral vascular disease, essential hypertension who presents to the emergency department for evaluation of left foot infection. Right foot ischemia chronic findings related to PAD Evaluated by dr Fernandez will monitor him overnight for any progress keep warm Diabetic left foot infection, purulent cellulitis and acute on chronic osteomylitis. He completed 6 weeks of Ertapenem on 09/26. ID rec Doxy and Levofloxacin as wound cx growing MRSA and Pseudomonas wound team following ESRD hemodialysis M/W/F, Nephrology following Insulin-dependent diabetes mellitus with hyperglycemia Lantus (18, 15 at home), SSI and diabetic diet Essential hypertension: continue Norvasc, Coreg Anemia of chronic kidney disease: Hemoglobin above transfusion threshold DVT prophylaxis: Heparin Full code Right foot ischemic changes pending surgical follow up and possible need for intervention. Quality Stroke Does the patient have a stroke diagnosis?: No VTE Prior VTE?: No VTE Risk Level:: Medical - moderate - high VTE Device Contraindication: Treatment Not Indicated VTE Drug Contraindication: N/A - Med Ordered
--- NOTE | 2023-10-26 16:42 | PM.PNGS ---
Subjective Subjective Date of Service: 10/26/23 Interval history: (coverage for Dr. Lester). Asked to see patient for blue changes to his right foot. Patient reports this began approximately 2 weeks ago and he was evaluated walk-in center. Dry dressings applied at that time. Changes were documented by photos last week and showed some necrotic changes to the 5th toe. There were also ischemic changes between the webspace of the great toe and 2nd toe. Patient was planning for discharge today however with a blue changes follow-up evaluation was requested. Physical Exam Vital Signs: Vital Signs: Last Vital Signs Temp 98.5 F 10/26/23 14:57 Pulse 78 10/26/23 14:57 Resp 18 10/26/23 14:57 BP 174/70 H 10/26/23 14:57 Pulse Ox 96 10/26/23 14:57 O2 Del Method Room Air 10/26/23 14:57 O2 Flow Rate 2 10/24/23 15:56 BMI result Body Mass Index 32.6 Const: General: comfortable and no acute distress Nutritional Appearance: well nourished Orientation/consciousness: patient oriented x3 Limitations: no limitations Resp: Effort & Inspection: normal respiratory effort Neuro: General: patient oriented x3 Extrem: Other: Plantar and dorsal surface of the right foot are warm to the touch. Minimal tenderness to palpation at the plantar surface. Skin ulceration as noted below. Ankle/foot/toe images: 1. Dry gangrene of the 5th toe, appears old 2. Skin ulceration, skin necrosis lateral great toe 3. Skin ulceration base of 2nd 3rd and 4th toe Objective Data Active Medications Acetaminophen (Acetaminophen 325 Mg Tablet) 650 mg PO Q6H PRN PRN Reason: Pain, Mild (Pain Scale 1-3) Amlodipine Besylate (Amlodipine Besylate 5 Mg Tablet) 5 mg PO DAILY [facility]; Protocol Last Admin: 10/26/23 08:16 Dose: 5 mg Documented By: AHSAN Aspirin (Aspirin 81 Mg Tab.Chew) 81 mg PO DAILY [facility] Last Admin: 10/26/23 08:16 Dose: 81 mg Documented By: AHSAN Carvedilol (Carvedilol 25 Mg Tablet) 25 mg PO BID [facility]; Protocol Last Admin: 10/26/23 08:16 Dose: 25 mg Documented By: AHSAN Cinacalcet (Cinacalcet Hcl 30 Mg Tablet) 30 mg PO MOWEFR@0900 [facility] Last Admin: 10/25/23 13:53 Dose: Not Given Documented By: ANA Non-Admin Reason: Off unit: Dialysis Dextrose (Dextrose 50 % 25 Gm/50 Ml Syringe) 25 gm IVPUSH Q15M PRN; Protocol PRN Reason: per Hypoglycemia Standing Ord. Last Admin: 10/23/23 14:40 Dose: 25 gm Documented By: RODRIGO Doxycycline Monohydrate (Doxycycline Monohydrate 100 Mg Capsule) 100 mg PO Q12H [facility] Last Admin: 10/26/23 10:41 Dose: 100 mg Documented By: AHSAN Ergocalciferol (Ergocalciferol (Vitamin D2) 1,250 Mcg Capsule) 1,250 mcg PO MO@0900 [facility] Last Admin: 10/23/23 08:58 Dose: Not Given Documented By: RODRIGO Non-Admin Reason: Off unit: Dialysis Glucose (Glucose Gel 15 Gm Gel..Gram.) 15 gm PO Q15M PRN; Protocol PRN Reason: per Hypoglycemia Standing Ord. Last Admin: 10/23/23 14:06 Dose: 15 gm Documented By: RODRIGO Heparin Sodium (Porcine) (Heparin Sodium,Porcine 5,000 Unit/Ml Vial) 5,000 unit SUBCUT Q12H [facility] Last Admin: 10/26/23 10:24 Dose: 5,000 unit Documented By: AHSAN Insulin Glargine (Insulin Glargine,Hum.Rec.Anlog 100 Unit/Ml 10 Ml Vial) 18 unit SUBCUT BEDTIME [facility] Last Admin: 10/25/23 21:06 Dose: 18 unit Documented By: LIZZ Insulin Human Lispro (Insulin Lispro 100 Unit/Ml 3 Ml Vial) 0 unit SUBCUT QIDACHS [facility]; Protocol Last Admin: 10/26/23 12:16 Dose: 2 unit Documented By: AHSAN Lidocaine HCl (Lidocaine Hcl 1 % Mpf 2 Ml Vial) 0.5 ml SUBCUT MOWEFR@1645 [facility] Last Admin: 10/25/23 17:53 Dose: Not Given Documented By: MERCEDES Non-Admin Reason: pt already had dialysis Melatonin (Melatonin 3 Mg Tablet) 6 mg PO BEDTIME PRN PRN Reason: Insomnia Ondansetron HCl (Ondansetron Hcl 4 Mg/2 Ml Vial) 4 mg IVPUSH Q8H PRN PRN Reason: Nausea and Vomiting Pharmacy Consult (Consult Rx Vancomycin Dosing) 1 each MISCELLANE DAILY PRN PRN Reason: Consult order Sodium Chloride (0.9 % Sodium Chloride Flush 3 Ml Syringe) 3 ml IVFLUSH QSHIFT [facility] Last Admin: 10/26/23 15:10 Dose: Not Given Documented By: AHSAN Non-Admin Reason: No Access Labs 10/20/23 04:49 10/20/23 04:49 Labs: Laboratory Results - last 24 hr 10/25/23 10/25/23 10/26/23 18:08 20:18 07:25 POC Glucose 96 139 H Random Vancomycin 13.8 L 10/26/23 10/26/23 11:05 16:03 POC Glucose 164 H 198 H Random Vancomycin Microbiology Microbiology Results: Microbiology 10/24/23 15:46 Gram Stain - Final Foot Left Routine Culture - Preliminary Pseudomonas species Staphylococcus aureus Procedures Date of Service Date of Service: 10/26/23 Progress Note: A&P Assessment and plan (1) Diabetic foot infection: Status: Acute (2) PAD (peripheral artery disease): Status: Acute Plan Skin changes to the right foot of unknown duration. Some of the changes appear more chronic but would recommend holding his discharge. Re-evaluate in the morning to see if the changes are progressing. If this does seem to be the case, patient may need transfer to tertiary care center. Discussed with the patient with the assistance of a family practice doctor, and he expressed his understanding and agrees with the plan. Time Spent With Patient Time: Total time managing care of this patient today ____ minutes. Quality Stroke Does the patient have a stroke diagnosis?: No VTE Prior VTE?: No VTE Risk Level:: Medical - moderate - high VTE Device Contraindication: Treatment Not Indicated VTE Drug Contraindication: N/A - Med Ordered
[2023-10-26 19:35] VITALS: BP 152/66; PULSE 79; RESP 18; TEMP 37; O2SAT 98
[2023-10-26 20:45] LABS: Glucose, Whole Blood 179 mg/dL (60-115)
[2023-10-26] MEDS: Insulin Glargine,Hum.rec.anlog 100 UNIT/ML 10 ML VIAL 18 UNIT SUBCUT (21:28)
[2023-10-27 03:14] VITALS: BP 160/72; PULSE 83; RESP 18; TEMP 37.1; O2SAT 98
[2023-10-27 05:28] LABS: Hematocrit 29.2 % (42.0-52.0); Hemoglobin 9.5 g/dl (14.0-18.0); Mean Corpuscular HGB Conc 32.5 g/dl (31.0-36.0); Mean Corpuscular Hemoglobin 28.3 pg (27.0-33.0); Mean Corpuscular Volume 86.9 fL (80.0-98.0); Mean Platelet Volume 9.2 fL (9.4-12.4); Platelet Count 356 X10*3/uL (160-400); Red Blood Count 3.36 X10*6/uL (4.60-5.80); Red Cell Distribution Width 15.5 % (11.0-16.0); White Blood Count 9.5 X10*3/uL (4.8-10.8)
[2023-10-27 05:44] LABS: Anion Gap 24 (12-20); Blood Urea Nitrogen 61 mg/dL (9-16); Calcium 9.7 mg/dL (8.4-10.2); Carbon Dioxide 20 mmol/L (22-29); Chloride 100 mmol/L (96-108); Creatinine Clr Calc Pharmacy 7.6; Estimated Glomerular Filt Rate 4; Glucose Random 121 mg/dL (60-115); Potassium 5.2 mmol/L (3.3-5.1); Sodium 139 mmol/L (135-145)
[2023-10-27 06:17] LABS: Estimated Average Glucose 171 mg/dL; Hemoglobin A1C 150.3591 umol/L; Hemoglobin A1c % 7.6 % (<6.0)
[2023-10-27 07:36] VITALS: PULSE 82; TEMP 36.4; O2SAT 98
[2023-10-27 07:50] LABS: Glucose, Whole Blood 121 mg/dL (60-115)
--- NOTE | 2023-10-27 07:55 | PM.PNGS ---
Subjective Subjective Date of Service: 10/27/23 Interval history: Coverage for Dr. Lester. Patient feels improved this morning with less right foot pain. Has some pinching in the left foot. Physical Exam Vital Signs: Vital Signs: Last Vital Signs Temp 98.8 F 10/27/23 03:14 Pulse 83 10/27/23 03:14 Resp 18 10/27/23 03:14 BP 160/72 H 10/27/23 03:14 Pulse Ox 98 10/27/23 03:14 O2 Del Method Room Air 10/27/23 03:14 O2 Flow Rate 2 10/24/23 15:56 BMI result Body Mass Index 32.6 Const: General: comfortable Nutritional Appearance: well nourished Orientation/consciousness: patient oriented x3 Limitations: no limitations Resp: Effort & Inspection: normal respiratory effort Neuro: General: patient oriented x3 Extrem: Other: Right foot examined. Essentially unchanged from yesterday. Forefoot is warm however toes are cool. Ischemic changes noted in the 5th toe and medial great toe. Also ischemic changes noted at base of 2nd through 4th toe. No extension of ischemic changes today. Objective Data Active Medications Acetaminophen (Acetaminophen 325 Mg Tablet) 650 mg PO Q6H PRN PRN Reason: Pain, Mild (Pain Scale 1-3) Amlodipine Besylate (Amlodipine Besylate 5 Mg Tablet) 5 mg PO DAILY [facility]; Protocol Last Admin: 10/26/23 08:16 Dose: 5 mg Documented By: AHSAN Aspirin (Aspirin 81 Mg Tab.Chew) 81 mg PO DAILY [facility] Last Admin: 10/26/23 08:16 Dose: 81 mg Documented By: AHSAN Carvedilol (Carvedilol 25 Mg Tablet) 25 mg PO BID [facility]; Protocol Last Admin: 10/26/23 21:27 Dose: 25 mg Documented By: LIZZ Cinacalcet (Cinacalcet Hcl 30 Mg Tablet) 30 mg PO MOWEFR@0900 [facility] Last Admin: 10/25/23 13:53 Dose: Not Given Documented By: ANA Non-Admin Reason: Off unit: Dialysis Dextrose (Dextrose 50 % 25 Gm/50 Ml Syringe) 25 gm IVPUSH Q15M PRN; Protocol PRN Reason: per Hypoglycemia Standing Ord. Last Admin: 10/23/23 14:40 Dose: 25 gm Documented By: RODRIGO Doxycycline Monohydrate (Doxycycline Monohydrate 100 Mg Capsule) 100 mg PO Q12H [facility] Last Admin: 10/26/23 21:29 Dose: 100 mg Documented By: LIZZ Ergocalciferol (Ergocalciferol (Vitamin D2) 1,250 Mcg Capsule) 1,250 mcg PO MO@0900 [facility] Last Admin: 10/23/23 08:58 Dose: Not Given Documented By: RODRIGO Non-Admin Reason: Off unit: Dialysis Glucose (Glucose Gel 15 Gm Gel..Gram.) 15 gm PO Q15M PRN; Protocol PRN Reason: per Hypoglycemia Standing Ord. Last Admin: 10/23/23 14:06 Dose: 15 gm Documented By: RODRIGO Heparin Sodium (Porcine) (Heparin Sodium,Porcine 5,000 Unit/Ml Vial) 5,000 unit SUBCUT Q12H [facility] Last Admin: 10/26/23 21:28 Dose: 5,000 unit Documented By: LIZZ Insulin Glargine (Insulin Glargine,Hum.Rec.Anlog 100 Unit/Ml 10 Ml Vial) 18 unit SUBCUT BEDTIME [facility] Last Admin: 10/26/23 21:28 Dose: 18 unit Documented By: LIZZ Insulin Human Lispro (Insulin Lispro 100 Unit/Ml 3 Ml Vial) 0 unit SUBCUT QIDACHS [facility]; Protocol Last Admin: 10/26/23 21:29 Dose: 2 unit Documented By: LIZZ Lidocaine HCl (Lidocaine Hcl 1 % Mpf 2 Ml Vial) 0.5 ml SUBCUT MOWEFR@1645 [facility] Last Admin: 10/25/23 17:53 Dose: Not Given Documented By: MRECEDES Non-Admin Reason: pt already had dialysis Melatonin (Melatonin 3 Mg Tablet) 6 mg PO BEDTIME PRN PRN Reason: Insomnia Ondansetron HCl (Ondansetron Hcl 4 Mg/2 Ml Vial) 4 mg IVPUSH Q8H PRN PRN Reason: Nausea and Vomiting Pharmacy Consult (Consult Rx Vancomycin Dosing) 1 each MISCELLANE DAILY PRN PRN Reason: Consult order Sodium Chloride (0.9 % Sodium Chloride Flush 3 Ml Syringe) 3 ml IVFLUSH QSHIFT [facility] Last Admin: 10/27/23 07:39 Dose: Not Given Documented By: AHSAN Non-Admin Reason: No Access Labs 10/27/23 05:10 10/27/23 05:10 Labs: Laboratory Results - last 24 hr 10/26/23 10/26/23 10/26/23 11:05 16:03 20:39 MCV MCH MCHC RDW Plt Count MPV Absolute Nucleated RBC Nucleated RBC % (auto) Anion Gap Estim Creat Clear Calc Estimated GFR POC Glucose 164 H 198 H 179 H Random Glucose Estimat Average Glucose Hemoglobin A1c % Calcium 10/27/23 10/27/23 05:10 07:42 MCV 86.9 MCH 28.3 MCHC 32.5 RDW 15.5 Plt Count 356 MPV 9.2 L Absolute Nucleated RBC 0.000 Nucleated RBC % (auto) 0.0 Anion Gap 24 H Estim Creat Clear Calc 7.6 Estimated GFR 4 POC Glucose 121 H Random Glucose 121 H Estimat Average Glucose 171 Hemoglobin A1c % 7.6 H Calcium 9.7 Microbiology Microbiology Results: Microbiology 10/24/23 15:46 Gram Stain - Final Foot Left Routine Culture - Final Pseudomonas aeruginosa Methicillin Res Staph Aureus Procedures Date of Service Date of Service: 10/27/23 Progress Note: A&P Assessment and plan (1) PAD (peripheral artery disease): Status: Acute (2) Diabetic foot ulcer: Status: Acute Plan Peripheral vascular disease with new areas of ischemia in the right foot. Discussed with Dr. Greco. Will evaluate with CT angio today. Patient may need transfer to tertiary care center for further workup. Time Spent With Patient Time: Total time managing care of this patient today ____ minutes. Quality Stroke Does the patient have a stroke diagnosis?: No VTE Prior VTE?: No VTE Risk Level:: Medical - moderate - high VTE Device Contraindication: Treatment Not Indicated VTE Drug Contraindication: N/A - Med Ordered
[2023-10-27] MEDS: Cinacalcet HCl 30 MG TABLET PO (08:30)
[2023-10-27] MEDS: Aspirin 81 MG TAB.CHEW PO (08:31)
[2023-10-27] MEDS: amLODIPine Besylate 5 MG TABLET PO (08:31)
[2023-10-27] MEDS: carvediloL 25 MG TABLET PO (08:31)
[2023-10-27] MEDS: iohexoL 350 MG/ML 100 ML INFUS..BTL IV (09:39)
--- NOTE | 2023-10-27 09:54 | P.PNIM_ITS ---
Subjective Subjective Date of Service: 10/27/23 Interval History: Seen and evaluated right foot looks around the same denies any fever or pain Review of Systems Review of Systems: Yes all other systems are reviewed and are negative Physical Exam 2 Vital Signs: Vital Signs: Last Vital Signs Temp 97.6 F 10/27/23 07:36 Pulse 82 10/27/23 07:36 Resp 18 10/27/23 03:14 BP 160/72 H 10/27/23 03:14 Pulse Ox 98 10/27/23 07:36 O2 Del Method Room Air 10/27/23 07:36 O2 Flow Rate 2 10/24/23 15:56 BMI result Body Mass Index 32.6 Const: Other: Constitutional : Awake, interactive, not in distress Neck : Normal inspection, Supple Cardiovascular : RRR, no JVP, no lower extremity edema, dialysis catheter in place Respiratory : good bilateral air entry, no crackles, wheezes or rhonchi Gastrointestinal: soft, lax, Normal bowel sounds, Non tender Skin : Warm, Dry, left foot wound covered with dressing. right foot dusky in color with blackish discoloration of little toe, toes are colder to touch, weak peripheral pulses Neurological : Alert & oriented x3, No focal deficit Objective Data Active Medications Acetaminophen (Acetaminophen 325 Mg Tablet) 650 mg PO Q6H PRN PRN Reason: Pain, Mild (Pain Scale 1-3) Amlodipine Besylate (Amlodipine Besylate 5 Mg Tablet) 5 mg PO DAILY [facility]; Protocol Last Admin: 10/27/23 08:31 Dose: 5 mg Documented By: AHSAN Aspirin (Aspirin 81 Mg Tab.Chew) 81 mg PO DAILY [facility] Last Admin: 10/27/23 08:31 Dose: 81 mg Documented By: AHSAN Carvedilol (Carvedilol 25 Mg Tablet) 25 mg PO BID [facility]; Protocol Last Admin: 10/27/23 08:31 Dose: 25 mg Documented By: AHSAN Cinacalcet (Cinacalcet Hcl 30 Mg Tablet) 30 mg PO MOWEFR@0900 [facility] Last Admin: 10/27/23 08:30 Dose: 30 mg Documented By: AHSAN Dextrose (Dextrose 50 % 25 Gm/50 Ml Syringe) 25 gm IVPUSH Q15M PRN; Protocol PRN Reason: per Hypoglycemia Standing Ord. Last Admin: 10/23/23 14:40 Dose: 25 gm Documented By: RODRIGO Doxycycline Monohydrate (Doxycycline Monohydrate 100 Mg Capsule) 100 mg PO Q12H [facility] Last Admin: 10/26/23 21:29 Dose: 100 mg Documented By: LIZZ Ergocalciferol (Ergocalciferol (Vitamin D2) 1,250 Mcg Capsule) 1,250 mcg PO MO@0900 [facility] Last Admin: 10/23/23 08:58 Dose: Not Given Documented By: RODRIGO Non-Admin Reason: Off unit: Dialysis Glucose (Glucose Gel 15 Gm Gel..Gram.) 15 gm PO Q15M PRN; Protocol PRN Reason: per Hypoglycemia Standing Ord. Last Admin: 10/23/23 14:06 Dose: 15 gm Documented By: RODRIGO Heparin Sodium (Porcine) (Heparin Sodium,Porcine 5,000 Unit/Ml Vial) 5,000 unit SUBCUT Q12H [facility] Last Admin: 10/26/23 21:28 Dose: 5,000 unit Documented By: LIZZ Insulin Glargine (Insulin Glargine,Hum.Rec.Anlog 100 Unit/Ml 10 Ml Vial) 18 unit SUBCUT BEDTIME [facility] Last Admin: 10/26/23 21:28 Dose: 18 unit Documented By: LIZZ Insulin Human Lispro (Insulin Lispro 100 Unit/Ml 3 Ml Vial) 0 unit SUBCUT QIDACHS [facility]; Protocol Last Admin: 10/27/23 08:08 Dose: Not Given Documented By: AHSAN Non-Admin Reason: No Insulin Coverage Lidocaine HCl (Lidocaine Hcl 1 % Mpf 2 Ml Vial) 0.5 ml SUBCUT MOWEFR@1645 [facility] Last Admin: 10/25/23 17:53 Dose: Not Given Documented By: MERCEDES Non-Admin Reason: pt already had dialysis Melatonin (Melatonin 3 Mg Tablet) 6 mg PO BEDTIME PRN PRN Reason: Insomnia Ondansetron HCl (Ondansetron Hcl 4 Mg/2 Ml Vial) 4 mg IVPUSH Q8H PRN PRN Reason: Nausea and Vomiting Pharmacy Consult (Consult Rx Vancomycin Dosing) 1 each MISCELLANE DAILY PRN PRN Reason: Consult order Sodium Chloride (0.9 % Sodium Chloride Flush 3 Ml Syringe) 3 ml IVFLUSH QSHIFT [facility] Last Admin: 10/27/23 07:39 Dose: Not Given Documented By: AHSAN Non-Admin Reason: No Access Labs 10/27/23 05:10 10/27/23 05:10 Labs: Laboratory Results - last 24 hr 10/26/23 10/26/23 10/26/23 11:05 16:03 20:39 MCV MCH MCHC RDW Plt Count MPV Absolute Nucleated RBC Nucleated RBC % (auto) Anion Gap Estim Creat Clear Calc Estimated GFR POC Glucose 164 H 198 H 179 H Random Glucose Estimat Average Glucose Hemoglobin A1c % Calcium 10/27/23 10/27/23 05:10 07:42 MCV 86.9 MCH 28.3 MCHC 32.5 RDW 15.5 Plt Count 356 MPV 9.2 L Absolute Nucleated RBC 0.000 Nucleated RBC % (auto) 0.0 Anion Gap 24 H Estim Creat Clear Calc 7.6 Estimated GFR 4 POC Glucose 121 H Random Glucose 121 H Estimat Average Glucose 171 Hemoglobin A1c % 7.6 H Calcium 9.7 Microbiology Microbiology Results: Microbiology 10/24/23 15:46 Gram Stain - Final Foot Left Routine Culture - Final Pseudomonas aeruginosa Methicillin Res Staph Aureus Assessment and Plan (1) ESRD (end stage renal disease) on dialysis: Status: Acute (2) PAD (peripheral artery disease): Status: Acute Plan 53-year-old male with pertinent history of insulin-dependent diabetes mellitus, ESRD on hemodialysis M/W/F, peripheral vascular disease, essential hypertension who presents to the emergency department for evaluation of left foot infection. Right foot ischemia 2/2 PAD chronic findings related to PAD get a CTA w runoff Evaluated by dr Fernandez, consider tertiary center transfer Continue Aspirin will monitor him overnight for any progress keep warm Diabetic left foot infection, purulent cellulitis and acute on chronic osteomylitis. He completed 6 weeks of Ertapenem on 09/26. ID rec Doxy and Levofloxacin as wound cx growing MRSA and Pseudomonas wound team following ESRD hemodialysis M/W/F, Nephrology following Insulin-dependent diabetes mellitus with hyperglycemia Lantus (18, 15 at home), SSI and diabetic diet Essential hypertension: continue Norvasc, Coreg Anemia of chronic kidney disease: Hemoglobin above transfusion threshold DVT prophylaxis: Heparin Full code Right foot ischemic changes pending surgical follow up and possible need for intervention. Quality Stroke Does the patient have a stroke diagnosis?: No VTE Prior VTE?: No VTE Risk Level:: Medical - moderate - high VTE Device Contraindication: Treatment Not Indicated VTE Drug Contraindication: N/A - Med Ordered
--- NOTE | 2023-10-27 12:48 | MHC.CM.PN ---
per rounds pt may be transferred to [facility]
[2023-10-27 13:22] LABS: Glucose, Whole Blood 97 mg/dL (60-115)
--- NOTE | 2023-10-27 13:29 | MHC.CM.PN ---
pt dcd home will continue dialysis and wound clinic
[2023-10-27] MEDS: Doxycycline Monohydrate 100 MG CAPSULE PO (13:59)
[2023-10-27] MEDS: Heparin Sodium,Porcine 5,000 UNIT/ML VIAL 5000 UNIT SUBCUT (13:59)
[2023-10-27] MEDS: Clopidogrel Bisulfate 75 MG TABLET PO (14:34)
--- NOTE | 2023-10-27 15:14 | MHC.CM.PN ---
pt to go to [facility] today
[2023-10-27 15:36] VITALS: BP 133/57; PULSE 78; RESP 18; TEMP 37; O2SAT 95
--- NOTE | 2023-10-27 15:57 | PC.NURSE ---
IV access removed today, as pt was going to discharge home. Pt now waiting for transfer to [facility]. Linda.Sandra aware of pt having no I.V. access.
[2023-10-27 16:26] LABS: Glucose, Whole Blood 184 mg/dL (60-115)
[2023-10-27] MEDS: Insulin Lispro 100 UNIT/ML 3 ML VIAL SUBCUT (16:58)
--- NOTE | 2023-10-27 18:22 | PC.NURSE ---
Report called to [facility], all relevant paperwork and notes printed and sent with EMS to [facility].
[2023-10-27 18:41] LABS: Vancomycin Random 14.2 mcg/mL (15-20)
== END 2023-10-27 19:28 | disposition short-term general hospital (02) | DRG 952 ==
LOC: HO.ED 20:56 → HO.EDOVER 21:25 → HO.S3 10-20 10:43
PROVIDERS: Internal Medicine; Registered Nurse Emergency; Surgery Vascular Surgery; Admitting Provider Student in an Organized Health Care Education/Training Program; Emergency Provider Emergency Medicine; Visit Provider Student in an Organized Health Care Education/Training Program
PROC: 0QBM0ZZ Excision of Left Tarsal, Open Approach (ICD-10-PCS; principal; 2023-10-24 14:40)
DX: E11.52 Type 2 diabetes mellitus with diabetic peripheral angiopathy with gangrene (principal); I12.0 Hypertensive chronic kidney disease with stage 5 chronic kidney disease or end stage renal disease; M86.172 Other acute osteomyelitis, left ankle and foot; I70.262 Atherosclerosis of native arteries of extremities with gangrene, left leg; D63.1 Anemia in chronic kidney disease; L97.426 Non-pressure chronic ulcer of left heel and midfoot with bone involvement without evidence of necrosis; M86.672 Other chronic osteomyelitis, left ankle and foot; E11.22 Type 2 diabetes mellitus with diabetic chronic kidney disease; N18.6 End stage renal disease; E11.69 Type 2 diabetes mellitus with other specified complication; Z99.2 Dependence on renal dialysis; Z79.82 Long term (current) use of aspirin; Z79.899 Other long term (current) drug therapy
CPT/HCPCS: 36415; 73630; 75635; 80048; 80053; 80202; 82947; 83036; 83605; 85025; 85027; 85652; 86140; 87040; 87070; 87077; 87186; 87205; 90999; 93926; 99285; J1644; J1920; J2250; J2543; J2704; J2795; J3010; J3370; J3371; Q9967

== ENCOUNTER → 2023-10-19 21:19 | Outpatient (BNV) | payer MEDICAID, SELFPAY | PROVIDERS: Admitting Provider Student in an Organized Health Care Education/Training Program; Emergency Provider Emergency Medicine; Visit Provider Student in an Organized Health Care Education/Training Program | DX: N18.6 End stage renal disease (principal); Z99.2 Dependence on renal dialysis; M86.9 Osteomyelitis, unspecified; E11.621 Type 2 diabetes mellitus with foot ulcer; L08.9 Local infection of the skin and subcutaneous tissue, unspecified; I73.9 Peripheral vascular disease, unspecified | CPT/HCPCS: 99222; 99232; 99233; 99238 ==

== ENCOUNTER → 2023-10-19 21:19 | Outpatient (BNV) | payer SELFPAY | PROVIDERS: Admitting Provider Student in an Organized Health Care Education/Training Program; Emergency Provider Emergency Medicine; Visit Provider Internal Medicine | DX: N18.6 End stage renal disease (principal); Z99.2 Dependence on renal dialysis; M86.9 Osteomyelitis, unspecified; E11.628 Type 2 diabetes mellitus with other skin complications; L08.9 Local infection of the skin and subcutaneous tissue, unspecified | CPT/HCPCS: 99222 ==

== ENCOUNTER → 2023-10-19 21:19 | Outpatient (BNV) | payer SELFPAY | PROVIDERS: Admitting Provider Student in an Organized Health Care Education/Training Program; Emergency Provider Emergency Medicine; Visit Provider Surgery | DX: I73.9 Peripheral vascular disease, unspecified (principal); E11.621 Type 2 diabetes mellitus with foot ulcer; L97.422 Non-pressure chronic ulcer of left heel and midfoot with fat layer exposed | CPT/HCPCS: 99232 ==

== ENCOUNTER → 2023-10-19 21:19 | Outpatient (BNV) | payer SELFPAY | PROVIDERS: Admitting Provider Student in an Organized Health Care Education/Training Program; Emergency Provider Emergency Medicine; Visit Provider Surgery Vascular Surgery | DX: E11.621 Type 2 diabetes mellitus with foot ulcer (principal); L97.424 Non-pressure chronic ulcer of left heel and midfoot with necrosis of bone | CPT/HCPCS: 11044; 97607; 99212; 99214; 99222; 99232 ==

== ENCOUNTER → 2023-10-19 21:19 | Outpatient (BNV) | payer SELFPAY | PROVIDERS: Admitting Provider Student in an Organized Health Care Education/Training Program; Emergency Provider Emergency Medicine; Visit Provider Internal Medicine Nephrology | DX: N18.6 End stage renal disease (principal); Z99.2 Dependence on renal dialysis | CPT/HCPCS: 99223; 99232 ==

== ENCOUNTER 2024-01-23 10:12 | Outpatient (REF) | payer MEDICAID, OTHER, SELFPAY ==
[2024-01-23 13:06] LABS: Cholesterol 137 mg/dL (<200); HDL Cholesterol 43 mg/dL (>40); LDL Cholesterol Calculated 80 mg/dL (<100); Triglycerides 72 mg/dL (<150)
== END 2024-01-23 10:13 | disposition home or self-care (01) ==
LOC: HO.HHCL 10:12
PROVIDERS: Visit Provider General Practice
DX: E11.22 Type 2 diabetes mellitus with diabetic chronic kidney disease (principal); N18.6 End stage renal disease; Z79.4 Long term (current) use of insulin; Z99.2 Dependence on renal dialysis
CPT/HCPCS: 36415; 80061

== ENCOUNTER 2025-05-14 14:24 | Outpatient (REF) | payer MEDICAID, OTHER, SELFPAY ==
--- OUTSIDE RECORDS SUMMARY | 2025-05-13 11:30 | XMS_ITS | Encounter Summary ---
Author Organization [employer] Address [address] [place] [address] [address] [place] [address] Care Team Providers Care Hand I Blocker Name Role Phone Miranda Sahu MD Primary Care Provider [phone] Reason for Referral * Imaging (STAT) - Authorized Specialty Diagnoses / Procedures Referred By Contac t Referred To Contact Radiology Diagnoses Right upper quadrant pain Procedures US Abdomen Complete Miranda Sahu MD [address] [place] [address] Phone: tel: fax: [address] Phone: tel: fax: Referral ID Status Reason Start Date Expiration Date V isits Requested Visits Authorized [id number] Authorized 05/13/2025 05/13/2026 1 1 Reason for Visit * Reason Comments Follow-up Encounter Details Date Type Department Care Team (Late st Contact Info) Description 05/13/2025 11:30 AM EDT Office Visit [facility] [address] [place], [place] [phone] Miranda Sahu MD [address] [place] [address] [phone] Right upper quadrant pain (Primary Dx); Type 2 diabetes mellitus with chronic kidney disease on chronic dialysis, with long-term current use of insulin ([facility]) Social History Tobacco Use Types Packs/Day Years Used Date Smoking Tobacco: Never Smokeless Tobacco: Never Depression Answer Date Recorded Patient Health Questionnaire-9 Score 0 02/04/2025 Patient Health Questionnaire-9 Score 0 02/04/2025 Last PHQ-9: Questionnaire Data Not on file 0 02/04/2025 Housing Stability Answer Date Recorded What is your housing situation today? I have michael still 11/21/[address] you li ve. Do you have problems with any of the following? None of the above 11/21/2023 Food Insecurity Answer Date Recorded Within the past 12 months, y ou worried that your food would run out before you got money to buy more: Never True 11/21/2023 Within the past 12 months,th e food you bought just didn't last and you didn't have enough money to get more: Never True 09/2023 Transportation Answer Date Recorded In the past 12 months, has l ack of transportation kept you from medical appts, meetings, work or from getting things needed for daily living? No 09/19/2024 Utilities Answer Date Recorded In the past 12 months, has t he electric, gas, oil or water company threatened to shut off services in your home? No 11/21/2023 Depression Answer Date Recorded Patient Health Questionnaire-2 Score 0 02/04/2025 Internet Access Answer Date Recorded Internet Access Q1 Yes 09/19/2024 Internet Access Q2 Not on file 09/19/2024 Sex and Gender Information Value Date Recorded Sex Assigned at Male 07/18/2023 9:19 AM EST Legal Sex Male 9:18 AM EST Gender Identity Male 07/18/2023 9:19 AM EST Sexual Orientation Don't know 07/18/2023 9: 19 AM EST documented as of this encounter Last Filed Vital Signs Vital Sign Reading Time Taken Comments Blood Pressure 126/74 05/13/2025 11:56 AM EDT Pulse 76 05/13/2025 11:56 AM EDT Temperature 36.4 C (97.5 F) 05/13/2025 11:56 AM EDT Respiratory Rate 21 05/13/2025 11:56 AM EDT Oxygen Saturation - - Inhaled Oxygen Concentration - - Weight 101 kg (223 lb) 05/13/2025 11:56 AM EDT Height 177.8 cm (5' 10 ) 05/13/2025 11:56 AM EDT Body Mass Index 32 05/13/2025 11:56 AM EDT documented in this encounter Plan of Treatment Upcoming Encounters Date Type Department Care Team (Late st Contact Info) Description 07/01/2025 11:30 AM EST Office Visit [facility] [address] [place] [address] Cynthia Dalton, OD [address] [place] [address] documented as of this encounter Procedures Procedure Name Priority Date/Time Associated Diagnosis Comments US ABDOMEN COMPLETE STAT 05/14/2025 3 :04 PM EDT Right upper quadrant pain POCT GLYCATED HEMOGLOBIN, TOTAL Routine 05/13/2025 11:58 AM EDT Type 2 diabetes mellitus with chronic kidney disease on chronic dialysis, with long-term current use of insulin ([facility]) POCT GLUCOSE Routine 05/13/2025 11:57 AM EDT Type 2 diabetes mellitus with chronic kidney disease on chronic dialysis, with long-term current use of insulin ([facility]) documented in this encounter Results * US Abdomen Complete (05/14/2025 3:04 PM EDT) Anatomical Region Laterality Modality Abdomen Ultrasound 05/14/2025 3:04 PM EDT Narrative 05/14/2025 3:31 PM EDT [address] [address] Ultrasound Report Signed Patient: René Collier MR#: [id number] : 1970 Acct:[id number] Age/Sex: 55 / M ADM Date: 05/14/25 Loc: HO.US Attending Dr: Miranda Sahu MD Ordering Physician: Miranda Sahu Date of Service: 05/14/25 Procedure(s): US abdomen complete Accession Number(s): [id number] cc: Miranda Sahu Reason for Exam: RUQ pain after eating EXAMINATION: US ABDOMEN COMPLETE CLINICAL INFORMATION: Right upper quadrant pain, postprandial. COMPARISON: None available. TECHNIQUE: Real-time ultrasound of the abdomen using grayscale technique. FINDINGS: PANCREAS: No peripancreatic fluid collections. ABDOMINAL AORTA: The proximal, mid, and distal segments are normal in caliber. INFERIOR VENA CAVA: Visualized portions are normal. LIVER: Liver measures 16 cm The liver contour is normal. Coarse echotexture. No solid or cystic lesion. No intrahepatic biliary ductal dilatation. GALLBLADDER: Fluid-filled nondistended. No gallbladder wall thickening. No pericholecystic fluid collection. COMMON BILE DUCT: 9 mm. RIGHT KIDNEY: 12 cm. Echotexture is isoechoic. Renal cortical thinning. No hydronephrosis. Multiple, different sizes anechoic lesions, the most conspicuous measures 1.7 cm in the midportion.. LEFT KIDNEY: 13 cm. Isoechoic parenchyma. Renal cortical thinning. No hydronephrosis. Multiple, different sizes anechoic lesions throughout the parenchyma, the largest measures 1.5 cm in the midportion.. SPLEEN: 11 cm. No focal mass.. FREE FLUID: None. US/US abdomen complete IMPRESSION: Hepatomegaly, mild and questionable and steatosis. No cholelithiasis. Common bile duct measures 9 mm which is above normal. Recommend further imaging evaluation with MRCP/MRI abdomen. Bilateral renal cysts. Electronically signed by: Jeet Mercedes MD 05/14/2025 03:28 PM EDT Dictated By: Jeet Vo MD Signed By: <Electronically signed by Jeet Catherine MD in [place]> 05/14/25 1528 DD/ 1504 TD/TT: 05/14/25 1518 Body Presser: Procedure Note Donotuseinterpreter, Image - 05/14/2025 [place] [address] Ultrasound Report Signed Patient: Paige Collier#: [id number] : 1970Acct:[id number] Age/Sex: 55 / MADM Date: 05/14/25 Loc: HO.US Attending Dr: Miranda Sahu MD Ordering Physician: Miranda Sahu Date of Service: 05/14/25 Procedure(s): US abdomen complete Accession Number(s): [id number] cc: Miranda Sahu Reason for Exam: RUQ pain after eating EXAMINATION: US ABDOMEN COMPLETE CLINICAL INFORMATION: Right upper quadrant pain, postprandial. COMPARISON: None available. TECHNIQUE: Real-time ultrasound of the abdomen using grayscale technique. FINDINGS: PANCREAS: No peripancreatic fluid collections. ABDOMINAL AORTA: The proximal, mid, and distal segments are normal in caliber. INFERIOR VENA CAVA: Visualized portions are normal. LIVER: Liver measures 16 cm The liver contour is normal. Coarse echotexture. No solid or cystic lesion. No intrahepatic biliary ductal dilatation. GALLBLADDER: Fluid-filled nondistended. No gallbladder wall thickening. No pericholecystic fluid collection. COMMON BILE DUCT: 9 mm. RIGHT KIDNEY: 12 cm. Echotexture is isoechoic. Renal cortical thinning. No hydronephrosis. Multiple, different sizes anechoic lesions, the most conspicuous measures 1.7 cm in the midportion.. LEFT KIDNEY: 13 cm. Isoechoic parenchyma. Renal cortical thinning. No hydronephrosis. Multiple, different sizes anechoic lesions throughout the parenchyma, the largest measures 1.5 cm in the midportion.. SPLEEN: 11 cm. No focal mass.. FREE FLUID: None. US/US abdomen complete IMPRESSION: Hepatomegaly, mild and questionable and steatosis. No cholelithiasis. Common bile duct measures 9 mm which is above normal. Recommend further imaging evaluation with MRCP/MRI abdomen. Bilateral renal cysts. Electronically signed by: Jeet Mercedes MD 05/14/2025 03:28 PM EDT Dictated By: Jeet Vo MD Signed By: <Electronically signed by Jeet Catherine MDin OV> 05/14/25 1528 DD/ 1504 TD/TT: 05/14/25 1518 Body Presser: us Miranda Sahu MD IMG US PROCEDURES Final Result * (ABNORMAL) POCT Hgb A1c (05/13/2025 11:58 AM EDT) Hemoglobin A1C 7.9(A) 4.0 - 5.7 % QC Media Lot # [id number] Lot# Expiration Date Blood 05/13/2025 11:5 8 AM EDT Miranda Sahu MD POINT OF CARE TEST ENTER/EDIT ORDERABLES Final Result * (ABNORMAL) POCT Glucose (05/13/2025 11:57 AM EDT) Glucose Blood, POC 374(A) 60 - 200 mg/dL QC Media Lot # [id number] Lot# Expiration Date Blood Capillary blood specimen / Unknown 05/13/2025 11:57 AM EDT Miranda Sahu MD POINT OF CARE TEST ENTER/EDIT ORDERABLES Final Result documented in this encounter Visit Diagnoses Diagnosis Right upper quadrant pain- Primary Abdominal pain, right upper quadrant Type 2 diabetes mellitus with chronic kidney disease on chronic dialysis, with long-term current use of insulin ([facility]) documented in this encounter Additional Health Concerns Assessment Noted Time PHQ-9 Depression Total Score: 0 02/05/20 25 11:54 AM EDT documented as of this encounter Care Teams Hand I Blocker Relationship Specialty Start Date End Date Miranda Sahu MD [address] [place] [address] PCP - General Family Medicine 11/21/23 documented as of this encounter
--- NOTE | ~2025-05-14 | US_ITS ---
EXAMINATION: US ABDOMEN COMPLETE CLINICAL INFORMATION: Right upper quadrant pain, postprandial. COMPARISON: None available. TECHNIQUE: Real-time ultrasound of the abdomen using grayscale technique. FINDINGS: PANCREAS: No peripancreatic fluid collections. ABDOMINAL AORTA: The proximal, mid, and distal segments are normal in caliber. INFERIOR VENA CAVA: Visualized portions are normal. LIVER: Liver measures 16 cm The liver contour is normal. Coarse echotexture. No solid or cystic lesion. No intrahepatic biliary ductal dilatation. GALLBLADDER: Fluid-filled nondistended. No gallbladder wall thickening. No pericholecystic fluid collection. COMMON BILE DUCT: 9 mm. RIGHT KIDNEY: 12 cm. Echotexture is isoechoic. Renal cortical thinning. No hydronephrosis. Multiple, different sizes anechoic lesions, the most conspicuous measures 1.7 cm in the midportion.. LEFT KIDNEY: 13 cm. Isoechoic parenchyma. Renal cortical thinning. No hydronephrosis. Multiple, different sizes anechoic lesions throughout the parenchyma, the largest measures 1.5 cm in the midportion.. SPLEEN: 11 cm. No focal mass.. FREE FLUID: None. US/US abdomen complete IMPRESSION: Hepatomegaly, mild and questionable and steatosis. No cholelithiasis. Common bile duct measures 9 mm which is above normal. Recommend further imaging evaluation with MRCP/MRI abdomen. Bilateral renal cysts. Electronically signed by: Jeet Mercedes MD 05/14/2025 03:28 PM EDT
--- OUTSIDE RECORDS SUMMARY | 2025-05-14 17:07 | XMS_ITS | Encounter Summary ---
Author Organization [facility], Address [address] [place] [address] Phone Care Team Providers Care Roving Or Yarn Color Checker Name Role Phone Miranda Sahu MD Primary Care Provider [phone] Encounter Details Date Type Department Care Team (Late Contact Info) Description 04/11/2025 Documentation Only [facility] [address] [place] [address] Emily Wilcox [place] [address] [place] [phone] Social History Tobacco Use Types Packs/Day Years Used Date Smoking Tobacco: Never Smokeless Tobacco: Never Alcohol Use Standard Drinks/Week Comments Not Currently 0 (1 standard drink = 0.6 oz pur e alcohol) Sex and Gender Information Value Date Recorded Sex Assigned at Not on file Legal Sex Male 11:32 AM EDT Gender Identity Not on file Sexual Orientation Not on file documented as of this encounter Plan of Treatment Upcoming Encounters Date Type Department Care Team (Late st Contact Info) Description 07/03/2025 9:30 AM EST Office Visit [facility] [address] [place] [phone] documented as of this encounter Visit Diagnoses Not on filedocumented in this encounter Care Teams Roving Or Yarn Color Checker Relationship Specialty Start Date End Date Miranda Sahu MD [address] [place] [address] PCP - General Skiver Blockers 11/23/23 documented as of this encounter
--- OUTSIDE RECORDS SUMMARY | 2025-05-14 17:07 | XMS_ITS | Encounter Summary ---
Author Organization [facility], Address [address] [place] [address] Phone Care Team Providers Care Fitness Management Director Name Role Phone Miranda Sahu MD Primary Care Provider [phone] Encounter Details Date Type Department Care Team (Late st Contact Info) Description 01/22/2024 Documentation Only [facility] [address] [place] [address] Tad Metcalf [address] [facility] [place] [address] Social History Tobacco Use Types Packs/Day Years [...] Visit [facility] [address] [place] [address] documented as of this encounter Visit Diagnoses Not on filedocumented in this encounter Care Teams Fitness Management Director Relationship Specialty Start Date End Date Miranda Sahu MD [address] [place] [address] PCP - General Rush Seater 11/23/23 documented as of this encounter
--- OUTSIDE RECORDS SUMMARY | 2025-05-14 17:07 | XMS_ITS | Clinical Summary ---
Author Organization [employer] Address [address] [place] [address] Care Team Providers Care Community Living Coach Name Role Phone Miranda Sahu MD Primary Care Provider [phone] Allergies Active Allergy Reactions Criticality Noted Date Comments Amoxicillin Rash Low 02/05/2025 Medications cinacalcet (Sensipar) 30 MG tablet TAKE 1 TABLET BY MOUTH ON MONDAYS, WEDNESDAYS AND FRIDAYS AFTER DIALYSIS 08/07/20 23 Active Blood Pressure Monitoring (Blood Pressure Cuff) misc 1 each in the morning. 1 each 11/22/19 24 Active amLODIPine (Norvasc) 5 MG tabletIndication s:Primary hypertension Take 5 mg by mouth Once per day. 01/29/20 24 Active Docusate Sodium (DSS) 100 MG capsuleIndicatio ns:Screening for colon cancer 10 each, 0 Refill(s), TAKE ONE CAPSULE BY MOUTH TWICE A DAY FOR 5 DAYS NEEDED FOR CONSTIPATION, 0 Refills, 03/19/24 11:24:00 EDT, Partial fill upon patient request if the prescription is for a schedule II opioid drug. 03/19/20 24 Active gabapentin (Neurontin) 100 MG capsuleIndicatio ns:Type 2 diabetes mellitus with chronic kidney disease on chronic dialysis, with long-term current use of insulin ([facility]) Take 100 mg by mouth 2 times daily. 02/17/20 24 Active losartan (Cozaar) 50 MG tabletIndication s:Primary hypertension 90 each, 0 Refill(s), TAKE ONE TABLET BY MOUTH EVERY DAY, 0 Refills, 03/19/24 11:24:00 EDT, Partial fill upon patient request if the prescription is for a schedule II opioid drug. 01/21/20 24 Active glipiZIDE XL (Glucotrol XL) 2.5 MG 24 hr tabletIndication s:Type 2 diabetes mellitus with chronic kidney disease on chronic dialysis, with long-term current use of insulin ([facility]) Take 1 tablet (2.5 mg) by mouth Once per day. Do not crush, chew, or split. 90 tablet 3 06/04/20 24 025 Active fluticasone (Flonase) 50 MCG/ACT nasal spray Administer 1-2 sprays into each nostril Once per day. Shake gently. Before first use, prime pump. After use, clean tip and replace cap. 48 g 3 06/07/20 24 025 Active loratadine (Claritin) 10 MG tablet Take 1 tablet (10 mg) by mouth Once per day. 90 tablet 3 06/07/20 24 025 Active clopidogrel (Plavix) 75 MG tabletIndication s:Hx of right BKA (CMS/HCC) Take 1 tablet (75 mg) by mouth Once per day. 90 tablet 3 06/09/20 24 Active aspirin 81 MG EC tabletIndication s:Type 2 diabetes mellitus with chronic kidney disease on chronic dialysis, with long-term current use of insulin ([facility]) Take 1 tablet (81 mg) by mouth Once per day. 90 tablet 3 06/09/20 24 Active atorvastatin (Lipitor) 40 MG tabletIndication s:Type 2 diabetes mellitus with chronic kidney disease on chronic dialysis, with long-term current use of insulin ([facility]) Take 1 tablet (40 mg) by mouth Once per day. 90 tablet 3 06/09/20 24 Active citalopram (CeleXA) 10 MG tabletIndication s:Adjustment disorder with depressed mood Take 1 tablet (10 mg) by mouth Once per day. 90 tablet 3 06/09/20 24 025 Active calcium acetate (Phoslo) 667 MG capsule TAKE 2 TABS 3 TIMES A DAY WITH MEALS 09/25/19 25 Active Methoxy PEG-Epoetin Beta (MIRCERA IJ) 50 mcg. 12/26/19 25 026 Active naloxone (Narcan) 4 mg/0.1 mL nasal spray FOR SUSPECTED OPIOID OVERDOSE. SPRAY 0.1mL IN ONE NOSTRIL. REPEAT IN ALTERNATE NOSTRIL 2-3 MINUTES IF NEEDED. SEEK MEDICAL ATTENTION IMMEDIATELY EVEN IF PATIENT RESPONDS. 11/08/19 25 Active GaviLyte-G 236 g solution TAKE 4000ML BY MOUTH ONCE FOR 1 DOSE 12/10/19 25 Active amLODIPine (Norvasc) 10 MG tablet Take 1 tablet by mouth Once per day. 11/06/19 25 Active carvedilol (Coreg) 25 MG tablet Take 1 tablet by mouth 2 times daily. 11/16/19 25 Active insulin glargine (Lantus) 100 UNIT/ML injectionIndicat ions:Type 2 diabetes mellitus with chronic kidney disease on chronic dialysis, with long-term current use of insulin ([facility]) Inject 22 Units under the skin at bedtime. 15 mL 11 02/05/20 25 Active apixaban (Eliquis) 2.5 MG tabletIndication s:Coagulation defect, unspecified ([facility]) Take 1 tablet by mouth 2 times daily. 02/21/20 24 Active oxyCODONE (Roxicodone) 5 MG immediate release tablet TAKE ONE TABLET BY MOUTH EVERY 6 HOURS NEEDED FOR BREAKTHROUGH PAIN FOR UP TO 7 DAYS. MAX DAILY AMOUNT 20MG 02/29/20 25 Active Lantus SoloStar 100 UNIT/ML pen INJECT 22 UNITS SUBCUTANEOUSLY AT BEDTIME 03/07/20 25 Active carvedilol (Coreg) 6.25 MG tabletIndication s:Primary hypertension Take 1 tablet (6.25 mg) by mouth with breakfast and with evening meal. 180 tablet 3 06/09/20 24 025 Discontin ued(Thera py completed ) Active Problems Problem Noted Date Diagnosed Date Perirectal abscess 01/10/2025 Assessment & Plan (01/10/2025 5:07 PM EDT): Will start Flagyl and Cipro today (renally dosed) for abscess surrounding anal fissure Continue nifedipine cream for fissure Gen Surgery referral sent urgently to [facility] in case infection is not going down on its own Gangrene of finger of left hand 11/20/2024 Hx of right BKA 06/09/2024 Acquired absence of right leg below knee 024 Class 1 obesity 06/03/2024 ESRD on hemodialysis 06/03/2024 PAD (peripheral artery disease) 06/03/2024 Adjustment disorder with depressed mood 10/08/20 24 Pre-transplant evaluation for kidney transplant 05/14/2024 Overview (06/09/2024): From [facility]: We discussed at length with the potential recipient the risks and benefits of kidney transplantation. We discussed the risks of surgery including, bleeding, infection, wound dehiscence, and anesthesia reactions. We also discussed the risks of IS including infection and cancers (PTLD and skin cancers), we told him that sun avoidance is essential to minimize the skin cancers. We also discussed at length the importance of drug compliance to minimize the risk of graft rejection. We discussed the risks of rejection and risk of disease recurrence. We discussed the different options of live donors and donors and we explained to him the new allocation sytem KDPI. We also discussed with the patient the most recent SRTR data reflecting the performance of our center. The patient and his magnetometer operator expressed good understanding of all these issues and asked many questions which were answered to their apparent satisfaction. Patient appears to be borderline candidate for kidney transplantation as of now, he has an open wound still, severe PAD and B/L amputations, we need all his vascular visits and images to understand what has been done so far, high risk for steal if he still has any narrowing of his LE vascular flow. We will discuss with Dr Sainz. 1- all serologies were ordered 2- he needs vascular studies of his lower extremities due to DM, PAD, and long dialysis vintage 3- needs cardiology clearance 4- needs to see pharmacy, social service manager, coordinator, psychiatry 5- needs most recent colonoscopy, and PSA 6- needs to keep BMI<40 7- For oligo-anuric patients, needs urology referral 8- with history of smoking, needs lung ct for lung cancer screening, and PFTs- N/A 9- strong proof of social support 10- once workup is finished, we will discuss his case on our transplant meeting and decide on his candidacy. Fluid overload, unspecified 03/27/2024 PND (post-nasal drip) 03/15/2024 Complete traumatic amputatio n at knee level, right lower leg, initial encounter 03/15/2024 Non-ST elevation (NSTEMI) myocardial infarction 01/12/2024 Ischemic cardiomyopathy 01/12/2024 Dry gangrene 11/22/2023 Chronic osteomyelitis of toe, left 11/22/2023 Assessment & Plan (11/22/2023 10:33 AM EDT): Seeing vascular tomorrow Eliquis management per them Continue Plavix/ASA with ms [place] [facility] Other chronic osteomyelitis, left ankle and foot 11/22/2023 Overview (01/26/2024): Next appointment with vascular in one week Eliquis management per them Continue Plavix/ASA with ms Wound care consult to [facility] printed out for patient Type 2 diabetes mellitus with foot ulcer 024 Hypertension 07/18/2023 Assessment & Plan (01/26/2024 11:45 AM EDT): Maintenance: Losartan 50mg daily BMP: ESRD Lipid Panel: on Atorvastatin 40mg daily ASCVD Risk: The 10-year ASCVD risk score (Home SPEARS, et al., 2019) is: 9.6% Values used to calculate the score: Age: 54 years Sex: Male Is Non- : No Diabetic: Yes Tobacco smoker: No Systolic Blood Pressure: 144 mmHg Is BP treated: No HDL Cholesterol: 43 mg/dL Total Cholesterol: 137 mg/dL EKG: Obtain baseline at f/u - Aerobic exercise to reduce BP. Initial goal of 30 min walk 3-5x/week. Increase as tolerated. - low-sodium diet (goal: <2g/day) and heart healthy diet such as DASH to reduce BP and prevent ASCVD. - Home BP monitoring 1-2 x day with goal of <140/90. - Seek immediate medical attention for chest pain, palpitations, SOB, syncope, or sudden changes in mental status. - Do not change or discontinue current prescriptions without first consulting health care provider Assessment & Plan (11/22/2023 10:32 AM EDT): Blood pressure cuff ordered to [facility] pharmacy Check daily Type 2 diabetes mellitus 07/18/2023 Assessment & Plan (01/26/2024 11:47 AM EDT): Current A1c: 7.4 Continue Lantus nightly 20 units, will titrate to fasting <130 Microalbumin: Foot Exam: Complete at follow up Eye Exam: Discuss at follow up Lipid panel: ASCVD: Calculate pending updated labs Statin: Yes ASA: No MEHDI/ARB: No Encouraged regular aerobic exercise for improved glycemic control Encouraged daily foot checks Encouraged lean protein snacks and to avoid foods high in sugar and simple carbohydrates Treatment Goals: A1c goal: <7% FBG goal: <130 2 hour post prandial goal: <180 Assessment & Plan (11/22/2023 10:31 AM EDT): Current A1c: 8.2 Lantus nightly 20 units, will titrate to fasting <130 BMP: Microalbumin: Foot Exam: Complete at follow up Eye Exam: Discuss at follow up Lipid panel: ASCVD: Calculate pending updated labs Statin: Yes ASA: No MEHDI/ARB: No Encouraged regular aerobic exercise for improved glycemic control Encouraged daily foot checks Encouraged lean protein snacks and to avoid foods high in sugar and simple carbohydrates Treatment Goals: A1c goal: <7% FBG goal: <130 2 hour post prandial goal: <180 Unspecified protein-calorie malnutrition 023 Hypotension of hemodialysis 10/06/2022 Secondary hyperparathyroidism of renal origin Anemia in chronic kidney disease 10/06/2022 Iron deficiency anemia 10/06/2022 Allergy, unspecified, initial encounter 10/06/19 23 Anaphylactic shock, unspecified, initial encount er 10/06/2022 Coagulation defect, unspecified 10/06/2022 Cramp and spasm 10/06/2022 Dependence on renal dialysis 10/06/2022 Angina pectoris, unspecified 10/06/2022 Sepsis associated with internal vascular access 06/24/2019 CKD (chronic kidney disease) stage 5, GFR less than 15 ml/min 02/06/2019 Diabetic nephropathy associa azael with type 2 diabetes mellitus 02/06/2019 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 Given concurrent allergies, will trial treatment of pnd, consider x-ray if no improvement End stage renal disease 07/17/202305/22 Assessment & Plan (01/26/2024 11:46 AM EDT): On dialysis M/W/F Continue current schedule Dialysis notes mention referral to [facility] for renal transplant evaluation, however pt has [facility] and [facility], so they will not see him I placed a referral to [facility] for transplant evaluation Assessment & Plan (11/22/2023 10:30 AM EDT): On dialysis M/W/F Called dialysis charge nurse to ask whether he is being evaluated for transplant, awaiting call bacl Continue current schedule Bilateral cataracts 06/16/2018 04/01/20 25 Encounters Date Type Department Care Team Description 05/13/2025 11:30 AM EDT Office Visit [facility] MEDICINE [address] [place] [address] Miranda Sahu MD Right upper quadrant pain (Primary Dx); Type 2 diabetes mellitus with chronic kidney disease on chronic dialysis, with long-term current use of insulin ([facility]) 05/13/2025 Travel 05/12/2025 Travel 05/12/2025 Telephone [facility] MEDICINE [address] [place] [address] Miranda Sahu MD Chart Prep 04/01/2025 9:45 AM EDT Office Visit [facility] OPTOMETRY [address] [place] [address] Cynthia Dalton, OD 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, with long-term current use of insulin (CMS/HCC) (Primary Dx); Vitreoretinal degeneration of both eyes; Hypertensive retinopathy of both eyes; Open angle with borderline findings, high risk, bilateral; Presbyopia 04/01/2025 Travel from Last 3 Months Immunizations Immunization Administration Dates Next Due INFLUENZA VACCINE QUADRIVALE NT RECOMBINANT PRESERVATIVE FREE RIV4 06/09/2023 Influenza, IIV3, injectable 07/02/2007, 6 Influenza, Injectable, MDCK, preservative free 1 Moderna Covid-19 Vaccine 12+ 06/29/2021,10/17/19 21 Pneumococcal Conjugate PCV 13 07/04/2019 Pneumococcal Conjugate PCV 20 06/04/2024 Pneumococcal Polysaccharide PPSV23 09/05/2019 Social History Tobacco Use Types Packs/Day Years Used Date Smoking Tobacco: Never Smokeless Tobacco: Never Tobacco Cessation:Counseling Given: Not Answered Depression Answer Date Recorded Patient Health Questionnaire-9 Score 0 02/04/2025 Patient Health Questionnaire-9 Score 0 02/04/2025 Last PHQ-9: Questionnaire Data Not on file 0 02/04/2025 Housing Stability Answer Date Recorded What is your housing situation today? I have michael tessy 11/21/[address] you li [...] AM EST Sexual Orientation Don't know 07/18/2023 9 :19 AM EST Last Filed Vital Signs Vital Sign Reading Time Taken Comments Blood Pressure 126/74 05/13/2025 11:56 AM EDT Pulse 76 05/13/2025 11:56 AM EDT Temperature 36.4 C (97.5 F) 05/13/2025 11:56 AM EDT Respiratory Rate 21 05/13/2025 11:56 AM EDT Oxygen Saturation 99% 01/10/2025 3:47 PM EDT Inhaled Oxygen Concentration - - Weight 101 kg (223 lb) 05/13/2025 11:56 AM EDT Height 177.8 cm (5' 10 ) 05/13/2025 11:56 AM EDT Body Mass Index 32 05/13/2025 11:56 AM EDT Plan of Treatment Upcoming Encounters Date Type Department Care Team (Late st Contact Info) Description 07/01/2025 11:30 AM EST Office Visit [facility] OPTOMETRY [address] [place] [address] Cynthia Dalton, OD [address] [place] [address] Health Maintenance Due Date Last Done Comments CT Colonography 1969 Colonoscopy 1969 Colorectal Cancer Screening 1969 FIT DNA/Cologuard 1969 FIT 1969 FOBT 1969 Sigmoidoscopy 1969 Diabetes: Foot Exam 1979 Hepatitis C Screening 1987 DTaP/Tdap/Td Vaccines (1 - Tdap) 01/25/1988 Hepatitis B Vaccines (1 of 3 - 19+ 3-dose series) 01/25/1988 Zoster Vaccines (1 of 2) 2019 Lipid Panel 01/22/2025 01/23/2024 COVID-19 Vaccine (3 - 2024- season) 2025 06/29/2021, 10/17/2020 Influenza Vaccine (#1) 2025 , 06/09/2023, 07/02/2007, Additional history exists Diabetes: Hemoglobin A1C 08/12/2025 025, 02/04/2025, 11/04/2024, Additional history exists SDOH Screening 09/19/2025 09/19/2024 Alcohol/Substance Use Screening 11/04/2025 11/04/2024 Depression Screening 02/04/2026 02/04/2025, 02/05/20 25 Eye Exam 04/01/2026 04/01/2025, 03/21, 04/01/2025, Additional history exists Tobacco Screening 04/01/2026 04/01/2025 Disability Screening 05/13/2026 05/13/2025 RSV Patients and Patients Aged 60 years or older (1 - 1-dose 75+ series) 01/25/2044 HIV Screening Completed 05/14/2024 Pneumococcal Vaccine: 50+ Years Completed 06/04/2024, 09/05/2019, 07/04/2019 HIB Vaccines Aged Out No longer eligi ble based on patient's age to complete this topic HPV Vaccines Aged Out No longer eligi ble based on patient's age to complete this topic Hepatitis A Vaccines Aged Out No long er eligible based on patient's age to complete this topic IPV Vaccines Aged Out No longer eligi ble based on patient's age to complete this topic Meningococcal B Vaccine Aged Out No l onger eligible based on patient's age to complete this topic Meningococcal Vaccine Aged Out No julia cristina eligible based on patient's age to complete this topic RSV under 20 months Aged Out No longe r eligible based on patient's age to complete this topic Rotavirus Vaccines Aged Out No longer eligible based on patient's age to complete this topic Procedures Procedure Name Priority Date/Time Associated Diagnosis Comments US ABDOMEN COMPLETE STAT 05/14/2025 3:04 PM EDT Right upper quadrant pain POCT GLYCATED HEMOGLOBIN, TOTAL Routine 05/13/2025 11:58 AM EDT Type 2 diabetes mellitus with chronic kidney disease on chronic dialysis, with long-term current use of insulin ([facility]) POCT GLUCOSE Routine 05/13/2025 11:57 AM EDT Type 2 diabetes mellitus with chronic kidney disease on chronic dialysis, with long-term current use of insulin ([facility]) OCT, RETINA - OU - BOTH EYES Routine 04/01/2025 2:59 PM EDT 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, with long-term current use of insulin ([facility]) LIPID PANEL, STANDARD Routine 01/23/2024 10:21 AM EDT Type 2 diabetes mellitus with chronic kidney disease on chronic dialysis, with long-term current use of insulin ([facility]) from Last 3 Months or Most Recently Relevant to Health Maintenance Results * US Abdomen Complete (05/14/2025 3:04 PM EDT) Anatomical Region Laterality Modality Abdomen Ultrasound 05/14/2025 3:04 PM EDT Narrative 05/14/2025 3:31 PM EDT [place] [address] Ultrasound Report Signed Patient: René Collier MR#: [id number] : 1970 Acct:[id number] Age/Sex: 55 / M ADM Date: 05/14/25 Loc: HO.US Attending Dr: Miranda Sahu MD Ordering Physician: Miranda Sahu Date of Service: 05/14/25 Procedure(s): US abdomen complete Accession Number(s): [id number] cc: Miranda Sahu Reason for Exam: RUQ [...] Jeet Mercedes MD 05/14/2025 03:28 PM EDT RP Dictated By: Jeet Vo MD Signed By: <Electronically signed by Jete Catherine MD in OV> 05/14/25 1528 DD/ 1504 TD/TT: 05/14/25 1518 [place]: Procedure Note Donotuseinterpreter, Image - 05/14/[address] [address] Ultrasound Report Signed Patient: Paige Collier#: [id number] : 1970Acct:[id number] Age/Sex: 55 / MADM Date: 05/14/25 Loc: HO.US Attending Dr: Miranda Sahu MD Ordering Physician: Miranda Sahu Date of Service: 05/14/25 Procedure(s): US abdomen complete Accession Number(s): [id number] cc: Miranda Sahu Reason for Exam: RUQ [...] Jeet Mercedes MD 05/14/2025 03:28 PM EDT RP Dictated By: Jeet Vo MD Signed By: <Electronically signed by Jeet Catherine MDin OV> 05/14/25 1528 DD/ 1504 TD/TT: 05/14/25 1518 [place]: Miranda Sahu MD IMG US PROCEDURES Final [...] CARE TEST ENTER/EDIT ORDERABLES Final Result * OCT, Retina - OU - Both Eyes (04/01/2025 2:59 PM EDT) Narrative Cynthia Dalton, OD - 04/01/2025 2:59 PM EDT OCT RETINA INTERPRETATION Optical Coherence Tomography Interpretation Report Reliability: OD: SS 35 - poor quality scan OS: SS 28 - poor quality scan Measurements: Central subfoveal thickness OD: 205 microns OS: 233 microns Test findings: OD: Partial PVD with attachment at ONH, (+) NVD, irregular foveal contour with disorganization of retinal inner layers. No nia macular edema. Baseline. OS: Partial PVD with attachment at ONH, no IRF/SRF. Baseline. 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 Partial PVD both eyes (OU). us Cynthia Dalton OD OPHTH TOMOGRAPHY Final Result * Lipid Panel, Standard (01/23/2024 10:21 AM EDT) Triglycerides 72 <150 mg/dL [facility] Comment:Desirable Triglyceri de: less than 150 mg/dLBorderline High Triglyceride 150-199 mg/dLHigh Triglyceride: 200-499 mg/dLVery High Triglyceride: greater than or equal to 5OO mg/dL Cholesterol 137 <200 mg/dL [facility] Comment:Desirable Cholestero l: less than 200 mg/dLBorderline High Cholesterol: 200-239 mg/dLHigh Cholesterol: greater than 239 mg/dL LDL Cholesterol Calculated 80 <100 mg/dL [facility] Comment:Desirable LDL: less than 100 mg/dLNear Optimal/Above Optimal LDL: 110- 129 mg/dLBorderline High LDL: 130-159 mg/dLHigh LDL: 160-189 mg/dLVery High LDL: greater than or equal to 190 mg/dL HDL Cholesterol 43 >40 mg/dL [facility] Comment:Desirable HDL: great er than 40 mg/dL Note: This HDL assay may give artificially low results in patients with liver disease. Blood Venous blood specimen / Unknown 01/23/2024 10:21 AM EDT 01/23/2024 11:48 AM EDT us Miranda Sahu MD LAB BLOOD ORDERABLES Final Res ult [facility] [address] [place] [phone] from Last 3 Months or Most Recently Relevant to Health Maintenance Insurance [facility] [employer] Care Teams Community Living Coach Relationship Specialty Start Date End Date Miranda Sahu MD [address] [place] [address] [place] [phone] PCP - General Family Medicine 11/21/23
--- OUTSIDE RECORDS SUMMARY | 2025-05-14 17:07 | XMS_ITS | Encounter Summary ---
Author Organization [facility] Address [address] [place] [address] Care Team Providers Care Voice Over Artist Name Role Phone Miranda Sahu Primary Care Provider [phone] Reason for Referral * Surgical (Urgent) - Authorized Specialty Diagnoses / Procedures Referred By Contac t Referred To Contact Colon and Rectal Surgery Diagnoses Perirectal abscess Miranda Sahu [address] [place] [address] Phone: tel: fax: [facility] Colorectal Surgery [address] [place] [address] Phone: tel: fax: Referral ID Status Reason Start Date Expiration Date Visits Requested Visits Authorized [id number] Authorized Specialty Services Required 01/15/2025 02/15/2026 6 6 Encounter Details Date Type Department Care Team (Latest Contact Info) Description 01/15/2025 Transcribe Orders [facility] Physician Referral Services [address] [place] [address] Miranda Sahu [address] [place], [place] [phone] Perirectal abscess (Primary Dx) Social History Tobacco Use Types Packs/Day Years Used Date Smoking Tobacco: Never Passive Smoke Exposure: Never Smokeless Tobacco: Never Sex and Gender Information Value Date Recorded Sex Assigned at Male 11/13/2024 11:12 AM EDT Legal Sex Male 10:03 AM EDT Gender Identity Not on file Sexual Orientation Not on file documented as of this encounter Plan of Treatment Upcoming Encounters Date Type Department Care Team (Latest Contact Info) Description 05/29/2025 11:15 AM EDT Pre-Admission Testing [facility] Surgical Center [address] [place] [address] 3rd Floor [place], [place] [address] 06/12/2025 9:15 AM EDT Hospital Encounter [facility] Operating Room [address] [place] [address] Rosa Johnson MD [address] [place] [address] 06/12/2025 9:15 AM EDT - 06/12/2025 9:55 AM EDT Surgery [facility] Operating Room [address] [place] [address] Rosa Johnson MD [address] [place] [address] Colonoscopy, Diagnostic, with Possible Moderate Sedation [80481 (CPT )] Scheduled Procedures Name Priority Associated Diagnoses Date/Ti me COLONOSCOPY, DIAGNOSTIC, WITH POSSIBLE MODERATE SEDATION Hemorrhage of rectum and anus 06/12/2025 9:15 AM EDT Scheduled Referrals Name Type Priority Associated Diagnoses Order Schedule Ambulatory referral to General Surgery Outpatient Referral Routine Perirectal abscess Expected: 01/15/2025, Expires: 02/15/2026 documented as of this encounter Visit Diagnoses Diagnosis Perirectal abscess- Primary Abscess of anal and rectal regions Hemorrhage of rectum and anus documented in this encounter Care Teams Voice Over Artist Relationship Specialty Start Date End Date Miranda Sahu [address] [place] [address] PCP - General 01/30/24 documented as of this encounter
--- OUTSIDE RECORDS SUMMARY | 2025-05-14 17:07 | XMS_ITS | Clinical Summary ---
Author Organization [facility] Address [address] [place] [address] Care Team Providers Care Plisse Machine Operator Helper Name Role Phone Unknown, Primary Care Provider Unavailabl e Social History Tobacco Use Types Packs/Day Years Used Date Smoking Tobacco: Never Assessed Sex and Gender Information Value Date Recorded Sex Assigned at Not on file Gender Identity Not on file Sexual Orientation Not on file Plan of Treatment Not on file Care Teams Plisse Machine Operator Helper Relationship Specialty Start Date End Date Unknown, PCP - General 05/22/18
--- OUTSIDE RECORDS SUMMARY | 2025-05-14 17:07 | XMS_ITS | Encounter Summary ---
Author Organization [facility] Address [address] [place] [address] Phone Care Team Providers Care Glost Tile Shader Name Role Phone Miranda Sahu MD Primary Care Provider [phone] Encounter Details Date Type Department Care Team (Late st Contact Info) Description 07/17/2023 Documentation Only [facility] [address] [place] [phone] Tad Metcalf [address] [facility] [address] [place] [address] Social History Tobacco Use Types [...] Visit [facility] Access Center [address] [place] [phone] documented as of this encounter Visit Diagnoses Not on filedocumented in this encounter Care Teams Glost Tile Shader Relationship Specialty Start Date End Date Miranda Sahu MD [address] [place] [address] PCP - General Certified Medical Dosimetrist 11/23/23 documented as of this encounter
--- OUTSIDE RECORDS SUMMARY | 2025-05-14 17:07 | XMS_ITS | Encounter Summary ---
Author Organization [facility] Address [address] [place] [address] Phone Care Team Providers Care Police Captain Precinct Name Role Phone Miranda Sahu MD Primary Care Provider [phone] Encounter Details Date Type Department Care Team (Late st Contact Info) Description 03/28/2023 Documentation Only [facility] [address] [place] [phone] Tad Metcalf [address] [facility] [address] [place] [address] Social History Tobacco Use Types [...] Visit [facility] Center [address] [place] [phone] documented as of this encounter Visit Diagnoses Not on filedocumented in this encounter Care Teams Police Captain Precinct Relationship Specialty Start Date End Date Miranda Sahu MD [address] [place] [address] PCP - General Game Designer/Creative Director 11/23/23 documented as of this encounter
--- OUTSIDE RECORDS SUMMARY | 2025-05-14 17:07 | XMS_ITS | Encounter Summary ---
Author Organization [facility] Address [address] [place] [address] Phone Care Team Providers Care Sports Medicine Coordinator Name Role Phone Miranda Sahu MD Primary Care Provider [phone] Encounter Details Date Type Department Care Team (Late st Contact Info) Description 05/14/2025 Treatment [facility], [address] [place] [phone] Beverly Hall, SPEEDER OPERATOR [address] [place] [address] End stage renal disease; Dependence on renal dialysis Social History Tobacco Use Types Packs/Day Years [...] on file documented as of this encounter Miscellaneous Notes * Dialysis Note - Beverly Hall, CHRISTINA - 05/14/2025 12:00 AM EDT Patient: RAOUL COLLIER, 1970, 55y, M Dialysis Location: [facility] Attending Compressed Gases Tester: Tad Metcalf Service Date: 05/14/2025 Service Provider: Beverly Hall NP I met face to face with the patient today. OVERVIEW The patient presented with ESRD on dialysis Primary cause of renal failure: Type 2 diabetes mellitus with diabetic chronic kidney disease LAST HOSPITALIZATION Discharge Diagnosis: E87.70 Fluid overload, unspecified Admission Date 03/25/24 Discharge Date 03/26/24 DIALYSIS PRESCRIPTION IHD 3x Week Start date: 04/18/25 Dialyzer: FX CorAL 80 BFR: 450 DFR: Manual 600 Potassium: 2.0 Sodium: 138 EDW: 99 Duration: 4:00 Calcium: 2.50 Bicarb: 38 Rx updated on: 04/18/2025 TREATMENT ASSESSMENT BP Stand Pre 05/12/2025: 198/51 05/09/2025: 161/44 05/07/2025: 152/38 BP Sit Pre 05/12/2025: 192/48 05/09/2025: 122/45 05/07/2025: 188/50 BP Stand Post 05/12/2025: 161/21 05/09/2025: 110/55 05/07/2025: 170/47 BP Sit Post 05/12/2025: 154/48 05/09/2025: 104/50 05/07/2025: 174/38 Tx Duration 05/12/2025: 4:02 05/09/2025: 4:00 05/07/2025: 4:01 Missed Treatments 0 - last 30 days 0 - last 60 days FLUID ASSESSMENT EDW (kg) 05/12/2025: 99.0 05/09/2025: 99.0 05/07/2025: 99.0 Weight Pre (kg) 05/12/2025: 103.8 05/09/2025: 102.9 05/07/2025: 103.6 Weight Post (kg) 05/12/2025: 99.9 05/09/2025: 99.0 05/07/2025: 100.1 PWV (kg) 05/12/2025: 0.9 05/09/2025: 0.0 05/07/2025: 1.1 UF Rate (mL/kg/hr) 05/12/2025: 9.7 05/09/2025: 9.8 05/07/2025: 8.7 ADEQUACY ASSESSMENT spKt/V, URR 04/23/2025: 1.75, 76.0 03/26/2025: 1.53, 72.0 02/19/2025: 1.59, 74.0 ACCESS ASSESSMENT Access Type: AVFistula Access SubType: Standard Access Status: Active (In Use) - 06/29/2019 Access Location: Left Upper Arm Created: 03/12/2019 Flow 04/25/2025: 706 03/21/2025: 799 02/21/2025: 640 ANEMIA ASSESSMENT HGB, TSAT 05/07/2025: 9.5, 62.0 04/30/2025: 10.0, - 04/23/2025: 9.9, - Ferritin 05/07/2025: 895.0 04/09/2025: 1130.0 03/05/2025: 1031.0 Mircera, IVP (mcg) 05/12/2025: 50 04/09/2025: 75 Iron Sucrose (Venofer) (mg) 04/11/2025: 50 04/04/2025: 50 03/28/2025: 50 BMM ASSESSMENT PTH, Intact 05/07/2025: 655.0 04/09/2025: 461.0 03/05/2025: 367.0 Calcium, Phosphorus 05/07/2025: 8.3, 10.0 04/09/2025: 8.8, 7.7 03/05/2025: 8.9, 7.2 Vitamin D (Calcitriol) Oral (mcg) 05/12/2025: 1.75 05/09/2025: 1.75 05/07/2025: 1.75 NUTRITION ASSESSMENT Potassium, Albumin 05/07/2025: 5.2, 3.8 04/09/2025: 4.8, 3.9 03/05/2025: 5.1, 3.7 eNPCR 04/23/2025: 1.55 03/26/2025: 1.43 02/19/2025: 1.32 DIAGNOSIS Chief Complaint: N18.6 End stage renal disease Comments: Patient seen and examined. VSS with no complaints to offer. S1, S2, RRR. LS CTA bilaterally. Access patent. Patient is stable. Patient data updated 05/14/2025 at 8:19 AM Signed By: Beverly Hall NP on 05/14/2025 8:19:08 AM documented in this encounter Plan of Treatment Upcoming Encounters Date Type Department Care Team (Late st Contact Info) Description 07/03/2025 9:30 AM EST Office Visit [facility] [address] [place] [address] documented as of this encounter Visit Diagnoses Diagnosis End stage renal disease Dependence on renal dialysis documented in this encounter Care Teams Sports Medicine Coordinator Relationship Specialty [place] [address] [place] [address] PCP - General Domestic Freight Forwarder 11/23/23 documented as of this encounter
--- OUTSIDE RECORDS SUMMARY | 2025-05-14 17:07 | XMS_ITS | Encounter Summary ---
Author Organization [facility] Address [address] [place] [address] Care Team Providers Care Cocktail Waitress Name Role Phone Luis Alberto Miranda Primary Care Provider [phone] Encounter Details Date Type Department Care Team (Late st Contact Info) Description 07/10/2024 Telephone [facility] Endoscopy [address] [place] [address] Linda Newman NP [address] [place] [address] Social History Tobacco Use Types Packs/Day Years [...] Description 05/29/2025 11:15 AM EDT Pre-Admission Testing [facility] Pre Surgical Center [address] [place] [address] 06/12/2025 9:15 AM EDT Hospital Encounter [facility] Operating Room [address] [place] [address] Rosa Johnson MD [address] [place] [address] 06/12/2025 9:15 AM EDT - 06/12/2025 9:55 AM EDT Surgery [facility] Operating Room [address] [place] [address] Rosa Johnson MD [address] [place], [place] [phone] Colonoscopy, Diagnostic, with Possible Moderate Sedation [89026 (CPT )] Scheduled Procedures Name Priority Associated Diagnoses Date/Ti me COLONOSCOPY, DIAGNOSTIC, WITH POSSIBLE MODERATE SEDATION Hemorrhage of rectum and anus 06/12/2025 9:15 AM EDT documented as of this encounter Visit Diagnoses Not on filedocumented in this encounter Care Teams Cocktail Waitress Relationship Specialty Start Date End Date Miranda Sahu [address] [place] [address] PCP - General 01/30/24 documented as of this encounter
--- OUTSIDE RECORDS SUMMARY | 2025-05-14 17:07 | XMS_ITS | Encounter Summary ---
Author Organization [employer] Address [address] [place] [address] Care Team Providers Care Advertisement Compositor Name Role Phone Miranda Sahu MD Primary Care Provider [phone] Encounter Details Date Type Department Care Team (Latest Contact Info) Description 05/13/2025 Travel Social History Tobacco Use Types Packs/Day Years Used Date Smoking Tobacco: Never Smokeless Tobacco: Never Depression Answer Date Recorded Patient Health Questionnaire-9 Score 0 02/04/2025 Patient Health Questionnaire-9 Score 0 02/04/2025 Last PHQ-9: Questionnaire Data Not on file 0 02/04/2025 Housing Stability Answer Date Recorded What is your housing situation today? I have michaelayo still 11/21/[address] you [...] AM EST documented as of this encounter Plan of Treatment Upcoming Encounters Date Type Department Care Team (Late st Contact Info) Description 07/01/2025 11:30 AM EST Office Visit [facility] OPTOMETRY [address] [place] [address] Cynthia Dalton, OD [address] [place] [address] documented as of this encounter Visit Diagnoses Not on filedocumented in this encounter Additional Health Concerns Assessment Noted Time PHQ-9 Depression Total Score: 0 02/05/20 25 11:54 AM EDT documented as of this encounter Care Teams Advertisement Compositor Relationship Specialty Start Date End Date Miranda Sahu MD [address] [place] [address] PCP - General Family Medicine 11/21/23 documented as of this encounter
--- OUTSIDE RECORDS SUMMARY | 2025-05-14 17:07 | XMS_ITS | Encounter Summary ---
Author Organization [facility] Address [address] [place] [address] Phone Care Team Providers Care Grease Renderer Name Role Phone Miranda Sahu MD Primary Care Provider [phone] Reason for Visit * Reason Comments Med Refill Encounter Details Date Type Department Care Team ([facility] [address] Contact Info) Description 09/17/2023 Refill [facility] [address] [place] [phone] Tad Metcalf, [address] [place] [address] Social History Tobacco Use Types Packs/Day Years Used Date Smoking Tobacco: Former Cigarettes Smokeless Tobacco: Never Alcohol Use Standard Drinks/Week [...] Encounters Date Type Department Care Team (Late Contact Info) Description 07/03/2025 9:30 AM EST Office Visit [facility] [address] [place] [address] documented as of this encounter Visit Diagnoses Not on filedocumented in this encounter Care Teams Grease Renderer Relationship Specialty Start Date End Date Miranda Sahu MD [address] [place] [address] PCP - General Real Estate Manager 11/23/23 documented as of this encounter
--- OUTSIDE RECORDS SUMMARY | 2025-05-14 17:07 | XMS_ITS | Clinical Summary ---
Author Organization [facility] Address [address] [place] [address] Care Team Providers Care Place Change Roof Bolter Name Role Phone Miranda Sahu Primary Care Provider [phone] Allergies Active Allergy Reactions Criticality Noted Date Comments Amoxicillin Rash 02/05/2025 Medications amLODIPine (NORVASC) 10 mg tablet Take 10 mg by mouth once a day. 5 Active carvediloL (COREG) 25 mg tablet Take 25 mg by mouth once a day. Active insulin glargine (LANTUS) injection 100 units/mL vial Inject 22 Units under the skin. 5 Active apixaban (ELIQUIS) 2.5 mg tablet Take 1 tablet by mouth 2 times daily. 4 Active atorvastatin (LIPITOR) 40 mg tablet Take 40 mg by mouth. 4 Active clopidogreL (PLAVIX) 75 mg tablet Take 75 mg by mouth daily. 4 Active acetaminophen (TYLENOL) 325 mg tablet Take 2 tablets (650 mg total) by mouth every 6 hours. 5 Active ibuprofen (MOTRIN) 600 mg tablet Take 1 tablet (600 mg total) by mouth every 6 hours. 5 Active polyethylene glycol (COLYTE) solutionIndicat ions:Screen for colon cancer Take according to instructions provided by physician. 4000 mL 5 Active Active Problems Problem Noted Date Diagnosed Date Gangrene of finger of left hand 11/20/2024 Encounters Date Type Department Care Team Description 03/21/2025 Refill [facility] Endoscopy [address] [place] [address] [phone] Rosa Johnson MD Screen for colon cancer (Primary Dx) 03/13/2025 2:00 PM EDT Follow-Up [facility] [address] [place] [address] Brooklynn Hickey MD Gangrene of finger of left hand (HCC) (Primary Dx) 02/28/2025 11:45 AM EDT Anesthesia Event [facility] Operating Room [address] [place] [address] Sundar Parish MD Grzesik, Peter M., DO 02/28/2025 9:20 AM EDT - 02/28/2025 11:40 AM EDT Surgery [facility] Operating Room [address] [place] [address] Brooklynn Hickey MD PARTIAL AMPUTATION, LEFT RING FINGER [59517 (CPT )] 02/28/2025 7:31 AM EDT - 02/28/2025 2:37 PM EDT Hospital Encounter [facility] Operating Room [address] [place] [address] Brooklynn Hickey MD Gangrene of finger of left hand (HCC) Discharge Disposition: Home or Self Care (01) 02/28/2025 Telephone [facility] Colorectal Surgery [address] [place] [address] Compliance Attorney: Jenifer Harvey RN from Last 3 Months Social History Tobacco Use Types Packs/Day Years Used Date Smoking Tobacco: Never Passive Smoke Exposure: Never Smokeless Tobacco: Never Tobacco Cessation:Counseling Given: Not Answered Sex and Gender Information Value Date Recorded Sex Assigned at Male 11/13/2024 11:12 AM EDT Legal Sex Male 10:03 AM EDT Gender Identity Not on file Sexual Orientation Not on file Last Filed Vital Signs Vital Sign Reading Time Taken Comments Blood Pressure 175/62 02/28/2025 2:14 PM EDT Pulse 80 02/28/2025 2:14 PM EDT Temperature 36.5 C (97.7 F) 02/28/2025 2:14 PM EDT Respiratory Rate 14 02/28/2025 2:14 PM EDT Oxygen Saturation 100% 02/28/2025 2:14 PM EDT Inhaled Oxygen Concentration - - Weight 116.1 kg (256 lb) 02/05/2025 2:14 PM EDT Height 172.7 cm (5' 8 ) 02/05/2025 2:14 PM EDT Body Mass Index 38.92 02/05/2025 2:14 PM EDT Plan of Treatment Upcoming Encounters Date Type Department Care Team (Latest Contact Info) Description 05/29/2025 11:15 AM EDT Pre-Admission Testing [facility] [address] [place] [address] 3rd [place] [address] 06/12/2025 9:15 AM EDT Hospital Encounter [facility] Operating Room [address] [place] [address] Rosa Johnson MD [address] [place] [address] 06/12/2025 9:15 AM EDT - 06/12/2025 9:55 AM EDT Surgery [facility] Operating Room [address] [place] [address] Rosa Johnson MD [address] [place] [address] Colonoscopy, Diagnostic, with Possible Moderate Sedation [79291 (CPT )] Scheduled Procedures Name Priority Associated Diagnoses Date/Ti me COLONOSCOPY, DIAGNOSTIC, WITH POSSIBLE MODERATE SEDATION Hemorrhage of rectum and anus 06/12/2025 9:15 AM EDT Health Maintenance Due Date Last Done Comments Cologuard 1970 Colon Cancer Screening 1970 Colonoscopy 1970 FOBT / Fit Test 1970 HIV Screening 1970 Sigmoidoscopy 1970 Hepatitis B Vaccines (1 of 3 - 19+ 3-dose series) 01/25/1988 DTaP,Tdap,and Td Vaccines (1 - Tdap) 1991 Zoster Vaccines (1 of 2) 2019 Alcohol/Substance Use Screening 08/21/2024 Depression Screening and Follow-Up 08/21/2024 Social Drivers of Health Beverly ual Screening 08/21/2024 COVID-19 Vaccine (3 - 2024-2 6 season) 2025 06/29/2021, 10/17/2020 Influenza Vaccine (#1) 2025 , 06/09/2023, 07/02/2007, Additional history exists Diabetes Screening 02/05/2028 02/04/2025, 0 02/04/2025, 11/04/2024, Additional history exists RSV Vaccine (60+ years old a nd patients) (1 - 1-dose 75+ series) 01/25/2044 Hepatitis C Screening Completed 05/14/2024 Pneumococcal Vaccine: 50+ Years Completed 06/04/2024, 09/05/2019, 07/04/2019 Goals Goal Patient Goal Type Associated Problems Recent Progress Patient-Stated? Author Autogenerat ed Goal Care Plan Autogenerated Problem No Jenifer Jimenez, post production assistant * Due to [place] Tynt law, this organization might not be sharing negative HIV tests. Procedure Name Priority Date/Time Associated Diagnosis Comments TISSUE EXAM Routine 02/28/2025 12:46 PM EDT Gangrene of finger of left hand (HCC) IA AMPUTATION FINGER/THUMB 02/28/2025 11:19 AM EDT Gangrene of finger of left hand (HCC) Special Needs trent Child from Last 3 Months Results * Due to [place] Tynt law, this organization might not be sharing negative HIV tests. * Tissue Exam (02/28/2025 12:46 PM EDT) Final Diagnosis Left Distal Ring Finger, Digit Amputation: - Skin and underlying soft tissue with ischemic necrosis and associated necrotizing acute and chronic inflammatory cells. - Underlying bone with osteomyelitis. - Viable resection margin without inflammation. [facility] 03/05/2025 3:22 PM EDT [facility] at 1522 EDT Clinical History Pre-op diagnosis: Gangrene of finger of left hand (HCC) [I96] [facility] 03/05/2025 3:22 PM EDT [facility]OR[facility] Gross Description 1. Finger, Ring Left, Left Distal Ring finger The specimen is received in formalin labeled with the patient's name, date of , medical record number and left distal ring finger and consists of a 4.0 x 2.0 x 2.0 cm digit with a smooth bone resection margin which is inked green. The skin is dusky delaney and wrinkled up to the resection margin. The distalmost aspect is delaney-black and mummified throughout coming to it then 0.7 cm of the skin and soft tissue margin. A player services representative perpendicular cross-section bisected is submitted in cassettes 1A-1B following decalcification. [facility] 03/05/2025 3:22 PM EDT [facility] Gross Description User Grossing complete by Rosa Linares on 03/03/2025 1:44 PM [facility] 03/05/2025 3:22 PM EDT [facility] Embedded Images [facility] 03/05/2025 3:22 PM EDT [facility] Resulting Agency Case was signed out at [facility], Department of Pathology, [employer] 3 CLIA [id number] [facility] 03/05/2025 3:22 PM EDT [facility] Report Header Surgical Pathology Report Case: [id number] Authorizing Provider: Brooklynn Hickey MD Collected: 02/28/2025 1246 Ordering Location: [facility] Received: 02/28/2025 [facility] Operating Room Pathologist: Pepe Chan MD Specimen: Finger, Ring Left, Left Distal Ring finger 03/05/2025 3:22 PM EDT [facility] Tissue Structure of left ring finger / Unknown 02/28/2025 12:46 PM EDT 02/28/2025 3:53 PM EDT Comment:Pre-op diagnosis: Gangrene of finger of left hand (HCC) [I96] us Brooklynn Hickey MD LAB PATHOLOGY/CYTOLOGY ORDERABL ES Final Result [facility] [address] [place] [address], [facility]OLOG[facility] LAB[facility]ORY [address] [place] [address], from Last 3 Months Additional Health Concerns Active Problems Noted Date Diagnosed Date Autogenerated Problem 02/05/[address] [place] [address] [facility] Care Teams Place Change Roof Bolter Relationship Specialty Start Date End Date Miranda Sahu [address] [place] [address] PCP - General 01/30/24
--- OUTSIDE RECORDS SUMMARY | 2025-05-14 17:07 | XMS_ITS | Clinical Summary ---
Author Organization [facility], Address [address] [place] [address] Phone Care Team Providers Care Lockstitch Machine Operator Name Role Phone Miranda Sahu MD Primary Care Provider [phone] Allergies No known active allergies Medications ergocalciferol 1.25 MG (38039 UT) capsule Take 50,000 Units by mouth 1 (one) time per week 3 Active aspirin (ST RADHA) 81 MG EC tablet Take 81 mg by mouth 1 (one) time each day Active insulin glargine (LANTUS) 100 UNIT/ML injection Inject under the skin every night Active Calcium Carbonate Antacid (CALCIUM CARBONATE PO) Take 500 mg by mouth in the morning and 500 mg at noon and 500 mg in the evening. 9 Active cinacalcet (SENSIPAR) 30 MG tablet TAKE 1 TABLET BY MOUTH ON MONDAYS, WEDNESDAYS AND FRIDAYS AFTER DIALYSIS 3 Active amLODIPine (NORVASC) 5 MG tablet Take 1 tablet (5 mg total) by mouth 1 (one) time each day 90 tablet 3 4 Active carvedilol (Coreg) 25 MG tablet Take 1 tablet (25 mg total) by mouth in the morning and 1 tablet (25 mg total) in the evening. Take with meals. 180 tablet 3 4 Active atorvastatin (LIPITOR) 40 MG tablet Take 40 mg by mouth 1 (one) time each day Active citalopram (CeleXA) 10 MG tablet Take 10 mg by mouth 1 (one) time each day Active gabapentin (NEURONTIN) 100 MG capsule Take 100 mg by mouth in the morning and 100 mg in the evening. Active insulin detemir (LEVEMIR) 100 UNIT/ML injection Inject under the skin every night Active losartan (COZAAR) 50 MG tablet Take 50 mg by mouth 1 (one) time each day Active APIXABAN PO Take 2.5 mg by mouth in the morning and 2.5 mg in the evening. Active losartan (COZAAR) 50 MG tablet Take 50 mg by mouth 1 (one) time each day Active amoxicillin (AMOXIL) 500 MG capsule Take 1 capsule (500 mg total) by mouth in the morning and 1 capsule (500 mg total) in the evening. 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 06/03/2024 Obesity, class 1 06/03/2024 Adjustment disorder with depressed mood 05/28/20 Ischemic cardiomyopathy 01/12/2024 Non-ST elevation (NSTEMI) myocardial infarction 01/12/2024 Gangrenous disorder 11/22/2023 Other chronic osteomyelitis, left ankle and foot 11/22/2023 Overview (11/23/2023): Last Assessment & Plan: Seeing vascular tomorrow Eliquis management per them Continue Plavix/ASA with dc Wound care consult to [facility] for ongoing dressing changes Type 2 diabetes mellitus with foot ulcer 024 Type 2 diabetes mellitus 07/18/2023 Hypertension 07/18/2023 Bilateral cataracts 07/18/2023 End stage renal disease 07/17/2023 07/17/20 23 Anemia in chronic kidney disease 10/06/2022 Hypotension of hemodialysis 10/06/2022 Iron deficiency anemia 10/06/2022 Secondary hyperparathyroidism of renal origin Systolic heart failure 02/06/2019 Stage 5 chronic kidney disease 02/06/2019 Renal disorder due to type 2 diabetes mellitus 0 02/06/2019 Cataract 06/16/2018 Encounters Date Type Department Care Team Description 05/14/2025 Treatment [facility], [address] [place] [address] Beverly Hall, CHRISTINA End stage renal disease; Dependence on renal dialysis 05/07/2025 Orders Only [facility] [address] [address] Tad Metcalf, 05/07/2025 Treatment [facility], [address] [place] [address] Beverly Hall APRN End stage renal disease; Dependence on renal dialysis 04/30/2025 Orders Only [facility] [address] [address] Tad Metcalf, 04/30/2025 Treatment [facility], [address] [place] [address] Tad Metcalf, End stage renal disease; Dependence on renal dialysis 04/23/2025 Orders Only [facility] [address] [address] Tad Metcalf, 04/23/2025 Treatment [facility] [address] [place] [address] Beverly Hall APRN End stage renal disease; Dependence on renal dialysis 04/16/2025 Orders Only [facility] [address] [address] Tad Metcalf, 04/16/2025 Treatment [facility], [address] [place] [address] Beverly Hall APRN End stage renal disease; Dependence on renal dialysis 04/11/2025 Documentation Only [facility], [address] [place] [address] Emily Wilcox MA 04/09/2025 Orders Only [facility] [address] [address] Tad Metcalf, 04/09/2025 Treatment [facility], [facility] [address] [place] [address] Beverly Hall APRN End stage renal disease; Dependence on renal dialysis 04/04/2025 Treatment [facility], [facility] [address] [place] [address] Beverly Hall APRN End stage renal disease; Dependence on renal dialysis 04/02/2025 Orders Only [facility] [address] [address] Tad Metcalf, 03/26/2025 Orders Only [facility] [address] [address] Tad Metcalf, DO 03/26/2025 Treatment [facility], [address] [place] [address] Tad Metcalf, End stage renal disease; Dependence on renal dialysis 03/19/2025 Orders Only [facility] [address] [address] Tad Metcalf, 03/17/2025 Treatment [facility], [address] [place] [address] Beverly Hall APRN End stage renal disease; Dependence on renal dialysis 03/12/2025 Orders Only [facility] [address] [address] Tad Metcalf, DO 03/12/2025 Treatment [facility] [address] [place] [address] Beverly Hall APRN End stage renal disease; Dependence on renal dialysis 03/05/2025 Orders Only [facility] [address] [address] Tad Metcalf, DO 03/04/2025 9:30 AM EDT Office Visit [facility] - [facility] [address] [place] [address] [place] [address] Hemant Castillo MD End stage renal disease (HCC) (Primary Dx) 03/03/2025 Treatment [facility] [address] [place] [address] Tad Metcalf DO End stage renal disease; Dependence on renal dialysis 02/26/2025 Orders Only [facility] [address] [address] Tad Metcalf DO 02/19/2025 Treatment [facility] [address] [place] [address] Tad Metcalf DO End stage renal disease; Dependence on renal dialysis 02/19/2025 Orders Only [facility] [address] [address] Tad Metcalf, 02/12/2025 Orders Only [facility] [address] [address] Tad Metcalf DO 02/12/2025 Treatment [facility], [address] [place] [address] Beverly Hall APRN End stage renal disease; Dependence on renal dialysis from Last 3 Months Social History Tobacco Use Types Packs/Day Years Used Date Smoking Tobacco: Never Smokeless Tobacco: Never Tobacco Cessation:Counseling Given: Not Answered Alcohol Use Standard Drinks/Week Comments Not Currently 0 (1 standard drink = 0.6 oz pur e alcohol) Sex and Gender Information Value Date Recorded Sex Assigned at Not on file Legal Sex Male 11:32 AM EDT Gender Identity Not on file Sexual Orientation Not on file Last Filed Vital Signs Vital Sign Reading Time Taken Comments Blood Pressure 126/50 12/03/2024 8:20 AM EDT Pulse 70 12/03/2024 8:20 AM EDT Temperature 36.7 C (98.1 F) 12/03/2024 8:20 AM EDT Respiratory Rate 14 12/03/2024 8:20 AM EDT Oxygen Saturation 97% 12/03/2024 8:20 AM EDT Inhaled Oxygen Concentration - - Weight 96 kg (211 lb 10.3 oz) 12/03/2024 8:20 AM EDT Height 172.7 cm (5' 8 ) 12/03/2024 8:20 AM EDT Body Mass Index 32.18 12/03/2024 8:20 AM EDT Plan of Treatment Upcoming Encounters Date Type Department Care Team (Late st Contact Info) Description 07/03/2025 9:30 AM EST Office Visit [facility] [address] [place] [address] Health Maintenance Due Date Last Done Comments Hepatitis B Vaccine (1 of 5 - Risk Dialysis 4-dose series) 1989 Colorectal Cancer Screening: Annual FOBT 2018 Colorectal Cancer Screening: Colonoscopy 2018 Colorectal Cancer Screening: Sigmoidoscopy 2018 Diabetes: Pedal Pulse Checked 07/18/2023 Diabetes: Sensory Foot Exam 07/18/2023 Diabetes: Visual Foot Exam 07/18/2023 Influenza Vaccine (#1) 2025 06/03/2024, 2022 Diabetes: Hemoglobin A1C 07/10/2025 025, 02/04/2025, 01/08/2025, Additional history exists Diabetes: Ophthalmology Exam 05/13/2026 05/13/2025, 04/01/2025 Pneumococcal Vaccine: 50+ Years Completed 06/04/2024, 09/05/2019, 07/04/2019 Pneumococcal Vaccine: Peds ( 0 to 5 Years) and At-Risk Patients (6 to 49 Years) Discontinued 06/04/2024, 09/05/2019, 07/04/2019 Procedures Procedure Name Priority Date/Time Associated Diagnosis Comments CHEMISTRY Routine 05/07/2025 IMMUNO CHEMISTRY Routine 05/07/2025 CHEMISTRY Routine 05/07/2025 HEMATOLOGY Routine 05/07/2025 HEMATOLOGY Routine 04/30/2025 [facility] RESULTS Routine 04/23/2025 HD KINETICS Routine 04/23/2025 CHEMISTRY Routine 04/23/2025 POST CHEMISTRY Routine 04/23/2025 HEMATOLOGY Routine 04/23/2025 HEMATOLOGY Routine 04/16/2025 SPECIAL CHEMISTRY Routine 04/09/2025 IMMUNO CHEMISTRY Routine 04/09/2025 CHEMISTRY Routine 04/09/2025 CHEMISTRY Routine 04/09/2025 HEMATOLOGY Routine 04/09/2025 HEMATOLOGY Routine 04/02/2025 [facility] LAB RESULTS Routine 03/26/2025 HD KINETICS Routine 03/26/2025 POST CHEMISTRY Routine 03/26/2025 CHEMISTRY Routine 03/26/2025 HEMATOLOGY Routine 03/26/2025 HEMATOLOGY Routine 03/19/2025 HEMATOLOGY Routine 03/12/2025 IMMUNO CHEMISTRY Routine 03/05/2025 CHEMISTRY Routine 03/05/2025 CHEMISTRY Routine 03/05/2025 HEMATOLOGY Routine 03/05/2025 HEMATOLOGY Routine 02/26/2025 [facility] LAB RESULTS Routine 02/19/2025 HD KINETICS Routine 02/19/2025 POST CHEMISTRY Routine 02/19/2025 CHEMISTRY Routine 02/19/2025 HEMATOLOGY Routine 02/19/2025 HEMATOLOGY Routine 02/12/2025 from Last 3 Months Results * IMMUNO CHEMISTRY (05/07/2025) Only the most recent of3 resultswithin the time period is included. Hep B Surface Ag Negative Negative [facility] 05/07/2025 05/08/2025 9:2 7 AM EDT Narrative Resulting Agency Comment Specimen source: [employer] LAB BLOOD ORDERABLES Final Resu Performing Organization Address [facility] de Phone Number [facility] [facility] See order comments or contact performing lab Unknown, [place] * (ABNORMAL) HEMATOLOGY (05/07/2025) Only the most recent of13 resultswithin the time period is included. Hemoglobin 9.5(L) 14.0 - 18.0 g/dL [facility] Hemoglobin x 3 28.5(L) 42.0 - 54.0 % [facility] 05/07/2025 05/08/2025 9:5 4 AM EDT Narrative [facility] - 05/08/2025 Unless otherwise specified, test(s) performed at: [facility], [address] [place] [id number] BUFFING WHEEL PRESSER: Vincent Luther M.D. For any questions, please call customer service at FREQUENCY:MONTHLY Resulting Agency Comment Specimen source: Blood [employer] [facility] LAB BLOOD ORDERABLES Final Resu lt Performing Organization Address City/[facility]/ZIP Co de Phone Number [employer] See order comments or contact performing lab Unknown, [place] * (ABNORMAL) [facility] (05/07/2025) Only the most recent of9 resultswithin the time period is included. PTH 655(H) 16 - 80 pg/mL [facility] 05/07/2025 05/08/2025 10: 00 AM EDT Narrative [facility] - 05/08/2025 Unless otherwise specified, test(s) performed at: [facility], [address] [place] [address] BUFFING WHEEL PRESSER: Vincent Luther M.D. For any questions, please call customer service at FREQUENCY:MONTHLY Resulting Agency Comment Specimen source: Plasma [employer] LAB BLOOD ORDERABLES Final Resu lt Performing Organization Address [facility] Co de Phone Number [employer] See order comments or contact performing lab Unknown, [place] * HD KINETICS (04/23/2025) Only the most recent of3 resultswithin the time period is included. % Urea Reduction 76 65 - 80 % [facility] 04/23/2025 04/25/2025 12: 04 PM EDT Narrative [facility] - 04/25/2025 Unless otherwise specified, test(s) performed at: [facility] [address] BUFFING WHEEL PRESSER: Vincent Luther M.D. For any questions, please call customer service at FREQUENCY:OTHER Resulting Agency Comment Specimen source: Plasma [employer] [facility] LAB BLOOD ORDERABLES Final Resu lt [facility] See order comments or contact performing lab Unknown, [place] * (ABNORMAL) POST CHEMISTRY (04/23/2025) Only the most recent of3 resultswithin the time period is included. BUN Post Dialysis 21(H) 6 - 19 mg/dL [facility] 04/23/2025 04/25/2025 12: 04 PM EDT Narrative [facility] - 04/25/2025 Unless otherwise specified, test(s) performed at: [facility], [address] [place] [address] BUFFING WHEEL PRESSER: Vincent Luther M.D. For any questions, please call customer service at FREQUENCY:OTHER Resulting Agency Comment Specimen source: Plasma Tad Metcalf DO LAB BLOOD ORDERABLES Final Resu lt [facility] See order comments or contact performing lab Unknown, [place] * [facility] Lab Results (04/23/2025) Only the most recent of3 resultswithin the time period is included. Pathologist [facility] eKdrt/V 1.60 [facility] PCR 113.49 [facility] eNPCR 1.55 [facility] eKt/V Gotch 1.60 [facility] nPCR_HD 1.66 [facility] eKt/V ([place]) 1.53 [facility] spKt/V (Daugirdas II) 1.75 [facility] WSTDKT/V 2.6 [facility] spKt/V Gotch 1.84 [facility] 04/23/2025 04/23/2025 [facility] Ordering Provider LAB BLOOD ORDERABLES Final Result Performing Organization Address City/[facility]/ZIP Co de Phone Number [facility] Contact Performing lab Unknown, [place] * (ABNORMAL) SPECIAL CHEMISTRY (04/09/2025) Pathologist [facility] Hemoglobin A1C 7.7(H) 4.8 - 5.9 % [facility] 04/09/2025 04/11/2025 7:5 5 AM EDT Narrative [facility] - 04/11/2025 Unless otherwise specified, test(s) performed at: [facility], [address] [place], [place] [id number] BUFFING WHEEL PRESSER: Vincent Luther M.D. For any questions, please call customer service at FREQUENCY:MONTHLY Resulting Agency Comment Specimen source: Blood Tad Metcalf DO LAB BLOOD BANK TEST ORDERABLES Final Result [facility] See order comments or contact performing lab Unknown, [place] from Last 3 Months Insurance [place] Care Teams Lockstitch Machine Operator Relationship Specialty Start Date End Date Miranda Sahu MD [address] [place] [address] PCP - General Technical Testing Engineer 11/23/23
--- OUTSIDE RECORDS SUMMARY | 2025-05-14 17:07 | XMS_ITS | Encounter Summary ---
Author Organization [facility], Address [address] [place] [address] Phone Care Team Providers Care Boiler Helper Name Role Phone Miranda Sahu MD Primary Care Provider [phone] Encounter Details Date Type Department Care Team (Late st Contact Info) Description 01/20/2025 Documentation Only [facility] [address] [place] [address] Tad Metcalf [address] [facility] [place] [address] Social History Tobacco Use Types [...] Visit [facility], - Vascular Access Center [address] [place] [address] documented as of this encounter Visit Diagnoses Not on filedocumented in this encounter Care Teams Boiler Helper Relationship Specialty Start Date End Date Miranda Sahu MD [address] [place] [address] PCP - General Pump House Engineer 11/23/23 documented as of this encounter
--- OUTSIDE RECORDS SUMMARY | 2025-05-14 17:07 | XMS_ITS | Encounter Summary ---
Author Organization [email or web address] Address [address] [place] [address] Care Team Providers Care Inspector And Adjuster Golf Club Head Name Role Phone Miranda Sahu MD Primary Care Provider [phone] Encounter Details Date Type Department Care Team (Latest Contact Info) Description 05/12/2025 Travel Social History Tobacco Use Types Packs/Day [...] Description 07/01/2025 11:30 AM EST Office Visit [facility] OPTOMETRY [address] [place] [address] Cynthia Dalton, OD [address] [place] [address] documented as of this encounter Visit Diagnoses Not on filedocumented in this encounter Additional Health Concerns Assessment Noted Time PHQ-9 Depression Total Score: 0 02/05/20 25 11:54 AM EDT documented as of this encounter Care Teams Inspector And Adjuster Golf Club Head Relationship Specialty Start Date End Date Miranda Sahu MD [address] [place] [address] PCP - General Family Medicine 11/21/23 documented as of this encounter
--- OUTSIDE RECORDS SUMMARY | 2025-05-14 17:07 | XMS_ITS | Encounter Summary ---
Author Organization [employer] Address [address] [facility] [address] [place] [address] Care Team Providers Care Communication Instructor Name Role Phone Miranda Sahu MD Primary Care Provider [phone] Reason for Visit * Reason Comments Med Change Request Encounter Details Date Type Department Care Team ([facility] Contact Info) Description 11/05/2024 Refill [facility] MEDICINE [address] [place] [address] Miranda Sahu MD [address] [place], [place] [phone] Gangrene of finger of left hand (CMS/HCC) Social History Tobacco Use Types Packs/Day Years Used Date Smoking Tobacco: Never Smokeless Tobacco: Never Depression Answer Date Recorded Patient Health Questionnaire-9 Score 8 11/21/2023 Patient Health Questionnaire-9 Score 8 11/21/2023 Last PHQ-9: Questionnaire Data Not on file 0 11/21/2023 Housing Stability Answer Date Recorded What is [...] Answer Date Recorded Patient Health Questionnaire-2 Score 4 11/21/2023 Internet Access Answer Date Recorded Internet Access [...] Description 07/01/2025 11:30 AM EST Office Visit [facility] OPTOMETRY [address] [place] [address] Cynthia Dalton, OD [address] [place] [address] documented as of this encounter Visit Diagnoses Diagnosis Gangrene of finger of left hand (CMS/HCC) documented in this encounter Additional Health Concerns Assessment Noted Time PHQ-9 Depression Total Score: 8 11/21/19 24 10:26 AM EDT documented as of this encounter Care Teams Communication Instructor Relationship Specialty Start Date End Date Miranda Sahu MD [address] [place] [address] PCP - General Family Medicine 11/21/23 documented as of this encounter
--- OUTSIDE RECORDS SUMMARY | 2025-05-14 17:07 | XMS_ITS | Encounter Summary ---
Author Organization [facility] Address [address] [place] [address] Care Team Providers Care Virtual Office Assistant Name Role Phone Luis Alberto Miranda Primary Care Provider [phone] Encounter Details Date Type Department Care Team (Late st Contact Info) Description 07/10/2024 Telephone [facility] Endoscopy [address] [place] [address] Linda Newman NP [address] [place] [address] Social History Tobacco Use Types Packs/Day Years [...] Description 05/29/2025 11:15 AM EDT Pre-Admission Testing [facility] [address] [place] [address] 06/12/2025 9:15 AM EDT Hospital Encounter [facility] Operating Room [address] [place] [address] Rosa Johnson MD [address] [place] [address] 06/12/2025 9:15 AM EDT - 06/12/2025 9:55 AM EDT Surgery [facility] Operating Room [address] [place] [address] Rosa Johnson MD [address] [place], [place] [phone] Colonoscopy, Diagnostic, with Possible Moderate Sedation [18451 (CPT )] Scheduled Procedures Name Priority Associated Diagnoses Date/Ti me COLONOSCOPY, DIAGNOSTIC, WITH POSSIBLE MODERATE SEDATION Hemorrhage of rectum and anus 06/12/2025 9:15 AM EDT documented as of this encounter Visit Diagnoses Not on filedocumented in this encounter Care Teams Virtual Office Assistant Relationship Specialty Start Date End Date Miranda Sahu [address] [place] [address] PCP - General 01/30/24 documented as of this encounter
--- OUTSIDE RECORDS SUMMARY | 2025-05-14 17:07 | XMS_ITS | Encounter Summary ---
Author Organization [employer] Address [address] [facility] 7t [place] [address] Care Team Providers Care Real Estate Broker Name Role Phone Miranda Sahu MD Primary Care Provider [phone] Reason for Visit * Reason Onset Date Comments Chart Prep 05/12/2025 Encounter Details Date Type Department Care Team ([facility] st Contact Info) Description 05/12/2025 Telephone [facility] MEDICINE [address] [place], [place] [phone] Miranda Sahu MD [address] [place] [address] Chart Prep Social History Tobacco Use Types Packs/Day Years [...] AM EST documented as of this encounter Miscellaneous Notes * Telephone Encounter - Ashtyn Ambriz [place] - 05/12/2025 12:35 PM EDT Chart Prep Labs: done 05/07/25 Images: done 04/01/25 [facility] optometry Referrals: [facility] ophthalmology 05/13/25 at 2pm Vaccines due: Covid, Flu, Tdap, Hep B, and Zoster Screenings: colonoscopy, Lipid panel, foot exam, Hep C Overdue care gaps: A1c, Glucose, and Disability screen documented in this encounter Plan of Treatment Upcoming Encounters Date Type Department Care Team (Late st Contact Info) Description 07/01/2025 11:30 AM EST Office Visit [facility] OPTOMETRY [address] [place] [address] Cynthia Dalton, OD [address] [place] [address] documented as of this encounter Visit Diagnoses Not on filedocumented in this encounter Additional Health Concerns Assessment Noted Time PHQ-9 Depression Total Score: 0 02/05/20 11:54 AM EDT documented as of this encounter Care Teams Real Estate Broker Relationship Specialty Start Date End Date Miranda Sahu MD [address] [place] [address] PCP - General Family Medicine 11/21/23 documented as of this encounter
== END 2025-05-14 14:25 | disposition home or self-care (01) ==
LOC: HO.US 14:24
PROVIDERS: PCP General Practice; Visit Provider General Practice
DX: R10.11 Right upper quadrant pain (principal)
CPT/HCPCS: 76700

== ENCOUNTER → 2025-05-14 14:30 | Outpatient (BNV) | payer MEDICAID, SELFPAY | PROVIDERS: PCP General Practice; Visit Provider Radiology Diagnostic Radiology | DX: R16.0 Hepatomegaly, not elsewhere classified (principal); K76.0 Fatty (change of) liver, not elsewhere classified | CPT/HCPCS: 76700 ==